=== PATIENT | male | born 1980 | race African-American/Black ===

== ENCOUNTER 2021-05-21 10:28 | Emergency (ER) | payer OTHER, SELFPAY ==
[2021-05-21 10:43] VITALS: BP 120/55; PULSE 91; RESP 16; TEMP 36.2; O2SAT 97; BMI 22.0
--- NOTE | 2021-05-21 12:35 | ED_ITS ---
HPI - Psych General Chief Complaint: Psychiatric Symptoms Stated Complaint: CRISIS/SECTION 12 Time Seen by Provider: 05/21/21 13:20 Source: patient Mode of arrival: ambulatory Limitations: no limitations History of Present Illness HPI Narrative: patient was sent to ED because he was hitting his head on the wall. Patient states when he is frustrated with the situation he bangs his head on the wall as a coping mechanism. Patient denies any suicidal or homicidal ideation. Patient denies any auditory / visual hallucination. Patient states he is compliant with his psych medications and has not missed any therapist appointment. Patient states he was just frustrated with his and just went to his coping mechanism to stay calm. Patient states no physical complaint Related Data Allergies Allergy/AdvReac Type Severity Reaction Status Date / Time No Known Allergies Allergy Verified 05/21/21 13:20 Review of Systems Review of Systems: Yes all other systems are reviewed and are negative Constitutional: Constitutional: Reports as per HPI and Reports no additional constitutional complaints Eyes: Eyes: Reports as per HPI and Reports no additional eye complaints ENT: Reports system reviewed and no additional complaints, except as documented and Reports as per HPI Cardiovascular: Cardiovascular: Reports as per HPI and Reports no additional cardiovascular complaints Respiratory: Respiratory: Reports as per HPI and Reports no additional respiratory complaints Gastrointestinal: Gastrointestinal: Reports as per HPI and Reports no additional gastrointestinal complaints Genitourinary: Genitourinary: Reports no additional male genitourinary complaints and Reports as per HPI Musculoskeletal: Musculoskeletal: Reports no additional musculoskeletal complaints and Reports as per HPI Neurologic: Reports system reviewed and no additional complaints, except as documented and Reports as per HPI Psychiatric: Psychiatric: Reports no additional psychiatric complaints and Reports as per HPI [facility] Social History Social History Advance Directives: No Advance Directives Information Provided: No Physical Exam Vital Signs: Vital Signs: Last Vital Signs Temp 97.2 F 05/21/21 10:43 Pulse 91 05/21/21 10:43 Resp 16 05/21/21 10:43 BP 120/55 L 05/21/21 10:43 Pulse Ox 97 05/21/21 10:43 Body Mass Index 22.0 Const: General: cooperative, healthy appearing, comfortable, no acute distress, well developed, alert and awake Orientation/consciousness: patient oriented x3 HENMT: Head: Yes normal to inspection, Yes No palpable skull fracture present, Yes normocephalic, Yes atraumatic, No abrasion, No Acrocyanosis present, No Henriquez's sign, No contusion, No cranial bruits, No hematoma, No laceration, No occipital foramen tenderness, No palpable skull fracture, No raccoon eyes, No scalp lesion, No scalp tenderness, No Temporal artery tenderness present and No periorbital ecchymosis Ears: hearing grossly normal bilaterally, external ears normal, TM's normal bilaterally and EAC's normal Face and sinus: Yes normal facial exam, Yes sinuses nontender and Yes face symmetric Throat: Yes posterior oropharynx normal, Yes tonsils normal and Yes uvula midline Eyes: General: appearance normal, both eyes and all related structures Neck: Neck: Yes normal visual inspection, Yes full ROM, Yes no lymphadenopathy, Yes no meningeal signs, Yes trachea midline, Yes supple and No tender Chest: Chest palpation & inspection: normal inspection of the chest and normal palpation of entire chest wall Resp: Effort & Inspection: normal respiratory effort and able to speak in complete sentences Auscultation: clear to auscultation bilaterally Cardio: Jugular venous distension: no JVD Heart sounds: S1 normal heart sound present and S2 normal heart sound present GI: Inspection: Yes normal to inspection and No abdominal wall ecchymosis Palpation (GI): Soft to palpation, not firm, nontender, no guarding and not rigid : General: No CVA tenderness and Yes no CVA tenderness Back/Spine/Pelvis: Back: no CVA tenderness, No CVA tenderness and No back tenderness Skin: General skin exam: no rashes or lesions noted and elasticity normal Neuro: General: patient oriented x3, gait normal, no meningeal signs and CN's II-XI intact bilaterally Cranial nerves: Yes CN's II-XII intact bilaterally Extrem: General: Yes normal to inspection and Yes full ROM Psych: Appearance: grossly normal, well kempt and not disheveled Course Course Course Narrative: no indication for labs or BHS evaluation. I believe patient could be seen by care team consulting. Reevaluation(s) Reevaluation #1: patient seen by care team consulted Viridiana who does not believe patient needs inpatient and can be safely discharged. I agree with plan. Patient is not suicidal or homicidal. patient is not manic or psychotic. Time: 14:11 MDM - Psych MDM Narrative Medical decision making narrative: Bipolar. Behavior issues Discharge Plan Discharge Clinical Impression: Bipolar disorder, Behavioral problem Patient Disposition: Home, Self-Care Instructions: Bipolar Disorder (ED) Additional Instructions: return to the ED immediately for any suicidal / homicidal ideation, auditory / visual hallucinations, any physical complaints, or any other concerning symptoms. Please follow-up with PCP Interventions: ED Discharge Assessment Last Done: 05/21/21 15:18 Discharge Date/Time: 05/21/21 15:19 Print Language: Persian
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
== END 2021-05-21 15:19 | disposition home or self-care (01) ==
PROVIDERS: Emergency Provider Emergency Medicine Emergency Medical Services
DX: F31.9 Bipolar disorder, unspecified (principal); Z79.899 Other long term (current) drug therapy
CPT/HCPCS: 99283

== ENCOUNTER 2021-06-25 02:13 | Emergency (ER) | payer OTHER, SELFPAY ==
[2021-06-25 02:22] VITALS: BP 104/77; PULSE 96; RESP 18; O2SAT 97; BMI 24.3
--- NOTE | 2021-06-25 02:48 | ED_ITS ---
HPI - Psych General Chief Complaint: Psychiatric Symptoms <Maria Teresa Olivera MD - Last Filed: 06/25/21 02:55> Stated Complaint: CRISIS <Maria Teresa Olivera MD - Last Filed: 06/25/21 02:55> Time Seen by Provider: 06/25/21 02:48 <MD Chinedu Engle Last Filed: 06/25/21 02:55> Source: patient and EMS <Maria Teresa Olivera MD - Last Filed: 06/25/21 02:55> Mode of arrival: EMS <Maria Teresa Olivera MD - Last Filed: 06/25/21 02:55> Limitations: no limitations <MD Chinedu Engle Last Filed: 06/25/21 02:55> History of Present Illness HPI Narrative: 40-year-old male came in by EMS for psych evaluation. This is a 40-year-old male came in from, patient was irritated by the mother of his child could not control his anger start to Bang his head on the wall, family call PD who filed Section 12 on the patient and brought the patient to the ED. patient in the emergency department is cone, decline SI or HI, declined being auditory or visual hallucination. <Maria Teresa Olivera MD - Last Filed: 06/25/21 02:55> Related Data Home Medications: Home Medications Medication Instructions Recorded Confirmed divalproex 500 mg tablet,delayed 1 tab PO BID 06/25/21 06/25/21 release hydroxyzine pamoate 50 mg capsule 1 cap PO DAILY PRN 06/25/21 06/25/21 lurasidone 60 mg tablet (Latuda) 1 tab PO BEDTIME 06/25/21 06/25/21 temazepam 30 mg capsule 1 cap PO BEDTIME PRN 06/25/21 06/25/21 <Maria Teresa Olivera MD - Last Filed: 06/25/21 02:55> Allergies/Adverse Reactions: Allergies Allergy/AdvReac Type Severity Reaction Status Date / Time No Known Allergies Allergy Verified 05/21/21 13:20 <MD Chinedu Engle Last Filed: 06/25/21 02:55> Review of Systems Review of Systems: All other systems are reviewed and are negative Constitutional: Reports as per HPI and Reports no additional constitutional complaints Eyes: Reports as per HPI and Reports no additional eye complaints Reports system reviewed and no additional complaints, except as documented Cardiovascular: Reports as per HPI and Reports no additional cardiovascular complaints Respiratory: Reports as per HPI and Reports no additional respiratory complaints Gastrointestinal: Reports as per HPI and Reports no additional gastrointestinal complaints Genitourinary: Reports no additional female genitourinary complaints Musculoskeletal: Reports no additional musculoskeletal complaints Skin/Breast: Reports system reviewed and no additional complaints, except as docu Psychiatric: Reports no additional psychiatric complaints Endocrine: Reports no additional endocrine complaints Hematologic/Lymphatic: Reports no additional hematologic/lymphatic complaints Allergic/Immunologic: Reports no additional allergic/immunologic complaints Reports system reviewed and no additional complaints, except as documented and Reports Abnormal speech present <Maria Teresa Olivera MD - Last Filed: 06/25/21 02:55> [facility] Social History Social History: Social History Advance Directives: No Advance Directives Information Provided: Yes <Maria Teresa Olivera MD - Last Filed: 06/25/21 02:55> Physical Exam Vital Signs: Vital Signs: Last Vital Signs Temp 98.1 F 06/25/21 02:49 Pulse 96 06/25/21 02:22 Resp 18 06/25/21 02:22 BP 104/77 06/25/21 02:22 Pulse Ox 97 06/25/21 02:22 Body Mass Index 24.3 Vital signs have been reviewed as appeared to be correct. Blood pressure normal. Heart rate normal. Respiration rate normal. Temperature normal. Oxygen saturation normal. <Maria Teresa Olivera MD - Last Filed: 06/25/21 02:55> Vital Signs: Last Vital Signs Temp 98.1 F 06/25/21 02:49 Pulse 96 06/25/21 02:22 Resp 18 06/25/21 02:22 BP 104/77 06/25/21 02:22 Pulse Ox 97 06/25/21 02:22 Body Mass Index 24.3 <CONNIE Rosas - Last Filed: 06/25/21 09:27> Appearance: Alert. Oriented X3. No acute distress. Head: Normal external exam. Normocephalic. Atraumatic. No Henriquez signs noted. No raccoon eyes noted Eyes: PERRLA. EOMI. Conjunctiva and sclera normal. Eyelids normal. ENT: TM's Normal. Pharynx normal. Uvula midline. Moist mucous membranes. No trismus noted. No drooling noted. No muffled voice noted. Neck: Normal inspection. Neck supple. FROM. No adenopathy. Thyroid Normal. No meningeal signs. No neck mass noted. CVS: Normal heart rate and rhythm. Heart sound normal. No murmurs noted. Pulses normal throughout. Respiratory: No respiratory distress. Painless inspiration. Breath sounds normal. No wheezes/rales/rhonchi noted. Chest nontender. No accessory muscle usage noted or decreased air movement noted. Abdomen: Soft and nontender. Bowel sounds normal in all 4 quadrants. No distention noted. No organomegaly noted. No visible injury noted. Back: No CVA tenderness. Full range of motion noted. Skin: Skin warm and dry. Normal skin color. Normal skin turgor. No rash es/lesions/lacerations noted. Extremities: No lower extremity edema. Extremities exhibit normal range of motion. Extremities nontender. Neuro: Oriented X 3. No motor deficit. No sensory deficit. Reflexes normal. Patient Appearance: Appropriate Patient Orientation: Person, Place, Time and Situation Level of Consciousness: Awake, Appropriate and Alert Patient Behavior: Talkative, Cooperative. Mood Description: Depressed. Affect Description: Flat. Patient Cognition Impaired: No Ability to Follow Directions: Good Speech Pattern: Spontaneous Speech Memory Description: Intact Hallucinations: Not present. Delusions: Not Present Thought Process: Logical. Thought Content: Unremarkable Depressive Symptoms: Increased anxiety. Judgement: Fair <Maria Teresa Olivera MD - Last Filed: 06/25/21 02:55> Course Course Course Narrative: Physician observation started at 3:00 am. Patient placed in physician observation because the patient needed more time for evaluation by N, patient's vital sign were stable, patient is alert and oriented , neuro exam unchanged, unremarkable rest of physical exam. <Maria Teresa Olivera MD - Last Filed: 06/25/21 02:55> MDM - Psych Lab Data Result diagrams: : 06/25/21 08:54 <Maria Teresa Olivera MD - Last Filed: 06/25/21 02:55> Labs: Lab Results 06/25/21 06/25/21 06/25/21 Range/Units 02:56 06:19 06:19 WBC (4.8-10.8) X10*3/uL RBC (4.60-5.80) X10*6/uL Hgb (14.0-18.0) g/dl Hct (42-52) % MCV (80-98) fL MCH (27.0-33.0) pg MCHC (31.0-36.0) g/dl RDW (11.0-16.0) % Plt Count (160-400) X10*3/uL MPV (9.4-12.4) fL Immature Gran % (Auto) (0.0-0.4) % Neut % (Auto) (45-73) % Lymph % (Auto) (20-40) % [place] % (Auto) (2-11) % Eos % (Auto) (0-4) % Baso % (Auto) (0-2) % Lymph # (Auto) (1.2-4.9) X10*3/uL [place] # (Auto) (0.1-1.2) X10*3/uL Eos # (Auto) (0.0-0.4) X10*3/uL Baso # (Auto) (0.0-0.2) X10*3/uL Abs Immat Gran (auto) (0.00-0.03) X10*3/uL Absolute Neuts (auto) (2.0-8.3) X10*3/uL Absolute Nucleated RBC (0.0-0.012) X10*3/uL Nucleated RBC % (auto) (0.0-0.2) /100WBC Magnesium Urine Color DARK YELLOW Urine Appearance HAZY Urine pH 6.0 (5.0-8.0) Ur Specific [place] >= 1.030 H (1.005-1.025) Urine Protein 1+ H (NEG-TRACE) MG/DL Urine Glucose (UA) NEG (NEG) MG/DL Urine Ketones 15 (NEG) MG/DL Urine Blood NEG (NEG) Urine Nitrite NEG (NEG) Ur Leukocyte Esterase TRACE H (NEG) Urine RBC 0-2 (0) /HPF Urine WBC 30-49 H (0-4) /HPF Ur Squamous Epith Cells 1+ /LPF Urine Bacteria 1+ /LPF Urine Mucus 3+ /LPF Urine Opiates Screen Not Detected (Not Detect) Ur Barbiturates Screen Not Detected (Not Detect) Ur Phencyclidine Scrn Not Detected (Not Detect) Ur Amphetamines Screen Not Detected (Not Detect) U Benzodiazepines Scrn POSITIVE H (Not Detect) Urine Cocaine Screen Not Detected (Not Detect) U Marijuana (THC) Screen POSITIVE H (Not Detect) COVID-19 (CECI) Negative (Negative) COVID-19 Clin Com See Note 06/25/21 06/25/21 Range/Units 08:54 08:57 WBC 9.0 (4.8-10.8) X10*3/uL RBC 4.40 L (4.60-5.80) X10*6/uL Hgb 14.7 (14.0-18.0) g/dl Hct 42.0 (42-52) % MCV 95.5 (80-98) fL MCH 33.4 H (27.0-33.0) pg MCHC 35.0 (31.0-36.0) g/dl RDW 13.5 (11.0-16.0) % Plt Count 326 (160-400) X10*3/uL MPV 11.0 (9.4-12.4) fL Immature Gran % (Auto) 0.3 (0.0-0.4) % Neut % (Auto) 70.0 (45-73) % Lymph % (Auto) 22.2 (20-40) % [place] % (Auto) 7.0 (2-11) % Eos % (Auto) 0.2 (0-4) % Baso % (Auto) 0.3 (0-2) % Lymph # (Auto) 2.0 (1.2-4.9) X10*3/uL [place] # (Auto) 0.6 (0.1-1.2) X10*3/uL Eos # (Auto) 0.0 (0.0-0.4) X10*3/uL Baso # (Auto) 0.0 (0.0-0.2) X10*3/uL Abs Immat Gran (auto) 0.03 (0.00-0.03) X10*3/uL Absolute Neuts (auto) 6.3 (2.0-8.3) X10*3/uL Absolute Nucleated RBC 0.000 (0.0-0.012) X10*3/uL Nucleated RBC % (auto) 0.0 (0.0-0.2) /100WBC Magnesium Cancelled Urine Color Urine Appearance Urine pH (5.0-8.0) Ur Specific [place] (1.005-1.025) Urine Protein (NEG-TRACE) MG/DL Urine Glucose (UA) (NEG) MG/DL Urine Ketones (NEG) MG/DL Urine Blood (NEG) Urine Nitrite (NEG) Ur Leukocyte Esterase (NEG) Urine RBC (0) /HPF Urine WBC (0-4) /HPF Ur Squamous Epith Cells /LPF Urine Bacteria /LPF Urine Mucus /LPF Urine Opiates Screen (Not Detect) Ur Barbiturates Screen (Not Detect) Ur Phencyclidine Scrn (Not Detect) Ur Amphetamines Screen (Not Detect) U Benzodiazepines Scrn (Not Detect) Urine Cocaine Screen (Not Detect) U Marijuana (THC) Screen (Not Detect) COVID-19 (CECI) (Negative) COVID-19 Clin Com <Maria Teresa Olivera MD - Last Filed: 06/25/21 02:55> Lab Results 06/25/21 06/25/21 06/25/21 Range/Units 02:56 06:19 06:19 WBC (4.8-10.8) X10*3/uL RBC (4.60-5.80) X10*6/uL Hgb (14.0-18.0) g/dl Hct (42-52) % MCV (80-98) fL MCH (27.0-33.0) pg MCHC (31.0-36.0) g/dl RDW (11.0-16.0) % Plt Count (160-400) X10*3/uL MPV (9.4-12.4) fL Immature Gran % (Auto) (0.0-0.4) % Neut % (Auto) (45-73) % Lymph % (Auto) (20-40) % [place] % (Auto) (2-11) % Eos % (Auto) (0-4) % Baso % (Auto) (0-2) % Lymph # (Auto) (1.2-4.9) X10*3/uL [place] # (Auto) (0.1-1.2) X10*3/uL Eos # (Auto) (0.0-0.4) X10*3/uL Baso # (Auto) (0.0-0.2) X10*3/uL Abs Immat Gran (auto) (0.00-0.03) X10*3/uL Absolute Neuts (auto) (2.0-8.3) X10*3/uL Absolute Nucleated RBC (0.0-0.012) X10*3/uL Nucleated RBC % (auto) (0.0-0.2) /100WBC Magnesium Urine Color DARK YELLOW Urine Appearance HAZY Urine pH 6.0 (5.0-8.0) Ur Specific [place] >= 1.030 H (1.005-1.025) Urine Protein 1+ H (NEG-TRACE) MG/DL Urine Glucose (UA) NEG (NEG) MG/DL Urine Ketones 15 (NEG) MG/DL Urine Blood NEG (NEG) Urine Nitrite NEG (NEG) Ur Leukocyte Esterase TRACE H (NEG) Urine RBC 0-2 (0) /HPF Urine WBC 30-49 H (0-4) /HPF Ur Squamous Epith Cells 1+ /LPF Urine Bacteria 1+ /LPF Urine Mucus 3+ /LPF Urine Opiates Screen Not Detected (Not Detect) Ur Barbiturates Screen Not Detected (Not Detect) Ur Phencyclidine Scrn Not Detected (Not Detect) Ur Amphetamines Screen Not Detected (Not Detect) U Benzodiazepines Scrn POSITIVE H (Not Detect) Urine Cocaine Screen Not Detected (Not Detect) U Marijuana (THC) Screen POSITIVE H (Not Detect) COVID-19 (CECI) Negative (Negative) COVID-19 Clin Com See Note 06/25/21 06/25/21 Range/Units 08:54 08:57 WBC 9.0 (4.8-10.8) X10*3/uL RBC 4.40 L (4.60-5.80) X10*6/uL Hgb 14.7 (14.0-18.0) g/dl Hct 42.0 (42-52) % MCV 95.5 (80-98) fL MCH 33.4 H (27.0-33.0) pg MCHC 35.0 (31.0-36.0) g/dl RDW 13.5 (11.0-16.0) % Plt Count 326 (160-400) X10*3/uL MPV 11.0 (9.4-12.4) fL Immature Gran % (Auto) 0.3 (0.0-0.4) % Neut % (Auto) 70.0 (45-73) % Lymph % (Auto) 22.2 (20-40) % [place] % (Auto) 7.0 (2-11) % Eos % (Auto) 0.2 (0-4) % Baso % (Auto) 0.3 (0-2) % Lymph # (Auto) 2.0 (1.2-4.9) X10*3/uL [place] # (Auto) 0.6 (0.1-1.2) X10*3/uL Eos # (Auto) 0.0 (0.0-0.4) X10*3/uL Baso # (Auto) 0.0 (0.0-0.2) X10*3/uL Abs Immat Gran (auto) 0.03 (0.00-0.03) X10*3/uL Absolute Neuts (auto) 6.3 (2.0-8.3) X10*3/uL Absolute Nucleated RBC 0.000 (0.0-0.012) X10*3/uL Nucleated RBC % (auto) 0.0 (0.0-0.2) /100WBC Magnesium Cancelled Urine Color Urine Appearance Urine pH (5.0-8.0) Ur Specific [place] (1.005-1.025) Urine Protein (NEG-TRACE) MG/DL Urine Glucose (UA) (NEG) MG/DL Urine Ketones (NEG) MG/DL Urine Blood (NEG) Urine Nitrite (NEG) Ur Leukocyte Esterase (NEG) Urine RBC (0) /HPF Urine WBC (0-4) /HPF Ur Squamous Epith Cells /LPF Urine Bacteria /LPF Urine Mucus /LPF Urine Opiates Screen (Not Detect) Ur Barbiturates Screen (Not Detect) Ur Phencyclidine Scrn (Not Detect) Ur Amphetamines Screen (Not Detect) U Benzodiazepines Scrn (Not Detect) Urine Cocaine Screen (Not Detect) U Marijuana (THC) Screen (Not Detect) COVID-19 (CECI) (Negative) COVID-19 Clin Com <CONNIE Rosas Last Filed: 06/25/21 09:27> Discharge Plan Discharge Clinical Impression: Schizoaffective disorder <Maria Teresa Olivera MD - Last Filed: 06/25/21 02:55> Patient Disposition: Home, Self-Care <Maria Teresa Olivera MD - Last Filed: 06/25/21 02:55> Instructions: Schizoaffective Disorder (ED) <Maria Teresa Olivera MD - Last Filed: 06/25/21 02:55> Prescriptions: No Action hydroxyzine pamoate 50 mg capsule 1 cap PO DAILY PRN (Reason: Anxiety) RF: 0 divalproex 500 mg tablet,delayed release (DR/EC) 1 tab PO BID RF: 0 temazepam 30 mg capsule 1 cap PO BEDTIME PRN (Reason: Anxiety) RF: 0 Latuda 60 mg tablet 1 tab PO BEDTIME RF: 0 <Maria Teresa Olivera MD - Last Filed: 06/25/21 02:55> Referrals: [place],[facility] [Primary Care Provider] - 2 days <Maria Teresa Olivera MD - Last Filed: 06/25/21 02:55> Print Language: Surinamese <Maria Teresa Olivera MD - Last Filed: 06/25/21 02:55> ED Observation ED Observation Progress Notes 1: Progress Note: 06/25/21 - 09:27 CONNIE Rosas- patient was evaluated by the care team and patient denies any SI/HI/auditory visual sedation thoughts of self-injury therefore he was cleared his is agreeable to take him back home as he has follow-up appointments with therapist/psychiatrist and is on medications therefore will DC home with instructions return if any new or worsening symptoms to follow up with primary care provider. Patient understands agrees with this plan. <CONNIE Rosas - Last Filed: 06/25/21 09:27>
[2021-06-25 02:49] VITALS: TEMP 36.7
[2021-06-25 03:55] LABS: COVID-19 Test Negative (Negative)
--- NOTE | 2021-06-25 05:42 | PC.NURSE ---
Patient has been sleeping since 0300, no distress observed/reported, patient refused labs, awaiting BHN evaluation in the morning, OK rec completed/pending JAN update, will continue to monitor.
[2021-06-25 06:28] LABS: Glucose Urine UA NEG (NEG); Leukocyte Esterase Urine TRACE (NEG); Nitrite Urine NEG (NEG); Specific Gravity - Urine >= 1.030 (1.005-1.025); UACC Culture Trigger YES; Urine Blood NEG (NEG); Urine Ketones 15 MG/DL (NEG); Urine Protein 1+ MG/DL (NEG-TRACE)
[2021-06-25 06:29] LABS: Appearance Urine HAZY; Color Urine DARK YELLOW
[2021-06-25 06:34] LABS: Bacteria Urine 1+ /LPF; Mucus Urine 3+ /LPF; RBC Urine 0-2 /HPF (0); Squamous Epithelial Cell Urine 1+ /LPF; UACC CULT NO; WBC Urine 30-49 /HPF (0-4)
[2021-06-25 06:50] LABS: Amphetamine Screen Urine Not Detected (Not Detect); Barbiturates, Urine Not Detected (Not Detect); Benzodiazepines Screen Urine POSITIVE (Not Detect); Cannabinoid Screen Urine POSITIVE (Not Detect); Cocaine Screen Urine Not Detected (Not Detect); Opiate Screen Urine Not Detected (Not Detect); Phencyclidine Screen Urine Not Detected (Not Detect)
--- NOTE | 2021-06-25 07:02 | PC.NURSE ---
patient appears to be awake in milieu at present, patient sounds mildly irritiable on phone
--- NOTE | 2021-06-25 08:48 | ECG_ITS ---
Test Reason : MEDICAL CLEARANCE Blood Pressure : / mmHG Vent. Rate : 068 BPM Atrial Rate : 068 BPM P-R Int : 118 ms QRS Dur : 084 ms QT Int : 412 ms P-R-T Axes : 072 058 045 degrees QTc Int : 438 ms Normal sinus rhythm Normal ECG No previous ECGs available Referred By: Oliva Sanchez Electronically Signed By:Deejay Pérez
[2021-06-25] MEDS: Divalproex Sodium 500 MG TABLET.DR PO (08:50)
[2021-06-25 09:10] LABS: MANUAL DIFF FLAG NO
[2021-06-25 09:14] LABS: Basophils Percent Auto 0.3 % (0-2); Eosinophils Percent Auto 0.2 % (0-4); Hemoglobin 14.7 g/dl (14.0-18.0); Imm Gran Abs Auto 0.03 X10*3/uL (0.00-0.03); Imm Gran Pct Auto 0.3 % (0.0-0.4); Lymphocytes Percent Auto 22.2 % (20-40); Mean Corpuscular Hemoglobin 33.4 pg (27.0-33.0); Mean Corpuscular Volume 95.5 fL (80-98); Monocytes Absolute Auto 0.6 X10*3/uL (0.1-1.2); Neutrophils Absolute Auto 6.3 X10*3/uL (2.0-8.3); Platelet Count 326 X10*3/uL (160-400); Red Cell Distribution Width 13.5 % (11.0-16.0)
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
[2021-06-25 10:21] LABS: Ethanol < 10 mg/dL
[2021-06-25 10:23] LABS: Alanine Aminotransferase 11 U/L (0-40); Albumin Level 4.5 g/dL (3.5-5.0); Alkaline Phosphatase 74 U/L (39-117); Anion Gap 14 (12-20); Aspartate Amino Transferase 20 U/L (5-37); Bilirubin Direct 0.2 mg/dL (0.0-0.5); Bilirubin Total 0.3 mg/dL (0.0-1.0); Blood Urea Nitrogen 12 mg/dL (9-16); Calcium 9.3 mg/dL (8.4-10.2); Carbon Dioxide 23 mmol/L (22-29); Chloride 108 mmol/L (96-108); Creatinine Clr Calc Pharmacy 86.5; Estimated Glomerular Filt Rate > 60; Glucose Random 101 mg/dL (60-115); Potassium 4.5 mmol/L (3.3-5.1); Sodium 140 mmol/L (135-145); Total Protein 7.4 g/dL (6.5-8.0)
[2021-06-25 11:02] LABS: Valproate 83.3 mcg/mL (50.0-100.0)
== END 2021-06-25 09:40 | disposition home or self-care (01) ==
PROVIDERS: Emergency Medicine; Physician Assistant Medical; Emergency Provider Emergency Medicine
DX: F25.9 Schizoaffective disorder, unspecified (principal); F43.9 Reaction to severe stress, unspecified; Z79.899 Other long term (current) drug therapy; Z20.822 Contact with and (suspected) exposure to COVID-19
CPT/HCPCS: 36415; 80048; 80076; 80164; 80307; 81001; 82077; 83735; 85025; 87086; 87635; 93005; 99283

== ENCOUNTER 2021-07-03 06:49 | Emergency (ER) | payer OTHER, SELFPAY ==
--- NOTE | 2021-07-03 06:55 | ED.ANXIETY ---
HPI - Anxiety General Stated Complaint: crisis Time Seen by Provider: 07/03/21 06:54 Source: patient and EMS Mode of arrival: EMS Limitations: no limitations History of Present Illness HPI narrative: angry outburst at home became very upset and was hitting his head on the wall no injury. MD complaint: anxiety Onset (ago): minute(s) Symptoms: other (patient got up very upset) Severity: moderate Quality: improving (resolved) Place: home History of similar episodes: Yes Provoking factors: emotional stress Relieving factors: nothing Exacerbating factors: nothing Associated symptoms: denies other symptoms Related Data Home Medications Medication Instructions Recorded Confirmed divalproex 500 mg tablet,delayed 1 tab PO BID 06/25/21 06/25/21 release hydroxyzine pamoate 50 mg capsule 1 cap PO DAILY PRN 06/25/21 06/25/21 lurasidone 60 mg tablet (Latuda) 1 tab PO BEDTIME 06/25/21 06/25/21 temazepam 30 mg capsule 1 cap PO BEDTIME PRN 06/25/21 06/25/21 Allergies Allergy/AdvReac Type Severity Reaction Status Date / Time No Known Allergies Allergy Verified 05/21/21 13:20 Review of Systems Review of Systems: Constitutional : No Weight loss, No Fever, No Chills, No Fatigue, No Malaise ENT/Mouth : No sore throat, No Rhinorrhea Eyes: No Eye Pain, No Swelling, No Redness Cardiovascular : No Chest Pain, No SOB, No Dyspnea on Exertion, No Orthopnea, No Edema, No Palpitations Respiratory : No Cough, No Sputum, No Wheezing Gastrointestinal : No Nausea, No Vomiting, No Diarrhea, No Constipation, No abdominal Pain, No Hematochezia, No Melena Genitourinary : No Dysuria, No Urinary Frequency, No Hematuria, Musculoskeletal : No joint pain, No Myalgias, No Joint Swelling Skin : No Skin Lesions, No rash Neuro : No Weakness, No Numbness, No Dizziness, No Headache Psych : pos Anxiety/Panic, No Depression, no SI/HI Heme/Lymph: No Bruising, No Bleeding,No Lymphadenopathy Endocrine : No Polyuria, No Polydipsia All other systems reviewed and are negative Physical Exam Vital Signs: Appearance: Alert. Oriented X3. No acute distress. Eyes: Pupils equal, round and reactive to light. ENT: Pharynx normal. Neck: Normal inspection. Neck supple. CVS: Normal heart rate and rhythm. Pulses normal. Respiratory: No respiratory distress. Breath sounds normal. Abdomen: Soft and nontender. Skin: Skin warm and dry. Normal skin color. Normal skin turgor. Extremities: No lower extremity edema. No calf ttp Neuro: Oriented X 3. No motor deficit. No sensory deficit. CN2-12intact Psych: no SI/HI Course Course Course Narrative: discussion with : had upset outburst due to stressful events, no SI/HI, compliant with medications, she feels safe taking him home, she just doesn't want him to get so upset that he hits his head or anything like that. MDM - Anxiety MDM Narrative Medical decision making narrative: 40 yo male with schizophrenia here compliant with meds - he has no SI/HI he is calm and cooperative. He does not feel like he is in crisis. He was stressed at home. I will call his to discuss with her what happened and her concerns. The section 12 is signed but there is no description of what happened and EMS denies any SI or HI statements. I do not feel like I can keep him on a section 12 at this time. Discharge Plan Discharge Clinical Impression: Anxiety Patient Disposition: Home, Self-Care Instructions: Anxiety (ED) Additional Instructions: return to ED for any worsening symptoms or concerns please follow up with your mental health providers Prescriptions: No Action hydroxyzine pamoate 50 mg capsule 1 cap PO DAILY PRN (Reason: Anxiety) RF: 0 divalproex 500 mg tablet,delayed release (DR/EC) 1 tab PO BID RF: 0 temazepam 30 mg capsule 1 cap PO BEDTIME PRN (Reason: Anxiety) RF: 0 Latuda 60 mg tablet 1 tab PO BEDTIME RF: 0
[2021-07-03 07:04] VITALS: BP 120/70; PULSE 100; RESP 18; TEMP 36.1; O2SAT 100; BMI 18.3
== END 2021-07-03 07:10 | disposition home or self-care (01) ==
LOC: HO.ED 07:06
PROVIDERS: Emergency Provider Emergency Medicine
DX: F41.1 Generalized anxiety disorder (principal); F43.0 Acute stress reaction; Z79.899 Other long term (current) drug therapy
CPT/HCPCS: 99283

== ENCOUNTER 2021-09-04 20:36 | Emergency (ER) | payer OTHER, SELFPAY ==
[2021-09-04 20:49] VITALS: BP 118/73; PULSE 97; RESP 18; TEMP 37.1; O2SAT 100; BMI 29.2
--- NOTE | 2021-09-04 20:51 | ED_ITS ---
HPI - Psych General Chief Complaint: Psychiatric Symptoms Stated Complaint: sec 12 Time Seen by Provider: 09/04/21 20:51 Source: patient and EMS Mode of arrival: EMS Limitations: no limitations History of Present Illness HPI Narrative: was calm with police, [facility] saw him but he feels they didn't really talk to him and just signed a section 12 MD complaint: anxiety and other (agitated and upset after fight) Onset (ago): hour(s) Duration: resolved prior to arrival History of same: Yes Relieving factors: other (time and talking with ) Exacerbating factors: other (stress) Context: other (hx of outbursts in past) Associated psychiatric symptoms: other (anxiety) Associated symptoms: denies other symptoms Treatments prior to arrival: placed on mental health hold Related Data Home Medications Medication Instructions Recorded Confirmed divalproex 500 mg tablet,delayed 1 tab PO BID 06/25/21 09/04/21 release hydroxyzine pamoate 50 mg capsule 1 cap PO BEDTIME PRN 06/25/21 09/04/21 lurasidone 60 mg tablet (Latuda) 1 tab PO BEDTIME 06/25/21 09/04/21 temazepam 30 mg capsule 1 cap PO BEDTIME PRN 06/25/21 09/04/21 Allergies Allergy/AdvReac Type Severity Reaction Status Date / Time No Known Allergies Allergy Verified 05/21/21 13:20 Review of Systems Review of Systems: Constitutional : No Fever, No Chills ENT/Mouth : No Ear Pain, No Nasal Congestion, No sore throat Eyes: No Eye Pain, No Swelling, No Redness Cardiovascular : No Chest Pain, No SOB Respiratory : No Cough, No Sputum, No Dyspnea Gastrointestinal : No Nausea, No Vomiting, No Diarrhea, No Hematochezia, No M nubia Genitourinary : No Dysuria, No Urinary Frequency, No Hematuria Musculoskeletal : No Myalgias Skin : No Skin Lesions, No rash Neuro : No Weakness, No Numbness, No Paresthesias, No Dizziness, No Headache Psych : positive Anxiety, no Depression, no SI/HI Heme/Lymph: No Lymphadenopathy Endocrine : No Polyuria, No Polydipsia All other systems reviewed and are negative [facility] Past Medical History Attestation statement: The following information was validated with the patient. Medical History Schizophrenia Social History Social History (Updated 09/04/21 @ 21:13 by Maggy Lujna DO) Patient Tobacco Use Status: Never used Tobacco Use of substances other than those prescribed or required for medical reasons: No Advance Directives: No Advance Directives Information Provided: Yes Physical Exam Vital Signs: Vital Signs: Last Vital Signs Temp 98.8 F 09/04/21 20:49 Pulse 97 09/04/21 20:49 Resp 18 09/04/21 20:49 BP 118/73 09/04/21 20:49 Pulse Ox 100 09/04/21 20:49 Body Mass Index 29.2 Appearance: Alert. Oriented X3. No acute distress. Eyes: Pupils equal, round and reactive to light. ENT: Pharynx normal. Neck: Normal inspection. Neck supple. CVS: Normal heart rate and rhythm. Pulses normal. Respiratory: No respiratory distress. Breath sounds normal. Abdomen: Soft and nontender. Skin: Skin warm and dry. Normal skin color. Normal skin turgor. Extremities: No lower extremity edema. No calf ttp Neuro: Oriented X 3. No motor deficit. No sensory deficit. CN2-12 intact Psych: no SI/HI, calm and cooperative Course Course Course Narrative: no SI/HI per patient and , upset with issues with kids feels safe for him to go home stable for DC, he does not need inpatient care, N was contacted as a way to talk to someone MDM - Psych MDM Narrative Medical decision making narrative: 40 yo male with schizophrenia here on section 12 for being disorganized but he is calm and cooperative, coherent, no signs of responding to internal stimuli - at this time will discuss with because his section 12 does not seem appropriate. Discharge Plan Discharge Clinical Impression: Acute anxiety Patient Disposition: Home, Self-Care Instructions: Anxiety (ED) Additional Instructions: return to ED for any worsening symptoms or concerns Prescriptions: No Action hydroxyzine pamoate 50 mg capsule 1 cap PO BEDTIME PRN (Reason: Anxiety) RF: 0 divalproex 500 mg tablet,delayed release (DR/EC) 1 tab PO BID RF: 0 temazepam 30 mg capsule 1 cap PO BEDTIME PRN (Reason: Sleep) RF: 0 Latuda 60 mg tablet 1 tab PO BEDTIME RF: 0
--- NOTE | 2021-09-04 21:16 | PC.NURSE ---
spoke with pt with the pt ok. Chely [phone]. wifes states that the pt was manic in the morning about the kids keeping their rooms clean. wanted the kids to clean them when they got home from school and the pt was not ok with this. talked with her about the kids, self worth, thoughts all over, denies s1 or h1 how ever pt stated to that he wakes up every morning to not wanting to harm himself thoughts in his head. and pt both state no to s1 or h1. pt had his diner layed down and aske to talk with bhn, police worked with the pt and worked him down from his manic state then n came and sec 12 the pt.
== END 2021-09-04 21:47 | disposition home or self-care (01) ==
PROVIDERS: Emergency Provider Emergency Medicine; PCP Internal Medicine
DX: F33.1 Major depressive disorder, recurrent, moderate (principal); F41.1 Generalized anxiety disorder; F25.9 Schizoaffective disorder, unspecified; F43.0 Acute stress reaction; Z79.899 Other long term (current) drug therapy
CPT/HCPCS: 99283; 99284

== ENCOUNTER 2021-12-02 07:37 | Emergency (ER) | payer OTHER, SELFPAY ==
[2021-12-02 07:51] VITALS: BP 115/82; PULSE 86; RESP 18; TEMP 36.6; O2SAT 97; BMI 26.6
[2021-12-02 09:53] LABS: COVID-19 Test Negative (Negative); IDNOW Serial# 55D5AD1C
--- NOTE | 2021-12-02 11:38 | PC.NURSE ---
bhn with patient at this time
--- NOTE | 2021-12-02 11:45 | ED_ITS ---
HPI - General Adult General Chief complaint: General Medical Stated complaint: CRISIS,SI,DEPRESSED Time Seen by Provider: 12/02/21 08:11 Source: patient and EMS Mode of arrival: EMS History of Present Illness HPI narrative: 41-year-old male with a past medical history of schizophrenia BIBA for reported manic episode since last night. Patient reports he felt unsafe at home and stated he needed to get away from the house. 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 Admits compliance with home medications. Denies SI/HI, EtOH or illicit drug use. Denies CP/SOB, abdominal pain, nausea/vomiting, cough, fever Onset (ago): hour(s) Related Data Home Medications Medication Instructions Recorded Confirmed divalproex 500 mg tablet,delayed 1 tab PO BID 06/25/21 09/04/21 release hydroxyzine pamoate 50 mg capsule 1 cap PO BEDTIME PRN 06/25/21 09/04/21 lurasidone 60 mg tablet (Latuda) 1 tab PO BEDTIME 06/25/21 09/04/21 temazepam 30 mg capsule 1 cap PO BEDTIME PRN 06/25/21 09/04/21 Allergies Allergy/AdvReac Type Severity Reaction Status Date / Time No Known Allergies Allergy Verified 05/21/21 13:20 Review of Systems Review of Systems: Constitutional: No Fever, No Chills, No Fatigue, No Malaise ENT/Mouth: No Ear Pain, No Nasal Congestion, No sore throat, No Rhinorrhea Eyes: No Eye Pain, No Swelling, No Redness Cardiovascular: No Chest Pain, No SOB, No Dyspnea on Exertion Respiratory: No Cough, No Sputum, No Dyspnea Gastrointestinal: No Nausea, No Vomiting, No Diarrhea, No Constipation, No Abdominal paina Genitourinary: No Dysuria, No Urgency, No Flank Pain Musculoskeletal: No joint pain, No Myalgias, No Joint Swelling Skin: No Skin Lesions, No rash Neuro: No Weakness, No Headache Psych: + Anxiety/Panic, No Depression, No SI/HI, +AH, No VH, No Social Issues Yes all other systems are reviewed and are negative [facility] Past Medical History Attestation statement: The following information was validated with the patient. Medical History Schizophrenia Social History Social History Patient Tobacco Use Status: Never used Tobacco Use of substances other than those prescribed or required for medical reasons: Yes Substance Use Type: Marijuana Advance Directives: No Advance Directives Information Provided: Yes Physical Exam Vital Signs: Vital Signs: Last Vital Signs Temp 98.2 F 12/02/21 12:09 Pulse 75 12/02/21 12:09 Resp 16 12/02/21 12:09 BP 131/72 12/02/21 12:09 Pulse Ox 98 12/02/21 12:09 BMI result Body Mass Index 26.6 Const: General: cooperative, healthy appearing, comfortable and no acute distress Orientation/consciousness: patient oriented x3 Limitations: no limitations HENMT: Head: Yes normal to inspection Ears: hearing grossly normal bilaterally General nose exam: Normal external nose present Face and sinus: Yes normal facial exam Eyes: General: appearance normal, both eyes and all related structures Pupils: Equal, round and reactive pupils present EOM: EOMs intact bilaterally Neck: Neck: Yes normal visual inspection and Yes no meningeal signs Resp: Effort & Inspection: normal respiratory effort Auscultation: clear to auscultation bilaterally, no rales, no rhonchi and no wheezes Cardio: Rate: regular rate Heart sounds: S1 normal heart sound present and S2 normal heart sound present GI: Inspection: Yes normal to inspection Palpation (GI): Soft to palpation, nontender, no guarding and not rigid Skin: Rashes: no rashes Wounds: no wounds Neuro: General: patient oriented x3, no meningeal signs and CN's II-XI intact bilaterally Cranial nerves: Yes Equal, round and reactive pupils present Gait exam (Neuro): Normal gait present Extrem: General: Yes normal to inspection Psych: Appearance: grossly normal Affect: normal affect Attitude: cooperative Thought content: suicidality, no homicidality, Hallucination(s) present and Depressive thoughts present Course Course Course Narrative: -COVID-19 negative -1222--patient was evaluated by [facility] and cleared for discharge home Medical Decision Making MDM Narrative Medical decision making narrative: 41-year-old male with a past medical history of schizophrenia BIBA for reported manic episode since last night. Patient reports he felt unsafe at home and stated he needed to get away from the house. Reports auditory hallucinations. On exam vital signs stable, NAD/nontoxic appearing, physical exam as above. Plan: REED, UA, [facility] consult Medical Records Medical records reviewed: Yes I reviewed the patient's medical records. Lab Data Lab results reviewed: Yes I reviewed the patient's lab results. Labs: Lab Results 12/02/21 Range/Units 09:28 COVID-19 ([facility]) Negative (Negative) COVID-19 Clin Com See Note Discharge Plan Discharge Clinical Impression: Chronic schizophrenia Patient Disposition: Home, Self-Care Instructions: Hallucinations (ED), Schizophrenia (ED) Additional Instructions: You were evaluated by behavior health marielena and given their information for further resources outpatient/if symptoms recur If you have any thoughts of hurting yourself or hurting others please return to the emergency department Please avoid alcohol and drug use Prescriptions: No Action hydroxyzine pamoate 50 mg capsule 1 cap PO BEDTIME PRN (Reason: Anxiety) RF: 0 divalproex 500 mg tablet,delayed release (DR/EC) 1 tab PO BID RF: 0 temazepam 30 mg capsule 1 cap PO BEDTIME PRN (Reason: Sleep) RF: 0 Latuda 60 mg tablet 1 tab PO BEDTIME RF: 0 Referrals: Network,[facility] [Physician] - 2 days
[2021-12-02 12:09] VITALS: BP 131/72; PULSE 75; RESP 16; TEMP 36.8; O2SAT 98
== END 2021-12-02 12:29 | disposition home or self-care (01) ==
PROVIDERS: Physician Assistant; Emergency Provider Emergency Medicine
DX: F20.9 Schizophrenia, unspecified (principal); Z20.822 Contact with and (suspected) exposure to COVID-19; Z79.899 Other long term (current) drug therapy; F12.90 Cannabis use, unspecified, uncomplicated
CPT/HCPCS: 87635; 99284

== ENCOUNTER 2022-02-07 03:01 | Emergency (ER) | payer OTHER, SELFPAY ==
--- NOTE | 2022-02-07 03:17 | ED.GENADULT ---
HPI - General Adult General Stated complaint: general weakness Time Seen by Provider: 02/07/22 03:15 Source: patient Mode of arrival: EMS History of Present Illness HPI narrative: Patient complaining of all over body pain very anxious throwing the form had a fight with girlfriend about using sex pills patient smokes marijuana denies any use of PCP or any other drug Related Data Home Medications Medication Instructions Recorded Confirmed divalproex 500 mg tablet,delayed 1 tab PO BID 06/25/21 09/04/21 release hydroxyzine pamoate 50 mg capsule 1 cap PO BEDTIME PRN 06/25/21 09/04/21 lurasidone 60 mg tablet (Latuda) 1 tab PO BEDTIME 06/25/21 09/04/21 temazepam 30 mg capsule 1 cap PO BEDTIME PRN 06/25/21 09/04/21 Allergies Allergy/AdvReac Type Severity Reaction Status Date / Time No Known Allergies Allergy Verified 05/21/21 13:20 Review of Systems Review of Systems: Yes all other systems are reviewed and are negative PMFSH Past Medical History Medical History Schizophrenia Social History Social History Patient Tobacco Use Status: Never used Tobacco Substance Use Type: Marijuana Advance Directives: No Medical Decision Making MDM Narrative Medical decision making narrative: Patient very agitated got up from the bed and walked out of the room eloped in front of the nurse, in spite of asking to stay for further evaluation Discharge Plan Discharge Clinical Impression: Anxiety Patient Disposition: Elopement Prescriptions: No Action hydroxyzine pamoate 50 mg capsule 1 cap PO BEDTIME PRN (Reason: Anxiety) 0RF divalproex 500 mg tablet,delayed release (DR/EC) 1 tab PO BID 0RF temazepam 30 mg capsule 1 cap PO BEDTIME PRN (Reason: Sleep) 0RF Latuda 60 mg tablet 1 tab PO BEDTIME 0RF Interventions: ED Discharge Assessment Last Done: 02/07/22 03:59 Discharge Date/Time: 02/07/22 04:01
--- NOTE | 2022-02-07 03:26 | PC.NURSE ---
PT became agitated during triage because people kept interrupting him . We asked the PT to keep his voice down because there was another PT next door to him and the PT became upset and ran out of the hospital.
== END 2022-02-07 04:01 | disposition left against medical advice (07) ==
LOC: HO.ED 03:32
PROVIDERS: Emergency Provider Internal Medicine
DX: F41.1 Generalized anxiety disorder (principal); M79.10 Myalgia, unspecified site; F12.90 Cannabis use, unspecified, uncomplicated; Z79.899 Other long term (current) drug therapy
CPT/HCPCS: 99283

== ENCOUNTER 2022-02-10 10:07 | Outpatient (REF) | payer OTHER, SELFPAY ==
[2022-02-10 10:32] LABS: Binax Internal Control QC Valid; Binax Now Covid-19 Ag Negative (Negative)
== END 2022-02-10 10:08 | disposition home or self-care (01) ==
LOC: HO.HMGCLDS 10:07
PROVIDERS: Visit Provider Physician Assistant
DX: Z13.89 Encounter for screening for other disorder (principal)

== ENCOUNTER 2022-04-04 21:26 | Inpatient (IN) | payer OTHER, SELFPAY ==
--- NOTE | ~2022-04-04 | CT_ITS ---
EXAMINATION: CT HEAD WITHOUT CONTRAST CLINICAL INFORMATION: Trauma COMPARISON: None TECHNIQUE: Contiguous axial imaging was performed from the skull base to vertex without intravenous administration of contrast. This CT examination was performed using dose optimization techniques as appropriate, variously including the following: *Automated exposure control *Adjustment of mA and/or kV according to patient size (this includes techniques or standardized protocols for targeted exams where dose is matched to indication/reason for exam; i.e. extremities or head) *Use of iterative reconstruction technique DLP: 755 mGy-cm FINDINGS: There is no evidence of acute intracranial hemorrhage or territorial infarction. No abnormal mass effect or midline shift is seen. Onofre to white matter differentiation is well preserved. No extra-axial fluid collections are identified. The ventricles are normal in size. There is no abnormal attenuation within the brain parenchyma. The osseous structures and soft tissues are normal. The mastoid air cells and visualized portions of the paranasal sinuses are well aerated. CT/CT head/brain wo con IMPRESSION: No acute intracranial pathology.
[2022-04-04 21:33] VITALS: BP 123/67; PULSE 98; RESP 18; TEMP 36.7; O2SAT 98; BMI 25.7
--- NOTE | 2022-04-04 21:38 | ED.PSYCH ---
HPI - Psych General Chief Complaint: Psychiatric Symptoms Stated Complaint: crisis Time Seen by Provider: 04/04/22 21:33 Source: patient and police Mode of arrival: EMS Limitations: other (Patient appears to be in a manic episode.) History of Present Illness HPI Narrative: 41-year-old male history of multiple personality disorder presenting to the emergency department with EMS and police on a Section 12 for suicidal ideation, bizarre behavior. According to police the received a phone call from patient's daughter who was afraid the patient was in an acute manic episode. When police arrived on scene he made suicidal comments with no specific plan. Patient has been fluctuating between very altered with a retic behavior, aggressive and at times com. He was slamming his head in 2 the wall multiple times. He was very uncooperative for police and EMS. Patient appears altered at this time and manic. Denies drugs, alcohol and tobacco. Denies auditory, visual tactile hallucinations. Denies SI and HI to myself. Patient was placed on a Section 12 prior to his arrival. Denies any medical complaints. He does have a small laceration to his forehead status post slamming his head against the wall multiple times in front of PD. Denies headache, dizziness, vision changes. MD complaint: suicidal ideation Onset (ago): day(s) (1) Duration: constant History of same: Yes Relieving factors: none Exacerbating factors: none Associated psychiatric symptoms: none Associated symptoms: denies other symptoms Treatments prior to arrival: none Related Data Home Medications Medication Instructions Recorded Confirmed divalproex 500 mg tablet,delayed 1 tab PO BID 06/25/21 04/04/22 release hydroxyzine pamoate 50 mg capsule 1 cap PO BEDTIME PRN 06/25/21 04/04/22 temazepam 30 mg capsule 1 cap PO BEDTIME PRN 06/25/21 04/04/22 lurasidone 40 mg tablet (Latuda) 1 tab PO BEDTIME 04/04/22 04/04/22 Allergies Allergy/AdvReac Type Severity Reaction Status Date / Time No Known Allergies Allergy Verified 02/10/22 09:37 Review of Systems Review of Systems: Constitutional : No Weight loss, No Fever, No Chills, No Fatigue, No Malaise ENT/Mouth : No sore throat, No Rhinorrhea Eyes: No Eye Pain, No Swelling, No Redness Cardiovascular : No Chest Pain, No SOB, No Dyspnea on Exertion, No Orthopnea, No Edema, No Palpitations Respiratory : No Cough, No Sputum, No Wheezing Gastrointestinal : No Nausea, No Vomiting, No Diarrhea, No Constipation, No abdominal Pain, No Hematochezia, No Melena Genitourinary : No Dysuria, No Urinary Frequency, No Hematuria, Musculoskeletal : No joint pain, No Myalgias, No Joint Swelling Skin : No Skin Lesions, No rash Neuro : No Weakness, No Numbness, No Dizziness, No Headache Psych : + Anxiety/Panic, No Depression All other systems reviewed and are negative Yes all other systems are reviewed and are negative [facility] Past Medical History Attestation statement: The following information was validated with the patient. Source: old records reviewed and nursing notes reviewed Medical History Schizophrenia Social History Social History Patient Tobacco Use Status: Never used Tobacco Substance Use Type: Marijuana Advance Directives: No Advance Directives Information Provided: No Physical Exam Vital Signs: Vital Signs: Last Vital Signs Temp 98.8 F 04/05/22 00:13 Pulse 99 04/05/22 00:13 Resp 16 04/05/22 00:13 BP 117/67 04/05/22 00:13 Pulse Ox 96 04/05/22 00:13 BMI result Body Mass Index 25.7 Vital signs stable Appearance: Alert.? Oriented X3.? No acute distress.? Patient appears to be manic, pacing around, agitated, sweating.. Head: Normocephalic, atraumatic, no step-offs or deformities Eyes: Pupils equal, round and reactive to light.? ENT: Pharynx normal.? Neck: Normal inspection.? Neck supple.? CVS: Normal heart rate and rhythm.? Pulses normal.? Respiratory: No respiratory distress.? Breath sounds normal.? Abdomen: Soft and nontender.? Skin: Skin warm and dry.? Normal skin color.? Normal skin turgor.? Extremities: No lower extremity edema.? No calf ttp. 5/5 strength to bilateral upper and lower extremities Neuro: Oriented X 3.? No motor deficit.? No sensory deficit. CN 2-12 intact Course Reevaluation(s) Reevaluation #1: Patient much more calm, cooperative. CBC appears to be around patient's baseline. Anion gap slightly elevated however does not require intervention. Valproic acid within normal limits. Ethanol negative. COVID negative. REED pending. Urine pending. CT of the head and no acute findings. This time patient will be placed in physician observation to allow more time to be evaluated by the behavioral health team. The time observation was started, cooperative no acute distress. Will continue to monitor. Time: 00:44 MDM - Psych MDM Narrative Medical decision making narrative: [id number] 41-year-old male presents in an acute manic episode brought in by police and EMS. Uncooperative for them. Physical examination significant for a male pacing around, agitated, anxious, diaphoretic, regular rate and rhythm, lungs clear, neuro nonfocal, abdomen soft nontender nondistended. He does have a small laceration linear to the middle of his forehead superficial unlikely requires suturing. Plan at this time is medical clearance. Medical Records Attestation: I reviewed the patient's medical records. Lab Data Attestation: I reviewed the patient's lab results. Result diagrams: 04/04/22 22:34 04/04/22 22:34 Labs: Lab Results 04/04/22 04/04/22 04/04/22 Range/Units 21:48 22:34 22:34 WBC 9.3 (4.8-10.8) X10*3/uL RBC 4.67 (4.60-5.80) X10*6/uL Hgb 15.5 (14.0-18.0) g/dl Hct 45.0 (42.0-52.0) % MCV 96.4 (80.0-98.0) fL MCH 33.2 H (27.0-33.0) pg MCHC 34.4 (31.0-36.0) g/dl RDW 13.4 (11.0-16.0) % Plt Count 318 (160-400) X10*3/uL MPV 10.3 (9.4-12.4) fL Immature Gran % (Auto) 0.2 (0.0-0.4) % Neut % (Auto) 67.9 (45-73) % Lymph % (Auto) 25.4 (20-40) % [place] % (Auto) 5.9 (2-11) % Eos % (Auto) 0.2 (0-4) % Baso % (Auto) 0.4 (0-2) % Lymph # (Auto) 2.4 (1.2-4.9) X10*3/uL [place] # (Auto) 0.6 (0.1-1.2) X10*3/uL Eos # (Auto) 0.0 (0.0-0.4) X10*3/uL Baso # (Auto) 0.0 (0.0-0.2) X10*3/uL Abs Immat Gran (auto) 0.02 (0.00-0.03) X10*3/uL Absolute Neuts (auto) 6.3 (2.0-8.3) x10*3/uL Absolute Nucleated RBC 0.000 (0.0-0.012) X10*3/uL Nucleated RBC % (auto) 0.0 (0.0-0.2) /100WBC Sodium 143 (135-145) mmol/L Potassium 3.9 (3.3-5.1) mmol/L Chloride 107 (96-108) mmol/L Carbon Dioxide 19 L (22-29) mmol/L Anion Gap 21 H (12-20) BUN 16 (9-16) mg/dL Creatinine 1.23 (0.5-1.4) mg/dL Estim Creat Clear Calc 67.5 Estimated GFR > 60 Random Glucose 64 D (60-115) mg/dL Calcium 10.0 D (8.4-10.2) mg/dL Magnesium 1.9 (1.6-2.6) mg/dL Total Bilirubin 0.9 (0.0-1.0) mg/dL AST 24 (5-37) U/L ALT 13 (0-40) U/L Alkaline Phosphatase 71 (39-117) U/L Total Protein 7.9 (6.5-8.0) g/dL Albumin 4.6 (3.5-5.0) g/dL Valproic Acid (50.0-100.0) mcg/mL Ethyl Alcohol mg/dL COVID-19 ([facility]IC) Negative (Negative) COVID-19 Clin Com See Note 05/15/22 05/15/22 Range/Units 22:34 22:34 WBC (4.8-10.8) X10*3/uL RBC (4.60-5.80) X10*6/uL Hgb (14.0-18.0) g/dl Hct (42.0-52.0) % MCV (80.0-98.0) fL MCH (27.0-33.0) pg MCHC (31.0-36.0) g/dl RDW (11.0-16.0) % Plt Count (160-400) X10*3/uL MPV (9.4-12.4) fL Immature Gran % (Auto) (0.0-0.4) % Neut % (Auto) (45-73) % Lymph % (Auto) (20-40) % [place] % (Auto) (2-11) % Eos % (Auto) (0-4) % Baso % (Auto) (0-2) % Lymph # (Auto) (1.2-4.9) X10*3/uL [place] # (Auto) (0.1-1.2) X10*3/uL Eos # (Auto) (0.0-0.4) X10*3/uL Baso # (Auto) (0.0-0.2) X10*3/uL Abs Immat Gran (auto) (0.00-0.03) X10*3/uL Absolute Neuts (auto) (2.0-8.3) x10*3/uL Absolute Nucleated RBC (0.0-0.012) X10*3/uL Nucleated RBC % (auto) (0.0-0.2) /100WBC Sodium (135-145) mmol/L Potassium (3.3-5.1) mmol/L Chloride (96-108) mmol/L Carbon Dioxide (22-29) mmol/L Anion Gap (12-20) BUN (9-16) mg/dL Creatinine (0.5-1.4) mg/dL Estim Creat Clear Calc Estimated GFR Random Glucose (60-115) mg/dL Calcium (8.4-10.2) mg/dL Magnesium (1.6-2.6) mg/dL Total Bilirubin (0.0-1.0) mg/dL AST (5-37) U/L ALT (0-40) U/L Alkaline Phosphatase (39-117) U/L Total Protein (6.5-8.0) g/dL Albumin (3.5-5.0) g/dL Valproic Acid 53.8 (50.0-100.0) mcg/mL Ethyl Alcohol < 10 mg/dL COVID-19 (CECI) (Negative) COVID-19 Clin Com Critical Care Time Critical Care Time Critical Care Time: No Discharge Plan Discharge Clinical Impression: Acute psychosis Patient Disposition: Still a Patient Prescriptions: No Action hydroxyzine pamoate 50 mg capsule 1 cap PO BEDTIME PRN (Reason: Anxiety) 0RF divalproex 500 mg tablet,delayed release (DR/EC) 1 tab PO BID 0RF temazepam 30 mg capsule 1 cap PO BEDTIME PRN (Reason: Sleep) 0RF Latuda 40 mg tablet 1 tab PO BEDTIME 0RF
--- NOTE | 2022-04-04 21:39 | PHA.MEDREC ---
Pharmacy Consult ? Medication Reconciliation Pharmacy has completed the medication reconciliation. Med rec completed by claim history. Kori Herndon, TawanaD
[2022-04-04] MEDS: LORazepam 1 MG TABLET 2 MG PO (22:08)
[2022-04-04 22:28] LABS: COVID-19 Test Negative (Negative)
[2022-04-04 22:42] LABS: MANUAL DIFF FLAG NO
[2022-04-04 22:43] LABS: Basophils Percent Auto 0.4 % (0-2); Eosinophils Percent Auto 0.2 % (0-4); Hemoglobin 15.5 g/dl (14.0-18.0); Imm Gran Abs Auto 0.02 X10*3/uL (0.00-0.03); Imm Gran Pct Auto 0.2 % (0.0-0.4); Lymphocytes Absolute Auto 2.4 X10*3/uL (1.2-4.9); Lymphocytes Percent Auto 25.4 % (20-40); Mean Corpuscular HGB Conc 34.4 g/dl (31.0-36.0); Mean Corpuscular Hemoglobin 33.2 pg (27.0-33.0); Mean Corpuscular Volume 96.4 fL (80.0-98.0); Mean Platelet Volume 10.3 fL (9.4-12.4); Monocytes Absolute Auto 0.6 X10*3/uL (0.1-1.2); Monocytes Percent Auto 5.9 % (2-11); Neutrophils Absolute Auto 6.3 x10*3/uL (2.0-8.3); Neutrophils Percent Auto 67.9 % (45-73); Platelet Count 318 X10*3/uL (160-400); Red Blood Count 4.67 X10*6/uL (4.60-5.80); Red Cell Distribution Width 13.4 % (11.0-16.0); White Blood Count 9.3 X10*3/uL (4.8-10.8)
[2022-04-04 22:54] LABS: Ethanol < 10 mg/dL
[2022-04-04 23:02] LABS: Valproate 53.8 mcg/mL (50.0-100.0)
[2022-04-05 00:13] VITALS: BP 117/67; PULSE 99; RESP 16; TEMP 37.1; O2SAT 96
[2022-04-05 00:33] LABS: Alanine Aminotransferase 13 U/L (0-40); Albumin Level 4.6 g/dL (3.5-5.0); Alkaline Phosphatase 71 U/L (39-117); Anion Gap 21 (12-20); Aspartate Amino Transferase 24 U/L (5-37); Bilirubin Total 0.9 mg/dL (0.0-1.0); Blood Urea Nitrogen 16 mg/dL (9-16); Carbon Dioxide 19 mmol/L (22-29); Chloride 107 mmol/L (96-108); Creatinine Clr Calc Pharmacy 67.5; Estimated Glomerular Filt Rate > 60; Glucose Random 64 mg/dL (60-115); Magnesium 1.9 mg/dL (1.6-2.6); Potassium 3.9 mmol/L (3.3-5.1); Sodium 143 mmol/L (135-145); Total Protein 7.9 g/dL (6.5-8.0)
--- NOTE | 2022-04-05 00:35 | PC.NURSE ---
PT is unable to provide urine sample at this time .
[2022-04-05 02:10] LABS: Appearance Urine HAZY; Color Urine DK YELLOW; Glucose Urine UA NEG (NEG); Leukocyte Esterase Urine NEG (NEG); Nitrite Urine NEG (NEG); Specific Gravity - Urine >= 1.030 (1.005-1.025); Urine Blood NEG (NEG); Urine Ketones >=80 MG/DL (NEG); Urine Protein TRACE MG/DL (NEG-TRACE)
[2022-04-05 02:24] LABS: Amphetamine Screen Urine Not Detected (Not Detect); Barbiturates, Urine Not Detected (Not Detect); Benzodiazepines Screen Urine Not Detected (Not Detect); Cannabinoid Screen Urine POSITIVE (Not Detect); Cocaine Screen Urine Not Detected (Not Detect); Fentanyl, urine Not Detected (Not Detect); Opiate Screen Urine Not Detected (Not Detect); Phencyclidine Screen Urine Not Detected (Not Detect)
--- NOTE | 2022-04-05 05:14 | PC.NURSE ---
Patient slept through the night, Ativan 2 mg PO was effective, behavior at this time is non concerning, engaged well with [facility], disposition section 12 inpatient bed search, med rec completed/jan updated, VSS, will continue to monitor.
[2022-04-05] MEDS: Divalproex Sodium 500 MG TABLET.DR PO ×2 (10:06→22:30)
[2022-04-05] MEDS: LORazepam 2 MG/ML VIAL IM (10:31)
[2022-04-05] MEDS: diphenhydrAMINE HCL 50 MG/ML VIAL IM (10:32)
[2022-04-05] MEDS: Haloperidol Lactate 5 MG/ML VIAL IM (10:32)
--- NOTE | 2022-04-05 10:33 | PC.NURSE ---
awoke pt for am depakote, became agitated when informed of sect 12, states he was not evaluated by [facility] and began yelling , security to bedside and pt became more agitated, ran ROSALES to bedside and IM ativan haldol and benadryl given IM, pt allowed it to be given, pt attempted to baricade his door with the chair and eventually pushed the chair out of the room. now in room and quiet, had a little blood on shoulder from IM but would not allow staff to place a band aid and became more agitated when asked. sitting on bed and queit at this time
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
[2022-04-05 18:00] VITALS: BP 104/63; PULSE 88; RESP 16; TEMP 36.9; O2SAT 97
[2022-04-05] MEDS: Temazepam 15 MG CAPSULE 30 MG PO (22:30)
[2022-04-05] MEDS: Lurasidone HCl 40 MG TABLET PO (22:30)
[2022-04-05] MEDS: hydrOXYzine HCL 50 MG TABLET PO (22:31)
[2022-04-06 08:59] VITALS: BP 97/48; PULSE 73; RESP 16; TEMP 36.7; O2SAT 97
[2022-04-06 09:38] LABS: Estimated Average Glucose 108 mg/dL; Hemoglobin A1c % 5.4 %
[2022-04-06 09:43] LABS: Alanine Aminotransferase 14 U/L (0-40); Albumin Level 3.7 g/dL (3.5-5.0); Alkaline Phosphatase 61 U/L (39-117); Anion Gap 13 (12-20); Aspartate Amino Transferase 38 U/L (5-37); Blood Urea Nitrogen 13 mg/dL (9-16); Carbon Dioxide 23 mmol/L (22-29); Chloride 106 mmol/L (96-108); Cholesterol 188 mg/dL; Creatinine Clr Calc Pharmacy 89.2; Estimated Glomerular Filt Rate > 60; Glucose Fasting 74 mg/dL (60-99); HDL Cholesterol 32 mg/dL; LDL Cholesterol Calculated 137 mg/dl; Potassium 4.4 mmol/L (3.3-5.1); Sodium 138 mmol/L (135-145); Total Protein 6.8 g/dL (6.5-8.0); Triglycerides 99 mg/dL
--- NOTE | 2022-04-06 09:47 | P.HPPS_ITS ---
HPI Date of Service: 04/06/22 Chief Complaint: Gela Sources of Information: patient interviewed, chart reviewed and crisis/core team assessment reviewed HPI Subjective Notes: [place] Warning and Conditional Voluntary Narrative: Mr. Conrad is a 41 year-old male with hx of Bipolar disorder who was [place] [facility] after his daughter called the police as pt was acting in erratic manner, agitated, not sleeping in context of medication changes. In the ED, his utox was positive for cannabinoids. In the ED, pt at times agitated demanding to be discharged, given haldol and ativan IM. On the unit, pt reports he notes his behavior to be more agitated, explosive. He reports it was just one day. He reports he is now taking all his medication again and plans to continue doing so. He reports he is not upset with daughter who called police but reports he does not think he needs to be here in the hospital. He does report feeling chronically depressed, having on and off suicidal ideation thoughts but he denies any plan or intent to hurt himself. He reports sleeping and eating well. No overt delusional content reported or noted. He denies VH/AH. 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 He explains that it took him a long time to be stable enough to even get a job and does not want to lose it. Past Psychiatric History: Inpatient: [facility] more than 10 OP: [facility] Past med trials: depakote, latuda, temazepam suicide attempt: reports more than 10 years ago but I don't remember what happened Medical Evaluation Reviewed: Yes PMFSH Medical History Schizophrenia Family History: denies Social History: lives with GF of 17 years and his children ages 18, 15, and 12. 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 Substance History: denies positive for cannabinoids Trauma History: denies Diagnostics Vital Signs (24Hr): Vital Signs - 24 hr 04/05/22 18:00 04/06/22 08:59 Temperature 98.4 F 98.1 F Pulse Rate 88 73 Respiratory Rate 16 16 Blood Pressure 104/63 97/48 L Pulse Oximetry 97 97 BMI result Body Mass Index 25.7 Labs Results: 04/04/22 22:34 04/06/22 08:46 Labs: Laboratory Results - last 48 hr 04/04/22 04/04/22 04/04/22 21:48 22:34 22:34 WBC 9.3 RBC 4.67 Hgb 15.5 Hct 45.0 MCV 96.4 MCH 33.2 H MCHC 34.4 RDW 13.4 Plt Count 318 MPV 10.3 Immature Gran % (Auto) 0.2 Neut % (Auto) 67.9 Lymph % (Auto) 25.4 [place] % (Auto) 5.9 Eos % (Auto) 0.2 Baso % (Auto) 0.4 Lymph # (Auto) 2.4 [place] # (Auto) 0.6 Eos # (Auto) 0.0 Baso # (Auto) 0.0 Abs Immat Gran (auto) 0.02 Absolute Neuts (auto) 6.3 Absolute Nucleated RBC 0.000 Nucleated RBC % (auto) 0.0 Sodium 143 Potassium 3.9 Chloride 107 Carbon Dioxide 19 L Anion Gap 21 H BUN 16 Creatinine 1.23 Estim Creat Clear Calc 67.5 Estimated GFR > 60 Random Glucose 64 D Fasting Glucose Estimat Average Glucose Hemoglobin A1c % Calcium 10.0 D Magnesium 1.9 Total Bilirubin 0.9 AST 24 ALT 13 Alkaline Phosphatase 71 Total Protein 7.9 Albumin 4.6 Triglycerides Cholesterol LDL Cholesterol, Calc HDL Cholesterol Urine Color Urine Appearance Urine pH Ur Specific [place] Urine Protein Urine Glucose (UA) Urine Ketones Urine Blood Urine Nitrite Ur Leukocyte Esterase Urine Opiates Screen Urine Fentanyl Screen Ur Barbiturates Screen Valproic Acid Ur Phencyclidine Scrn Ur Amphetamines Screen U Benzodiazepines Scrn Urine Cocaine Screen U Marijuana (THC) Screen Ethyl Alcohol COVID-19 ([facility]) Negative COVID-19 Clin Com See Note 04/04/22 04/04/22 04/05/22 22:34 22:34 02:02 WBC RBC Hgb Hct MCV MCH MCHC RDW Plt Count MPV Immature Gran % (Auto) Neut % (Auto) Lymph % (Auto) [place] % (Auto) Eos % (Auto) Baso % (Auto) Lymph # (Auto) [place] # (Auto) Eos # (Auto) Baso # (Auto) Abs Immat Gran (auto) Absolute Neuts (auto) Absolute Nucleated RBC Nucleated RBC % (auto) Sodium Potassium Chloride Carbon Dioxide Anion Gap BUN Creatinine Estim Creat Clear Calc Estimated GFR Random Glucose Fasting Glucose Estimat Average Glucose Hemoglobin A1c % Calcium Magnesium Total Bilirubin AST ALT Alkaline Phosphatase Total Protein Albumin Triglycerides Cholesterol LDL Cholesterol, Calc HDL Cholesterol Urine Color DK YELLOW Urine Appearance HAZY Urine pH 6.0 Ur Specific [place] >= 1.030 H Urine Protein TRACE Urine Glucose (UA) NEG Urine Ketones >=80 Urine Blood NEG Urine Nitrite NEG Ur Leukocyte Esterase NEG Urine Opiates Screen Urine Fentanyl Screen Ur Barbiturates Screen Valproic Acid 53.8 Ur Phencyclidine Scrn Ur Amphetamines Screen U Benzodiazepines Scrn Urine Cocaine Screen U Marijuana (THC) Screen Ethyl Alcohol < 10 COVID-19 ([facility]) COVID-[facility] 04/05/22 04/06/22 04/06/22 02:02 08:46 08:46 WBC RBC Hgb Hct MCV MCH MCHC RDW Plt Count MPV Immature Gran % (Auto) Neut % (Auto) Lymph % (Auto) [place] % (Auto) Eos % (Auto) Baso % (Auto) Lymph # (Auto) [place] # (Auto) Eos # (Auto) Baso # (Auto) Abs Immat Gran (auto) Absolute Neuts (auto) Absolute Nucleated RBC Nucleated RBC % (auto) Sodium 138 Potassium 4.4 Chloride 106 Carbon Dioxide 23 Anion Gap 13 BUN 13 Creatinine 0.93 Estim Creat Clear Calc 89.2 Estimated GFR > 60 Random Glucose Fasting Glucose 74 Estimat Average Glucose 108 Hemoglobin A1c % 5.4 Calcium 9.0 D Magnesium Total Bilirubin 1.0 AST 38 H D ALT 14 Alkaline Phosphatase 61 Total Protein 6.8 Albumin 3.7 Triglycerides 99 Cholesterol 188 LDL Cholesterol, Calc 137 HDL Cholesterol 32 Urine Color Urine Appearance Urine pH Ur Specific [place] Urine Protein Urine Glucose (UA) Urine Ketones Urine Blood Urine Nitrite Ur Leukocyte Esterase Urine Opiates Screen Not Detected Urine Fentanyl Screen Not Detected Ur Barbiturates Screen Not Detected Valproic Acid Ur Phencyclidine Scrn Not Detected Ur Amphetamines Screen Not Detected U Benzodiazepines Scrn Not Detected Urine Cocaine Screen Not Detected U Marijuana (THC) Screen POSITIVE H Ethyl Alcohol COVID-19 ([facility]) COVID-19 [facility] Com Imaging Radiology Impressions: ITS Impressions Head CT 04/04/22 22:14 IMPRESSION: No acute intracranial pathology. Meds/Allergies Meds Home Medications Acetaminophen (Acetaminophen 325 Mg Tablet) 650 mg PO Q6H PRN PRN Reason: Headache/Pain Mild Scale (1-3) Last Admin: 04/06/22 21:02 Dose: 650 mg Documented by: Al Hydroxide/Mg Hydroxide (Magnesium Hydrox/Alum Hydrox 30 Ml Oral.Susp) 30 ml PO Q6H PRN PRN Reason: Heartburn/Nausea Divalproex Sodium (Divalproex Sodium 500 Mg Tablet.Dr) 500 mg PO BID URIAH Last Admin: 04/06/22 21:03 Dose: 500 mg Documented by: Hydroxyzine HCl (Hydroxyzine Hcl 50 Mg Tablet) 50 mg PO BEDTIME PRN PRN Reason: Anxiety Last Admin: 04/05/22 22:31 Dose: 50 mg Documented by: Lurasidone HCl (Lurasidone Hcl 40 Mg Tablet) 40 mg PO BEDTIME URIAH Last Admin: 04/06/22 21:03 Dose: 40 mg Documented by: Magnesium Hydroxide (Milk Of Magnesia 30 Ml Oral.Susp) 30 ml PO DAILY PRN PRN Reason: Constipation Pharmacy Consult (Consult Rx Perform Med Rec) 1 each MISCELLANE ONCE PRN PRN Reason: Consult order Temazepam (Temazepam 15 Mg Capsule) 30 mg PO BEDTIME PRN PRN Reason: Sleep Last Admin: 04/06/22 22:06 Dose: 30 mg Documented by: Trazodone HCl (Trazodone Hcl 50 Mg Tablet) 50 mg PO BEDTIME PRN PRN Reason: Insomnia Allergies Allergies Allergy/AdvReac Type Severity Reaction Status Date / Time No Known Allergies Allergy Verified 02/10/22 09:37 Mental Status Exam Mental Status Exam Narrative: Appearance: thin, malnourish, wearing hospital gown, poor hygiene in NAD Behavior:superficially cooperative psychomotor: no agitation or retardation noted Speech:clear, normal rate/rhythm/volume, spontaneous Thought process:linear Thought content:no signs of psychosis, wanting to be discharge Mood: depressed Affect: blunted SI:passive but no plan or intent HI:none VH/AH:none Delusions:none Insight/judgment:poor x 2. Memory/cog: alert, oriented x 3. not formally tested. Assessment & Plan Assessment & Plan (1) Bipolar 1 disorder, mixed, severe: Status: Acute Code(s): F31.63 - Bipolar disorder, current episode mixed, severe, without psychotic features Plan Mr. Conrad is a 41 year-old male with hx of Bipolar Disorder brought by police after daughter called them reporting pt presenting as agitated, erratic behaviors in context of taking less medications than usual. Utox positive for cannabinoids. Pt agitated in ED, requiring haldol and ativan IM. On the unit, pt guarded, reports chronic depression passive SI, no overt psychosis or delusional content reported. We discussed risks, benefits and alternative treatment options. Pt in agreement to continue depakote, latuda, temazepam. PLAN 1. Admit to M3, CV, 15 minnutes checks for safety 2. obtain collateral information 3. aftercare planning. Patient educated on: diagnosis and medication risk/benefits Reason for continued inpatient stay Substantial Risk for: harm to self, harm to others and inability to function
[2022-04-06 09:50] LABS: Thyroid Stimulating Hormone 0.73 uIU/mL (0.32-4.0)
[2022-04-06 10:02] LABS: Folate 11.3 ng/mL (> or = 4.0); Vitamin B12 404 pg/mL (200-900)
[2022-04-06] MEDS: Divalproex Sodium 500 MG TABLET.DR PO ×2 (10:06→21:03)
[2022-04-06] MEDS: Acetaminophen 325 MG TABLET 650 MG PO (21:02)
[2022-04-06] MEDS: Lurasidone HCl 40 MG TABLET PO (21:03)
[2022-04-06 21:07] VITALS: BP 99/46; PULSE 85; TEMP 37.3; O2SAT 98
[2022-04-06] MEDS: Temazepam 15 MG CAPSULE 30 MG PO (22:06)
[2022-04-06 22:08] VITALS: BP 120/62; PULSE 60; TEMP 36.6; O2SAT 97
[2022-04-07 05:41] VITALS: BP 114/73; PULSE 87; TEMP 36.3; O2SAT 98
[2022-04-07 06:00] VITALS: BP 132/58; PULSE 74; RESP 16; TEMP 36.4; O2SAT 98
[2022-04-07] MEDS: Divalproex Sodium 500 MG TABLET.DR PO (08:38)
--- NOTE | 2022-04-07 11:02 | PM.PSYDC ---
DS: Providers Provider Date of Service: 04/07/22 Date of admission: 04/05/22 16:41 Primary care physician: Unknown Physician DS: Diagnosis Discharge Diagnosis (1) Bipolar 1 disorder, mixed, severe: Status: Acute DS: Medications Discharge Medications Home Medications: Home Medications Medication Instructions Recorded Confirmed divalproex 500 mg tablet,delayed 1 tab PO BID 06/25/21 04/04/22 release temazepam 30 mg capsule 1 cap PO BEDTIME PRN 06/25/21 04/04/22 lurasidone 40 mg tablet (Latuda) 1 tab PO BEDTIME 04/04/22 04/04/22 Mental Status Exam Mental Status Exam Narrative: Appearance: thin, malnourish, casually groomed, improved hygiene in NAD Behavior:superficially cooperative psychomotor: no agitation or retardation noted Speech:clear, normal rate/rhythm/volume, spontaneous Thought process:linear Thought content:no signs of psychosis, wanting to be discharge Mood: better Affect: brighter SI:none HI:none VH/AH:none Delusions:none Insight/judgment:poor x 2. Memory/cog: alert, oriented x 3. not formally tested. Data Data Completed and Pending Completed studies during hospitalization [Text1]: 04/04/22 04/04/22 04/04/22 21:48 22:34 22:34 WBC 9.3 RBC 4.67 Hgb 15.5 Hct 45.0 MCV 96.4 MCH 33.2 H MCHC 34.4 RDW 13.4 Plt Count 318 MPV 10.3 Immature Gran % (Auto) 0.2 Neut % (Auto) 67.9 Lymph % (Auto) 25.4 [place] % (Auto) 5.9 Eos % (Auto) 0.2 Baso % (Auto) 0.4 Lymph # (Auto) 2.4 [place] # (Auto) 0.6 Eos # (Auto) 0.0 Baso # (Auto) 0.0 Abs Immat Gran (auto) 0.02 Absolute Neuts (auto) 6.3 Absolute Nucleated RBC 0.000 Nucleated RBC % (auto) 0.0 Sodium 143 Potassium 3.9 Chloride 107 Carbon Dioxide 19 L Anion Gap 21 H BUN 16 Creatinine 1.23 Estim Creat Clear Calc 67.5 Estimated GFR > 60 Random Glucose 64 D Fasting Glucose Estimat Average Glucose Hemoglobin A1c % Calcium 10.0 D Magnesium 1.9 Total Bilirubin 0.9 AST 24 ALT 13 Alkaline Phosphatase 71 Total Protein 7.9 Albumin 4.6 Triglycerides Cholesterol LDL Cholesterol, Calc HDL Cholesterol Vitamin B12 Folate TSH Urine Color Urine Appearance Urine pH Ur Specific [place] Urine Protein Urine Glucose (UA) Urine Ketones Urine Blood Urine Nitrite Ur Leukocyte Esterase Urine Opiates Screen Urine Fentanyl Screen Ur Barbiturates Screen Valproic Acid Ur Phencyclidine Scrn Ur Amphetamines Screen U Benzodiazepines Scrn Urine Cocaine Screen U Marijuana (THC) Screen Ethyl Alcohol COVID-19 (CECI) Negative COVID-19 [employer] See Note 04/04/22 04/04/22 04/05/22 22:34 22:34 02:02 WBC RBC Hgb Hct MCV MCH MCHC RDW Plt Count MPV Immature Gran % (Auto) Neut % (Auto) Lymph % (Auto) [place] % (Auto) Eos % (Auto) Baso % (Auto) Lymph # (Auto) [place] # (Auto) Eos # (Auto) Baso # (Auto) Abs Immat Gran (auto) Absolute Neuts (auto) Absolute Nucleated RBC Nucleated RBC % (auto) Sodium Potassium Chloride Carbon Dioxide Anion Gap BUN Creatinine Estim Creat Clear Calc Estimated GFR Random Glucose Fasting Glucose Estimat Average Glucose Hemoglobin A1c % Calcium Magnesium Total Bilirubin AST ALT Alkaline Phosphatase Total Protein Albumin Triglycerides Cholesterol LDL Cholesterol, Calc HDL Cholesterol Vitamin B12 Folate TSH Urine Color DK YELLOW Urine Appearance HAZY Urine pH 6.0 Ur Specific [place] >= 1.030 H Urine Protein TRACE Urine Glucose (UA) NEG Urine Ketones >=80 Urine Blood NEG Urine Nitrite NEG Ur Leukocyte Esterase NEG Urine Opiates Screen Urine Fentanyl Screen Ur Barbiturates Screen Valproic Acid 53.8 Ur Phencyclidine Scrn Ur Amphetamines Screen U Benzodiazepines Scrn Urine Cocaine Screen U Marijuana (THC) Screen Ethyl Alcohol < 10 COVID-19 (CECI) COVID-19 [employer] 04/05/22 04/06/22 04/06/22 02:02 08:46 08:46 WBC RBC Hgb Hct MCV MCH MCHC RDW Plt Count MPV Immature Gran % (Auto) Neut % (Auto) Lymph % (Auto) [place] % (Auto) Eos % (Auto) Baso % (Auto) Lymph # (Auto) [place] # (Auto) Eos # (Auto) Baso # (Auto) Abs Immat Gran (auto) Absolute Neuts (auto) Absolute Nucleated RBC Nucleated RBC % (auto) Sodium 138 Potassium 4.4 Chloride 106 Carbon Dioxide 23 Anion Gap 13 BUN 13 Creatinine 0.93 Estim Creat Clear Calc 89.2 Estimated GFR > 60 Random Glucose Fasting Glucose 74 Estimat Average Glucose 108 Hemoglobin A1c % 5.4 Calcium 9.0 D Magnesium Total Bilirubin 1.0 AST 38 H D ALT 14 Alkaline Phosphatase 61 Total Protein 6.8 Albumin 3.7 Triglycerides 99 Cholesterol 188 LDL Cholesterol, Calc 137 HDL Cholesterol 32 Vitamin B12 Folate TSH 0.73 Urine Color Urine Appearance Urine pH Ur Specific [place] Urine Protein Urine Glucose (UA) Urine Ketones Urine Blood Urine Nitrite Ur Leukocyte Esterase Urine Opiates Screen Not Detected Urine Fentanyl Screen Not Detected Ur Barbiturates Screen Not Detected Valproic Acid Ur Phencyclidine Scrn Not Detected Ur Amphetamines Screen Not Detected U Benzodiazepines Scrn Not Detected Urine Cocaine Screen Not Detected U Marijuana (THC) Screen POSITIVE H Ethyl Alcohol COVID-19 (CECI) COVID-19 [employer] 04/06/22 08:46 WBC RBC Hgb Hct MCV MCH MCHC RDW Plt Count MPV Immature Gran % (Auto) Neut % (Auto) Lymph % (Auto) [place] % (Auto) Eos % (Auto) Baso % (Auto) Lymph # (Auto) [place] # (Auto) Eos # (Auto) Baso # (Auto) Abs Immat Gran (auto) Absolute Neuts (auto) Absolute Nucleated RBC Nucleated RBC % (auto) Sodium Potassium Chloride Carbon Dioxide Anion Gap BUN Creatinine Estim Creat Clear Calc Estimated GFR Random Glucose Fasting Glucose Estimat Average Glucose Hemoglobin A1c % Calcium Magnesium Total Bilirubin AST ALT Alkaline Phosphatase Total Protein Albumin Triglycerides Cholesterol LDL Cholesterol, Calc HDL Cholesterol Vitamin B12 404 Folate 11.3 TSH Urine Color Urine Appearance Urine pH Ur Specific [place] Urine Protein Urine Glucose (UA) Urine Ketones Urine Blood Urine Nitrite Ur Leukocyte Esterase Urine Opiates Screen Urine Fentanyl Screen Ur Barbiturates Screen Valproic Acid Ur Phencyclidine Scrn Ur Amphetamines Screen U Benzodiazepines Scrn Urine Cocaine Screen U Marijuana (THC) Screen Ethyl Alcohol COVID-19 (CECI) COVID-19 Clin Com Imaging Diagnostic Imaging Impressions Head CT 04/04/22 22:14 IMPRESSION: No acute intracranial pathology. DS: Summary Hospital Course Hospital Course: HPI:Subjective Notes: [place] Warning and Conditional Voluntary Narrative: Mr. Conrad is a 41 year-old male with hx of Bipolar disorder who was brought to [facility] after his daughter called the police as pt was acting in erratic manner, agitated, not sleeping in context of medication changes. In the ED, his utox was? positive for cannabinoids. In the ED, pt at times agitated demanding to be discharged, given haldol and ativan IM. On the unit, pt reports he notes his behavior to be more agitated, explosive. He reports it was just one day. He reports he is now taking all his medication again and plans to continue doing so. He reports he is not upset with daughter who called police but reports he does not think he needs to be here in the hospital. He does report feeling chronically depressed, having on and off suicidal ideation thoughts but he denies any plan or intent to hurt himself.? He reports sleeping and eating well. No overt delusional content reported or noted.? He denies VH/AH. 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 He explains that it took him a long time to be stable enough to even get a job and does not want to lose it. Past Psychiatric History: Inpatient: [facility] more than 10 OP: [facility] Past med trials: depakote, latuda, temazepam suicide attempt: reports more than 10 years ago but I don't remember what happened Medical Evaluation Reviewed: Yes HOSPITAL COURSE On the unit, Mr. Conrad was admitted on CV- 3 day notice. Pt presented calmer, increased insight into need for ongoing treatment and adherence to full woods of his medications. He denied SI/HI. He was sleeping and eating well. Collateral information gathered from his GF of several years who agreed that pt appeared in much improved condition and denied any safety concerns at time of discharge in terms of suicidal or homicidal ideation. There were no incidences of disruptive behaviors nor use of restraints. Status at Discharge Cognitive/behavioral status at discharge: Pt with bright, non labile. No SI/HI. Future oriented in that he is looking forward to go back to work and see his family. No signs of psychosis or delusional content. Increase insight as to need for ongoing psychiatric care. Functional status at discharge: independent ambulation Overall status at discharge: patient is progressing back to baseline Time Spent with Patient Time attestation: Total time spent providing and/or coordinating discharge services: Discharge Plan Discharge Patient Disposition: Home, Self-Care Discharge Diagnosis: Bipolar 1 Disorder, mixed episode Referrals: [facility] (therapist) [Other] - 04/19/22 11:00 am (Telehealth appointment) Oniel Douglas (psychiatrist) [Other] - 05/13/22 10:20 am (Telehealth appointment) Timothy Sims MD [Physician] - 08/20/22 4:15 pm Discharge Medications: Continued divalproex 500 mg tablet,delayed release (DR/EC) 1 tab PO BID temazepam 30 mg capsule 1 cap PO BEDTIME PRN (Reason: Sleep) Latuda 40 mg tablet 1 tab PO BEDTIME Discontinued hydroxyzine pamoate 50 mg capsule 1 cap PO BEDTIME PRN (Reason: Anxiety) Discharge Orders: Discharge Order (Routine); Ordered 04/07/22 Ordered By: Gregoria Hampton Diet: regular diet Activity on Discharge: As tolerated Stand Alone Forms: Patient Portal Discharge page, Community Support Care Plan Goals: 1. Maintain mood 2. No SI/HI. 3. No signs of aggression towards self or others. Health Concerns: Follow up with PCP Plan of Treatment: 1. Take medications as prescribed. 2. Go to nearest ED or call 911 in even of emergency Assessment: Pt with brighter, non labile affect. NO SI/HI. No VH/AH. Sleeping nd eating well. No SIgns of psychosis or delusional content reported or noted. future oriented looking forward to return to family, work and OP psych tx. Discharge Date/Time: 04/07/22 13:38
== END 2022-04-07 13:38 | disposition home or self-care (01) | DRG 753 ==
LOC: HO.ED 04-05 00:45 → HO.PADLT16 04-05 16:51
PROVIDERS: Physician Assistant; Admitting Provider Psychiatry & Neurology Psychiatry; Emergency Provider Internal Medicine; Visit Provider Social Worker
DX: F31.63 Bipolar disorder, current episode mixed, severe, without psychotic features (principal); Z20.822 Contact with and (suspected) exposure to COVID-19; Z79.899 Other long term (current) drug therapy
CPT/HCPCS: 36415; 70450; 80053; 80061; 80164; 80307; 81003; 82077; 82607; 82746; 83036; 83735; 84443; 85025; 87635; 96372; 99285; J1200; J2060

== ENCOUNTER 2022-04-22 09:13 | Emergency (ER) | payer OTHER, SELFPAY ==
[2022-04-22 09:21] VITALS: BP 106/56; PULSE 85; RESP 18; TEMP 36.8; O2SAT 95; BMI 17.3
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
--- NOTE | 2022-04-22 11:58 | PC.NURSE ---
pt awake at this time. requesting dc. denies pain, si or hi.
[2022-04-22 12:02] VITALS: BP 90/63; PULSE 89; TEMP 36.8; O2SAT 98
--- NOTE | 2022-04-22 12:03 | PC.NURSE ---
pt eloped from ed. top carrier aware.
== END 2022-04-22 12:04 | disposition home or self-care (01) ==
PROVIDERS: Emergency Provider Emergency Medicine
DX: R45.1 Restlessness and agitation (principal); F20.9 Schizophrenia, unspecified
CPT/HCPCS: 99282; 99284

== ENCOUNTER 2022-04-22 21:52 | Emergency (ER) | payer OTHER, SELFPAY ==
[2022-04-22 22:00] VITALS: BP 129/63; PULSE 68; RESP 18; TEMP 36.2; O2SAT 99; BMI 21.6
--- NOTE | 2022-04-22 22:06 | ED.PSYCH ---
HPI - Psych General Chief Complaint: Psychiatric Symptoms <CONNIE Michelle - Last Filed: 04/23/22 00:38> Stated Complaint: Crisis/SI <CONNIE Michelle - Last Filed: 04/23/22 00:38> Time Seen by Provider: 04/22/22 22:05 <CONNIE Michelle Last Filed: 04/23/22 00:38> Source: patient and EMS <CONNIE Michelle Last Filed: 04/23/22 00:38> Mode of arrival: EMS <CONNIE Michelle Last Filed: 04/23/22 00:38> Limitations: no limitations <CONNIE Michelle Last Filed: 04/23/22 00:38> History of Present Illness HPI Narrative: 41-year-old male history of bipolar 1, schizophrenia, agitation presenting to the emergency department open planes of bruna, suicidal ideation with no particular plan is brought in by ambulance. Patient was recently discharged from our facility earlier today. He tells me that when he got home he began to feel manic in suicidal with no particular plan. He tells me he lives at home with his girlfriend who is also worried about him, when he started feeling this way he called 911. He tells me he is hearing voices however he is unable to tell me what kind voices he is hearing or with they are saying. He denies visual and tactile hallucinations. Denies drugs, alcohol and tobacco. Denies any medical complaints at this time. Patient does report non med compliance. <CONNIE Michelle Last Filed: 04/23/22 00:38> MD complaint: suicidal ideation and hallucinations <CONNIE Michelle Last Filed: 04/23/22 00:38> Onset (ago): hour(s) (5) <CONNIE Michelle Last Filed: 04/23/22 00:38> Duration: constant <CONNIE Michelle Last Filed: 04/23/22 00:38> History of same: Yes <CONNIE Michelle Last Filed: 04/23/22 00:38> Relieving factors: none <CONNIE Michelle Last Filed: 04/23/22 00:38> Exacerbating factors: none <CONNIE Michelle Last Filed: 04/23/22 00:38> Context: not taking psychiatric medications <CONNIE Michelle Last Filed: 04/23/22 00:38> Associated psychiatric symptoms: none <CONNIE Michelle Last Filed: 04/23/22 00:38> Associated symptoms: denies other symptoms <CONNIE Michelle Last Filed: 04/23/22 00:38> Treatments prior to arrival: none <CONNIE Michelle Last Filed: 04/23/22 00:38> If self harm: admits thoughts of self harm <CONNIE Michelle Last Filed: 04/23/22 00:38> Related Data Home Medications: Home Medications Medication Instructions Recorded Confirmed divalproex 500 mg tablet,delayed 1 tab PO BID 06/25/21 04/22/22 release temazepam 30 mg capsule 1 cap PO BEDTIME PRN 06/25/21 04/22/22 lurasidone 40 mg tablet (Latuda) 1 tab PO BEDTIME 04/04/22 04/22/22 <CONNIE Michelle Last Filed: 04/23/22 00:38> Allergies/Adverse Reactions: Allergies Allergy/AdvReac Type Severity Reaction Status Date / Time No Known Allergies Allergy Verified 02/10/22 09:37 <CONNIE Michelle Last Filed: 04/23/22 00:38> Review of Systems Review of Systems: Constitutional : No Fever, No Chills ENT/Mouth : No Ear Pain, No Nasal Congestion, No sore throat Eyes: No Eye Pain, No Swelling, No Redness Cardiovascular : No Chest Pain, No SOB Respiratory : No Cough, No Sputum, No Dyspnea Gastrointestinal : No Nausea, No Vomiting, No Diarrhea, No Hematochezia, No Melena Genitourinary : No Dysuria, No Urinary Frequency, No Hematuria Musculoskeletal : No Myalgias Skin : No Skin Lesions, No rash Neuro : No Weakness, No Numbness, No Paresthesias, No Dizziness, No Headache Psych : positive Anxiety, positive Depression, positive SI/HI All other systems reviewed and are negative <CONNIE Michelle - Last Filed: 04/23/22 00:38> Yes all other systems are reviewed and are negative <CONNIE Michelle - Last Filed: 04/23/22 00:38> [facility] Past Medical History Attestation statement: The following information was validated with the patient. <CONNIE Michelle - Last Filed: 04/23/22 00:38> Source: old records reviewed and nursing notes reviewed <CONNIE Michelle - Last Filed: 04/23/22 00:38> Medical History: Medical History Schizophrenia <CONNIE Michelle - Last Filed: 04/23/22 00:38> Social History Social History: Social History Household Members: Family Housing: House Do you presently have visiting nurse or other home services: No Patient Tobacco Use Status: Never used Tobacco Substance Use Type: Marijuana Advance Directives: No Sexual orientation: Did not discuss. <CONNIE Michelle - Last Filed: 04/23/22 00:38> Physical Exam Vital Signs: Vital Signs: Last Vital Signs Temp 97.1 F 04/22/22 22:00 Pulse 68 04/22/22 22:00 Resp 18 04/22/22 22:00 BP 129/63 04/22/22 22:00 Pulse Ox 99 04/22/22 22:00 BMI result Body Mass Index 21.6 Vital signs stable <CONNIE Michelle - Last Filed: 04/23/22 00:38> Appearance: Alert.? Oriented X3.? No acute distress.? Head: Normocephalic, atraumatic, no step-offs or deformities Eyes: Pupils equal, round and reactive to light.? ENT: Pharynx normal.? Neck: Normal inspection.? Neck supple.? CVS: Normal heart rate and rhythm.? Pulses normal.? Respiratory: No respiratory distress.? Breath sounds normal.? Abdomen: Soft and nontender.? Skin: Skin warm and dry.? Normal skin color.? Normal skin turgor.? Extremities: No lower extremity edema.? No calf ttp. 5/5 strength to bilateral upper and lower extremities Back: No midline tenderness, no C-spine tenderness, full range of motion, no CVA tenderness bilaterally Neuro: Oriented X 3.? No motor deficit.? No sensory deficit. CN 2-12 intact <CONNIE Michelle - Last Filed: 04/23/22 00:38> Course Reevaluation(s) Reevaluation #1: CBC appears to be around patient's baseline. Chemistry with no acute findings. Toxicology positive for benzodiazepines, marijuana. Negative for salicylates, acetaminophen. Valproic acid low, patient will be continued on home medications. Ethanol level negative. COVID negative. At this time patient will be placed in physician observation to allow more time to be evaluated by the behavioral health team at time observation was started patient common cooperative no acute distress will continue to monitor. <CONNIE Michelle - Last Filed: 04/23/22 00:38> Time: 00:37 <CONNIE Michelle - Last Filed: 04/23/22 00:38> MDM - Psych MDM Narrative Medical decision making narrative: [id number] 41-year-old male presents with feeling manic and suicidal ideation X a few hours, patient was discharged home from our facility earlier today. Physical exam benign Plan at this time is medical clearance and evaluation by the behavioral health team. <CONNIE Michelle - Last Filed: 04/23/22 00:38> Medical Records Attestation: I reviewed the patient's medical records. <CONNIE Michelle - Last Filed: 04/23/22 00:38> Lab Data Attestation: I reviewed the patient's lab results. <CONNIE Michelle - Last Filed: 04/23/22 00:38> Result diagrams: : 04/22/22 22:36 04/22/22 22:36 <CONNIE Michelle Last Filed: 04/23/22 00:38> Labs: Lab Results 04/22/22 04/22/22 04/22/22 Range/Units 22:09 22:09 22:36 WBC (4.8-10.8) X10*3/uL RBC (4.60-5.80) X10*6/uL Hgb (14.0-18.0) g/dl Hct (42.0-52.0) % MCV (80.0-98.0) fL MCH (27.0-33.0) pg MCHC (31.0-36.0) g/dl RDW (11.0-16.0) % Plt Count (160-400) X10*3/uL MPV (9.4-12.4) fL Immature Gran % (Auto) (0.0-0.4) % Neut % (Auto) (45-73) % Lymph % (Auto) (20-40) % Coal % (Auto) (2-11) % Eos % (Auto) (0-4) % Baso % (Auto) (0-2) % Lymph # (Auto) (1.2-4.9) X10*3/uL Coal # (Auto) (0.1-1.2) X10*3/uL Eos # (Auto) (0.0-0.4) X10*3/uL Baso # (Auto) (0.0-0.2) X10*3/uL Abs Immat Gran (auto) (0.00-0.03) X10*3/uL Absolute Neuts (auto) (2.0-8.3) x10*3/uL Absolute Nucleated RBC (0.0-0.012) X10*3/uL Nucleated RBC % (auto) (0.0-0.2) /100WBC Sodium 139 (135-145) mmol/L Potassium 4.1 (3.3-5.1) mmol/L Chloride 105 (96-108) mmol/L Carbon Dioxide 22 (22-29) mmol/L Anion Gap 16 (12-20) BUN 13 (9-16) mg/dL Creatinine 1.07 (0.5-1.4) mg/dL Estim Creat Clear Calc 77.3 Estimated GFR > 60 Random Glucose 86 (60-115) mg/dL Calcium 9.0 (8.4-10.2) mg/dL Magnesium 2.0 (1.6-2.6) mg/dL Salicylates < 5.0 L (15-30) mg/dL Urine Opiates Screen Not Detected (Not Detect) Urine Fentanyl Screen Not Detected (Not Detect) Acetaminophen < 1 (<30) mcg/mL Ur Barbiturates Screen Not Detected (Not Detect) Valproic Acid < 2.0 L (50.0-100.0) mcg/mL Ur Phencyclidine Scrn Not Detected (Not Detect) Ur Amphetamines Screen Not Detected (Not Detect) U Benzodiazepines Scrn POSITIVE H (Not Detect) Urine Cocaine Screen Not Detected (Not Detect) U Marijuana (THC) Screen POSITIVE H (Not Detect) Ethyl Alcohol mg/dL COVID-19 (CECI) Negative (Negative) COVID-19 Clin Com See Note 04/22/22 04/22/22 Range/Units 22:36 22:36 WBC 8.9 (4.8-10.8) X10*3/uL RBC 4.32 L (4.60-5.80) X10*6/uL Hgb 14.4 (14.0-18.0) g/dl Hct 42.1 (42.0-52.0) % MCV 97.5 (80.0-98.0) fL MCH 33.3 H (27.0-33.0) pg MCHC 34.2 (31.0-36.0) g/dl RDW 14.3 (11.0-16.0) % Plt Count 230 D (160-400) X10*3/uL MPV 11.3 (9.4-12.4) fL Immature Gran % (Auto) 0.2 (0.0-0.4) % Neut % (Auto) 54.8 (45-73) % Lymph % (Auto) 33.6 (20-40) % Coal % (Auto) 9.3 (2-11) % Eos % (Auto) 1.7 (0-4) % Baso % (Auto) 0.4 (0-2) % Lymph # (Auto) 3.0 (1.2-4.9) X10*3/uL Coal # (Auto) 0.8 (0.1-1.2) X10*3/uL Eos # (Auto) 0.2 (0.0-0.4) X10*3/uL Baso # (Auto) 0.0 (0.0-0.2) X10*3/uL Abs Immat Gran (auto) 0.02 (0.00-0.03) X10*3/uL Absolute Neuts (auto) 4.9 (2.0-8.3) x10*3/uL Absolute Nucleated RBC 0.000 (0.0-0.012) X10*3/uL Nucleated RBC % (auto) 0.0 (0.0-0.2) /100WBC Sodium (135-145) mmol/L Potassium (3.3-5.1) mmol/L Chloride (96-108) mmol/L Carbon Dioxide (22-29) mmol/L Anion Gap (12-20) BUN (9-16) mg/dL Creatinine (0.5-1.4) mg/dL Estim Creat Clear Calc Estimated GFR Random Glucose (60-115) mg/dL Calcium (8.4-10.2) mg/dL Magnesium (1.6-2.6) mg/dL Salicylates (15-30) mg/dL Urine Opiates Screen (Not Detect) Urine Fentanyl Screen (Not Detect) Acetaminophen (<30) mcg/mL Ur Barbiturates Screen (Not Detect) Valproic Acid (50.0-100.0) mcg/mL Ur Phencyclidine Scrn (Not Detect) Ur Amphetamines Screen (Not Detect) U Benzodiazepines Scrn (Not Detect) Urine Cocaine Screen (Not Detect) U Marijuana (THC) Screen (Not Detect) Ethyl Alcohol < 10 mg/dL COVID-19 (CECI) (Negative) COVID-19 Clin Com <CONNIE Michelle - Last Filed: 04/23/22 00:38> Critical Care Time Critical Care Time Critical Care Time: No <CONNIE Michelle - Last Filed: 04/23/22 00:38> Discharge Plan Discharge Clinical Impression: Suicidal ideation, Depression <CONNIE Michelle - Last Filed: 04/23/22 00:38> Patient Disposition: Still a Patient <CONNIE Michelle - Last Filed: 04/23/22 00:38> Prescriptions: No Action divalproex 500 mg tablet,delayed release (DR/EC) 1 tab PO BID 0RF temazepam 30 mg capsule 1 cap PO BEDTIME PRN (Reason: Sleep) 0RF Latuda 40 mg tablet 1 tab PO BEDTIME 0RF <CONNIE Michelle - Last Filed: 04/23/22 00:38>
[2022-04-22 22:38] LABS: COVID-19 Test Negative (Negative)
[2022-04-22 22:42] LABS: MANUAL DIFF FLAG NO
[2022-04-22 22:42] LABS: Amphetamine Screen Urine Not Detected (Not Detect); Barbiturates, Urine Not Detected (Not Detect); Benzodiazepines Screen Urine POSITIVE (Not Detect); Cannabinoid Screen Urine POSITIVE (Not Detect); Cocaine Screen Urine Not Detected (Not Detect); Fentanyl, urine Not Detected (Not Detect); Opiate Screen Urine Not Detected (Not Detect); Phencyclidine Screen Urine Not Detected (Not Detect)
[2022-04-22 22:54] LABS: Ethanol < 10 mg/dL
[2022-04-22 23:02] LABS: Acetaminophen LAB < 1 mcg/mL (<30); Anion Gap 16 (12-20); Blood Urea Nitrogen 13 mg/dL (9-16); Carbon Dioxide 22 mmol/L (22-29); Chloride 105 mmol/L (96-108); Creatinine Clr Calc Pharmacy 77.3; Estimated Glomerular Filt Rate > 60; Glucose Random 86 mg/dL (60-115); Potassium 4.1 mmol/L (3.3-5.1); Salicylate < 5.0 mg/dL (15-30); Sodium 139 mmol/L (135-145)
[2022-04-22 23:06] LABS: Valproate < 2.0 mcg/mL (50.0-100.0)
[2022-04-23 00:22] LABS: Basophils Percent Auto 0.4 % (0-2); Eosinophils Absolute Auto 0.2 X10*3/uL (0.0-0.4); Eosinophils Percent Auto 1.7 % (0-4); Hematocrit 42.1 % (42.0-52.0); Hemoglobin 14.4 g/dl (14.0-18.0); Imm Gran Abs Auto 0.02 X10*3/uL (0.00-0.03); Imm Gran Pct Auto 0.2 % (0.0-0.4); Lymphocytes Percent Auto 33.6 % (20-40); Mean Corpuscular HGB Conc 34.2 g/dl (31.0-36.0); Mean Corpuscular Hemoglobin 33.3 pg (27.0-33.0); Mean Corpuscular Volume 97.5 fL (80.0-98.0); Mean Platelet Volume 11.3 fL (9.4-12.4); Monocytes Absolute Auto 0.8 X10*3/uL (0.1-1.2); Monocytes Percent Auto 9.3 % (2-11); Neutrophils Absolute Auto 4.9 x10*3/uL (2.0-8.3); Neutrophils Percent Auto 54.8 % (45-73); Platelet Count 230 X10*3/uL (160-400); Red Blood Count 4.32 X10*6/uL (4.60-5.80); Red Cell Distribution Width 14.3 % (11.0-16.0); White Blood Count 8.9 X10*3/uL (4.8-10.8)
[2022-04-23] MEDS: Temazepam 15 MG CAPSULE 30 MG PO (03:26)
[2022-04-23 03:27] VITALS: BP 114/85; PULSE 67; RESP 16; TEMP 36.2; O2SAT 98
--- NOTE | 2022-04-23 06:18 | PC.NURSE ---
Patient slept through the night, no distress observed/reported, behavior appropriate and non concerning, medication compliant, BHN referral completed/confirmed/pending evaluation in the morning, vss, contracted for the safety, will continue to monitor.
[2022-04-23] MEDS: Divalproex Sodium 500 MG TABLET.DR PO (09:00)
[2022-04-23 10:24] VITALS: BP 118/68; PULSE 73; RESP 16; TEMP 36.4; O2SAT 97
== END 2022-04-23 13:36 | disposition home or self-care (01) ==
PROVIDERS: Physician Assistant; Emergency Provider Emergency Medicine
DX: F31.9 Bipolar disorder, unspecified (principal); R45.851 Suicidal ideations; F20.9 Schizophrenia, unspecified; Z79.899 Other long term (current) drug therapy
CPT/HCPCS: 36415; 80048; 80143; 80164; 80179; 80307; 82077; 83735; 85025; 87635; 99284

== ENCOUNTER 2022-06-11 15:14 | Outpatient (REF) | payer OTHER, SELFPAY ==
[2022-06-11 15:31] LABS: MANUAL DIFF FLAG NO
[2022-06-11 15:57] LABS: Basophils Percent Auto 0.6 % (0-2); Eosinophils Absolute Auto 0.1 X10*3/uL (0.0-0.4); Eosinophils Percent Auto 1.2 % (0-4); Hematocrit 44.7 % (42.0-52.0); Hemoglobin 15.4 g/dl (14.0-18.0); Imm Gran Abs Auto 0.01 X10*3/uL (0.00-0.03); Imm Gran Pct Auto 0.2 % (0.0-0.4); Lymphocytes Percent Auto 45.6 % (20-40); Mean Corpuscular HGB Conc 34.5 g/dl (31.0-36.0); Mean Corpuscular Hemoglobin 33.6 pg (27.0-33.0); Mean Corpuscular Volume 97.4 fL (80.0-98.0); Mean Platelet Volume 11.1 fL (9.4-12.4); Monocytes Absolute Auto 0.6 X10*3/uL (0.1-1.2); Monocytes Percent Auto 9.1 % (2-11); Neutrophils Absolute Auto 2.9 x10*3/uL (2.0-8.3); Neutrophils Percent Auto 43.3 % (45-73); Platelet Count 256 X10*3/uL (160-400); Red Blood Count 4.59 X10*6/uL (4.60-5.80); Red Cell Distribution Width 14.1 % (11.0-16.0); White Blood Count 6.6 X10*3/uL (4.8-10.8)
[2022-06-11 16:13] LABS: Estimated Average Glucose 103 mg/dL; Hemoglobin A1c % 5.2 %
[2022-06-11 16:26] LABS: Cholesterol 164 mg/dL; HDL Cholesterol 39 mg/dL; LDL Cholesterol Calculated 112 mg/dl; Triglycerides 65 mg/dL
== END 2022-06-11 15:15 | disposition home or self-care (01) ==
LOC: HO.LAB 15:14
PROVIDERS: Visit Provider Clinical Nurse Specialist Psychiatric/Mental Health, Child & Adolescent
DX: I51.81 Takotsubo syndrome (principal); F31.11 Bipolar disorder, current episode manic without psychotic features, mild
CPT/HCPCS: 36415; 80061; 80164; 83036; 85025

== ENCOUNTER 2022-07-29 01:21 | Emergency (ER) | payer OTHER, SELFPAY ==
[2022-07-29 01:30] VITALS: BP 96/58; PULSE 97; RESP 16; O2SAT 92
[2022-07-29] MEDS: Haloperidol Lactate 5 MG/ML VIAL IM (01:30)
[2022-07-29] MEDS: Midazolam HCl/PF 2 MG/2 ML VIAL 4 MG IM (01:30)
[2022-07-29 01:39] VITALS: BMI 22.0
[2022-07-29 01:45] VITALS: RESP 16
[2022-07-29 02:00] VITALS: RESP 16
[2022-07-29 02:15] VITALS: RESP 16
[2022-07-29 02:19] LABS: COVID-19 Test Negative (Negative)
[2022-07-29 02:30] VITALS: BP 100/48; PULSE 80; RESP 16; O2SAT 100
--- NOTE | 2022-07-29 03:35 | ED.PSYCH ---
HPI - Psych General Chief Complaint: Psychiatric Symptoms Stated Complaint: Section 12 Time Seen by Provider: 07/29/22 01:25 Source: patient Mode of arrival: ambulatory History of Present Illness HPI Narrative: Patient brought by EMS on Section 12 for behavioral aggression at home patient broke his microwave patient was handcuffed by the police. Patient refusing to answer much , angry on arrival received Haldol 5 mg and Versed 4 mg IM Related Data Home Medications Medication Instructions Recorded Confirmed divalproex 500 mg tablet,delayed 1 tab PO BID 07/29/22 07/29/22 release lurasidone 40 mg tablet (Latuda) 1 tab PO DAILY 07/29/22 07/29/22 temazepam 30 mg capsule 1 cap PO BEDTIME PRN Anxiety 07/29/22 07/29/22 Allergies Allergy/AdvReac Type Severity Reaction Status Date / Time No Known Allergies Allergy Verified 02/10/22 09:37 Review of Systems Review of Systems: Yes Unobtainable due to mental condition PMFSH Past Medical History Medical History Schizophrenia Social History Social History Household Members: Family Housing: House Do you presently have visiting nurse or other home services: No Patient Tobacco Use Status: Never used Tobacco Substance Use Type: Marijuana Advance Directives: No Advance Directives Information Provided: Yes Sexual orientation: Did not discuss. Physical Exam Vital Signs: Vital Signs: Last Vital Signs Pulse 80 07/29/22 02:30 Resp 16 07/29/22 02:30 BP 100/48 L 07/29/22 02:30 Pulse Ox 100 07/29/22 02:30 O2 Del Method 07/29/22 02:30 BMI result Body Mass Index 22.0 Appearance: Alert. Oriented X3. No acute distress. Eyes: PERRLA, No Nystagmus ENT: Pharynx normal. Oral Mucosa moist Neck: Normal inspection. Neck supple. CVS: Normal heart rate and rhythm. Pulses normal. Respiratory: No respiratory distress. Equal air entry bilateral, no wheezing/rales/rhonchi Abdomen: Soft and nontender. Bowel sounds are present, no mass palpable, no CVA tenderness Skin: Skin warm and dry. Normal skin color. Normal skin turgor. Extremities: No lower extremity edema. No calf tenderness psych; very angry at this time Neuro: Oriented X 3. No motor deficit. No sensory deficit.No cerebellar signs , cranial nerves II-XII intact MDM - Psych MDM Narrative Medical decision making narrative: Patient with aggressive behavior with history of bipolar disorder will get case management BHN involvement once patient gets sober possibly patient took some street drugs unable to evaluate at this time Lab Data Attestation: I reviewed the patient's lab results. Labs: Lab Results 07/29/22 Range/Units 01:59 COVID-19 (CECI) Negative (Negative) COVID-19 Clin Com See Note Discharge Plan Discharge Clinical Impression: Bipolar 1 disorder, mixed, severe, Aggressive behavior Patient Disposition: Still a Patient Prescriptions: No Action divalproex 500 mg tablet,delayed release (DR/EC) 1 tab PO BID temazepam 30 mg capsule 1 cap PO BEDTIME PRN (Reason: Anxiety) Latuda 40 mg tablet 1 tab PO DAILY
--- NOTE | 2022-07-29 05:34 | PC.NURSE ---
Patient was presented to ED handcuffed due to explosive behavior at home, patient appears agitated/non compliant with changeover process/requiring IM medication for intervention, Haldol 5 mg IM and Versed 4 mg IM administered @ 0130, as ordered with positive effect, slept through the night, VSS, no distress observed/reported, pending lab and urine orders, BHN referral completed/confirmed/pending ETA, med rec completed/pending provider's approval, will continue to monitor.
[2022-07-29] MEDS: Divalproex Sodium 500 MG TABLET.DR PO (09:07)
[2022-07-29] MEDS: Lurasidone HCl 40 MG TABLET PO (09:07)
--- NOTE | 2022-07-29 10:26 | PC.NURSE ---
pt compliant with meds and vitals, denied pain. refused breakfast I'm not hungry . no issues observed/reported. pt sleeping at this time.
--- NOTE | 2022-07-29 12:10 | PC.NURSE ---
pt reported nausea before leaving, this web content writer offered nausea medication, pt declined, stated it's ok, I will tough it out . pt escorted to waiting room to wait for lyft. pt left in hospital attire per his request. discharge instructions reviewed with pt.
--- NOTE | 2022-07-29 12:12 | MHC.CARE ---
CARE team met with patient in [facility] this morning for risk assessment and to make recommendations. He was brought to the ED last night by police/EMS due to agitation and behavioral outburst at home, continued to be dysregulated and required restraints here at the hospital. [place] is [place] [facility] through previous visits with similar presentations. Today, he was calm and cooperative, stated that he felt, ?Sick,? and does not remember what the precipitant was yesterday. Acknowledged that he has trouble staying calm when distressed. 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 Call to patient?s girlfriend, she reported that last night they were having a discussion about their relationship and she believes that is what set him off. Although last night was extremely emotional, she is familiar with his behavior and not concerned about patient?s safety and does not believe he would hurt anyone else. Patient participated in safety planning and accepted handouts on managing anxiety, no further interventions indicated. Discussed case with ED provider, Dr. Hayward and advertising dispatch clerks supervisor, MERARY Herbert provided to patient.
== END 2022-07-29 12:11 | disposition home or self-care (01) ==
PROVIDERS: Internal Medicine; Emergency Provider Emergency Medicine Emergency Medical Services
DX: F31.60 Bipolar disorder, current episode mixed, unspecified (principal); F06.34 Mood disorder due to known physiological condition with mixed features; Z20.822 Contact with and (suspected) exposure to COVID-19; Z79.899 Other long term (current) drug therapy
CPT/HCPCS: 87635; 96372; 99284; 99285; J2250

== ENCOUNTER 2022-08-21 20:35 | Emergency (ER) | payer OTHER, SELFPAY ==
[2022-08-21 20:40] VITALS: BP 121/64; PULSE 89; RESP 18; TEMP 36.4; O2SAT 96; BMI 21.6
[2022-08-21 21:21] LABS: COVID-19 Test Negative (Negative); IDNOW Serial# 16C4AD1C
[2022-08-21 21:23] LABS: Amphetamine Screen Urine Not Detected (Not Detect); Barbiturates, Urine Not Detected (Not Detect); Benzodiazepines Screen Urine Not Detected (Not Detect); Cannabinoid Screen Urine POSITIVE (Not Detect); Cocaine Screen Urine Not Detected (Not Detect); Fentanyl, urine Not Detected (Not Detect); Opiate Screen Urine POSITIVE (Not Detect); Phencyclidine Screen Urine Not Detected (Not Detect)
--- NOTE | 2022-08-21 21:33 | ED.PSYCH ---
HPI - Psych General Chief Complaint: Psychiatric Symptoms Stated Complaint: xx Time Seen by Provider: 08/21/22 21:14 Source: patient Mode of arrival: EMS Limitations: no limitations History of Present Illness HPI Narrative: History of bipolar disorder with manic episodes in the past today he got upset and was very manic hyperventilating Section 12 by [employer] patient fairly compliant with his medication. No hallucination no delusion Related Data Home Medications Medication Instructions Recorded Confirmed divalproex 500 mg tablet,delayed 1 tab PO BID 07/29/22 08/21/22 release temazepam 30 mg capsule 1 cap PO BEDTIME PRN Anxiety 07/29/22 08/21/22 Allergies Allergy/AdvReac Type Severity Reaction Status Date / Time No Known Allergies Allergy Verified 08/11/22 10:53 [facility] Past Medical History Medical History Schizophrenia Social History Social History Household Members: Family Housing: House Do you presently have visiting nurse or other home services: No Patient Tobacco Use Status: Current everyday Tobacco user Substance Use Type: Marijuana Advance Directives: No Sexual orientation: Did not discuss. Physical Exam Vital Signs: Vital Signs: Last Vital Signs Temp 97.5 F 08/21/22 20:40 Pulse 89 08/21/22 20:40 Resp 18 08/21/22 20:40 BP 121/64 08/21/22 20:40 Pulse Ox 96 08/21/22 20:40 O2 Del Method 08/21/22 20:40 BMI result Body Mass Index 21.6 MDM - Psych MDM Narrative Medical decision making narrative: Patient with bipolar disorder with frequent manic episodes which could be life-threatening some times will consult N for evaluation Lab Data Attestation: I reviewed the patient's lab results. Result diagrams: 08/21/22 22:09 08/21/22 22:09 Labs: Lab Results 08/21/22 08/21/22 08/21/22 Range/Units 21:01 21:01 22:09 WBC 10.3 (4.8-10.8) X10*3/uL RBC 4.50 L (4.60-5.80) X10*6/uL Hgb 14.8 (14.0-18.0) g/dl Hct 43.2 (42.0-52.0) % MCV 96.0 (80.0-98.0) fL MCH 32.9 (27.0-33.0) pg MCHC 34.3 (31.0-36.0) g/dl RDW 13.6 (11.0-16.0) % Plt Count 272 (160-400) X10*3/uL MPV 10.7 (9.4-12.4) fL Immature Gran % (Auto) 0.4 (0.0-0.4) % Neut % (Auto) 79.1 H (45-73) % Lymph % (Auto) 12.8 L (20-40) % Haines % (Auto) 6.7 (2-11) % Eos % (Auto) 0.7 (0-4) % Baso % (Auto) 0.3 (0-2) % Lymph # (Auto) 1.3 (1.2-4.9) X10*3/uL Haines # (Auto) 0.7 (0.1-1.2) X10*3/uL Eos # (Auto) 0.1 (0.0-0.4) X10*3/uL Baso # (Auto) 0.0 (0.0-0.2) X10*3/uL Abs Immat Gran (auto) 0.04 H (0.00-0.03) X10*3/uL Absolute Neuts (auto) 8.1 (2.0-8.3) x10*3/uL Absolute Nucleated RBC 0.000 (0.0-0.012) X10*3/uL Nucleated RBC % (auto) 0.0 (0.0-0.2) /100WBC Sodium (135-145) mmol/L Potassium (3.3-5.1) mmol/L Chloride (96-108) mmol/L Carbon Dioxide (22-29) mmol/L Anion Gap (12-20) BUN (9-16) mg/dL Creatinine (0.5-1.4) mg/dL Estim Creat Clear Calc Estimated GFR Random Glucose (60-115) mg/dL Calcium (8.4-10.2) mg/dL Total Bilirubin (0.0-1.0) mg/dL AST (5-37) U/L ALT (0-40) U/L Alkaline Phosphatase (39-117) U/L Total Protein (6.5-8.0) g/dL Albumin (3.5-5.0) g/dL Urine Opiates Screen POSITIVE H (Not Detect) Urine Fentanyl Screen Not Detected (Not Detect) Ur Barbiturates Screen Not Detected (Not Detect) Valproic Acid (50.0-100.0) mcg/mL Ur Phencyclidine Scrn Not Detected (Not Detect) Ur Amphetamines Screen Not Detected (Not Detect) U Benzodiazepines Scrn Not Detected (Not Detect) Urine Cocaine Screen Not Detected (Not Detect) U Marijuana (THC) Screen POSITIVE H (Not Detect) Ethyl Alcohol mg/dL COVID-19 (CECI) Negative (Negative) COVID-19 Clin Com See Note 08/21/22 08/21/22 Range/Units 22:09 22:09 WBC (4.8-10.8) X10*3/uL RBC (4.60-5.80) X10*6/uL Hgb (14.0-18.0) g/dl Hct (42.0-52.0) % MCV (80.0-98.0) fL MCH (27.0-33.0) pg MCHC (31.0-36.0) g/dl RDW (11.0-16.0) % Plt Count (160-400) X10*3/uL MPV (9.4-12.4) fL Immature Gran % (Auto) (0.0-0.4) % Neut % (Auto) (45-73) % Lymph % (Auto) (20-40) % Haines % (Auto) (2-11) % Eos % (Auto) (0-4) % Baso % (Auto) (0-2) % Lymph # (Auto) (1.2-4.9) X10*3/uL Haines # (Auto) (0.1-1.2) X10*3/uL Eos # (Auto) (0.0-0.4) X10*3/uL Baso # (Auto) (0.0-0.2) X10*3/uL Abs Immat Gran (auto) (0.00-0.03) X10*3/uL Absolute Neuts (auto) (2.0-8.3) x10*3/uL Absolute Nucleated RBC (0.0-0.012) X10*3/uL Nucleated RBC % (auto) (0.0-0.2) /100WBC Sodium 145 (135-145) mmol/L Potassium 4.4 (3.3-5.1) mmol/L Chloride 107 (96-108) mmol/L Carbon Dioxide 26 (22-29) mmol/L Anion Gap 16 (12-20) BUN 17 H (9-16) mg/dL Creatinine 1.21 (0.5-1.4) mg/dL Estim Creat Clear Calc 68.3 Estimated GFR > 60 Random Glucose 72 (60-115) mg/dL Calcium 9.3 (8.4-10.2) mg/dL Total Bilirubin 0.4 (0.0-1.0) mg/dL AST 15 D (5-37) U/L ALT 8 (0-40) U/L Alkaline Phosphatase 64 (39-117) U/L Total Protein 6.7 (6.5-8.0) g/dL Albumin 4.0 (3.5-5.0) g/dL Urine Opiates Screen (Not Detect) Urine Fentanyl Screen (Not Detect) Ur Barbiturates Screen (Not Detect) Valproic Acid 22.3 L (50.0-100.0) mcg/mL Ur Phencyclidine Scrn (Not Detect) Ur Amphetamines Screen (Not Detect) U Benzodiazepines Scrn (Not Detect) Urine Cocaine Screen (Not Detect) U Marijuana (THC) Screen (Not Detect) Ethyl Alcohol < 10 mg/dL COVID-19 (CECI) (Negative) COVID-19 Clin Com Discharge Plan Discharge Clinical Impression: Bipolar 1 disorder, mixed, severe Patient Disposition: Still a Patient Prescriptions: No Action divalproex 500 mg tablet,delayed release (DR/EC) 1 tab PO BID temazepam 30 mg capsule 1 cap PO BEDTIME PRN (Reason: Anxiety)
--- OUTSIDE RECORDS SUMMARY | 2022-08-21 21:43 | XMS_ITS | Continuity of Care Document ---
:1980 Author Organization [facility] Address [address] [place] [address]- Care Team Providers Name Role Phone Not on Staff, PCP Primary Care Physician Unavailable [place] [facility] [place] - 04/13/[address] [address]- Encounter Diagnosis Agitation (Final) - 04/13/21 Discharge Disposition: A-D/C Home Attending Physician: Harley Castro MD Admitting Physician: Harley Castro MD Referring Physician: Not on Staff, Referring MD Allergies, Adverse Reactions, Alerts Substance Reaction Severity Status NKA Active Immunizations Given and Recorded Vaccine Date Status Refusal Reason tetanus/diphtheria/pertussis, acel(Tdap) 12/10/17 Given tetanus/diphtheria/pertussis, acel(Tdap) 05/05/14 Given tetanus/diphtheria/pertussis, acel(Tdap) 11/18/09 Given Hepatitis B Vaccine (old term)1 03/27/12 Given Hepatitis B Vaccine (old term)2 04/20/11 Given Hepatitis B Vaccine (old term) 04/06/04 Given Hepatitis A Adult Vaccine3 04/28/11 Given Hepatitis A Adult Vaccine 04/06/04 Given Not Given Vaccine Date Status Refusal Reason pneumococcal 23-valent vaccine 08/14/16 Not Given P atient Refuses influenza virus vaccine, inactivated 08/14/16 Not Given Permanently Refused 1Admin Note: vis 06/07/20072Admin Note: VIS GIVEN 12/20/083Admin Note: VIS GIVEN 01/20/06 Medications divalproex sodium 500 mg oral enteric coated tablet = 500 mg, By Mouth, 2 times a day, # 60 tablet, 0 Refills, Maintenance, 10/03/18 9:45:17 EST, Tablet Start Date: 10/03/18 Status: OrderedSEROquel 300 mg oral tablet 1 tablet = 300 mg, By Mouth, Daily at bedtime, # 30 tablet, 0 Refills, Maintenance, 10/03/18 9:46:22EST, Tablet Start Date: 10/03/18 Status: Ordered Problem List Condition Effective Dates Status Health Status Informant MRSA(Confirmed) Active Sinus bradycardia(Confirmed) Active Vital Signs Most recent to oldest [Reference Range]: 1 2 Oxygen Saturation [94-100 %] 99 % 100 % (04/13/21 3:51 PM) (04/13/21 12:50 PM) Pulse Rate [55-90 bpm] 69 bpm 86 bpm (04/13/21 3:51 PM) (04/13/21 12:50 PM) Blood Pressure [90-138/55-84 mm Hg] 129/81 mm Hg 106/ 69 mm Hg (04/13/21 3:51 PM) (04/13/21 12:50 PM) Respiratory Rate [16-30 br/min] 18 br/min 18 br/mi n (04/13/21 3:51 PM) (04/13/21 12:50 PM) Temperature [96.8-100.4 DegF] 97.8 DegF 97.3 DegF (04/13/21 3:51 PM) (04/13/21 12:50 PM) Liters per Minute 0 L/min (04/13/21 12:50 PM) Mode of Delivery (Oxygen) Room air Room air (04/13/21 3:51 PM) (04/13/21 12:50 PM) Temperature Route Oral Oral (04/13/21 3:51 PM) (04/13/21 12:50 PM) Social History Social History Type Response Smoking Status Current every day smoker; To bacco user in household: Yes; Type: Cigarettes; Previous treatment: Nicotine replacement; Interested in cessation: No; Tobacco use times per day: 4-5x/day; entered on: 08/13/16 Sex
--- OUTSIDE RECORDS SUMMARY | 2022-08-21 21:43 | XMS_ITS | Continuity of Care Document ---
:1980 Author Organization [facility] Address [address] [place] [address]- Care Team Providers Name Role Phone Not on Staff, PCP Primary Care Physician Unavailable [place] [facility] [place] 01/01/[address] [address]- Encounter Diagnosis Forehead laceration (Final) - 01/01/21 Discharge Disposition: A-D/C Home Attending Physician: Ted Ortega MD Admitting Physician: Ted Ortega MD Referring Physician: Not on Staff, Referring [...] Active Vital Signs Most recent to oldest 1 2 3 [Reference Range]: Height 162 cm 162 cm (01/01/21 3:55 PM) (01/01/21 11:20 AM) Weight 81 kg 81 kg (01/01/21 3:55 PM) (01/01/21 11:20 AM) Oxygen Saturation [94-100 %] 100 % 99 % 100 % (01/01/21 7:19 PM) (01/01/21 3:55 PM) (01/01/21 1:0 6 PM) Pulse Rate [55-90 bpm] 64 bpm 61 bpm 88 bpm (01/01/21 7:19 PM) (01/01/21 3:55 PM) (01/01/21 1:0 6 PM) Body Mass Index [18.5-24.99] 30.86 *>HHI* (01/01/21 3:55 PM) Blood Pressure [90-138/55-84 122/62 mm Hg 127/81 mm Hg 128 /61 mm Hg mm Hg] (01/01/21 7:19 PM) (01/01/21 3:55 PM) (01/01/21 1:0 6 PM) Respiratory Rate [16-30 16 br/min 16 br/min 17 br/mi n br/min] (01/01/21 7:19 PM) (01/01/21 3:55 PM) (01/01/21 1:0 6 PM) Temperature [96.8-100.4 DegF] 98.7 DegF 98.8 DegF 98 .4 DegF (01/01/21 7:19 PM) (01/01/21 3:55 PM) (01/01/21 10: 59 AM) Mode of Delivery (Oxygen) Room air Room air Room a ir (01/01/21 7:19 PM) (01/01/21 3:55 PM) (01/01/21 1:0 6 PM) Blood pressure sites Arm, right Arm, left Arm, right (01/01/21 7:19 PM) (01/01/21 1:06 PM) (01/01/21 10: 59 AM) Temperature Route Oral Oral Oral (01/01/21 7:19 PM) (01/01/21 3:55 PM) (01/01/21 10: 59 AM) Dry Weight 81 kg 81 kg (01/01/21 3:55 PM) (01/01/21 11:20 AM) Social History Social History Type Response Smoking Status Current every day smoker; To bacco user in household: Yes; Type: Cigarettes; Previous treatment: Nicotine replacement; Interested in cessation: No; Tobacco use times per day: 4-5x/day; entered on: 08/13/16 Sex
--- OUTSIDE RECORDS SUMMARY | 2022-08-21 21:43 | XMS_ITS | Continuity of Care Document ---
:1980 Author Organization [facility] Address [address] [place] [address]- Care Team Providers Name Role Phone Not on Staff, PCP Primary Care Physician Unavailable [place] [facility] [place] [facility] [address] [place] [id number]- Discharge Disposition: A-D/C Walkout Attending Physician: Harley Castro MD Admitting Physician: [...] Most recent to oldest [Reference Range]: 1 Oxygen Saturation [94-100 %] 99 % (02/14/21 1:33 PM) Pulse Rate [55-90 bpm] 80 bpm (02/14/21 1:33 PM) Blood Pressure [90-138/55-84 mm Hg] 121/85 mm Hg (02/14/21 1:33 PM) Respiratory Rate [16-30 br/min] 18 br/min (02/14/21 1:33 PM) Temperature [96.8-100.4 DegF] 98.2 DegF (02/14/21 1:33 PM) Mode of Delivery (Oxygen) Room air (02/14/21 1:33 PM) Blood pressure sites Arm, right (02/14/21 1:33 PM) Temperature Route Oral (02/14/21 1:33 PM) Social History Social History Type Response Smoking Status Current every day smoker; To bacco user in household: Yes; Type: Cigarettes; Previous treatment: Nicotine replacement; Interested in cessation: No; Tobacco use times per day: 4-5x/day; entered on: 08/13/16 Sex
--- OUTSIDE RECORDS SUMMARY | 2022-08-21 21:43 | XMS_ITS | Continuity of Care Document ---
:1980 Author Organization [facility] Address [address] [place] [address]- Care Team Providers Name Role Phone Not on Staff, PCP Primary Care Physician Unavailable Encounter [facility] [place] Date(s): 02/23/21 - 02/23/[address] [address]- Encounter Diagnosis Agitation (Final) - 02/23/21 Discharge Disposition: A-D/C Home Attending Physician: Daija Fenton MD Admitting Physician: Daija Fenton MD Referring Physician: Not on Staff, Referring [...] [Reference Range]: 1 Oxygen Saturation [94-100 %] 100 % (02/23/21 2:22 PM) Pulse Rate [55-90 bpm] 87 bpm (02/23/21 2:22 PM) Blood Pressure [90-138/55-84 mm Hg] 111/66 mm Hg (02/23/21 2:22 PM) Respiratory Rate [16-30 br/min] 18 br/min (02/23/21 2:22 PM) Mode of Delivery (Oxygen) Room air (02/23/21 2:22 PM) Social History Social History Type Response Smoking Status Current every day smoker; To bacco user in household: Yes; Type: Cigarettes; Previous treatment: Nicotine replacement; Interested in cessation: No; Tobacco use times per day: 4-5x/day; entered on: 08/13/16 Sex
[2022-08-21 22:13] LABS: MANUAL DIFF FLAG NO
[2022-08-21 22:18] LABS: Basophils Percent Auto 0.3 % (0-2); Eosinophils Absolute Auto 0.1 X10*3/uL (0.0-0.4); Eosinophils Percent Auto 0.7 % (0-4); Hematocrit 43.2 % (42.0-52.0); Hemoglobin 14.8 g/dl (14.0-18.0); Imm Gran Abs Auto 0.04 X10*3/uL (0.00-0.03); Imm Gran Pct Auto 0.4 % (0.0-0.4); Lymphocytes Absolute Auto 1.3 X10*3/uL (1.2-4.9); Lymphocytes Percent Auto 12.8 % (20-40); Mean Corpuscular HGB Conc 34.3 g/dl (31.0-36.0); Mean Corpuscular Hemoglobin 32.9 pg (27.0-33.0); Mean Platelet Volume 10.7 fL (9.4-12.4); Monocytes Absolute Auto 0.7 X10*3/uL (0.1-1.2); Monocytes Percent Auto 6.7 % (2-11); Neutrophils Absolute Auto 8.1 x10*3/uL (2.0-8.3); Neutrophils Percent Auto 79.1 % (45-73); Platelet Count 272 X10*3/uL (160-400); Red Cell Distribution Width 13.6 % (11.0-16.0); White Blood Count 10.3 X10*3/uL (4.8-10.8)
[2022-08-21 22:46] LABS: Alanine Aminotransferase 8 U/L (0-40); Alkaline Phosphatase 64 U/L (39-117); Anion Gap 16 (12-20); Aspartate Amino Transferase 15 U/L (5-37); Bilirubin Total 0.4 mg/dL (0.0-1.0); Blood Urea Nitrogen 17 mg/dL (9-16); Calcium 9.3 mg/dL (8.4-10.2); Carbon Dioxide 26 mmol/L (22-29); Chloride 107 mmol/L (96-108); Creatinine Clr Calc Pharmacy 68.3; Estimated Glomerular Filt Rate > 60; Ethanol < 10 mg/dL; Glucose Random 72 mg/dL (60-115); Potassium 4.4 mmol/L (3.3-5.1); Sodium 145 mmol/L (135-145); Total Protein 6.7 g/dL (6.5-8.0)
[2022-08-21 22:51] LABS: Valproate 22.3 mcg/mL (50.0-100.0)
--- NOTE | 2022-08-22 06:44 | PC.NURSE ---
Patient slept through the night, no distress observed/reported, [facility] referral completed/confirmed/pending ETA, med rec completed/pending provider's approval, behavior non concerning, VSS, will continue to monitor.
[2022-08-22] MEDS: Divalproex Sodium 500 MG TABLET.DR PO ×2 (11:18→19:47)
--- NOTE | 2022-08-22 11:33 | PC.NURSE ---
pt wanted to talk with GF, while on the phone for a long time, he was yelling while on the phone and then crying and hyperventilating, Depakote given. He kept apologizing to the GF and then to this RN. Reassurance and support given.
--- NOTE | 2022-08-22 20:20 | PC.NURSE ---
Patient in his room talking on the phone at time, screaming but easy redirected, PO meds given. will continue to monitor.
[2022-08-22] MEDS: Temazepam 15 MG CAPSULE 30 MG PO (21:23)
--- NOTE | 2022-08-22 21:25 | PC.NURSE ---
Patient requesting his temazepam po, medication given. Patient in his room watching tv, cooperative. Will continue to monitor.
[2022-08-23 03:24] VITALS: BP 118/74; PULSE 73; RESP 17; TEMP 36.6; O2SAT 99
--- NOTE | 2022-08-23 06:35 | PC.NURSE ---
Patient sleeping comfortable. No distress. Will continue to monitor.
[2022-08-23] MEDS: Divalproex Sodium 500 MG TABLET.DR PO (08:24)
--- NOTE | 2022-08-23 10:30 | PC.NURSE ---
pt was calm and cooperative all morning, mainly stayed in his room, came out about 100 and spoke w care team about a re eval and leaving, advocating he is safe, pt did this in a calm and appropriate manner, now pt pacing, talking to self, stating he is not si/hi but appears agitated, pt declined prn and calmly stated that he's not agitated
--- NOTE | 2022-08-23 12:58 | MHC.CARE ---
CARE Team (first year procurement internship Mariama Boyer and clinician Viridiana Astudillo, [facility]) met with patient per his request for discharge after initially being set for inpatient bed. Consistent with previous report he has denied any SI/HI and acknowledged having an angry outburst at home. Alternative coping mechanisms discussed as well as possibly reaching out to crisis by phone to talk through these situations and calm down in the future. This presentation is consistent to past ED visits where patient has calmed down hours or the next day and asks to be discharged. Patient has outpatient providers and a new therapist with whom he has good rapport, takes medication as prescribed and attends appointments regularly. Patient has coping strategies such as meditation, going for walks, listening to music, etc. and was encouraged to access them during crisis.? Lengthy phone conversation with patient?s regarding her concerns and possible safety issues should patient discharge. She stated she is not worried about the safety of herself, children and or her . She does not think inpatient admissions have helped patient; he has had medication changes but continues to be easily triggered and unable to control his anger at times. Partial hospitalization would most benefit patient and it was confirmed that he can attend half days while maintaining his job.?Patient was provided with program contact information. Disposition to discharge patient discussed with Dr. Lujan.
== END 2022-08-23 12:03 | disposition home or self-care (01) ==
PROVIDERS: Emergency Provider Internal Medicine
DX: F31.63 Bipolar disorder, current episode mixed, severe, without psychotic features (principal); Z20.822 Contact with and (suspected) exposure to COVID-19; F17.200 Nicotine dependence, unspecified, uncomplicated; F12.90 Cannabis use, unspecified, uncomplicated; Z79.899 Other long term (current) drug therapy
CPT/HCPCS: 36415; 80053; 80164; 80307; 82077; 85025; 87635; 99284; 99285

== ENCOUNTER 2022-09-16 13:38 | Outpatient (REF) | payer OTHER, SELFPAY ==
[2022-09-16 13:55] LABS: MANUAL DIFF FLAG NO
[2022-09-16 14:19] LABS: Basophils Percent Auto 0.7 % (0-2); Eosinophils Absolute Auto 0.1 X10*3/uL (0.0-0.4); Eosinophils Percent Auto 2.4 % (0-4); Hematocrit 41.1 % (42.0-52.0); Hemoglobin 14.2 g/dl (14.0-18.0); Imm Gran Abs Auto 0.01 X10*3/uL (0.00-0.03); Imm Gran Pct Auto 0.2 % (0.0-0.4); Lymphocytes Absolute Auto 2.9 X10*3/uL (1.2-4.9); Lymphocytes Percent Auto 49.8 % (20-40); Mean Corpuscular HGB Conc 34.5 g/dl (31.0-36.0); Mean Corpuscular Hemoglobin 33.6 pg (27.0-33.0); Mean Corpuscular Volume 97.2 fL (80.0-98.0); Mean Platelet Volume 10.4 fL (9.4-12.4); Monocytes Absolute Auto 0.5 X10*3/uL (0.1-1.2); Monocytes Percent Auto 9.2 % (2-11); Neutrophils Absolute Auto 2.2 x10*3/uL (2.0-8.3); Neutrophils Percent Auto 37.7 % (45-73); Platelet Count 361 X10*3/uL (160-400); Red Blood Count 4.23 X10*6/uL (4.60-5.80); Red Cell Distribution Width 13.2 % (11.0-16.0); White Blood Count 5.7 X10*3/uL (4.8-10.8)
[2022-09-16 14:53] LABS: Alanine Aminotransferase 9 U/L (0-40); Albumin Level 3.9 g/dL (3.5-5.0); Alkaline Phosphatase 69 U/L (39-117); Anion Gap 13 (12-20); Aspartate Amino Transferase 16 U/L (5-37); Bilirubin Total 0.2 mg/dL (0.0-1.0); Blood Urea Nitrogen 12 mg/dL (9-16); Calcium 9.1 mg/dL (8.4-10.2); Carbon Dioxide 29 mmol/L (22-29); Chloride 105 mmol/L (96-108); Estimated Glomerular Filt Rate > 60; Glucose Random 80 mg/dL (60-115); Potassium 4.6 mmol/L (3.3-5.1); Sodium 142 mmol/L (135-145); Total Protein 6.7 g/dL (6.5-8.0)
[2022-09-16 15:00] LABS: Valproate < 2.0 mcg/mL (50.0-100.0)
[2022-09-16 15:05] LABS: Thyroid Stimulating Hormone 0.87 uIU/mL (0.32-4.0)
== END 2022-09-16 13:39 | disposition home or self-care (01) ==
LOC: HO.LAB 13:38
PROVIDERS: Visit Provider Nurse Practitioner Psychiatric/Mental Health
DX: F31.9 Bipolar disorder, unspecified (principal)
CPT/HCPCS: 36415; 80053; 80164; 84443; 85025

== ENCOUNTER 2022-10-04 08:15 | Outpatient (RCR) | payer OTHER, SELFPAY ==
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
[2022-09-16 12:39] VITALS: BP 102/70; PULSE 76; TEMP 36.3
[2022-09-16 12:46] VITALS: BMI 29.7
--- NOTE | 2022-09-16 13:39 | PC.ADMIT ---
Patient is a 41 year old male who self referred to [facility] as he wants to stabilize his mental health. Patient has a dx of Bipolar Disorder, mixed state, severe. He reports increased depression and anxiety with panic attacks. Reports communication and relationship issues with his partner. Patient has a history of Inpatient level of care last time 04/04-04/07 2022 for mood instability, manic episode. See Integrated Assessment for more information. Patient is alert and oriented x4. Calm and cooperative. Presents with depressed mood, anxious affect. Denied SI. Patient given a copy of his safety plan if needed. Medications reconciled with patient and patient's pharmacy. Patient reports taking medications as prescribed. Patient given information about smoking cessation, verbal and written. Patient given written and verbal information about Marijuana use and addiction.
[2022-09-17 09:06] LABS: Amphetamine Screen Urine Not Detected (Not Detect); Barbiturates, Urine Not Detected (Not Detect); Benzodiazepines Screen Urine Not Detected (Not Detect); Cannabinoid Screen Urine POSITIVE (Not Detect); Cocaine Screen Urine Not Detected (Not Detect); Fentanyl, urine Not Detected (Not Detect); Opiate Screen Urine Not Detected (Not Detect); Phencyclidine Screen Urine Not Detected (Not Detect)
--- NOTE | 2022-09-20 09:32 | HO.PHPIOP ---
Case opened in treatment team
--- NOTE | 2022-09-20 14:29 | HO.PHPPROGNO ---
Subjective Subjective Date of Service: 09/20/22 Reason For Visit: bipolar,schizoaffective d/o Medical Problems Affecting Mental Status: No Interim History: Patient describes mood as ?up and down ?. Denies SI/HI, no safety concerns. Reports he regularly forgets to take Depakote, due to his work schedule. States that he took it last evening and the night before. Medication Compliance: No Side effects from medications: No Attending Groups: Yes Review of Systems Acute medical concerns: No Medical Review of Systems: unchanged Review of Systems Review of Systems Yes all other systems are reviewed and are negative Constitutional: Reports no additional constitutional complaints Mental Status Exam Mental Status Exam Narrative: NAD. Denies AH/VH, SI/HI. Patient Appearance: Well Grooomed and Appropriate Patient Orientation: Person, Place, Time and Situation Level of Consciousness: Appropriate Patient Behavior: Appropriate, Cooperative and Good Eye Contact Mood Description: Labile (Describes mood as up and down .) Affect Description: Nervous Patient Cognition Impaired: No Ability to Follow Directions: Good Speech Pattern: Clear, Appropriate, Coherent and Excessive Memory Description: Intact Hallucinations: None Delusions: Not Present Thought Process: Intact Thought Content: positive for Intact Depressive Symptoms: Increased Anxiety, Difficulty Sleeping, Loss of Int. in Activity and Hopelessness Judgement: Fair Diagnostics Vital Signs (24Hr): BMI result Body Mass Index 29.7 Labs Labs: Recent labs reviewed with patient Assessment & Plan Assessment & Plan (1) Bipolar 1 disorder: Status: Acute Code(s): F31.9 - Bipolar disorder, unspecified Assessment and Plan: Patient reports mood lability. Reviewed labs with patient. Patient id knowledge is he has not been taking his Depakote. States that he has difficulty remembering to take it due to his work schedule. We discussed strategies to help with medication adherence, such as setting a timer on his smart phone, having the medication at his bedside, etc.. He denies any SI/HI at this time, no safety concerns. He reports that he took the medication last night as well as the night before. States he will try strategies discussed. Discussed adding a typical antipsychotic, since he has stopped Latuda. He stated he was not interested at this time, and would wait until the end of September when he meets with his outpatient psychiatric provider before any medication changes. (2) Cannabis use disorder: Status: Acute Code(s): F12.90 - Cannabis use, unspecified, uncomplicated Plan 1. Continue medications as currently prescribed by outpatient provider. 2. Patient agreeable to strategies such as setting alarm to phone, etc. in order to help improve adherence. 3. Follow-up as per protocol. Patient educated on: diagnosis, medication risk/benefits, substance abuse and therapeutic strategies Informed Consent: understands Reason for contiued partial hosp. stay Substantial Risk for: harm to self, harm to others, inability to function, rapid decompensation and med/psych decompensation Certification I certify that partial hospital treatment is medically necessary due to the symptoms and problems resulting from the patient's mental illness and the failure to treat the patient at the partial hospital level of care would likely result in the patient requiring inpatient psychiatric care which could not be prevented at a less intensive level of care. I spent minutes with the patient and/or on the patient floor today, greater than?50% of which was spent counseling/coordinating care. Discharge Plan Discharge Attending provider: Jose A Boyce Medications: No Action divalproex 500 mg tablet,delayed release (DR/EC) 1 tab PO BID temazepam 30 mg capsule 1 cap PO BEDTIME PRN (Reason: Sleep) lorazepam 1 mg Tablet 1 mg PO DAILY PRN (Reason: Anxiety)
--- NOTE | 2022-09-23 09:32 | PC.NURSE ---
Patient called out sick to the program 09/22/22 for the second day as patient also called out sick on 09/21/22. Patient stated he was not feeling well and c/o cough and fever. Patient stated he will be in on Tuesday if feeling better. Advised patient to get Covid tested and gave him information about testing at [facility].
--- NOTE | 2022-09-24 12:10 | PC.NURSE ---
Spoke to Angel who stated he is feeling better. He plans on coming to the program on Tuesday. [facility] staff is aware.
--- NOTE | 2022-09-28 14:38 | P.PNPSP_ITS ---
Subjective Subjective Date of Service: 09/28/22 Reason For Visit: bipolar,schizoaffective d/o Medical Problems Affecting Mental Status: No Interim History: Describes mood as improved, but continues up and down at times. No SI/HI, no AH/VH. Has not been taking temazepam at night for sleep, wants to be able to wake up for program. Reports has been taking the Depakote daily. Describes cannabis use as varying by day, overall reports less use since start of program. Would like referral to couples counseling. Medication Compliance: Yes Side effects from medications: No Attending Groups: Yes Review of Systems Acute medical concerns: No Medical Review of Systems: unchanged Review of Systems Review of Systems Yes all other systems are reviewed and are negative Constitutional: Reports no additional constitutional complaints Mental Status Exam Mental Status Exam Narrative: NAD. Denies AH/VH, SI/HI. Patient Appearance: Appropriate Patient Orientation: Person, Place, Time and Situation Level of Consciousness: Appropriate Patient Behavior: Appropriate, Cooperative and Good Eye Contact Mood Description: Appropriate and Depressed Affect Description: Depressed Patient Cognition Impaired: No Ability to Follow Directions: Good Speech Pattern: Clear and Appropriate Memory Description: Intact Hallucinations: None Delusions: Not Present Thought Process: Intact Thought Content: positive for Intact Depressive Symptoms: Increased Anxiety, Difficulty Sleeping and Loss of Int. in Activity Judgement: Fair Diagnostics Vital Signs (24Hr): BMI result Body Mass Index 29.7 Assessment & Plan Assessment & Plan (1) Bipolar 1 disorder: Status: Acute Code(s): F31.9 - Bipolar disorder, unspecified Assessment and Plan: Describes mood as improved, but continues up and down at times. No SI/HI, no AH/VH. Has not been taking temazepam at night for sleep, wants to be able to wake up for program. Patient works 2nd shift after leaving program. Reports by the time he gets home it will be too late to take the medication and then be able to wake up come to program. Reports has been taking the Depakote daily. We discussed importance of con tinuing to take medication daily in order to keep therapeutic blood level. He was in agreement. Describes cannabis use as varying by day, overall reports less use since start of program. Would like referral to couples counseling. (2) Cannabis use disorder: Status: Acute Code(s): F12.90 - Cannabis use, unspecified, uncomplicated Plan 1. Continue with current [facility] plan of care. 2. Continue with current medications as prescribed. 3. Obtain Depakote level. 4. Follow-up as per protocol. Patient educated on: diagnosis, medication risk/benefits, substance abuse and therapeutic strategies Informed Consent: understands Reason for contiued partial hosp. stay Substantial Risk for: inability to function, rapid decompensation and med/psych decompensation Certification I certify that partial hospital treatment is medically necessary due to the symptoms and problems resulting from the patient's mental illness and the fa ilure to treat the patient at the partial hospital level of care would likely result in the patient requiring inpatient psychiatric care which could not be prevented at a less intensive level of care. I spent minutes with the patient and/or on the patient floor today, greater than?50% of which was spent counseling/coordinating care. Discharge Plan Discharge Attending provider: Jose A Boyce Medications: No Action divalproex 500 mg tablet,delayed release (DR/EC) 1 tab PO BID temazepam 30 mg capsule 1 cap PO BEDTIME PRN (Reason: Sleep) lorazepam 1 mg Tablet 1 mg PO DAILY PRN (Reason: Anxiety) Stand Alone Forms: Patient Portal Discharge page
--- NOTE | 2022-10-04 13:03 | PC.NURSE ---
Patient unable to reschedule a new patient appointment with [facility] with Dr. Timothy Bright as the new patient schedule in the office is not out. Patient missed his appointment with Dr Bright on 08/20/22. Patient to f/u and call back office when new schedule is out. Patient given information about [facility] and walk in clinic in [place].
--- NOTE | 2022-10-04 15:41 | HO.PHPIOP ---
I called and left a message for clients therapist Meg Garces [employer] re client completion of the profgram.
--- NOTE | 2022-10-04 16:04 | HO.PHPPROGNO ---
Subjective Subjective Date of Service: 10/04/22 Reason For Visit: bipolar,schizoaffective d/o Medical Problems Affecting Mental Status: No Interim History: Describes mood as ?a little up and down, but not a crisis at all. States he feels good, that he has gratitude. No SI, no safety concerns. Has been taking Depakote more consistently. Today is his birthday, plans to spend rest of day with family after program. Feels stable for discharge from [facility] at this time. Medication Compliance: Intermittent (improved) Side effects from medications: No Attending Groups: Yes Review of Systems Acute medical concerns: No Medical Review of Systems: unchanged Review of Systems Review of Systems Yes all other systems are reviewed and are negative Constitutional: Reports no additional constitutional complaints Mental Status Exam Mental Status Exam Narrative: NAD. Denies AH/VH, SI/HI. Patient Appearance: Appropriate Patient Orientation: Person, Place, Time and Situation Level of Consciousness: Appropriate Patient Behavior: Appropriate, Cooperative and Good Eye Contact Mood Description: Appropriate and Labile (Some lability reported, but states overall much more stable.) Affect Description: Appropriate and Depressed Patient Cognition Impaired: No Ability to Follow Directions: Excellent Speech Pattern: Clear and Appropriate Memory Description: Intact Hallucinations: None Delusions: Not Present Thought Process: Intact Thought Content: positive for Intact Depressive Symptoms: Difficulty Sleeping Judgement: Good Diagnostics Vital Signs (24Hr): BMI result Body Mass Index 29.7 Assessment & Plan Assessment & Plan (1) Bipolar 1 disorder: Status: Acute Code(s): F31.9 - Bipolar disorder, unspecified Assessment and Plan: Describes mood as ?a little up and down, but not a crisis at all. States he feels good, that he has gratitude. No SI, no safety concerns. Has been taking Depakote more consistently. Satisfied with current medication regimen. Feels stable for discharge from [facility] at this time. (2) Cannabis use disorder: Status: Acute Code(s): F12.90 - Cannabis use, unspecified, uncomplicated Assessment and Plan: Patient has been participating in Co occurring disorder groups while in partial. States that he has been finding them helpful. Plan 1. Patient appears stable for discharge from [facility] at this time. 2. Patient to follow-up with outpatient providers going forward. Patient educated on: diagnosis, medication risk/benefits, substance abuse and therapeutic strategies Informed Consent: understands Reason for contiued partial hosp. stay Substantial Risk for: stable for discharge Certification I certify that partial hospital treatment is medically necessary due to the symptoms and problems resulting from the patient's mental illness and the failure to treat the patient at the partial hospital level of care would likely result in the patient requiring inpatient psychiatric care which could not be prevented at a less intensive level of care. I spent minutes with the patient and/or on the patient floor today, greater than?50% of which was spent counseling/coordinating care. Discharge Plan Discharge Attending provider: Jose A Boyce Additional Instructions: Call [facility] to make a PCP appointment at [phone]. Located at [address] [facility]. In addition, walk in urgent care provided at [address] [place] [address] call [phone]. Meg Garces [facility] 10/05/22, Oniel Marcos 11 Medications: No Action divalproex 500 mg tablet,delayed release (DR/EC) 1 tab PO BID temazepam 30 mg capsule 1 cap PO BEDTIME PRN (Reason: Sleep) lorazepam 1 mg Tablet 1 mg PO DAILY PRN (Reason: Anxiety) Stand Alone Forms: Patient Portal Discharge page Patient Education: Bipolar Disorder (DC), Cannabis Abuse (DC)
== END 2022-10-04 23:59 | disposition home or self-care (01) ==
LOC: HO.PHPA 08:15
PROVIDERS: Visit Provider Psychiatry & Neurology Psychiatry
DX: F31.9 Bipolar disorder, unspecified (principal); F12.90 Cannabis use, unspecified, uncomplicated; Z79.899 Other long term (current) drug therapy
CPT/HCPCS: 80307; 90792; 90853

== ENCOUNTER 2022-10-07 00:12 | Emergency (ER) | payer OTHER, SELFPAY ==
--- NOTE | 2022-10-07 | ECG_ITS ---
Test Reason : CHEST PAIN Blood Pressure : / mmHG Vent. Rate : 075 BPM Atrial Rate : 075 BPM P-R Int : 134 ms QRS Dur : 090 ms QT Int : 380 ms P-R-T Axes : 081 056 036 degrees QTc Int : 424 ms Normal sinus rhythm Nonspecific ST abnormality Inferior leads Abnormal ECG When compared with ECG of 25-JUN-2021 09:23, No significant change was found Referred By: Generic ED Physician Electronically Signed By:JOSE ALEJANDRO RANDOLPH MD
--- NOTE | ~2022-10-07 | XR_ITS ---
EXAMINATION: XR CHEST CLINICAL INFORMATION: Chest pain COMPARISON: None. TECHNIQUE: AP portable upright view of the chest FINDINGS: Lungs are clear. No consolidation, pneumothorax, or pleural effusion. Cardiac and mediastinal contours are normal. Pulmonary vasculature is unremarkable. Osseous structures are unremarkable. XR/XR chest 1V IMPRESSION: No acute cardiopulmonary findings
[2022-10-07 00:19] VITALS: BP 110/74; BP 112/71; PULSE 75; PULSE 78; RESP 18; TEMP 36.7; O2SAT 100; O2SAT 98; BMI 21.4
--- NOTE | 2022-10-07 00:23 | ED_ITS ---
HPI - Chest Pain General Chief Complaint: Chest Pain Stated Complaint: Chest pain Time Seen by Provider: 10/07/22 00:22 Source: patient Mode of arrival: ambulatory Limitations: no limitations History of Present Illness HPI narrative: Patient with history of anxiety, bipolar disorder with frequent chest pains comes here for mid chest pain which started half an hour prior to arrival apparently patient was sleeping woke up with anxiety and mid chest pain with his feel tight no shortness of breath no diaphoresis recheck in multiple spencer but less severe than today patient took baby aspirin prior to arrival denies any use of cocaine Related Data Home Medications Medication Instructions Recorded Confirmed divalproex 500 mg tablet,delayed 1 tab PO BID 07/29/22 09/16/22 release temazepam 30 mg capsule 1 cap PO BEDTIME PRN Sleep 07/29/22 09/16/22 lorazepam 1 mg tablet 1 mg PO DAILY PRN Anxiety 09/20/22 09/20/22 Allergies Allergy/AdvReac Type Severity Reaction Status Date / Time lurasidone [From Latuda] AdvReac Shakiness Verified 09/16/22 15:07 Review of Systems Review of Systems: Yes all other systems are reviewed and are negative [facility] Past Medical History Medical History Schizophrenia Social History Social History Household Members: Significant Other and Children Housing: House Do you presently have visiting nurse or other home services: No Patient Tobacco Use Status: Current everyday Tobacco user Tobacco use type: Cigarette Cigarettes Per Day: 5 Years Smoked: 20 Substance Use Type: Marijuana and Opiates Advance Directives: No Sexual orientation: Did not discuss. Physical Exam Vital Signs: Vital Signs: Last Vital Signs Temp 98.0 F 10/07/22 00:19 Pulse 75 10/07/22 00:19 Resp 18 10/07/22 00:19 BP 112/71 10/07/22 00:19 Pulse Ox 98 10/07/22 00:19 O2 Del Method 10/07/22 00:19 BMI result Body Mass Index 21.4 Appearance: Alert. Oriented X3. No acute distress. Anxious Eyes: PERRLA, ENT: Pharynx normal. Oral Mucosa moist Neck: Normal inspection. Neck supple. CVS: Normal heart rate and rhythm. Pulses normal. Respiratory: No respiratory distress. Equal air entry bilateral, no wheezing/rales/rhonchi Abdomen: Soft and nontender. Bowel sounds are present, no mass palpable, no CVA tenderness Skin: Skin warm and dry. Normal skin color. Normal skin turgor. Extremities: No lower extremity edema. No calf tenderness Neuro: Oriented X 3. No motor deficit. No sensory deficit.No cerebellar signs , cranial nerves II-XII intact MDM - Chest Pain MDM Narrative Medical decision making narrative: Patient has atypical chest pain with history of same in the past EKG normal initial troponin was 16 will repeat troponin in 2 hours patient signed out to Dr. Rushing to recheck troponin and further evaluation and disposition Lab Data Attestation: I reviewed the patient's lab results. Result diagrams: 10/07/22 00:36 10/07/22 00:36 Labs: Lab Results 10/07/22 10/07/22 Range/Units 00:36 00:36 WBC 9.7 (4.8-10.8) X10*3/uL RBC 4.46 L (4.60-5.80) X10*6/uL Hgb 14.8 (14.0-18.0) g/dl Hct 43.0 (42.0-52.0) % MCV 96.4 (80.0-98.0) fL MCH 33.2 H (27.0-33.0) pg MCHC 34.4 (31.0-36.0) g/dl RDW 13.5 (11.0-16.0) % Plt Count 260 D (160-400) X10*3/uL MPV 10.5 (9.4-12.4) fL Immature Gran % (Auto) 0.3 (0.0-0.4) % Neut % (Auto) 55.4 (45-73) % Lymph % (Auto) 36.0 (20-40) % Glenn % (Auto) 7.2 (2-11) % Eos % (Auto) 0.7 (0-4) % Baso % (Auto) 0.4 (0-2) % Lymph # (Auto) 3.5 (1.2-4.9) X10*3/uL Glenn # (Auto) 0.7 (0.1-1.2) X10*3/uL Eos # (Auto) 0.1 (0.0-0.4) X10*3/uL Baso # (Auto) 0.0 (0.0-0.2) X10*3/uL Abs Immat Gran (auto) 0.03 (0.00-0.03) X10*3/uL Absolute Neuts (auto) 5.4 (2.0-8.3) x10*3/uL Absolute Nucleated RBC 0.000 (0.0-0.012) X10*3/uL Nucleated RBC % (auto) 0.0 (0.0-0.2) /100WBC Troponin I High Sens 16.0 (<3.5-35.0) ng/L ECG Data ECG #1: Attestation: I personally reviewed and interpreted this ECG as follows: Interpretation: No says he has a heart rate 75 beats per minute normal interval normal axis no acute ST-T no acute ischemia Scores Heart Score History: -0- slightly suspicious ECG: -0- normal Age: -0- < or = 45 Risk factory: -0- no risk factors known Troponin: -0- < or = normal limit Score: 0 Risk: 1.7% Discharge Plan Discharge Clinical Impression: Chest pain Patient Disposition: Still a Patient Additional Instructions: Take baby aspirin daily Follow with PCP for further evaluation Report to the ER if worsening of the chest and Prescriptions: No Action divalproex 500 mg tablet,delayed release (DR/EC) 1 tab PO BID temazepam 30 mg capsule 1 cap PO BEDTIME PRN (Reason: Sleep) lorazepam 1 mg Tablet 1 mg PO DAILY PRN (Reason: Anxiety)
--- NOTE | 2022-10-07 00:28 | PC.NURSE ---
this pct assumed care of pt at this time ,ekg done ,pt was change into hospital attire .
[2022-10-07 00:41] LABS: MANUAL DIFF FLAG NO
[2022-10-07 00:46] LABS: Basophils Percent Auto 0.4 % (0-2); Eosinophils Absolute Auto 0.1 X10*3/uL (0.0-0.4); Eosinophils Percent Auto 0.7 % (0-4); Hemoglobin 14.8 g/dl (14.0-18.0); Imm Gran Abs Auto 0.03 X10*3/uL (0.00-0.03); Imm Gran Pct Auto 0.3 % (0.0-0.4); Lymphocytes Absolute Auto 3.5 X10*3/uL (1.2-4.9); Mean Corpuscular HGB Conc 34.4 g/dl (31.0-36.0); Mean Corpuscular Hemoglobin 33.2 pg (27.0-33.0); Mean Corpuscular Volume 96.4 fL (80.0-98.0); Mean Platelet Volume 10.5 fL (9.4-12.4); Monocytes Absolute Auto 0.7 X10*3/uL (0.1-1.2); Monocytes Percent Auto 7.2 % (2-11); Neutrophils Absolute Auto 5.4 x10*3/uL (2.0-8.3); Neutrophils Percent Auto 55.4 % (45-73); Platelet Count 260 X10*3/uL (160-400); Red Blood Count 4.46 X10*6/uL (4.60-5.80); Red Cell Distribution Width 13.5 % (11.0-16.0); White Blood Count 9.7 X10*3/uL (4.8-10.8)
[2022-10-07 01:35] LABS: Anion Gap 16 (12-20); Blood Urea Nitrogen 17 mg/dL (9-16); Carbon Dioxide 23 mmol/L (22-29); Chloride 107 mmol/L (96-108); Estimated Glomerular Filt Rate > 60; Glucose Random 75 mg/dL (60-115); Potassium 3.6 mmol/L (3.3-5.1); Sodium 142 mmol/L (135-145)
[2022-10-07 02:00] VITALS: BP 108/65; PULSE 74; RESP 16; TEMP 36.6; O2SAT 97
[2022-10-07 03:02] LABS: Troponin-I High Sensitivity 15.8 ng/L (<3.5-35.0)
[2022-10-07 03:26] VITALS: BP 115/59; PULSE 71; PULSE 75; RESP 15; TEMP 36.8; O2SAT 98
== END 2022-10-07 03:42 | disposition home or self-care (01) ==
PROVIDERS: Emergency Provider Internal Medicine
DX: R07.89 Other chest pain (principal); Z79.899 Other long term (current) drug therapy
CPT/HCPCS: 36415; 71045; 80048; 84484; 85025; 93005; 99283; 99285

== ENCOUNTER 2022-11-05 16:46 | Outpatient (REF) | payer OTHER, SELFPAY ==
[2022-11-05 18:08] LABS: Influenza A PCR POSITIVE (Negative); Influenza B PCR NEGATIVE (Negative); Resp Syncy Virus RNA Qual PCR NEGATIVE (Negative); SARS COV2 PCR INHOUSE NEGATIVE (Negative)
== END 2022-11-05 16:47 | disposition home or self-care (01) ==
LOC: HO.LNP 16:46
PROVIDERS: Visit Provider Physician Assistant
DX: Z20.822 Contact with and (suspected) exposure to COVID-19 (principal); B34.9 Viral infection, unspecified
CPT/HCPCS: 0241U

== ENCOUNTER 2023-01-02 13:58 | Emergency (ER) | payer OTHER, SELFPAY ==
[2023-01-02 14:07] VITALS: BP 119/73; BP 150/60; PULSE 120; PULSE 83; RESP 18; TEMP 36.6; O2SAT 100; O2SAT 96; BMI 21.6
--- NOTE | 2023-01-02 14:22 | PC.NURSE ---
pt AOx3, VSS. Pt reports waking up feeling agitated and aggressive but claims now to be feeling more calm. Pt resting.
--- NOTE | 2023-01-02 14:36 | ED.PSYCH ---
HPI - Psych General Chief Complaint: Psychiatric Symptoms Stated Complaint: crisis, pt calm and cooperative Time Seen by Provider: 01/02/23 14:06 Source: patient Mode of arrival: ambulatory Limitations: no limitations History of Present Illness HPI Narrative: this is a 42-year-old male with history of bipolar disorder, anxiety who presents with complaints of feeling anxious and feeling like he was going to have a panic attack after getting into a verbal altercation with his . On arrival patient reports he is feeling much improved. He still has some mild anxiety but does not feel like he is going to have a panic attack. he denies any suicidal ideations, homicidal ideations, hallucinations, physical complaints. Patient reports that he has a therapist and a psychiatrist and has been taking his medications as prescribed Related Data Home Medications Medication Instructions Recorded Confirmed divalproex 500 mg tablet,delayed 1 tab PO BID 07/29/22 09/16/22 release temazepam 30 mg capsule 1 cap PO BEDTIME PRN Sleep 07/29/22 09/16/22 lorazepam 1 mg tablet 1 mg PO DAILY PRN Anxiety 09/20/22 09/20/22 Allergies Allergy/AdvReac Type Severity Reaction Status Date / Time lurasidone [From Latuda] AdvReac Shakiness Verified 01/02/23 14:07 Review of Systems Review of Systems: Yes all other systems are reviewed and are negative Constitutional: Constitutional: Reports no additional constitutional complaints, Denies body ache(s), Denies chills, Denies fever(s), Denies headache(s) and Denies weakness Eyes: Eyes: Reports no additional eye complaints and Denies change in vision ENT: Reports system reviewed and no additional complaints, except as documented, Denies dizziness, Denies headache(s), Denies nasal congestion, Denies nasal discharge and Denies neck pain Cardiovascular: Cardiovascular: Reports no additional cardiovascular complaints, Denies chest pain, Denies leg edema and Denies dyspnea Respiratory: Respiratory: Reports no additional respiratory complaints, Denies cough and Denies dyspnea Gastrointestinal: Gastrointestinal: Reports no additional gastrointestinal complaints, Denies abdominal pain, Denies diarrhea, Denies nausea and Denies vomiting Genitourinary: Genitourinary: Denies urinary incontinence Musculoskeletal: Musculoskeletal: Reports no additional musculoskeletal complaints, Denies back pain, Denies arthralgias, Denies joint swelling, Denies neck pain, Denies numbness and Denies tingling Integumentary/Breasts: Skin/Breast: Reports system reviewed and no additional complaints, except as docu and Denies rash Neurologic: Reports system reviewed and no additional complaints, except as documented, Denies Abnormal speech present, Denies dizziness, Denies headache(s), Denies numbness, Denies tingling and Denies weakness Psychiatric: Psychiatric: Reports anxiety, Denies depression, Denies paranoia, Denies visual hallucinations, Denies hallucinations, Denies tactile hallucinations, Denies homicidal ideation and Denies suicidal ideation [facility] Past Medical History Attestation statement: The following information was validated with the patient. Source: old records reviewed and nursing notes reviewed Medical History Schizophrenia Social History Social History Household Members: Significant Other and Children Housing: House Do you presently have visiting nurse or other home services: No Alcohol intake: current Alcohol intake frequency: holidays/special occasions only Patient Tobacco Use Status: Current everyday Tobacco user Tobacco use type: Cigarette Cigarettes Per Day: 5 Years Smoked: 20 Smoked in Last 30 Days: Yes Use of substances other than those prescribed or required for medical reasons: Yes Substance Use Type: Marijuana Substance Use Frequency: Daily Advance Directives: No Advance Directives Information Provided: No Sexual orientation: Did not discuss. Physical Exam Vital Signs: Vital Signs: Last Vital Signs Temp 97.8 F 01/02/23 14:07 Pulse 83 01/02/23 14:07 Resp 18 01/02/23 14:07 BP 119/73 01/02/23 14:07 Pulse Ox 96 01/02/23 14:07 O2 Del Method 01/02/23 14:07 BMI result Body Mass Index 21.6 Const: General: cooperative, healthy appearing, comfortable and no acute distress Orientation/consciousness: patient oriented x3 Limitations: no limitations HEENT: Head: Yes normal to inspection Ears: hearing grossly normal bilaterally General nose exam: Normal external nose present Face and sinus: Yes normal facial exam Mouth: Normal oral and palatal mucosa present Throat: Yes posterior oropharynx normal Eyes: General: appearance normal, both eyes and all related structures Pupils: Equal, round and reactive pupils present Neck: Neck: Yes normal visual inspection Chest: Chest palpation & inspection: normal inspection of the chest Resp: Effort & Inspection: normal respiratory effort Auscultation: clear to auscultation bilaterally Cardio: Rate: regular rate Rhythm: regular rhythm Peripheral pulses: Peripheral pulses 2+ throughout GI: Inspection: Yes normal to inspection Palpation (GI): Soft to palpation and nontender Auscultation: normal bowel sounds Back/Spine/Pelvis: Thoracic/Lumbar Spine: thoracic and lumbar spine normal to inspection Skin: General skin exam: no rashes or lesions noted Neuro: General: patient oriented x3, no focal motor deficits and normal sensation to monofilament Cranial nerves: Yes Equal, round and reactive pupils present Cognition (Neuro): normal cognition Speech: No Abnormal speech present Gait exam (Neuro): Normal gait present Motor exam (neuro): 5/5 motor strength present throughout Extrem: General: Yes normal to inspection Medical Decision Making Medical Decision Making MDM Narrative: 42-year-old male here with anxiety and feeling like he was going to have a panic attack after getting into a verbal altercation with his . On arrival patient is still having some anxiety but does not feel like he is having a panic attack and overall is feeling better. He denies SI, HI, hallucinations, substance use, physical complaints. Patient has busy all his medications as prescribed. Offered for patient to speak to care team but he declined this and he feels well and would like to go home. Recommend he follow-up with his outpatient providers Differential Diagnosis Differential Diagnoses: The differential diagnosis associated with the presentation includes anxiety Discharge Plan Discharge Clinical Impression: Acute anxiety Patient Disposition: Home, Self-Care Instructions: Anxiety (ED) Additional Instructions: Follow-up with your outpatient providers Prescriptions: No Action divalproex 500 mg tablet,delayed release (DR/EC) 1 tab PO BID temazepam 30 mg capsule 1 cap PO BEDTIME PRN (Reason: Sleep) lorazepam 1 mg Tablet 1 mg PO DAILY PRN (Reason: Anxiety) Interventions: [place]-Suicide Risk Severity Scale Last Done: 01/02/23 14:15 ED Discharge Assessment Last Done: 01/02/23 14:49 Discharge Date/Time: 01/02/23 14:50
--- NOTE | 2023-01-02 14:48 | PC.NURSE ---
pt AO. Denies SI/HI. Reports decreased anxiety, and provider has cleared him for discharge.
== END 2023-01-02 14:50 | disposition home or self-care (01) ==
PROVIDERS: Emergency Provider Emergency Medicine Emergency Medical Services
DX: F41.1 Generalized anxiety disorder (principal); F43.0 Acute stress reaction
CPT/HCPCS: 99284

== ENCOUNTER 2023-02-18 12:13 | Emergency (ER) | payer OTHER, SELFPAY ==
--- NOTE | ~2023-02-18 | XR_ITS ---
EXAMINATION: XR CHEST CLINICAL INFORMATION: Chest pain. COMPARISON: Chest radiograph 10/07/2022. TECHNIQUE: 2 views of the chest were obtained. FINDINGS: No significant abnormality is noted involving the heart, lungs, mediastinum, bony thorax or soft tissues. XR/XR chest 2V IMPRESSION: Unremarkable examination.
--- NOTE | 2023-02-18 12:17 | ECG_ITS ---
Test Reason : CHEST PAIN Blood Pressure : / mmHG Vent. Rate : 082 BPM Atrial Rate : 082 BPM P-R Int : 122 ms QRS Dur : 086 ms QT Int : 368 ms P-R-T Axes : 076 054 043 degrees QTc Int : 429 ms Normal sinus rhythm Minimal voltage criteria for LVH, may be normal variant ( Sokolow-Bower ) Borderline ECG When compared with ECG of 07-OCT-2022 00:19, No significant change was found Referred By: Generic ED Physician Electronically Signed By:CELIA BURK
[2023-02-18 12:36] LABS: MANUAL DIFF FLAG NO
[2023-02-18 12:37] VITALS: BP 109/54; BP 117/68; PULSE 81; PULSE 90; RESP 18; TEMP 36.8; O2SAT 98; BMI 21.6
[2023-02-18 12:38] LABS: Basophils Percent Auto 0.9 % (0-2); Eosinophils Absolute Auto 0.1 X10*3/uL (0.0-0.4); Eosinophils Percent Auto 1.3 % (0-4); Hematocrit 41.5 % (42.0-52.0); Hemoglobin 14.4 g/dl (14.0-18.0); Imm Gran Abs Auto 0.01 X10*3/uL (0.00-0.03); Imm Gran Pct Auto 0.2 % (0.0-0.4); Lymphocytes Absolute Auto 1.5 X10*3/uL (1.2-4.9); Lymphocytes Percent Auto 31.9 % (20-40); Mean Corpuscular HGB Conc 34.7 g/dl (31.0-36.0); Mean Corpuscular Hemoglobin 33.3 pg (27.0-33.0); Mean Corpuscular Volume 95.8 fL (80.0-98.0); Mean Platelet Volume 10.3 fL (9.4-12.4); Monocytes Absolute Auto 0.4 X10*3/uL (0.1-1.2); Monocytes Percent Auto 7.4 % (2-11); Neutrophils Absolute Auto 2.7 x10*3/uL (2.0-8.3); Neutrophils Percent Auto 58.3 % (45-73); Platelet Count 289 X10*3/uL (160-400); Red Blood Count 4.33 X10*6/uL (4.60-5.80); Red Cell Distribution Width 13.3 % (11.0-16.0); White Blood Count 4.7 X10*3/uL (4.8-10.8)
--- NOTE | 2023-02-18 12:57 | ED.CHESTPAIN ---
HPI - Chest Pain General Chief Complaint: Chest Pain Stated Complaint: chest pain Time Seen by Provider: 02/18/23 12:19 History of Present Illness HPI narrative: Patient is a 42-year-old male presents today with having chest pain. The chest pain is mid chest. It is worse with deep breath. There is no leg swelling. No history of blood clots in the past. No history of diabetes, hypertension, high cholesterol, family history of coronary artery disease. Positive history of smoking both marijuana and cigarettes. No coughing or congestion or upper respiratory symptoms. No diaphoresis. No history of MA in the past. Symptom has been ongoing since Tuesday. Related Data Home Medications Medication Instructions Recorded Confirmed divalproex 500 mg tablet,delayed 1 tab PO BID 07/29/22 09/16/22 release temazepam 30 mg capsule 1 cap PO BEDTIME PRN Sleep 07/29/22 09/16/22 lorazepam 1 mg tablet 1 mg PO DAILY PRN Anxiety 09/20/22 09/20/22 Allergies Allergy/AdvReac Type Severity Reaction Status Date / Time lurasidone [From Latuda] AdvReac Shakiness Verified 01/02/23 14:07 Review of Systems Review of Systems: Positive chest pain Yes all other systems are reviewed and are negative PMFSH Past Medical History Attestation statement: The following information was validated with the patient. Medical History Schizophrenia Social History Social History Household Members: Significant Other and Children Housing: House Do you presently have visiting nurse or other home services: No Alcohol intake: unknown Patient Tobacco Use Status: Current everyday Tobacco user Tobacco use type: Cigarette Cigarettes Per Day: 5 Years Smoked: 20 Smoked in Last 30 Days: No Use of substances other than those prescribed or required for medical reasons: Unknown Substance Use Type: Marijuana Sexual orientation: Did not discuss. Physical Exam Vital Signs: Vital Signs: Last Vital Signs Temp 98.3 F 02/18/23 12:37 Pulse 81 02/18/23 12:37 Resp 18 02/18/23 12:37 BP 109/54 L 02/18/23 12:37 Pulse Ox 98 02/18/23 12:37 O2 Del Method Room Air 02/18/23 12:37 BMI result Body Mass Index 21.6 Appearance: Alert. Oriented X3. No acute distress. Eyes: Pupils equal, round and reactive to light. ENT: Pharynx normal. Neck: Normal inspection. Neck supple. No lymph nodes noted. No crepitus CVS: Normal heart rate and rhythm. Pulses normal. Normal S1 and S2 Respiratory: No respiratory distress. Breath sounds normal. No Wheezing. No rales Abdomen: Soft and nontender. No rigidity. No distention. good BS x4 Skin: Skin warm and dry. Normal skin color. Normal skin turgor. Extremities: No lower extremity edema. Neurovascular intact to all extremities. No Lacerations. No Rash Neuro: Oriented X 3. No motor deficit. No sensory deficit. Moving all extermities. No slurred speech Medical Decision Making Medical Decision Making MDM Narrative: Patient presents today with chest pain worse with deep breath it is sharp. Ongoing for the last 4 days. Patient has cardiac risks include history of tobacco use. Otherwise well-appearing his EKG is consistent more with a point elevations there is no acute changes from previous. Patient's 1st set of cardiac enzymes are negative. A D-dimer was ordered to check for possibility of DVT/PE. Patient eloped from the emergency department prior to the blood being drawn. Differential Diagnosis Differential Diagnoses: The differential diagnosis associated with the presentation includes Chest pain, ACS, PE, pneumothorax, rib fracture, pneumonia Lab Data [facility] Lab Attestation statement: I reviewed the patient's lab results. 02/18/23 12:30 02/18/23 12:30 Labs: Lab Results 02/18/23 02/18/23 02/18/23 Range/Units 12:30 12:30 12:30 WBC 4.7 L (4.8-10.8) X10*3/uL RBC 4.33 L (4.60-5.80) X10*6/uL Hgb 14.4 (14.0-18.0) g/dl Hct 41.5 L (42.0-52.0) % MCV 95.8 (80.0-98.0) fL MCH 33.3 H (27.0-33.0) pg MCHC 34.7 (31.0-36.0) g/dl RDW 13.3 (11.0-16.0) % Plt Count 289 (160-400) X10*3/uL MPV 10.3 (9.4-12.4) fL Immature Gran % (Auto) 0.2 (0.0-0.4) % Neut % (Auto) 58.3 (45-73) % Lymph % (Auto) 31.9 (20-40) % [place] % (Auto) 7.4 (2-11) % Eos % (Auto) 1.3 (0-4) % Baso % (Auto) 0.9 (0-2) % Lymph # (Auto) 1.5 (1.2-4.9) X10*3/uL [place] # (Auto) 0.4 (0.1-1.2) X10*3/uL Eos # (Auto) 0.1 (0.0-0.4) X10*3/uL Baso # (Auto) 0.0 (0.0-0.2) X10*3/uL Abs Immat Gran (auto) 0.01 (0.00-0.03) X10*3/uL Absolute Neuts (auto) 2.7 (2.0-8.3) x10*3/uL Absolute Nucleated RBC 0.000 (0.0-0.012) X10*3/uL Nucleated RBC % (auto) 0.0 (0.0-0.2) /100WBC Sodium 140 (135-145) mmol/L Potassium 4.1 (3.3-5.1) mmol/L Chloride 109 H (96-108) mmol/L Carbon Dioxide 23 (22-29) mmol/L Anion Gap 12 (12-20) BUN 14 (9-16) mg/dL Creatinine 1.03 (0.5-1.4) mg/dL Estim Creat Clear Calc 79.5 Estimated GFR > 60 Random Glucose 144 H (60-115) mg/dL Calcium 9.0 (8.4-10.2) mg/dL Total Bilirubin 0.4 (0.0-1.0) mg/dL AST 26 (5-37) U/L ALT 16 (0-40) U/L Alkaline Phosphatase 71 (39-117) U/L Troponin I High Sens < 3.5 D (<3.5-35.0) ng/L Total Protein 6.2 L (6.5-8.0) g/dL Albumin 3.8 (3.5-5.0) g/dL Independent Interpretation I performed an independent interpretation of an: EKG Interpretation: Patient's EKG showed a sinus pattern heart rate is 80 there is significant J-point elevation noted in V2 V3 and V4. These findings are old. HI QRS QT within normal limits with no acute ST segment elevation. Discharge Plan Discharge Clinical Impression: Chest pain Patient Disposition: Elopement Prescriptions: No Action divalproex 500 mg tablet,delayed release (DR/EC) 1 tab PO BID temazepam 30 mg capsule 1 cap PO BEDTIME PRN (Reason: Sleep) lorazepam 1 mg Tablet 1 mg PO DAILY PRN (Reason: Anxiety)
[2023-02-18 12:58] LABS: Alanine Aminotransferase 16 U/L (0-40); Albumin Level 3.8 g/dL (3.5-5.0); Alkaline Phosphatase 71 U/L (39-117); Anion Gap 12 (12-20); Aspartate Amino Transferase 26 U/L (5-37); Bilirubin Total 0.4 mg/dL (0.0-1.0); Blood Urea Nitrogen 14 mg/dL (9-16); Carbon Dioxide 23 mmol/L (22-29); Chloride 109 mmol/L (96-108); Creatinine Clr Calc Pharmacy 79.5; Estimated Glomerular Filt Rate > 60; Glucose Random 144 mg/dL (60-115); Potassium 4.1 mmol/L (3.3-5.1); Sodium 140 mmol/L (135-145); Total Protein 6.2 g/dL (6.5-8.0)
[2023-02-18 13:07] LABS: Troponin-I High Sensitivity < 3.5 ng/L (<3.5-35.0)
--- NOTE | 2023-02-18 13:07 | PC.NURSE ---
Patient eloped MD aware registration saw patient leave ripped off ID band patient did have 18 malian IV left AC [place] police notified
== END 2023-02-18 13:17 | disposition left against medical advice (07) ==
LOC: HO.ED 13:16
PROVIDERS: Emergency Provider Emergency Medicine Emergency Medical Services
DX: R07.9 Chest pain, unspecified (principal); F17.210 Nicotine dependence, cigarettes, uncomplicated; F12.90 Cannabis use, unspecified, uncomplicated; Z79.899 Other long term (current) drug therapy
CPT/HCPCS: 36415; 71046; 80053; 84484; 85025; 93005; 99283; 99284

== ENCOUNTER 2023-02-27 11:33 | Emergency (ER) | payer OTHER, SELFPAY ==
--- NOTE | ~2023-02-27 | XR_ITS ---
EXAMINATION: XR chest 1V CLINICAL INFORMATION: Chest pain COMPARISON: 02/18/2023 TECHNIQUE: XR chest 1V Lungs and Mary: Both lungs are clear. Pleura: Normal. Costophrenic angles are sharp. No pneumothorax. Heart: The heart is normal in size. Mediastinum: The mediastinum is within normal limits.. Bones: Skeletal structures included are normal for patient's age. XR/XR chest 1V IMPRESSION: No radiographic evidence of acute cardiopulmonary disease.
[2023-02-27 11:35] VITALS: BP 112/70; PULSE 74; O2SAT 97
--- NOTE | 2023-02-27 11:37 | ECG_ITS ---
Test Reason : CHEST PAIN Blood Pressure : / mmHG Vent. Rate : 071 BPM Atrial Rate : 071 BPM P-R Int : 130 ms QRS Dur : 096 ms QT Int : 402 ms P-R-T Axes : 068 051 032 degrees QTc Int : 436 ms Normal sinus rhythm with sinus arrhythmia Minimal voltage criteria for LVH, may be normal variant ( Sokolow-Bower ) Borderline ECG When compared with ECG of 18-FEB-2023 12:24, No significant change was found Referred By: Generic ED Physician Electronically Signed By:BEVERLY COLÓN MD
[2023-02-27 11:41] VITALS: BP 109/52; PULSE 65; RESP 18; TEMP 36.6; O2SAT 98; BMI 21.5
--- NOTE | 2023-02-27 12:05 | ED_ITS ---
HPI - Chest Pain General Chief Complaint: Chest Pain Stated Complaint: CP S/P VOMITING PER EMS Time Seen by Provider: 02/27/23 11:47 Source: patient Mode of arrival: ambulatory Limitations: no limitations History of Present Illness HPI narrative: 42-year-old male came in for evaluation of chest pain after started vomiting this morning. Patient started to vomit declined recent use of alcohol, patient admitted to smoking marijuana on a daily basis but also thinking that vomiting could be from a bad food that he ate, no sick contacts, no recent travel. Vomiting started since this morning, no diarrhea, no fever, no chills. Chest pain started after the vomiting feels like burning sensation has been constant f or 1 hour 5/10 in severity with no radiation. No clear exacerbating factor or relieving factor. Related Data Home Medications Medication Instructions Recorded Confirmed divalproex 500 mg tablet,delayed 1 tab PO BID 07/29/22 09/16/22 release temazepam 30 mg capsule 1 cap PO BEDTIME PRN Sleep 07/29/22 09/16/22 lorazepam 1 mg tablet 1 mg PO DAILY PRN Anxiety 09/20/22 09/20/22 Allergies Allergy/AdvReac Type Severity Reaction Status Date / Time lurasidone [From Latuda] AdvReac Shakiness Verified 02/27/23 11:50 Review of Systems Review of Systems: All other systems are reviewed and are negative Constitutional: Reports as per HPI and Reports no additional constitutional complaints Eyes: Reports as per HPI and Reports no additional eye complaints Reports system reviewed and no additional complaints, except as documented Cardiovascular: Reports as per HPI and Reports no additional cardiovascular complaints Respiratory: Reports as per HPI and Reports no additional respiratory complaints Gastrointestinal: Reports as per HPI and Reports no additional gastrointestinal complaints Genitourinary: Reports no additional female genitourinary complaints Musculoskeletal: Reports no additional musculoskeletal complaints Skin/Breast: Reports system reviewed and no additional complaints, except as docu Psychiatric: Reports no additional psychiatric complaints Endocrine: Reports no additional endocrine complaints Hematologic/Lymphatic: Reports no additional hematologic/lymphatic complaints Allergic/Immunologic: Reports no additional allergic/immunologic complaints Reports system reviewed and no additional complaints, except as documented and Reports Abnormal speech present PMFSH Past Medical History Medical History Schizophrenia Social History Social History Household Members: Significant Other and Children Housing: House Do you presently have visiting nurse or other home services: No Alcohol intake: unknown Patient Tobacco Use Status: Current everyday Tobacco user Tobacco use type: Cigarette Cigarettes Per Day: 5 Years Smoked: 20 Smoked in Last 30 Days: Yes Use of substances other than those prescribed or required for medical reasons: Yes Substance Use Type: Marijuana Advance Directives: No Advance Directives Information Provided: Yes Sexual orientation: Did not discuss. Physical Exam Vital Signs: Vital Signs: Last Vital Signs Temp 97.8 F 02/27/23 13:55 Pulse 70 02/27/23 13:55 Resp 19 02/27/23 13:55 BP 118/61 02/27/23 13:55 Pulse Ox 99 02/27/23 13:55 O2 Del Method Room Air 02/27/23 13:55 BMI result Body Mass Index 21.5 Vital signs have been reviewed as appeared to be correct. Blood pressure normal. Heart rate normal. Respiration rate normal. Temperature normal. Oxygen saturation normal. Appearance: Alert. Oriented X3. No acute distress. Head: Normal external exam. Normocephalic. Atraumatic. No Henriquez signs noted. No raccoon eyes noted Eyes: PERRLA. EOMI. Conjunctiva and sclera normal. Eyelids normal. ENT: TM's Normal. Pharynx normal. Uvula midline. Moist mucous membranes. No trismus noted. No drooling noted. No muffled voice noted. Neck: Normal inspection. Neck supple. FROM. No adenopathy. Thyroid Normal. No meningeal signs. No neck mass noted. CVS: Normal heart rate and rhythm. Heart sound normal. No murmurs noted. Pulses normal throughout. Respiratory: No respiratory distress. Painless inspiration. Breath sounds normal. No wheezes/rales/rhonchi noted. Chest nontender. No accessory muscle usage noted or decreased air movement noted. Abdomen: Soft and nontender. Bowel sounds normal in all 4 quadrants. No distention noted. No organomegaly noted. No visible injury noted. Back: No CVA tenderness. Full range of motion noted. Skin: Skin warm and dry. Normal skin color. Normal skin turgor. No rashes/lesions/lacerations noted. Extremities: No lower extremity edema. Extremities exhibit normal range of motion. Extremities nontender. Neuro: Oriented X 3. Cranial nerve exam: II-XII are grossly intact No motor deficit. No sensory deficit. Reflexes normal. Course Course Course Narrative: Patient remained in the ED for observation and checking 2 troponin with 3 hours apart, patient reported improvement of his symptoms no nausea or vomiting, no chest pain. Patient with HEART score of 1, instructed. to refrain from smoking marijuana or drinking alcohol. Medications Administered Discontinued Medications Generic Name Dose Route Start Last Admin Trade Name Freq PRN Reason Stop Dose Admin Al Hydroxide/Mg Hydroxide 30 ml 02/27/23 12:02 02/27/23 12:32 Magnesium Hydrox/Alum Hydrox 30 Ml Oral.Susp PO 02/27/23 12:03 30 ml ONCE ONE Administration Famotidine 20 mg 02/27/23 12:02 02/27/23 12:32 Famotidine/Pf 20 Mg/2 Ml Vial IVPUSH 02/27/23 12:03 20 mg ONCE ONE Administration Sodium Chloride 1,000 mls @ 999 mls/hr 02/27/23 12:02 02/27/23 14:33 Ns IV 02/27/23 13:02 Infused .Q1H1M ONE Infusion Ondansetron HCl 4 mg 02/27/23 12:02 02/27/23 12:32 Ondansetron Hcl 4 Mg/2 Ml Vial IVPUSH 02/27/23 12:03 4 mg ONCE ONE Administration Medical Decision Making Differential Diagnosis Differential Diagnoses: The differential diagnosis associated with the presentation includes (ACS, gastritis, electrolyte disturbance, anemia, pneumon ia, pneumothorax.) Admission/Observation Consideration of admission/observation: Escalation of care including admission/observation considered Lab Data MDM Lab Attestation statement: I reviewed the patient's lab results. 02/27/23 12:21 02/27/23 12:21 Labs: Lab Results 02/27/23 02/27/23 02/27/23 Range/Units 12:21 12:21 12:21 WBC 6.0 (4.8-10.8) X10*3/uL RBC 4.39 L (4.60-5.80) X10*6/uL Hgb 14.4 (14.0-18.0) g/dl Hct 41.8 L (42.0-52.0) % MCV 95.2 (80.0-98.0) fL MCH 32.8 (27.0-33.0) pg MCHC 34.4 (31.0-36.0) g/dl RDW 13.4 (11.0-16.0) % Plt Count 345 (160-400) X10*3/uL MPV 10.1 (9.4-12.4) fL Immature Gran % (Auto) 0.2 (0.0-0.4) % Neut % (Auto) 52.9 (45-73) % Lymph % (Auto) 36.1 (20-40) % [place] % (Auto) 6.7 (2-11) % Eos % (Auto) 3.4 (0-4) % Baso % (Auto) 0.7 (0-2) % Lymph # (Auto) 2.2 (1.2-4.9) X10*3/uL [place] # (Auto) 0.4 (0.1-1.2) X10*3/uL Eos # (Auto) 0.2 (0.0-0.4) X10*3/uL Baso # (Auto) 0.0 (0.0-0.2) X10*3/uL Abs Immat Gran (auto) 0.01 (0.00-0.03) X10*3/uL Absolute Neuts (auto) 3.2 (2.0-8.3) x10*3/uL Absolute Nucleated RBC 0.000 (0.0-0.012) X10*3/uL Nucleated RBC % (auto) 0.0 (0.0-0.2) /100WBC Sodium 139 (135-145) mmol/L Potassium 4.1 (3.3-5.1) mmol/L Chloride 106 (96-108) mmol/L Carbon Dioxide 25 (22-29) mmol/L Anion Gap 12 (12-20) BUN 13 (9-16) mg/dL Creatinine 1.10 (0.5-1.4) mg/dL Estim Creat Clear Calc 74.1 Estimated GFR > 60 Random Glucose 172 H (60-115) mg/dL Calcium 8.9 (8.4-10.2) mg/dL Total Bilirubin 0.5 (0.0-1.0) mg/dL Direct Bilirubin < 0.2 (0.0-0.5) mg/dL AST 17 (5-37) U/L ALT 12 (0-40) U/L Alkaline Phosphatase 71 (39-117) U/L Troponin I High Sens < 2.7 (<3.5-35.0) ng/L Total Protein 6.1 L (6.5-8.0) g/dL Albumin 3.7 (3.5-5.0) g/dL Lipase 14 (8-78) U/L Urine Color Urine Appearance Urine pH (5.0-9.0) Ur Specific [place] (1.005-1.025) Urine Protein (Neg-Trace) mg/dL Urine Glucose (UA) (Negative) mg/dL Urine Ketones (Negative) mg/dL Urine Blood (Negative) Urine Nitrite (Negative) Ur Leukocyte Esterase (Negative) Urine RBC (0-2) /HPF Urine WBC (0-5) /HPF Ur Squamous Epith Cells (0-2) /HPF Urine Bacteria (None Seen) Hyaline Casts (0-2) /LPF 02/27/23 02/27/23 Range/Units 13:17 14:55 WBC (4.8-10.8) X10*3/uL RBC (4.60-5.80) X10*6/uL Hgb (14.0-18.0) g/dl Hct (42.0-52.0) % MCV (80.0-98.0) fL MCH (27.0-33.0) pg MCHC (31.0-36.0) g/dl RDW (11.0-16.0) % Plt Count (160-400) X10*3/uL MPV (9.4-12.4) fL Immature Gran % (Auto) (0.0-0.4) % Neut % (Auto) (45-73) % Lymph % (Auto) (20-40) % [place] % (Auto) (2-11) % Eos % (Auto) (0-4) % Baso % (Auto) (0-2) % Lymph # (Auto) (1.2-4.9) X10*3/uL [place] # (Auto) (0.1-1.2) X10*3/uL Eos # (Auto) (0.0-0.4) X10*3/uL Baso # (Auto) (0.0-0.2) X10*3/uL Abs Immat Gran (auto) (0.00-0.03) X10*3/uL Absolute Neuts (auto) (2.0-8.3) x10*3/uL Absolute Nucleated RBC (0.0-0.012) X10*3/uL Nucleated RBC % (auto) (0.0-0.2) /100WBC Sodium (135-145) mmol/L Potassium (3.3-5.1) mmol/L Chloride (96-108) mmol/L Carbon Dioxide (22-29) mmol/L Anion Gap (12-20) BUN (9-16) mg/dL Creatinine (0.5-1.4) mg/dL Estim Creat Clear Calc Estimated GFR Random Glucose (60-115) mg/dL Calcium (8.4-10.2) mg/dL Total Bilirubin (0.0-1.0) mg/dL Direct Bilirubin (0.0-0.5) mg/dL AST (5-37) U/L ALT (0-40) U/L Alkaline Phosphatase (39-117) U/L Troponin I High Sens < 2.7 (<3.5-35.0) ng/L Total Protein (6.5-8.0) g/dL Albumin (3.5-5.0) g/dL Lipase (8-78) U/L Urine Color Yellow Urine Appearance Clear Urine pH 7.0 (5.0-9.0) Ur Specific [place] 1.010 (1.005-1.025) Urine Protein Negative (Neg-Trace) mg/dL Urine Glucose (UA) Negative (Negative) mg/dL Urine Ketones Negative (Negative) mg/dL Urine Blood Negative (Negative) Urine Nitrite Negative (Negative) Ur Leukocyte Esterase Trace H (Negative) Urine RBC 0-2 (0-2) /HPF Urine WBC 0-5 (0-5) /HPF Ur Squamous Epith Cells 0-2 (0-2) /HPF Urine Bacteria None Seen (None Seen) Hyaline Casts 0-2 (0-2) /LPF Independent Interpretation I performed an independent interpretation of an: Plain X-Ray (Chest: No acute intrathoracic pathology.) Radiology Impression Discussion of test interpretation with radiology: I have reviewed the radiologist's reading. Discharge Plan Discharge Clinical Impression: Chest pain Patient Disposition: Home, Self-Care Instructions: Chest Pain (DC) Prescriptions: No Action divalproex 500 mg tablet,delayed release (DR/EC) 1 tab PO BID temazepam 30 mg capsule 1 cap PO BEDTIME PRN (Reason: Sleep) lorazepam 1 mg Tablet 1 mg PO DAILY PRN (Reason: Anxiety) Referrals: Dung Ramsey PA-C [Primary Care Provider] -
[2023-02-27] MEDS: 0.9 % Sodium Chloride 1,000 ML 999 ML IV (12:24)
[2023-02-27 12:28] LABS: MANUAL DIFF FLAG NO
[2023-02-27 12:29] LABS: Basophils Percent Auto 0.7 % (0-2); Eosinophils Absolute Auto 0.2 X10*3/uL (0.0-0.4); Eosinophils Percent Auto 3.4 % (0-4); Hematocrit 41.8 % (42.0-52.0); Hemoglobin 14.4 g/dl (14.0-18.0); Imm Gran Abs Auto 0.01 X10*3/uL (0.00-0.03); Imm Gran Pct Auto 0.2 % (0.0-0.4); Lymphocytes Absolute Auto 2.2 X10*3/uL (1.2-4.9); Lymphocytes Percent Auto 36.1 % (20-40); Mean Corpuscular HGB Conc 34.4 g/dl (31.0-36.0); Mean Corpuscular Hemoglobin 32.8 pg (27.0-33.0); Mean Corpuscular Volume 95.2 fL (80.0-98.0); Mean Platelet Volume 10.1 fL (9.4-12.4); Monocytes Absolute Auto 0.4 X10*3/uL (0.1-1.2); Monocytes Percent Auto 6.7 % (2-11); Neutrophils Absolute Auto 3.2 x10*3/uL (2.0-8.3); Neutrophils Percent Auto 52.9 % (45-73); Platelet Count 345 X10*3/uL (160-400); Red Blood Count 4.39 X10*6/uL (4.60-5.80); Red Cell Distribution Width 13.4 % (11.0-16.0)
[2023-02-27] MEDS: Magnesium Hydrox/Alum Hydrox 30 ML ORAL.SUSP PO (12:32)
[2023-02-27] MEDS: Famotidine/PF 20 MG/2 ML VIAL IVPUSH (12:32)
[2023-02-27] MEDS: ondansetron HCL 4 MG/2 ML VIAL IVPUSH (12:32)
--- NOTE | 2023-02-27 12:36 | PC.NURSE ---
Pt lying on stretcher, airway open and patent, no obvious signs of distress, no difficulty breathing. Pt a&ox4. Skin normal for ethnicity, warm, and dry. Lung sounds clr and equal bilaterally. Heart sounds normal. Bowel sounds present all garcia. No edema noted. Pt complaining of chest pain upon deep inspiration, denies any radiating pain. Pt reports the chest pain started after vomiting this morning about an hour before he got to the hospital. Vital signs stable, normal sinus on the monitor.
[2023-02-27 13:02] LABS: Alanine Aminotransferase 12 U/L (0-40); Albumin Level 3.7 g/dL (3.5-5.0); Alkaline Phosphatase 71 U/L (39-117); Anion Gap 12 (12-20); Aspartate Amino Transferase 17 U/L (5-37); Bilirubin Direct < 0.2 mg/dL (0.0-0.5); Bilirubin Total 0.5 mg/dL (0.0-1.0); Blood Urea Nitrogen 13 mg/dL (9-16); Calcium 8.9 mg/dL (8.4-10.2); Carbon Dioxide 25 mmol/L (22-29); Chloride 106 mmol/L (96-108); Creatinine Clr Calc Pharmacy 74.1; Estimated Glomerular Filt Rate > 60; Glucose Random 172 mg/dL (60-115); Lipase 14 U/L (8-78); Potassium 4.1 mmol/L (3.3-5.1); Sodium 139 mmol/L (135-145); Total Protein 6.1 g/dL (6.5-8.0)
[2023-02-27 13:03] LABS: Troponin-I High Sensitivity < 2.7 ng/L (<3.5-35.0)
[2023-02-27 13:24] LABS: Appearance Urine Clear; Color Urine Yellow; Glucose Urine UA Negative (Negative); Leukocyte Esterase Urine Trace (Negative); Nitrite Urine Negative (Negative); UMIC TRIGGER UACC YES; Urine Blood Negative (Negative); Urine Ketones Negative (Negative); Urine Protein Negative (Neg-Trace)
[2023-02-27 13:29] LABS: Bacteria Urine None Seen (None Seen); Hyaline Casts Urine 0-2 /LPF (0-2); RBC Urine 0-2 /HPF (0-2); Squamous Epithelial Cell Urine 0-2 /HPF (0-2); WBC Urine 0-5 /HPF (0-5)
[2023-02-27 13:55] VITALS: BP 118/61; PULSE 70; RESP 19; TEMP 36.6; O2SAT 99
[2023-02-27 15:32] LABS: Troponin-I High Sensitivity < 2.7 ng/L (<3.5-35.0)
== END 2023-02-27 16:08 | disposition home or self-care (01) ==
PROVIDERS: Emergency Provider Emergency Medicine; PCP Physician Assistant
DX: R07.89 Other chest pain (principal); F12.90 Cannabis use, unspecified, uncomplicated; F17.210 Nicotine dependence, cigarettes, uncomplicated; Z71.6 Tobacco abuse counseling; Z79.899 Other long term (current) drug therapy
CPT/HCPCS: 36415; 71045; 80048; 80076; 81001; 83690; 84484; 85025; 93005; 99284; 99285; J2405

== ENCOUNTER 2023-03-03 15:24 | Emergency (ER) | payer OTHER, SELFPAY ==
--- NOTE | ~2023-03-03 | XR_ITS ---
EXAMINATION: XR CHEST CLINICAL INFORMATION: Chest pain COMPARISON: Chest x-ray 02/27/2023 TECHNIQUE: 2 views of the chest were obtained. FINDINGS: No significant abnormality is noted involving the heart, lungs, mediastinum, bony thorax or soft tissues. XR/XR chest 2V IMPRESSION: Unremarkable examination.
[2023-03-03 15:34] VITALS: BP 114/68; PULSE 77; RESP 16; TEMP 36.6; O2SAT 97; BMI 21.6
--- NOTE | 2023-03-03 15:38 | ED.GENADULT ---
HPI - General Adult General Chief complaint: Anxiety Stated complaint: anxiety/chest pain Time Seen by Provider: 03/03/23 15:38 Source: patient and EMS Mode of arrival: EMS Limitations: no limitations History of Present Illness HPI narrative: Patient is a 42 year old assigned male at with a history of bipolar disorder and anxiety presenting to the emergency department today with anxiety and chest pain. Patient states that he was at work, got stressed out, and had an acute anxiety episode. Patient denies any dizziness, lightheadedness, abdominal pain, nausea, vomiting, fever, chills, blurry vision, double vision, loss of vision, difficulty breathing, shortness of breath, back pain, night sweats, pain with urination, increased urinary frequency, increased urinary urgency, blood in his urine or stool, syncope or a near syncopal episode, recent trauma or falls, bowel incontinence, bladder incontinence, bowel retention, bladder retention, or any other complaints at this time. Onset (ago): hour(s) Severity: mild Severity scale (1-10): 2 Relieving factors: none Exacerbating factors: none Associated symptoms: denies other symptoms Treatments prior to arrival: none Related Data Home Medications Medication Instructions Recorded Confirmed divalproex 500 mg tablet,delayed 1 tab PO BID 07/29/22 09/16/22 release temazepam 30 mg capsule 1 cap PO BEDTIME PRN Sleep 07/29/22 09/16/22 lorazepam 1 mg tablet 1 mg PO DAILY PRN Anxiety 09/20/22 09/20/22 Allergies Allergy/AdvReac Type Severity Reaction Status Date / Time lurasidone [From Latuda] AdvReac Shakiness Verified 02/27/23 11:50 Review of Systems Constitutional: Constitutional: Reports no additional constitutional complaints, Denies chills, Denies fever(s) and Denies night sweats Eyes: Eyes: Reports no additional eye complaints, Denies blurry vision, Denies change in vision, Denies diplopia, Denies eye discharge, Denies loss of vision and Denies eye pain ENT: Denies dizziness Cardiovascular: Cardiovascular: Reports no additional cardiovascular complaints, Denies chest pain, Denies lightheadedness, Denies Loss of Consciousness and Denies dyspnea Respiratory: Respiratory: Reports no additional respiratory complaints and Denies dyspnea Gastrointestinal: Gastrointestinal: Reports no additional gastrointestinal complaints, Denies abdominal pain, Denies melena, Denies hematochezia, Denies change in bowel habits and Denies change in stool character Genitourinary: Genitourinary: Reports no additional male genitourinary complaints, Denies hematuria, Denies oliguria, Denies difficulty urinating, Denies dysuria, Denies urinary frequency, Denies urinary hesitancy, Denies urinary incontinence and Denies urinary urgency Musculoskeletal: Musculoskeletal: Reports no additional musculoskeletal complaints, Denies numbness and Denies tingling Neurologic: Denies dizziness, Denies loss of vision, Denies numbness and Denies tingling Psychiatric: Psychiatric: Reports no additional psychiatric complaints and Reports anxiety Endocrine: Endocrine: Reports no additional endocrine complaints Hematologic/Lymphatic: Hematologic/Lymphatic: Reports no additional hematologic/lymphatic complaints Allergic/Immunologic: Allergic/Immunologic: Reports no additional allergic/immunologic complaints PMFSH Past Medical History Attestation statement: The following information was validated with the patient. Source: old records reviewed and nursing notes reviewed Medical History Schizophrenia Social History Social History Household Members: Significant Other and Children Housing: House Do you presently have visiting nurse or other home services: No Alcohol intake: unknown Patient Tobacco Use Status: Current everyday Tobacco user Tobacco use type: Cigarette Cigarettes Per Day: 5 Years Smoked: 20 Substance Use Type: Marijuana Advance Directives: No Advance Directives Information Provided: No Sexual orientation: Did not discuss. Physical Exam ED Vital Signs: Vital Signs - 24 hr 03/03/23 15:34 Temperature 97.9 F Pulse Rate 77 Respiratory Rate 16 Blood Pressure 114/68 Pulse Oximetry 97 Oxygen Delivery Method Room Air BMI result Body Mass Index 21.6 Const General: cooperative, no acute distress, alert and awake Nutritional Appearance: well nourished Orientation/consciousness: patient oriented x3 Limitations: no limitations HENMT Head: Yes normal to inspection and Yes atraumatic Ears: hearing grossly normal bilaterally and external ears normal General nose exam: Normal external nose present, no nasal discharge noted and no epistaxis Face and sinus: Yes normal facial exam, No abrasion and No laceration Mouth: Normal oral and palatal mucosa present, no drooling and no muffled voice Eyes General: appearance normal, both eyes and all related structures Periorbital: periorbital findings normal Eyelids: Yes eyelids normal Conjunctivae: conjunctivae normal Pupils: Equal, round and reactive pupils present EOM: EOMs intact bilaterally Neck Neck: Yes normal visual inspection, Yes full ROM and Yes no lymphadenopathy Chest Chest palpation & inspection: normal inspection of the chest Resp Effort & Inspection: normal respiratory effort and able to speak in complete sentences Auscultation: clear to auscultation bilaterally Cardio Rate: regular rate Rhythm: regular rhythm GI Inspection: Yes normal to inspection Neuro General: patient oriented x3 and moves all extremities Cranial nerves: Yes Equal, round and reactive pupils present Cognition (Neuro): normal cognition Motor exam (neuro): 5/5 motor strength present throughout Sensory Exam: Normal double simultaneous stimulation for sensation Coordination: [id number] test normal Extrem General: Yes normal to inspection, Yes full ROM and Yes capillary refill normal Psych Appearance: grossly normal Mental Status: mental status grossly normal Affect: normal affect Attitude: cooperative Thought process: Normal thought process present Thought content: Normal thought content present Insight: Good insight present (Psych) Medical Decision Making Medical Decision Making [facility] Narrative: Patient is a 42 year old assigned male at with a history of anxiety and bipolar disorder presenting to the emergency department today with an anxiety attack. Patient's physical exam was unremarkable. Patient's blood work was unremarkable. Patient's EKG was unremarkable. Patient's chest x-ray showed no acute process. I explained my physical exam findings as well as all test results to the patient. I answered all questions asked by the patient. I stressed the importance of the patient taking his medication as prescribed. I stressed the importance of the patient following up with his primary care provider. I stressed the importance of the patient returning to the emergency department immediately if his symptoms were to worsen or if [he/she/they] were to develop any dizziness, shortness of breath, difficulty breathing, chest pain, blurry vision, loss of vision, nausea, vomiting, abdominal pain, fever, chills, back pain, or any other complaints. Patient verbalized agreement and understanding with this treatment plan and discharge. Differential Diagnosis Differential Diagnoses: The differential diagnosis associated with the presentation includes anxiety Lab Data [facility] Lab Attestation statement: I reviewed the patient's lab results. 03/03/23 16:05 03/03/23 16:05 Labs: Lab Results 04/13/23 04/13/23 04/13/23 Range/Units 16:05 16:05 16:05 WBC 5.6 (4.8-10.8) X10*3/uL RBC 4.09 L (4.60-5.80) X10*6/uL Hgb 13.4 L (14.0-18.0) g/dl Hct 38.7 L (42.0-52.0) % MCV 94.6 (80.0-98.0) fL MCH 32.8 (27.0-33.0) pg MCHC 34.6 (31.0-36.0) g/dl RDW 13.5 (11.0-16.0) % Plt Count 301 (160-400) X10*3/uL MPV 9.9 (9.4-12.4) fL Immature Gran % (Auto) 0.2 (0.0-0.4) % Neut % (Auto) 48.9 (45-73) % Lymph % (Auto) 43.1 H (20-40) % Hunt % (Auto) 6.6 (2-11) % Eos % (Auto) 0.5 (0-4) % Baso % (Auto) 0.7 (0-2) % Lymph # (Auto) 2.4 (1.2-4.9) X10*3/uL Hunt # (Auto) 0.4 (0.1-1.2) X10*3/uL Eos # (Auto) 0.0 (0.0-0.4) X10*3/uL Baso # (Auto) 0.0 (0.0-0.2) X10*3/uL Abs Immat Gran (auto) 0.01 (0.00-0.03) X10*3/uL Absolute Neuts (auto) 2.8 (2.0-8.3) x10*3/uL Absolute Nucleated RBC 0.000 (0.0-0.012) X10*3/uL Nucleated RBC % (auto) 0.0 (0.0-0.2) /100WBC Sodium 142 (135-145) mmol/L Potassium 4.2 (3.3-5.1) mmol/L Chloride 110 H (96-108) mmol/L Carbon Dioxide 25 (22-29) mmol/L Anion Gap 11 L (12-20) BUN 10 (9-16) mg/dL Creatinine 0.88 (0.5-1.4) mg/dL Estim Creat Clear Calc 93.0 Estimated GFR > 60 Random Glucose 92 (60-115) mg/dL Calcium 9.0 (8.4-10.2) mg/dL Magnesium 1.5 L (1.6-2.6) mg/dL Total Bilirubin 0.4 (0.0-1.0) mg/dL AST 17 (5-37) U/L ALT 13 (0-40) U/L Alkaline Phosphatase 72 (39-117) U/L B-Natriuretic Peptide 14 (<100) pg/mL Total Protein 6.1 L (6.5-8.0) g/dL Albumin 3.8 (3.5-5.0) g/dL COVID-19 (CECI) (Negative) COVID-19 Clin Com 03/03/23 Range/Units 16:05 WBC (4.8-10.8) X10*3/uL RBC (4.60-5.80) X10*6/uL Hgb (14.0-18.0) g/dl Hct (42.0-52.0) % MCV (80.0-98.0) fL MCH (27.0-33.0) pg MCHC (31.0-36.0) g/dl RDW (11.0-16.0) % Plt Count (160-400) X10*3/uL MPV (9.4-12.4) fL Immature Gran % (Auto) (0.0-0.4) % Neut % (Auto) (45-73) % Lymph % (Auto) (20-40) % Hunt % (Auto) (2-11) % Eos % (Auto) (0-4) % Baso % (Auto) (0-2) % Lymph # (Auto) (1.2-4.9) X10*3/uL Hunt # (Auto) (0.1-1.2) X10*3/uL Eos # (Auto) (0.0-0.4) X10*3/uL Baso # (Auto) (0.0-0.2) X10*3/uL Abs Immat Gran (auto) (0.00-0.03) X10*3/uL Absolute Neuts (auto) (2.0-8.3) x10*3/uL Absolute Nucleated RBC (0.0-0.012) X10*3/uL Nucleated RBC % (auto) (0.0-0.2) /100WBC Sodium (135-145) mmol/L Potassium (3.3-5.1) mmol/L Chloride (96-108) mmol/L Carbon Dioxide (22-29) mmol/L Anion Gap (12-20) BUN (9-16) mg/dL Creatinine (0.5-1.4) mg/dL Estim Creat Clear Calc Estimated GFR Random Glucose (60-115) mg/dL Calcium (8.4-10.2) mg/dL Magnesium (1.6-2.6) mg/dL Total Bilirubin (0.0-1.0) mg/dL AST (5-37) U/L ALT (0-40) U/L Alkaline Phosphatase (39-117) U/L B-Natriuretic Peptide (<100) pg/mL Total Protein (6.5-8.0) g/dL Albumin (3.5-5.0) g/dL COVID-19 (CECI) Negative (Negative) COVID-19 Clin Com See Note Independent Interpretation I performed an independent interpretation of an: EKG Interpretation: Vent. Rate: 067 BPM ? ? Atrial Rate: 067 BPM P-R Int: 132 ms? QRS Dur: 086 ms QT Int: 390 ms ? ? ? P-R-T Axes: 060 052 046 degrees QTc Int: 412 ms ? Normal sinus rhythm Minimal voltage criteria for LVH, may be normal variant ( Sokolow-Bower ) Borderline ECG When compared with ECG of 27-FEB-2023 11:45, No significant change was found ? DD/ [id number] Radiology Impression Radiologist Impression: My interpretation is in agreement with the radiologist's impression of this imaging study. EXAMINATION: XR CHEST CLINICAL INFORMATION: Chest pain COMPARISON: Chest x-ray 02/27/2023 TECHNIQUE: 2 views of the chest were obtained. FINDINGS: No significant abnormality is noted involving the heart, lungs, mediastinum, bony thorax or soft tissues. XR/XR chest 2V IMPRESSION: Unremarkable examination. Dictated By: Bernard Coreas MD Signed By: Electronically signed by Bernard Coreas MD 03/03/23 2064 Independent Historian Clinical information obtained from an independent historian. History obtained from or confirmed by: EMS Discharge Plan Discharge Clinical Impression: Acute anxiety Patient Disposition: Home, Self-Care Instructions: Anxiety (ED) Additional Instructions: Follow up with your primary care provider. Return to the emergency department immediately if your symptoms worsen or if you develop any dizziness, shortness of breath, difficulty breathing, chest pain, blurry vision, loss of vision, nausea, vomiting, abdominal pain, fever, chills, back pain, or any other complaints. Prescriptions: No Action divalproex 500 mg tablet,delayed release (DR/EC) 1 tab PO BID temazepam 30 mg capsule 1 cap PO BEDTIME PRN (Reason: Sleep) lorazepam 1 mg Tablet 1 mg PO DAILY PRN (Reason: Anxiety) Referrals: Dung Ramsey PA-C [Primary Care Provider] - Stand Alone Forms: Work/School Release Print Language: [place] Citizen
--- NOTE | 2023-03-03 15:40 | ECG_ITS ---
Test Reason : CHEST PAIN Blood Pressure : / mmHG Vent. Rate : 067 BPM Atrial Rate : 067 BPM P-R Int : 132 ms QRS Dur : 086 ms QT Int : 390 ms P-R-T Axes : 060 052 046 degrees QTc Int : 412 ms Normal sinus rhythm Minimal voltage criteria for LVH, may be normal variant ( Sokolow-Bower ) Borderline ECG When compared with ECG of 27-FEB-2023 11:45, No significant change was found Referred By: Lalitha Hill Electronically Signed By:BEVERLY COLÓN MD
[2023-03-03 16:10] LABS: MANUAL DIFF FLAG NO
[2023-03-03 16:11] LABS: Basophils Percent Auto 0.7 % (0-2); Eosinophils Percent Auto 0.5 % (0-4); Hematocrit 38.7 % (42.0-52.0); Hemoglobin 13.4 g/dl (14.0-18.0); Imm Gran Abs Auto 0.01 X10*3/uL (0.00-0.03); Imm Gran Pct Auto 0.2 % (0.0-0.4); Lymphocytes Absolute Auto 2.4 X10*3/uL (1.2-4.9); Lymphocytes Percent Auto 43.1 % (20-40); Mean Corpuscular HGB Conc 34.6 g/dl (31.0-36.0); Mean Corpuscular Hemoglobin 32.8 pg (27.0-33.0); Mean Corpuscular Volume 94.6 fL (80.0-98.0); Mean Platelet Volume 9.9 fL (9.4-12.4); Monocytes Absolute Auto 0.4 X10*3/uL (0.1-1.2); Monocytes Percent Auto 6.6 % (2-11); Neutrophils Absolute Auto 2.8 x10*3/uL (2.0-8.3); Neutrophils Percent Auto 48.9 % (45-73); Platelet Count 301 X10*3/uL (160-400); Red Blood Count 4.09 X10*6/uL (4.60-5.80); Red Cell Distribution Width 13.5 % (11.0-16.0); White Blood Count 5.6 X10*3/uL (4.8-10.8)
[2023-03-03 16:26] LABS: COVID-19 Test Negative (Negative); IDNOW Serial# 08D9AD1C
[2023-03-03 16:29] LABS: Alanine Aminotransferase 13 U/L (0-40); Albumin Level 3.8 g/dL (3.5-5.0); Alkaline Phosphatase 72 U/L (39-117); Anion Gap 11 (12-20); Aspartate Amino Transferase 17 U/L (5-37); Bilirubin Total 0.4 mg/dL (0.0-1.0); Blood Urea Nitrogen 10 mg/dL (9-16); Carbon Dioxide 25 mmol/L (22-29); Chloride 110 mmol/L (96-108); Estimated Glomerular Filt Rate > 60; Glucose Random 92 mg/dL (60-115); Magnesium 1.5 mg/dL (1.6-2.6); Potassium 4.2 mmol/L (3.3-5.1); Sodium 142 mmol/L (135-145); Total Protein 6.1 g/dL (6.5-8.0)
[2023-03-03 16:32] LABS: B Type Natriuretic Peptide 14 pg/mL (<100)
[2023-03-03 16:38] LABS: Troponin-I High Sensitivity 7.3 ng/L (<3.5-35.0)
== END 2023-03-03 16:48 | disposition home or self-care (01) ==
PROVIDERS: Physician Assistant Medical; Emergency Provider Emergency Medicine; PCP Physician Assistant
DX: F41.9 Anxiety disorder, unspecified (principal); R07.89 Other chest pain; R06.02 Shortness of breath; F17.210 Nicotine dependence, cigarettes, uncomplicated; Z71.6 Tobacco abuse counseling; Z20.822 Contact with and (suspected) exposure to COVID-19; Z20.828 Contact with and (suspected) exposure to other viral communicable diseases; Z79.899 Other long term (current) drug therapy
CPT/HCPCS: 71046; 80053; 83735; 83880; 84484; 85025; 87635; 93005; 99283; 99284

== ENCOUNTER 2023-03-04 17:27 | Emergency (ER) | payer OTHER, SELFPAY ==
--- NOTE | ~2023-03-04 | CT_ITS ---
EXAMINATION: HEAD CT WITHOUT CONTRAST CERVICAL SPINE CT WITHOUT CONTRAST CLINICAL INFORMATION: Head injury COMPARISON: CT head 04/04/2022. TECHNIQUE: Contiguous axial imaging of the head was performed without the administration of IV contrast. Axial multidetector volumetric images were also performed through the cervical spine without contrast. Multiplanar reconstructed images in coronal and sagittal orientations were submitted. DOSE: 917 mGy-cm FINDINGS: HEAD: There is no evidence of acute intracranial hemorrhage or territorial infarction. No abnormal mass-effect or midline shift. No extra-axial fluid collections. Onofre to white matter differentiation is well preserved. The ventricles are normal in size and configuration. No acute calvarial fracture. The sinuses and mastoid air cells are clear. CERVICAL SPINE: There is straightening of the cervical curvature. The vertebral body sagittal alignment is maintained. Craniocervical and atlantoaxial articulations maintained. Predens space is maintained. There is chronic appearing slight flattening of the C4, C5 vertebral bodies. Vertebral body heights otherwise maintained. No acute compression vertebral body fracture is identified. Moderate cervical spondylosis. There is moderate C3-C4, C4-C5, C5-C6, disc degenerative changes. There is prominent anterior osteophytes at inferior endplate of C3, with the lucency at the base of the osteophyte. This of indeterminate age. There is a prominent osteophytes along the anterior aspect of the C4-C5 disc space, arising from the C4 vertebral body, and the superior aspect of the C5 vertebral body. There is bony fragmentation and lucencies within the osteophytes. There are bone fragments along the anterior aspect of disc space. Findings are indeterminate, suspected to be chronic. Prominent anterior osteophyte at the inferior endplate of C5 vertebral body and the C6 vertebral body. There is lucency at the base of the osteophyte, of indeterminate age. The base of the dens is intact. No significant paravertebral soft tissue swelling. Limited evaluation of the soft tissues on the provided images. Imaged portions of the lung apices are clear. CT/CT cervical spine wo IV con IMPRESSION: 1. No CT evidence of acute intracranial fracture or intracranial hemorrhage. 2. Moderate C3-C4, C4-C5, C6 disc degeneration.. 3. Lucencies at the base of the osteophytes arising at C3, C4, C5, C6 as detailed above. There is bony fragmentation anteriorly at the level of C4-C5. These findings of indeterminate age, and could be chronic.. Clinically correlate. If this clinical concern for acute injury in this region, further evaluation with MRI can be obtained. 4. No acute vertebral body compression fractures seen.
[2023-03-04 17:40] VITALS: BP 160/100; PULSE 95; RESP 16; TEMP 36.6; O2SAT 98; BMI 25.7
--- NOTE | 2023-03-04 17:46 | ECG_ITS ---
Test Reason : SEIZURE Blood Pressure : / mmHG Vent. Rate : 071 BPM Atrial Rate : 071 BPM P-R Int : 130 ms QRS Dur : 088 ms QT Int : 376 ms P-R-T Axes : 063 062 048 degrees QTc Int : 408 ms Normal sinus rhythm Minimal voltage criteria for LVH, may be normal variant ( Sokolow-Bower ) ST elevation, consider early repolarization Borderline ECG When compared with ECG of 03-MAR-2023 15:46, No significant change was found Referred By: Lalitha Hill Electronically Signed By:BEVERLY COLÓN MD
[2023-03-04 18:21] LABS: MANUAL DIFF FLAG NO
[2023-03-04 18:46] LABS: Basophils Percent Auto 0.6 % (0-2); Eosinophils Absolute Auto 0.1 X10*3/uL (0.0-0.4); Eosinophils Percent Auto 1.1 % (0-4); Hematocrit 39.8 % (42.0-52.0); Hemoglobin 13.5 g/dl (14.0-18.0); Imm Gran Abs Auto 0.01 X10*3/uL (0.00-0.03); Imm Gran Pct Auto 0.2 % (0.0-0.4); Lymphocytes Absolute Auto 2.5 X10*3/uL (1.2-4.9); Lymphocytes Percent Auto 47.2 % (20-40); Mean Corpuscular HGB Conc 33.9 g/dl (31.0-36.0); Mean Corpuscular Hemoglobin 32.7 pg (27.0-33.0); Mean Corpuscular Volume 96.4 fL (80.0-98.0); Mean Platelet Volume 10.4 fL (9.4-12.4); Monocytes Absolute Auto 0.4 X10*3/uL (0.1-1.2); Monocytes Percent Auto 7.3 % (2-11); Neutrophils Absolute Auto 2.3 x10*3/uL (2.0-8.3); Neutrophils Percent Auto 43.6 % (45-73); Platelet Count 306 X10*3/uL (160-400); Red Blood Count 4.13 X10*6/uL (4.60-5.80); Red Cell Distribution Width 13.8 % (11.0-16.0); White Blood Count 5.2 X10*3/uL (4.8-10.8)
--- NOTE | 2023-03-04 19:00 | ED.SEIZURE ---
HPI - Seizure General Chief Complaint: Seizure Stated Complaint: Witnessed seizure per EMS Time Seen by Provider: 03/04/23 18:40 Source: patient and EMS Mode of arrival: EMS Limitations: no limitations History of Present Illness HPI Narrative: This is a 42-year-old male history of bipolar disorder, cannabis use disorder presenting to the emergency department with a witnessed seizure prior to arrival, patient does not have a history of seizure disorder. 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 And he was confused afterwards for approximately a minute. There was no loss of urine or bowel control, no tongue trauma. Patient tells me he has had 1 seizure in the past after ?heat stroke?. He is not on medications for epilepsy. At this time patient denies headache, vision changes, dizziness, weakness, nausea, vomiting, confusion, chest pain, shortness of breath. GCS of 15 on arrival. NIH stroke scale 0. Place: Work Related Data Home Medications Medication Instructions Recorded Confirmed divalproex 500 mg tablet,delayed 1 tab PO BID 07/29/22 09/16/22 release temazepam 30 mg capsule 1 cap PO BEDTIME PRN Sleep 07/29/22 09/16/22 lorazepam 1 mg tablet 1 mg PO DAILY PRN Anxiety 09/20/22 09/20/22 Allergies Allergy/AdvReac Type Severity Reaction Status Date / Time lurasidone [From Latuda] AdvReac Shakiness Verified 02/27/23 11:50 Review of Systems Review of Systems: Constitutional : No Weight loss, No Fever, No Chills, No Fatigue, No Malaise ENT/Mouth : No sore throat, No Rhinorrhea Eyes: No Eye Pain, No Swelling, No Redness Cardiovascular : No Chest Pain, No SOB, No Dyspnea on Exertion, No Orthopnea, No Edema, No Palpitations Respiratory : No Cough, No Sputum, No Wheezing Gastrointestinal : No Nausea, No Vomiting, No Diarrhea, No Constipation, No abdominal Pain, No Hematochezia, No Melena Genitourinary : No Dysuria, No Urinary Frequency, No Hematuria, Musculoskeletal : No joint pain, No Myalgias, No Joint Swelling Skin : No Skin Lesions, No rash Neuro : No Weakness, No Numbness, No Dizziness, No Headache Psych : No Anxiety/Panic, No Depression All other systems reviewed and are negative Yes all other systems are reviewed and are negative [facility] [place] Past Medical History Attestation statement: The following information was validated with the patient. Source: old records reviewed and nursing notes reviewed Medical History Schizophrenia Social History Social History Household Members: Significant Other and Children Housing: House Do you presently have visiting nurse or other home services: No Alcohol intake: unknown Patient Tobacco Use Status: Current everyday Tobacco user Tobacco use type: Cigarette Cigarettes Per Day: 5 Years Smoked: 20 Substance Use Type: Marijuana Advance Directives: No Advance Directives Information Provided: No Sexual orientation: Did not discuss. Physical Exam Vital Signs: Vital Signs: Last Vital Signs Temp 98.4 F 03/04/23 19:58 Pulse 76 03/04/23 19:58 Resp 19 03/04/23 19:58 BP 104/60 03/04/23 19:58 Pulse Ox 99 03/04/23 19:58 O2 Del Method Room Air 03/04/23 19:58 BMI result Body Mass Index 25.7 vss Appearance: Alert.? Oriented X3.? No acute distress.? Head: Normocephalic,, no step-offs or deformities + 1 cm superficial laceration overlying the right forehead area Eyes: Pupils equal, round and reactive to light.? ENT: Pharynx normal.? Neck: Normal inspection.? Neck supple.? CVS: Normal heart rate and rhythm.? Pulses normal.? Respiratory: No respiratory distress.? Breath sounds normal.? Abdomen: Soft and nontender.? Skin: Skin warm and dry.? Normal skin color.? Normal skin turgor.? Extremities: No lower extremity edema.? No calf ttp. 5/5 strength to bilateral upper and lower extremities Neuro: Oriented X 3.? No motor deficit.? No sensory deficit. CN 2-12 intact Course Reevaluation(s) Reevaluation #1: Seizure could be secondary to non med compliance as patient reports he misses some doses of dialproex at times. CBC appears to be around patient's baseline with normocytic anemia. Chemistry with no acute findings requiring intervention. Ethanol negative. Time: 20:36 Reevaluation #2: No seizure-like activity. Head CT with no acute intracranial fractures, or intracranial hemorrhage. Disc degeneration noted. Lucencies at C3, C4-C5 C6 patient without neck pain, no C-spine tenderness on exam. Patient has not had a seizure while in the department he feels well. Laceration superficial no need for closure. Will discharge him home with strict return precautions. Educated patient on diagnosis and treatment plan, answered all question, patient verbalizes understanding. At this time patient will be discharged home, advised to return with new or worsening symptoms. Educated on worrisome signs and symptoms and when to return. At this time I feel comfortable discharge home. Time: 20:57 Medications Administered Discontinued Medications Generic Name Dose Route Start Last Admin Trade Name Freq PRN Reason Stop Dose Admin Lorazepam 1 mg 03/04/23 19:28 03/04/23 20:41 Lorazepam 2 Mg/Ml Vial IVPUSH 03/04/23 19:29 1 mg STAT STA Administration Medical Decision Making Medical Decision Making [facility] Narrative: 42-year-old male presents with witnessed seizure, hit his head on a cabinet. Now alert and oriented x4. No history of epilepsy. He has had 1 seizure in the past back when he was dehydrated he tells me. Physical exam benign. GCS 15, NIH stroke scale 0. Likely seizure. I do not suspect skull fracture, intracranial hemorrhage, stroke, posterior stroke. This could be secondary to non med compliance with psychiatric medications. Plan at this time labs, imaging. Will monitor patient. Seizure precautions and placed in bed is padded Differential Diagnosis Differential Diagnoses: The differential diagnosis associated with the presentation includes Likely seizure. I do not suspect skull fracture, intracranial hemorrhage, stroke, posterior stroke. This could be secondary to non med compliance with psychiatric medications. Admission/Observation Consideration of admission/observation: Escalation of care including admission/observation considered Unlikely Consult Healthcare Provider Management of the patient was discussed with: Hospitalist (Discussed however does not feel as though there is a need for admission) Lab Data [facility] Lab Attestation statement: I reviewed the patient's lab results. 03/04/23 18:13 03/04/23 18:13 Labs: Lab Results 03/04/23 03/04/23 Range/Units 18:13 19:27 WBC 5.2 (4.8-10.8) X10*3/uL RBC 4.13 L (4.60-5.80) X10*6/uL Hgb 13.5 L (14.0-18.0) g/dl Hct 39.8 L (42.0-52.0) % MCV 96.4 (80.0-98.0) fL MCH 32.7 (27.0-33.0) pg MCHC 33.9 (31.0-36.0) g/dl RDW 13.8 (11.0-16.0) % Plt Count 306 (160-400) X10*3/uL MPV 10.4 (9.4-12.4) fL Immature Gran % (Auto) 0.2 (0.0-0.4) % Neut % (Auto) 43.6 L (45-73) % Lymph % (Auto) 47.2 H (20-40) % [place]aden % (Auto) 7.3 (2-11) % Eos % (Auto) 1.1 (0-4) % Baso % (Auto) 0.6 (0-2) % Lymph # (Auto) 2.5 (1.2-4.9) X10*3/uL [place]aden # (Auto) 0.4 (0.1-1.2) X10*3/uL Eos # (Auto) 0.1 (0.0-0.4) X10*3/uL Baso # (Auto) 0.0 (0.0-0.2) X10*3/uL Abs Immat Gran (auto) 0.01 (0.00-0.03) X10*3/uL Absolute Neuts (auto) 2.3 (2.0-8.3) x10*3/uL Absolute Nucleated RBC 0.000 (0.0-0.012) X10*3/uL Nucleated RBC % (auto) 0.0 (0.0-0.2) /100WBC Sodium 145 (135-145) mmol/L Potassium 4.4 (3.3-5.1) mmol/L Chloride 111 H (96-108) mmol/L Carbon Dioxide 27 (22-29) mmol/L Anion Gap 11 L (12-20) BUN 12 (9-16) mg/dL Creatinine 1.11 (0.5-1.4) mg/dL Estim Creat Clear Calc 74.0 Estimated GFR > 60 Random Glucose 83 (60-115) mg/dL Calcium 9.0 (8.4-10.2) mg/dL Magnesium 2.0 (1.6-2.6) mg/dL Total Bilirubin 0.5 (0.0-1.0) mg/dL AST 17 (5-37) U/L ALT 12 (0-40) U/L Alkaline Phosphatase 75 (39-117) U/L Total Protein 6.4 L (6.5-8.0) g/dL Albumin 3.9 (3.5-5.0) g/dL Ethyl Alcohol < 10 mg/dL Independent Interpretation I performed an independent interpretation of an: CT Scan ( CT/CT head/brain wo IV con IMPRESSION: 1. No CT evidence of acute intracranial fracture or intracranial hemorrhage. 2. Moderate C3-C4, C4-C5, C6 disc degeneration.. 3. Lucencies at the base of the osteophytes arising at C3, C4, C5, C6 as detailed above. There is bony fragmentation anteriorly at) Radiology Impression Discussion of test interpretation with radiology: I have reviewed the radiologist's reading. External Record Review External record reviewed: Inpatient record, Office record, Outpatient record, Prior outpatient labs, Prior outpatient radiology, Primary care record and Outside ED record Core Measures AMI core measures followed: Yes Measure exclusions: not indicated Critical Care Time Critical Care Time Critical Care Time: No Discharge Plan Discharge Clinical Impression: Generalized seizure, Concussion, Laceration of head Patient Disposition: Home, Self-Care Instructions: Nonepileptic Seizures (ED), Post Concussion Syndrome (ED) Additional Instructions: Take your medications as prescribed. If you were prescribed antibiotics today, it is important that you take your medication to their entirety, do not skip any doses, do not finish them early. Follow-up with your primary care provider this week. Return to the emergency department with new or worsening symptoms. Such as fevers, chills, chest pain, shortness of breath, nausea, vomiting, dizziness, headache, vision changes, lethargy In case of emergency call [address] machinery for 6 months or until you are assessed by neurologist. Ensure that you take divalproex, not taking this can cause seizures Please look at for symptoms of post concussive syndrome of any of these arise please return. Prescriptions: No Action divalproex 500 mg tablet,delayed release (DR/EC) 1 tab PO BID temazepam 30 mg capsule 1 cap PO BEDTIME PRN (Reason: Sleep) lorazepam 1 mg Tablet 1 mg PO DAILY PRN (Reason: Anxiety) Referrals: [facility] Neuro/Sleep [Provider Group] - 2 days Physician,Unknown J [Primary Care Provider] - 2 days Stand Alone Forms: Work/School Release
[2023-03-04 19:50] LABS: Alanine Aminotransferase 12 U/L (0-40); Albumin Level 3.9 g/dL (3.5-5.0); Alkaline Phosphatase 75 U/L (39-117); Anion Gap 11 (12-20); Aspartate Amino Transferase 17 U/L (5-37); Bilirubin Total 0.5 mg/dL (0.0-1.0); Blood Urea Nitrogen 12 mg/dL (9-16); Carbon Dioxide 27 mmol/L (22-29); Chloride 111 mmol/L (96-108); Estimated Glomerular Filt Rate > 60; Ethanol < 10 mg/dL; Glucose Random 83 mg/dL (60-115); Potassium 4.4 mmol/L (3.3-5.1); Sodium 145 mmol/L (135-145); Total Protein 6.4 g/dL (6.5-8.0)
[2023-03-04 19:58] VITALS: BP 104/60; PULSE 76; RESP 19; TEMP 36.9; O2SAT 99
[2023-03-04] MEDS: LORazepam 2 MG/ML VIAL 1 MG IVPUSH (20:41)
[2023-03-04 21:36] VITALS: BP 116/67; PULSE 79; RESP 12; O2SAT 97
--- NOTE | 2023-03-04 21:48 | PC.NURSE ---
Pt aox4 resting at the bedside in no apparent distress. IV line removed. Pt tolered well. Discharge instructions reviewed with pt. Pt verbalizes understanding. Ambulatory at discharge with steady gait.
== END 2023-03-04 21:50 | disposition home or self-care (01) ==
PROVIDERS: Physician Assistant Medical; Emergency Provider Emergency Medicine
DX: G40.409 Other generalized epilepsy and epileptic syndromes, not intractable, without status epilepticus (principal); S06.0X0A Concussion without loss of consciousness, initial encounter; S01.81XA Laceration without foreign body of other part of head, initial encounter; W07.XXXA Fall from chair, initial encounter; F17.210 Nicotine dependence, cigarettes, uncomplicated; F12.90 Cannabis use, unspecified, uncomplicated; Y93.89 Activity, other specified; Y92.511 Restaurant or cafe as the place of occurrence of the external cause; Y99.9 Unspecified external cause status; Z91.148 Patient's other noncompliance with medication regimen for other reason
CPT/HCPCS: 36415; 70450; 72125; 80053; 82077; 83735; 85025; 93005; 96374; 99284; 99285; J2060

== ENCOUNTER 2023-03-14 21:12 | Emergency (ER) | payer OTHER, SELFPAY ==
--- NOTE | 2023-03-14 21:18 | ED_ITS ---
HPI - Psych General Chief Complaint: Psychiatric Symptoms <CONNIE Michelle - Last Filed: 03/14/23 23:15> Stated Complaint: Manic eposiode <CONNIE Michelle - Last Filed: 03/14/23 23:15> Time Seen by Provider: 03/14/23 21:14 <CONNIE Michelle - Last Filed: 03/14/23 23:15> Source: patient and EMS <CONNIE Michelle Last Filed: 03/14/23 23:15> Mode of arrival: EMS <CONNIE Michelle Last Filed: 03/14/23 23:15> Limitations: no limitations <CONNIE Michelle Last Filed: 03/14/23 23:15> History of Present Illness HPI Narrative: This is a 42-year-old male history of kidney cannabis use disorder, bipolar disorder, presenting to the emergency department with anxiety, depression and hearing voices, patient tells me he has been going through some life changes recently got a divorce from his , and this has been affecting him. Tells me the regular marijuana smoker daily. Last smoked today. Denies other drugs, alcohol and tobacco. Denies visual and tactile hallucinations. Denies homicidal and suicidal ideation. No medical complaints. <CONNIE Michelle Last Filed: 03/14/23 23:15> Related Data Home Medications: Home Medications Medication Instructions Recorded Confirmed divalproex 500 mg tablet,delayed 500 mg PO BID 03/14/23 03/20/23 release Previous Rx's Medication Instructions Recorded lorazepam 1 mg tablet (Ativan) 1 mg PO DAILY PRN anxiety #14 tabs 03/17/23 <CONNIE Michelle Last Filed: 03/14/23 23:15> Allergies/Adverse Reactions: Allergies Allergy/AdvReac Type Severity Reaction Status Date / Time lurasidone [From Latuda] AdvReac Shakiness Verified 03/15/23 13:46 <CONNIE Michelle Last Filed: 03/14/23 23:15> Review of Systems Review of Systems: Constitutional : No Fever, No Chills ENT/Mouth : No Ear Pain, No Nasal Congestion, No sore throat Eyes: No Eye Pain, No Swelling, No Redness Cardiovascular : No Chest Pain, No SOB Respiratory : No Cough, No Sputum, No Dyspnea Gastrointestinal : No Nausea, No Vomiting, No Diarrhea, No Hematochezia, No Melena Genitourinary : No Dysuria, No Urinary Frequency, No Hematuria Musculoskeletal : No Myalgias Skin : No Skin Lesions, No rash Neuro : No Weakness, No Numbness, No Paresthesias, No Dizziness, No Headache Psych : positive Anxiety, positive Depression, No SI/HI All other systems reviewed and are negative <CONNIE Michelle - Last Filed: 03/14/23 23:15> Yes all other systems are reviewed and are negative <CONNIE Michelle - Last Filed: 03/14/23 23:15> [facility] Past Medical History Attestation statement: The following information was validated with the patient. <CONNIE Michelle - Last Filed: 03/14/23 23:15> Source: old records reviewed and nursing notes reviewed <CONNIE Michelle - Last Filed: 03/14/23 23:15> Medical History: Medical History Schizophrenia <CONNIE Michelle - Last Filed: 03/14/23 23:15> Social History Social History: Social History Household Members: Significant Other and Children Housing: House Do you presently have visiting nurse or other home services: No Alcohol intake: unknown Patient Tobacco Use Status: Current everyday Tobacco user Tobacco use type: Cigarette Cigarettes Per Day: 5 Years Smoked: 20 Substance Use Type: Marijuana Advance Directives: No Advance Directives Information Provided: No Sexual orientation: Did not discuss. <CONNIE Michelle - Last Filed: 03/14/23 23:15> Physical Exam Vital Signs: Vital Signs: Last Vital Signs Temp 97.9 F 03/15/23 06:34 Pulse 69 03/15/23 06:34 Resp 18 03/15/23 06:34 BP 97/49 L 03/15/23 06:34 Pulse Ox 99 03/15/23 06:34 O2 Del Method Room Air 03/15/23 06:34 BMI result Body Mass Index 21.6 vss <CONNIE Michelle - Last Filed: 03/14/23 23:15> Vital Signs: Last Vital Signs Temp 97.9 F 03/15/23 06:34 Pulse 69 03/15/23 06:34 Resp 18 03/15/23 06:34 BP 97/49 L 03/15/23 06:34 Pulse Ox 99 03/15/23 06:34 O2 Del Method Room Air 03/15/23 06:34 BMI result Body Mass Index 21.6 <Velma Meadows MD - Last Filed: 03/15/23 10:18> Appearance: Alert.? Oriented X3.? No acute distress.? Head: Normocephalic, atraumatic, no step-offs or deformities Eyes: Pupils equal, round and reactive to light.? ENT: Pharynx normal.? Neck: Normal inspection.? Neck supple.? CVS: Normal heart rate and rhythm.? Pulses normal.? Respiratory: No respiratory distress.? Breath sounds normal.? Abdomen: Soft and nontender.? Skin: Skin warm and dry.? Normal skin color.? Normal skin turgor.? Extremities: No lower extremity edema.? No calf ttp. 5/5 strength to bilateral upper and lower extremities Neuro: Oriented X 3.? No motor deficit.? No sensory deficit. CN 2-12 intact <CONNIE Michelle - Last Filed: 03/14/23 23:15> Course Reevaluation(s) Reevaluation #1: CBC within normal limits. Chemistry with no acute findings requiring intervention. Salicylates, acetaminophen and ethanol negative. Patient's valproic acid level low likely not taking his meds as prescribed, will continue him on home medications. Urine toxicology positive for marijuana. At this time patient to be placed in observation to allow more time to be evaluated by the behavioral health team. At time observation was started patient common cooperative no acute distress will continue to monitor <CONNIE Michelle - Last Filed: 03/14/23 23:15> Time: 23:14 <CONNIE Michelle - Last Filed: 03/14/23 23:15> Reevaluation #2: 42-year-old male with presentation for depression, has not been taking his Depakote which is demonstrated by low levels, medication reconciliation has been signed off on, no acute events overnight he is awaiting care team evaluation. <Velma Meadows MD - Last Filed: 03/15/23 10:18> Time: 07:07 <Velma Meadows MD - Last Filed: 03/15/23 10:18> Reevaluation #3: Patient evaluated by the care team and determined to be a safe discharge as he does not have SI or HI, he has medications and care team also provided the patient with information for [facility] as an outpatient resource and patient is otherwise cleared for discharge. <Velma Meadows MD - Last Filed: 03/15/23 10:18> Time: 10:17 <Velma Meadows MD - Last Filed: 03/15/23 10:18> Medications Administered Discontinued Medications Generic Name Dose Route Start Last Admin Trade Name Freq PRN Reason Stop Dose Admin Divalproex Sodium 500 mg 03/15/23 09:00 03/15/23 10:07 Divalproex Sodium 500 Mg Tablet. PO 500 mg BID URIAH Administration Hydroxyzine HCl 25 mg 03/15/23 09:41 03/15/23 09:53 Hydroxyzine Hcl 25 Mg Tablet PO 03/15/23 09:42 25 mg ONCE ONE Administration Lorazepam 1 mg 03/14/23 21:17 03/14/23 21:30 Lorazepam 1 Mg Tablet PO 03/14/23 21:18 1 mg ONCE ONE Administration <OCNNIE Michelle - Last Filed: 03/14/23 23:15> Medications Administered Discontinued Medications Generic Name Dose Route Start Last Admin Trade Name Freq PRN Reason Stop Dose Admin Divalproex Sodium 500 mg 03/15/23 09:00 03/15/23 10:07 Divalproex Sodium 500 Mg Tablet. PO 500 mg BID URIAH Administration Hydroxyzine HCl 25 mg 03/15/23 09:41 03/15/23 09:53 Hydroxyzine Hcl 25 Mg Tablet PO 03/15/23 09:42 25 mg ONCE ONE Administration Lorazepam 1 mg 03/14/23 21:17 03/14/23 21:30 Lorazepam 1 Mg Tablet PO 03/14/23 21:18 1 mg ONCE ONE Administration <Velma Meadows MD - Last Filed: 03/15/23 10:18> Medical Decision Making Medical Decision Making [facility] Narrative: 2119 42-year-old male presents with auditory hallucinations, anxiety and depression times a day. Reports increasing life stressors. Physical exam benign. Concerns for bipolar disorder versus depression versus anxiety. No signs of suicidal ideation. Unlikely metabolic derangements. Plan at this time medical clearance evaluation by behavioral health team. Will give a mg of Ativan for anxiety at this time. <CONNIE Michelle - Last Filed: 03/14/23 23:15> Differential Diagnosis Differential Diagnoses: The differential diagnosis associated with the presentation includes <CONNIE Michelle - Last Filed: 03/14/23 23:15> Concerns for bipolar disorder versus depression versus anxiety. No signs of suicidal ideation. Unlikely metabolic derangements. <CONNIE Michelle - Last Filed: 03/14/23 23:15> Admission/Observation Consideration of admission/observation: Escalation of care including admission/observation considered <CONNIE Michelle - Last Filed: 03/14/23 23:15> Lab Data [facility] Lab Attestation statement: I reviewed the patient's lab results. <CONNIE Michelle - Last Filed: 03/14/23 23:15> Result Diagrams: 03/14/23 21:41 03/14/23 21:41 <CONNIE Michelle - Last Filed: 03/14/23 23:15> Labs: Lab Results 03/14/23 03/14/23 03/14/23 Range/Units 21:41 21:41 21:42 WBC 7.6 (4.8-10.8) X10*3/uL RBC 4.59 L (4.60-5.80) X10*6/uL Hgb 15.4 (14.0-18.0) g/dl Hct 43.8 (42.0-52.0) % MCV 95.4 (80.0-98.0) fL MCH 33.6 H (27.0-33.0) pg MCHC 35.2 (31.0-36.0) g/dl RDW 13.8 (11.0-16.0) % Plt Count 311 (160-400) X10*3/uL MPV 10.3 (9.4-12.4) fL Immature Gran % (Auto) 0.1 (0.0-0.4) % Neut % (Auto) 47.6 (45-73) % Lymph % (Auto) 42.3 H (20-40) % Thayer % (Auto) 7.7 (2-11) % Eos % (Auto) 1.6 (0-4) % Baso % (Auto) 0.7 (0-2) % Lymph # (Auto) 3.2 (1.2-4.9) X10*3/uL Thayer # (Auto) 0.6 (0.1-1.2) X10*3/uL Eos # (Auto) 0.1 (0.0-0.4) X10*3/uL Baso # (Auto) 0.1 (0.0-0.2) X10*3/uL Abs Immat Gran (auto) 0.01 (0.00-0.03) X10*3/uL Absolute Neuts (auto) 3.6 (2.0-8.3) x10*3/uL Absolute Nucleated RBC 0.000 (0.0-0.012) X10*3/uL Nucleated RBC % (auto) 0.0 (0.0-0.2) /100WBC Sodium 142 (135-145) mmol/L Potassium 4.0 (3.3-5.1) mmol/L Chloride 106 (96-108) mmol/L Carbon Dioxide 28 (22-29) mmol/L Anion Gap 12 (12-20) BUN 15 (9-16) mg/dL Creatinine 1.19 (0.5-1.4) mg/dL Estim Creat Clear Calc 68.8 Estimated GFR > 60 Random Glucose 115 (60-115) mg/dL Calcium 9.7 D (8.4-10.2) mg/dL Magnesium 2.0 (1.6-2.6) mg/dL Total Bilirubin 0.6 (0.0-1.0) mg/dL AST 29 (5-37) U/L ALT 15 (0-40) U/L Alkaline Phosphatase 88 (39-117) U/L Total Protein 7.2 (6.5-8.0) g/dL Albumin 4.4 (3.5-5.0) g/dL Salicylates < 5.0 L (15-30) mg/dL Urine Opiates Screen (Not Detect) Urine Fentanyl Screen (Not Detect) Acetaminophen < 17 (<30) mcg/mL Ur Barbiturates Screen (Not Detect) Valproic Acid (50.0-100.0) mcg/mL Ur Phencyclidine Scrn (Not Detect) Ur Amphetamines Screen (Not Detect) U Benzodiazepines Scrn (Not Detect) Urine Cocaine Screen (Not Detect) U Marijuana (THC) Screen (Not Detect) Ethyl Alcohol < 10 mg/dL COVID-19 ([facility]) Negative (Negative) COVID-19 Clin Com See Note 03/14/23 03/14/23 Range/Units 21:42 22:01 WBC (4.8-10.8) X10*3/uL RBC (4.60-5.80) X10*6/uL Hgb (14.0-18.0) g/dl Hct (42.0-52.0) % MCV (80.0-98.0) fL MCH (27.0-33.0) pg MCHC (31.0-36.0) g/dl RDW (11.0-16.0) % Plt Count (160-400) X10*3/uL MPV (9.4-12.4) fL Immature Gran % (Auto) (0.0-0.4) % Neut % (Auto) (45-73) % Lymph % (Auto) (20-40) % Thayer % (Auto) (2-11) % Eos % (Auto) (0-4) % Baso % (Auto) (0-2) % Lymph # (Auto) (1.2-4.9) X10*3/uL Thayer # (Auto) (0.1-1.2) X10*3/uL Eos # (Auto) (0.0-0.4) X10*3/uL Baso # (Auto) (0.0-0.2) X10*3/uL Abs Immat Gran (auto) (0.00-0.03) X10*3/uL Absolute Neuts (auto) (2.0-8.3) x10*3/uL Absolute Nucleated RBC (0.0-0.012) X10*3/uL Nucleated RBC % (auto) (0.0-0.2) /100WBC Sodium (135-145) mmol/L Potassium (3.3-5.1) mmol/L Chloride (96-108) mmol/L Carbon Dioxide (22-29) mmol/L Anion Gap (12-20) BUN (9-16) mg/dL Creatinine (0.5-1.4) mg/dL Estim Creat Clear Calc Estimated GFR Random Glucose (60-115) mg/dL Calcium (8.4-10.2) mg/dL Magnesium (1.6-2.6) mg/dL Total Bilirubin (0.0-1.0) mg/dL AST (5-37) U/L ALT (0-40) U/L Alkaline Phosphatase (39-117) U/L Total Protein (6.5-8.0) g/dL Albumin (3.5-5.0) g/dL Salicylates (15-30) mg/dL Urine Opiates Screen Not Detected (Not Detect) Urine Fentanyl Screen Not Detected (Not Detect) Acetaminophen (<30) mcg/mL Ur Barbiturates Screen Not Detected (Not Detect) Valproic Acid < 12.5 L (50.0-100.0) mcg/mL Ur Phencyclidine Scrn Not Detected (Not Detect) Ur Amphetamines Screen Not Detected (Not Detect) U Benzodiazepines Scrn Not Detected (Not Detect) Urine Cocaine Screen Not Detected (Not Detect) U Marijuana (THC) Screen POSITIVE H (Not Detect) Ethyl Alcohol mg/dL COVID-19 ([facility]) (Negative) COVID-19 Clin Com <CONNIE Michelle - Last Filed: 03/14/23 23:15> Lab Results 03/14/23 03/14/23 03/14/23 Range/Units 21:41 21:41 21:42 WBC 7.6 (4.8-10.8) X10*3/uL RBC 4.59 L (4.60-5.80) X10*6/uL Hgb 15.4 (14.0-18.0) g/dl Hct 43.8 (42.0-52.0) % MCV 95.4 (80.0-98.0) fL MCH 33.6 H (27.0-33.0) pg MCHC 35.2 (31.0-36.0) g/dl RDW 13.8 (11.0-16.0) % Plt Count 311 (160-400) X10*3/uL MPV 10.3 (9.4-12.4) fL Immature Gran % (Auto) 0.1 (0.0-0.4) % Neut % (Auto) 47.6 (45-73) % Lymph % (Auto) 42.3 H (20-40) % Thayer % (Auto) 7.7 (2-11) % Eos % (Auto) 1.6 (0-4) % Baso % (Auto) 0.7 (0-2) % Lymph # (Auto) 3.2 (1.2-4.9) X10*3/uL Thayer # (Auto) 0.6 (0.1-1.2) X10*3/uL Eos # (Auto) 0.1 (0.0-0.4) X10*3/uL Baso # (Auto) 0.1 (0.0-0.2) X10*3/uL Abs Immat Gran (auto) 0.01 (0.00-0.03) X10*3/uL Absolute Neuts (auto) 3.6 (2.0-8.3) x10*3/uL Absolute Nucleated RBC 0.000 (0.0-0.012) X10*3/uL Nucleated RBC % (auto) 0.0 (0.0-0.2) /100WBC Sodium 142 (135-145) mmol/L Potassium 4.0 (3.3-5.1) mmol/L Chloride 106 (96-108) mmol/L Carbon Dioxide 28 (22-29) mmol/L Anion Gap 12 (12-20) BUN 15 (9-16) mg/dL Creatinine 1.19 (0.5-1.4) mg/dL Estim Creat Clear Calc 68.8 Estimated GFR > 60 Random Glucose 115 (60-115) mg/dL Calcium 9.7 D (8.4-10.2) mg/dL Magnesium 2.0 (1.6-2.6) mg/dL Total Bilirubin 0.6 (0.0-1.0) mg/dL AST 29 (5-37) U/L ALT 15 (0-40) U/L Alkaline Phosphatase 88 (39-117) U/L Total Protein 7.2 (6.5-8.0) g/dL Albumin 4.4 (3.5-5.0) g/dL Salicylates < 5.0 L (15-30) mg/dL Urine Opiates Screen (Not Detect) Urine Fentanyl Screen (Not Detect) Acetaminophen < 17 (<30) mcg/mL Ur Barbiturates Screen (Not Detect) Valproic Acid (50.0-100.0) mcg/mL Ur Phencyclidine Scrn (Not Detect) Ur Amphetamines Screen (Not Detect) U Benzodiazepines Scrn (Not Detect) Urine Cocaine Screen (Not Detect) U Marijuana (THC) Screen (Not Detect) Ethyl Alcohol < 10 mg/dL COVID-19 ([facility]) Negative (Negative) COVID-19 Clin Com See Note 03/14/23 03/14/23 Range/Units 21:42 22:01 WBC (4.8-10.8) X10*3/uL RBC (4.60-5.80) X10*6/uL Hgb (14.0-18.0) g/dl Hct (42.0-52.0) % MCV (80.0-98.0) fL MCH (27.0-33.0) pg MCHC (31.0-36.0) g/dl RDW (11.0-16.0) % Plt Count (160-400) X10*3/uL MPV (9.4-12.4) fL Immature Gran % (Auto) (0.0-0.4) % Neut % (Auto) (45-73) % Lymph % (Auto) (20-40) % Thayer % (Auto) (2-11) % Eos % (Auto) (0-4) % Baso % (Auto) (0-2) % Lymph # (Auto) (1.2-4.9) X10*3/uL Thayer # (Auto) (0.1-1.2) X10*3/uL Eos # (Auto) (0.0-0.4) X10*3/uL Baso # (Auto) (0.0-0.2) X10*3/uL Abs Immat Gran (auto) (0.00-0.03) X10*3/uL Absolute Neuts (auto) (2.0-8.3) x10*3/uL Absolute Nucleated RBC (0.0-0.012) X10*3/uL Nucleated RBC % (auto) (0.0-0.2) /100WBC Sodium (135-145) mmol/L Potassium (3.3-5.1) mmol/L Chloride (96-108) mmol/L Carbon Dioxide (22-29) mmol/L Anion Gap (12-20) BUN (9-16) mg/dL Creatinine (0.5-1.4) mg/dL Estim Creat Clear Calc Estimated GFR Random Glucose (60-115) mg/dL Calcium (8.4-10.2) mg/dL Magnesium (1.6-2.6) mg/dL Total Bilirubin (0.0-1.0) mg/dL AST (5-37) U/L ALT (0-40) U/L Alkaline Phosphatase (39-117) U/L Total Protein (6.5-8.0) g/dL Albumin (3.5-5.0) g/dL Salicylates (15-30) mg/dL Urine Opiates Screen Not Detected (Not Detect) Urine Fentanyl Screen Not Detected (Not Detect) Acetaminophen (<30) mcg/mL Ur Barbiturates Screen Not Detected (Not Detect) Valproic Acid < 12.5 L (50.0-100.0) mcg/mL Ur Phencyclidine Scrn Not Detected (Not Detect) Ur Amphetamines Screen Not Detected (Not Detect) U Benzodiazepines Scrn Not Detected (Not Detect) Urine Cocaine Screen Not Detected (Not Detect) U Marijuana (THC) Screen POSITIVE H (Not Detect) Ethyl Alcohol mg/dL COVID-19 ([facility]) (Negative) COVID-19 Clin Com <Velma Meadows MD - Last Filed: 03/15/23 10:18> Core Measures AMI core measures followed: Yes <CONNIE Michelle - Last Filed: 03/14/23 23:15> Measure exclusions: not indicated <CONNIE Michelle - Last Filed: 03/14/23 23:15> Critical Care Time Critical Care Time Critical Care Time: No <CONNIE Michelle - Last Filed: 03/14/23 23:15> Discharge Plan Discharge Clinical Impression: Bipolar 1 disorder, Depression, Acute anxiety <CONNIE Michelle - Last Filed: 03/14/23 23:15> Patient Disposition: Home, Self-Care <CONNIE Michelle - Last Filed: 03/14/23 23:15> Instructions: Depression (ED), Anxiety (ED) <CONNIE Michelle - Last Filed: 03/14/23 23:15> Additional Instructions: 1. I highly recommend that you resume your medications as prescribed. 2. Please follow up with [facility] resources that you have been provided. Do not hesitate to return to the emergency room for any worsening of symptoms. <CONNIE Michelle - Last Filed: 03/14/23 23:15> Prescriptions: No Action divalproex 500 mg tablet,delayed release (DR/EC) 500 mg PO BID lorazepam [Ativan] 1 mg tablet 1 mg PO DAILY PRN (Reason: anxiety) Qty: 14 0RF <CONNIE Michelle - Last Filed: 03/14/23 23:15> Referrals: Dung Ramsey PA-C [Primary Care Provider] - <CONNIE Michelle - Last Filed: 03/14/23 23:15> Interventions: Pitkin-Suicide Risk Severity Scale Last Done: 03/15/23 05:26 ED Discharge Assessment Last Done: 03/15/23 10:05 <CONNIE Michelle - Last Filed: 03/14/23 23:15> Discharge Date/Time: 03/15/23 10:38 <CONNIE Michelle - Last Filed: 03/14/23 23:15>
[2023-03-14 21:23] VITALS: BP 113/52; PULSE 86; RESP 17; TEMP 37.1; O2SAT 97; BMI 21.6
[2023-03-14] MEDS: LORazepam 1 MG TABLET PO (21:30)
[2023-03-14 21:46] LABS: MANUAL DIFF FLAG NO
[2023-03-14 21:48] LABS: Basophils Absolute Auto 0.1 X10*3/uL (0.0-0.2); Basophils Percent Auto 0.7 % (0-2); Eosinophils Absolute Auto 0.1 X10*3/uL (0.0-0.4); Eosinophils Percent Auto 1.6 % (0-4); Hematocrit 43.8 % (42.0-52.0); Hemoglobin 15.4 g/dl (14.0-18.0); Imm Gran Abs Auto 0.01 X10*3/uL (0.00-0.03); Imm Gran Pct Auto 0.1 % (0.0-0.4); Lymphocytes Absolute Auto 3.2 X10*3/uL (1.2-4.9); Lymphocytes Percent Auto 42.3 % (20-40); Mean Corpuscular HGB Conc 35.2 g/dl (31.0-36.0); Mean Corpuscular Hemoglobin 33.6 pg (27.0-33.0); Mean Corpuscular Volume 95.4 fL (80.0-98.0); Mean Platelet Volume 10.3 fL (9.4-12.4); Monocytes Absolute Auto 0.6 X10*3/uL (0.1-1.2); Monocytes Percent Auto 7.7 % (2-11); Neutrophils Absolute Auto 3.6 x10*3/uL (2.0-8.3); Neutrophils Percent Auto 47.6 % (45-73); Platelet Count 311 X10*3/uL (160-400); Red Blood Count 4.59 X10*6/uL (4.60-5.80); Red Cell Distribution Width 13.8 % (11.0-16.0); White Blood Count 7.6 X10*3/uL (4.8-10.8)
[2023-03-14 22:03] LABS: Valproate < 12.5 mcg/mL (50.0-100.0)
[2023-03-14 22:06] LABS: COVID-19 Test Negative (Negative); IDNOW Serial# 9DB6401D
[2023-03-14 22:10] LABS: Acetaminophen LAB < 17 mcg/mL (<30); Alanine Aminotransferase 15 U/L (0-40); Albumin Level 4.4 g/dL (3.5-5.0); Alkaline Phosphatase 88 U/L (39-117); Anion Gap 12 (12-20); Aspartate Amino Transferase 29 U/L (5-37); Bilirubin Total 0.6 mg/dL (0.0-1.0); Blood Urea Nitrogen 15 mg/dL (9-16); Calcium 9.7 mg/dL (8.4-10.2); Carbon Dioxide 28 mmol/L (22-29); Chloride 106 mmol/L (96-108); Creatinine Clr Calc Pharmacy 68.8; Estimated Glomerular Filt Rate > 60; Ethanol < 10 mg/dL; Glucose Random 115 mg/dL (60-115); Salicylate < 5.0 mg/dL (15-30); Sodium 142 mmol/L (135-145); Total Protein 7.2 g/dL (6.5-8.0)
[2023-03-14 22:19] LABS: Amphetamine Screen Urine Not Detected (Not Detect); Barbiturates, Urine Not Detected (Not Detect); Benzodiazepines Screen Urine Not Detected (Not Detect); Cannabinoid Screen Urine POSITIVE (Not Detect); Cocaine Screen Urine Not Detected (Not Detect); Fentanyl, urine Not Detected (Not Detect); Opiate Screen Urine Not Detected (Not Detect); Phencyclidine Screen Urine Not Detected (Not Detect)
--- NOTE | 2023-03-15 06:07 | PC.NURSE ---
Patient slept through the night, no distress observed/reported, administered Ativan 1 mg PO @ 2130 with + effect, labs completed/resulted, med rec completed/pending provider's approval, care consult ordered/pending evaluation, behavior non concerning, VSS, will continue to monitor.
[2023-03-15 06:34] VITALS: BP 97/49; PULSE 69; RESP 18; TEMP 36.6; O2SAT 99
--- NOTE | 2023-03-15 07:03 | PC.NURSE ---
patient appears to remain asleep at present respirations are even and unlabored patient appears in no distress.
[2023-03-15] MEDS: hydrOXYzine HCL 25 MG TABLET PO (09:53)
[2023-03-15] MEDS: Divalproex Sodium 500 MG TABLET.DR PO (10:07)
== END 2023-03-15 10:38 | disposition home or self-care (01) ==
PROVIDERS: Physician Assistant; Emergency Provider Emergency Medicine Emergency Medical Services; PCP Physician Assistant
DX: F31.63 Bipolar disorder, current episode mixed, severe, without psychotic features (principal); F41.9 Anxiety disorder, unspecified; R44.0 Auditory hallucinations; Z20.822 Contact with and (suspected) exposure to COVID-19; F12.90 Cannabis use, unspecified, uncomplicated; F17.210 Nicotine dependence, cigarettes, uncomplicated; Z72.89 Other problems related to lifestyle; Z63.5 Disruption of family by separation and divorce; Z79.899 Other long term (current) drug therapy
CPT/HCPCS: 36415; 80053; 80143; 80164; 80179; 80307; 82077; 83735; 85025; 87635; 99284; S9485

== ENCOUNTER 2023-03-17 04:27 | Emergency (ER) | payer OTHER, SELFPAY ==
--- NOTE | 2023-03-17 | ECG_ITS ---
Test Reason : CHEST PAIN Blood Pressure : / mmHG Vent. Rate : 072 BPM Atrial Rate : 072 BPM P-R Int : 128 ms QRS Dur : 086 ms QT Int : 406 ms P-R-T Axes : 074 064 053 degrees QTc Int : 444 ms Normal sinus rhythm Minimal voltage criteria for LVH, may be normal variant ( Sokolow-Bower ) Borderline ECG When compared with ECG of 04-MAR-2023 18:23, No significant change was found Referred By: Generic ED Physician Electronically Signed By:Deejay Pérez
[2023-03-17 04:48] VITALS: BP 109/57; PULSE 79; RESP 16; TEMP 36.3; O2SAT 98; BMI 21.6
[2023-03-17 05:03] LABS: Hematocrit 41.1 % (42.0-52.0); Mean Corpuscular HGB Conc 34.1 g/dl (31.0-36.0); Mean Corpuscular Volume 96.9 fL (80.0-98.0); Mean Platelet Volume 10.2 fL (9.4-12.4); Platelet Count 279 X10*3/uL (160-400); Red Blood Count 4.24 X10*6/uL (4.60-5.80); Red Cell Distribution Width 13.7 % (11.0-16.0); White Blood Count 5.3 X10*3/uL (4.8-10.8)
[2023-03-17 05:16] LABS: COVID-19 Test Negative (Negative); IDNOW Serial# 6674DD1D
[2023-03-17 05:27] LABS: Alanine Aminotransferase 13 U/L (0-40); Albumin Level 3.9 g/dL (3.5-5.0); Alkaline Phosphatase 72 U/L (39-117); Anion Gap 12 (12-20); Aspartate Amino Transferase 16 U/L (5-37); Bilirubin Total 0.3 mg/dL (0.0-1.0); Blood Urea Nitrogen 15 mg/dL (9-16); Calcium 8.8 mg/dL (8.4-10.2); Carbon Dioxide 27 mmol/L (22-29); Chloride 107 mmol/L (96-108); Creatinine Clr Calc Pharmacy 74.4; Estimated Glomerular Filt Rate > 60; Glucose Random 139 mg/dL (60-115); Potassium 4.2 mmol/L (3.3-5.1); Sodium 142 mmol/L (135-145); Total Protein 6.3 g/dL (6.5-8.0)
--- NOTE | 2023-03-17 05:39 | ED_ITS ---
HPI - Anxiety General Chief Complaint: Anxiety Stated Complaint: Panic Attack, crisis Time Seen by Provider: 03/17/23 05:38 Source: patient Mode of arrival: ambulatory Limitations: no limitations History of Present Illness HPI narrative: Patient history of bipolar disorder with panic attacks from stresses at home was seen here earlier, been seen by psychiatrist on Depakote 500 mg twice daily comes here for increased panic attacks since 5 wanted to come here to relax to stay home alone denies any SI patient does smoke marijuana denies any use of cocaine Related Data Home Medications Medication Instructions Recorded Confirmed divalproex 500 mg tablet,delayed 500 mg PO BID 03/14/23 03/14/23 release Previous Rx's Medication Instructions Recorded lorazepam 1 mg tablet (Ativan) 1 mg PO DAILY PRN anxiety #14 tabs 03/17/23 Allergies Allergy/AdvReac Type Severity Reaction Status Date / Time lurasidone [From Latuda] AdvReac Shakiness Verified 03/15/23 13:46 Review of Systems Review of Systems: Yes all other systems are reviewed and are negative PMFSH Past Medical History Medical History Schizophrenia Social History Social History Household Members: Significant Other and Children Housing: House Do you presently have visiting nurse or other home services: No Alcohol intake: unknown Patient Tobacco Use Status: Current everyday Tobacco user Tobacco use type: Cigarette Cigarettes Per Day: 5 Years Smoked: 20 Substance Use Type: Marijuana Advance Directives: No Advance Directives Information Provided: Yes Sexual orientation: Did not discuss. Physical Exam Vital Signs: Vital Signs: Last Vital Signs Temp 97.5 F 03/17/23 06:21 Pulse 70 03/17/23 06:21 Resp 16 03/17/23 06:21 BP 93/53 L 03/17/23 06:21 Pulse Ox 97 03/17/23 06:21 O2 Del Method Room Air 03/17/23 06:21 BMI result Body Mass Index 21.6 Appearance: Alert. Oriented X3. No acute distress. Anxious Eyes: PERRLA, No Nystagmus ENT: Pharynx normal. Oral Mucosa moist Neck: Normal inspection. Neck supple. CVS: Normal heart rate and rhythm. Pulses normal. Respiratory: No respiratory distress. Equal air entry bilateral, no wheezing/rales/rhonchi Abdomen: Soft and nontender. Bowel sounds are present, Skin: Skin warm and dry. Normal skin color. Normal skin turgor. Extremities: No lower extremity edema. No calf tenderness Neuro: Oriented X 3. No motor deficit. No sensory deficit.No cerebellar signs , cranial nerves II-XII intact Medications Administered Discontinued Medications Generic Name Dose Route Start Last Admin Trade Name Freq PRN Reason Stop Dose Admin Lorazepam 1 mg 03/17/23 05:43 03/17/23 06:05 Lorazepam 1 Mg Tablet PO 03/17/23 05:44 1 mg ONCE ONE Administration Medical Decision Making Medical Decision Making [facility] Narrative: 06:24 PATIENT FEELING BETTER NOW WILL DISCHARGE PATIENT HOME ON [facility] ADVISED TO CONTINUE DEPAKOTE Lab Data 03/17/23 04:58 03/17/23 04:58 Labs: Lab Results 03/17/23 03/17/23 03/17/23 Range/Units 04:58 04:58 04:58 WBC 5.3 (4.8-10.8) X10*3/uL RBC 4.24 L (4.60-5.80) X10*6/uL Hgb 14.0 (14.0-18.0) g/dl Hct 41.1 L (42.0-52.0) % MCV 96.9 (80.0-98.0) fL MCH 33.0 (27.0-33.0) pg MCHC 34.1 (31.0-36.0) g/dl RDW 13.7 (11.0-16.0) % Plt Count 279 (160-400) X10*3/uL MPV 10.2 (9.4-12.4) fL Absolute Nucleated RBC 0.000 (0.0-0.012) X10*3/uL Nucleated RBC % (auto) 0.0 (0.0-0.2) /100WBC Sodium 142 (135-145) mmol/L Potassium 4.2 (3.3-5.1) mmol/L Chloride 107 (96-108) mmol/L Carbon Dioxide 27 (22-29) mmol/L Anion Gap 12 (12-20) BUN 15 (9-16) mg/dL Creatinine 1.10 (0.5-1.4) mg/dL Estim Creat Clear Calc 74.4 Estimated GFR > 60 Random Glucose 139 H (60-115) mg/dL Calcium 8.8 D (8.4-10.2) mg/dL Total Bilirubin 0.3 (0.0-1.0) mg/dL AST 16 (5-37) U/L ALT 13 (0-40) U/L Alkaline Phosphatase 72 (39-117) U/L Total Protein 6.3 L (6.5-8.0) g/dL Albumin 3.9 (3.5-5.0) g/dL COVID-19 ([facility]) Negative (Negative) COVID-19 Clin Com See Note Discharge Plan Discharge Clinical Impression: Acute anxiety, Bipolar 1 disorder Patient Disposition: Home, Self-Care Instructions: Bipolar Disorder (ED), Panic Disorder (ED) Additional Instructions: Continue to take your Depakote Ativan for acute panic attack as needed Follow-up with psychiatrist/therapist Prescriptions: New lorazepam [Ativan] 1 mg tablet 1 mg PO DAILY PRN (Reason: anxiety) Qty: 14 0RF No Action divalproex 500 mg tablet,delayed release (DR/EC) 500 mg PO BID
[2023-03-17] MEDS: LORazepam 1 MG TABLET PO (06:05)
[2023-03-17 06:21] VITALS: BP 93/53; PULSE 70; RESP 16; TEMP 36.4; O2SAT 97
== END 2023-03-17 06:34 | disposition home or self-care (01) ==
PROVIDERS: Emergency Provider Internal Medicine
DX: F41.9 Anxiety disorder, unspecified (principal); Z20.822 Contact with and (suspected) exposure to COVID-19; F31.9 Bipolar disorder, unspecified; F12.90 Cannabis use, unspecified, uncomplicated; F17.210 Nicotine dependence, cigarettes, uncomplicated; Z79.899 Other long term (current) drug therapy
CPT/HCPCS: 36415; 80053; 85027; 87635; 93005; 99284

== ENCOUNTER 2023-03-20 11:38 | Emergency (ER) | payer OTHER, SELFPAY ==
[2023-03-20 11:50] VITALS: PULSE 96; RESP 18; TEMP 36.3; O2SAT 97; BMI 21.6
--- NOTE | 2023-03-20 11:51 | ED.GENADULT ---
HPI - General Adult General Chief complaint: Psychiatric Symptoms Stated complaint: section 12 Time Seen by Provider: 03/20/23 11:51 Source: patient and EMS Mode of arrival: EMS Limitations: no limitations History of Present Illness HPI narrative: Patient is a 42 year old assigned male at with a history of bipolar disorder presenting to the emergency department today with auditory hallucinations. Patient states that his family is who is worried about the voices telling him to hurt himself. Patient denies any dizziness, lightheadedness, abdominal pain, nausea, vomiting, fever, chills, blurry vision, double vision, loss of vision, chest pain, difficulty breathing, shortness of breath, back pain, night sweats, pain with urination, increased urinary frequency, increased urinary urgency, blood in his urine or stool, syncope or a near syncopal episode, recent trauma or falls, bowel incontinence, bladder incontinence, bowel retention, bladder retention, or any other complaints at this time. Relieving factors: none Exacerbating factors: none Associated symptoms: denies other symptoms Treatments prior to arrival: none Related Data Home Medications Medication Instructions Recorded Confirmed divalproex 500 mg tablet,delayed 500 mg PO BID 03/14/23 03/20/23 release Previous Rx's Medication Instructions Recorded lorazepam 1 mg tablet (Ativan) 1 mg PO DAILY PRN anxiety #14 tabs 03/17/23 Allergies Allergy/AdvReac Type Severity Reaction Status Date / Time lurasidone [From Latuda] AdvReac Shakiness Verified 03/15/23 13:46 Review of Systems Constitutional: Constitutional: Reports no additional constitutional complaints, Denies chills, Denies fever(s) and Denies night sweats Eyes: Eyes: Reports no additional eye complaints, Denies blurry vision, Denies change in vision, Denies diplopia, Denies eye discharge, Denies loss of vision and Denies eye pain ENT: Denies dizziness Cardiovascular: Cardiovascular: Reports no additional cardiovascular complaints, Denies chest pain, Denies lightheadedness, Denies Loss of Consciousness and Denies dyspnea Respiratory: Respiratory: Reports no additional respiratory complaints and Denies dyspnea Gastrointestinal: Gastrointestinal: Reports no additional gastrointestinal complaints, Denies abdominal pain, Denies melena, Denies hematochezia, Denies change in bowel habits and Denies change in stool character Genitourinary: Genitourinary: Reports no additional male genitourinary complaints, Denies hematuria, Denies oliguria, Denies difficulty urinating, Denies dysuria, Denies urinary frequency, Denies urinary hesitancy, Denies urinary incontinence and Denies urinary urgency Musculoskeletal: Musculoskeletal: Reports no additional musculoskeletal complaints, Denies numbness and Denies tingling Neurologic: Denies dizziness, Denies loss of vision, Denies numbness and Denies tingling Psychiatric: Psychiatric: Reports no additional psychiatric complaints and Reports auditory hallucinations Endocrine: Endocrine: Reports no additional endocrine complaints Hematologic/Lymphatic: Hematologic/Lymphatic: Reports no additional hematologic/lymphatic complaints Allergic/Immunologic: Allergic/Immunologic: Reports no additional allergic/immunologic complaints [facility] Past Medical History Attestation statement: The following information was validated with the patient. Source: old records reviewed and nursing notes reviewed Medical History Schizophrenia Social History Social History Household Members: Significant Other and Children Housing: House Do you presently have visiting nurse or other home services: No Alcohol intake: unknown Patient Tobacco Use Status: Current everyday Tobacco user Tobacco use type: Cigarette Cigarettes Per Day: 5 Years Smoked: 20 Substance Use Type: Marijuana Advance Directives: No Advance Directives Information Provided: No Sexual orientation: Did not discuss. Physical Exam ED Vital Signs: Vital Signs - 24 hr 03/20/23 11:50 Temperature 97.3 F Pulse Rate 96 Respiratory Rate 18 Pulse Oximetry 97 Oxygen Delivery Method Room Air BMI result Body Mass Index 21.6 Const General: cooperative, no acute distress, alert and awake Nutritional Appearance: well nourished Orientation/consciousness: patient oriented x3 Limitations: no limitations [facility] Head: Yes normal to inspection and Yes atraumatic Ears: hearing grossly normal bilaterally and external ears normal General nose exam: Normal external nose present, no nasal discharge noted and no epistaxis Face and sinus: Yes normal facial exam, No abrasion and No laceration Mouth: Normal oral and palatal mucosa present, no drooling and no muffled voice Eyes General: appearance normal, both eyes and all related structures Periorbital: periorbital findings normal Eyelids: Yes eyelids normal Conjunctivae: conjunctivae normal Pupils: Equal, round and reactive pupils present EOM: EOMs intact bilaterally Neck Neck: Yes normal visual inspection, Yes full ROM and Yes no lymphadenopathy Chest Chest palpation & inspection: normal inspection of the chest Resp Effort & Inspection: normal respiratory effort and able to speak in complete sentences Auscultation: clear to auscultation bilaterally Cardio Rate: regular rate Rhythm: regular rhythm GI Inspection: Yes normal to inspection Neuro General: patient oriented x3 and moves all extremities Cranial nerves: Yes Equal, round and reactive pupils present Cognition (Neuro): normal cognition Motor exam (neuro): 5/5 motor strength present throughout Sensory Exam: Normal double simultaneous stimulation for sensation Coordination: [id number] test normal Extrem General: Yes normal to inspection, Yes full ROM and Yes capillary refill normal Psych Appearance: grossly normal Mental Status: mental status grossly normal Affect: normal affect Attitude: cooperative Thought content: delusions Medications Administered Discontinued Medications Generic Name Dose Route Start Last Admin Trade Name Freq PRN Reason Stop Dose Admin Lorazepam 2 mg 03/20/23 12:22 03/20/23 12:25 Lorazepam 1 Mg Tablet PO 03/20/23 12:23 2 mg ONCE ONE Administration Medical Decision Making Medical Decision Making [facility] Narrative: Patient is a 42 year old assigned male at with a history of bipolar disorder presenting to the emergency department today with increased auditory hallucinations. Patient's physical exam was unremarkable. Patient's blood work is pending. Patient's urine is pending. Patient is on a section 12 and is awaiting lab work and CARE team evaluation. Differential Diagnosis Differential Diagnoses: The differential diagnosis associated with the presentation includes auditory hallucinations Independent Historian Clinical information obtained from an independent historian. History obtained from or confirmed by: EMS Discharge Plan Discharge Clinical Impression: Bipolar 1 disorder, Auditory hallucination Patient Disposition: Still a Patient Prescriptions: No Action divalproex 500 mg tablet,delayed release (DR/EC) 500 mg PO BID lorazepam [Ativan] 1 mg tablet 1 mg PO DAILY PRN (Reason: anxiety) Qty: 14 0RF Interventions: [place]-Suicide Risk Severity Scale Last Done: 03/20/23 12:29
[2023-03-20] MEDS: LORazepam 1 MG TABLET 2 MG PO (12:25)
--- NOTE | 2023-03-20 17:46 | PC.NURSE ---
Pt awake. Phone given. Back to room.
[2023-03-20 18:55] LABS: MANUAL DIFF FLAG NO
[2023-03-20 18:57] LABS: Basophils Absolute Auto 0.1 X10*3/uL (0.0-0.2); Basophils Percent Auto 0.6 % (0-2); Eosinophils Absolute Auto 0.1 X10*3/uL (0.0-0.4); Eosinophils Percent Auto 1.1 % (0-4); Hematocrit 44.7 % (42.0-52.0); Hemoglobin 15.7 g/dl (14.0-18.0); Imm Gran Abs Auto 0.02 X10*3/uL (0.00-0.03); Imm Gran Pct Auto 0.2 % (0.0-0.4); Lymphocytes Percent Auto 44.7 % (20-40); Mean Corpuscular HGB Conc 35.1 g/dl (31.0-36.0); Mean Corpuscular Hemoglobin 33.5 pg (27.0-33.0); Mean Corpuscular Volume 95.5 fL (80.0-98.0); Mean Platelet Volume 10.8 fL (9.4-12.4); Monocytes Absolute Auto 0.6 X10*3/uL (0.1-1.2); Neutrophils Absolute Auto 4.1 x10*3/uL (2.0-8.3); Neutrophils Percent Auto 46.4 % (45-73); Platelet Count 313 X10*3/uL (160-400); Red Blood Count 4.68 X10*6/uL (4.60-5.80); Red Cell Distribution Width 13.4 % (11.0-16.0); White Blood Count 8.8 X10*3/uL (4.8-10.8)
[2023-03-20 19:24] LABS: Alanine Aminotransferase 10 U/L (0-40); Albumin Level 4.3 g/dL (3.5-5.0); Alkaline Phosphatase 81 U/L (39-117); Anion Gap 12 (12-20); Aspartate Amino Transferase 19 U/L (5-37); Bilirubin Total 0.8 mg/dL (0.0-1.0); Blood Urea Nitrogen 9 mg/dL (9-16); Calcium 9.9 mg/dL (8.4-10.2); Carbon Dioxide 27 mmol/L (22-29); Chloride 108 mmol/L (96-108); Creatinine Clr Calc Pharmacy 83.5; Estimated Glomerular Filt Rate > 60; Ethanol < 10 mg/dL; Glucose Random 104 mg/dL (60-115); Potassium 4.5 mmol/L (3.3-5.1); Sodium 142 mmol/L (135-145); Total Protein 7.1 g/dL (6.5-8.0)
[2023-03-20 19:46] LABS: Acetaminophen LAB < 17 mcg/mL (<30)
[2023-03-20 20:11] VITALS: BP 114/70; PULSE 84; RESP 12; O2SAT 97
--- NOTE | 2023-03-20 20:35 | PC.NURSE ---
Pt aox4. Denies SI/HI at this time. Discharge instructions reviewed with pt. Pt agrees to contact therapy first thing in the morning. Ambulatory with steady gait at discharge.
[2023-03-20 20:43] LABS: Valproate < 12.5 mcg/mL (50.0-100.0)
== END 2023-03-20 20:37 | disposition home or self-care (01) ==
PROVIDERS: Physician Assistant Medical; Emergency Provider Emergency Medicine
DX: F31.9 Bipolar disorder, unspecified (principal); R44.0 Auditory hallucinations; F17.210 Nicotine dependence, cigarettes, uncomplicated; Z71.6 Tobacco abuse counseling; Z79.899 Other long term (current) drug therapy
CPT/HCPCS: 36415; 80053; 80143; 80164; 82077; 85025; 99284; 99285; S9485

== ENCOUNTER 2023-04-05 23:16 | Emergency (ER) | payer OTHER, SELFPAY ==
[2023-04-05 23:18] VITALS: BP 136/80; PULSE 90; O2SAT 98
[2023-04-05 23:25] VITALS: BP 100/60; PULSE 85; RESP 16; TEMP 36.4; O2SAT 98; BMI 22.2
--- NOTE | 2023-04-06 00:39 | ED_ITS ---
HPI - General Adult General Chief complaint: Psychiatric Symptoms Stated complaint: panic attack, stressed out Time Seen by Provider: 04/06/23 00:33 Source: patient Mode of arrival: ambulatory Limitations: no limitations History of Present Illness HPI narrative: 42 yold male with pmh of anxiety, Bipolar disorder and seizure presents to the ED for panic attack. patient states having alot of stress at home. patient states having issues with his partner, kids, and work. patient states he had a panic atack thinking about the stress. Patietn states by the time he reached the ED he felt better and no longer felt anxious. patient deneis any chest pain, shortness of breath, fever, chills, leg swelling, calf pain, pleurisy, or suicidal/homicdial. Related Data Home Medications Medication Instructions Recorded Confirmed divalproex 500 mg tablet,delayed 500 mg PO BID 03/14/23 03/20/23 release Previous Rx's Medication Instructions Recorded lorazepam 1 mg tablet (Ativan) 1 mg PO DAILY PRN anxiety #14 tabs 03/17/23 Allergies Allergy/AdvReac Type Severity Reaction Status Date / Time lurasidone [From Latuda] AdvReac Shakiness Verified 03/15/23 13:46 Review of Systems Review of Systems: panic attack. anxious Yes all other systems are reviewed and are negative PMFSH Past Medical History Medical History Schizophrenia Social History Social History Household Members: Significant Other and Children Housing: House Do you presently have visiting nurse or other home services: No Alcohol intake: never Patient Tobacco Use Status: Current everyday Tobacco user Tobacco use type: Cigarette Cigarettes Per Day: 5 Years Smoked: 20 Smoked in Last 30 Days: Yes Use of substances other than those prescribed or required for medical reasons: Yes Substance Use Type: Marijuana Advance Directives: No Advance Directives Information Provided: No Sexual orientation: Did not discuss. Physical Exam ED Vital Signs: Vital Signs - 24 hr 04/05/23 23:25 Temperature 97.6 F Pulse Rate 85 Respiratory Rate 16 Blood Pressure 100/60 Pulse Oximetry 98 Oxygen Delivery Method Room Air BMI result Body Mass Index 22.2 Const General: cooperative, healthy appearing, comfortable, no acute distress, well developed, alert, awake and Physically active Orientation/consciousness: oriented to person, oriented to place, oriented to time and patient oriented x3 [facility] Head: Yes normal to inspection, Yes No palpable skull fracture present, Yes normocephalic, Yes atraumatic and No abrasion Eyes General: appearance normal, both eyes and all related structures Neck Neck: Yes normal visual inspection, Yes full ROM, Yes no lymphadenopathy, Yes no meningeal signs, Yes trachea midline, Yes supple, No anterior neck swelling and No tender Chest Chest palpation & inspection: normal inspection of the chest and normal palpation of entire chest wall Resp Effort & Inspection: normal respiratory effort and able to speak in complete sentences Auscultation: clear to auscultation bilaterally Cardio Jugular venous distension: no JVD Heart sounds: S1 normal heart sound present and S2 normal heart sound present GI Inspection: Yes normal to inspection and No abdominal wall ecchymosis Palpation (GI): Soft to palpation, not firm, nontender, no guarding and not rigid General: No CVA tenderness and Yes no CVA tenderness Back/Spine/Pelvis Back: no CVA tenderness, No CVA tenderness and No back tenderness Skin General skin exam: no rashes or lesions noted and elasticity normal Neuro General: oriented to person, oriented to place, oriented to time, patient oriented x3, gait normal, tone normal, moves all extremities, Normal light touch and pain sensation, no meningeal signs, no focal motor deficits, CN's II-XI intact bilaterally and normal sensation to monofilament Extrem General: Yes normal to inspection and Yes full ROM Psych Appearance: grossly normal, well kempt and not disheveled Course Course Course Narrative: Panic attack. Medical Decision Making Medical Decision Making MDM Narrative: 42 yold male with pmh of seizure disorder, bipolar, and anxiety presents to the ED for panic attack. Patient states he is under lot of stress due to family relations, children, and work. Patient states while thinking about all those things he had a panic attack. Patient states symptoms resolved by the time he came to the ED. patient is not suicidal or homicidal. Patient presently not hear voices. Patient has follow-up with his therapist and psychiatrist. Patient compliant with his meds. Patient denies any chest pain, shortness of breath, leg swelling, calf pain, coughing up blood, pleurisy, or any other physical complaints. Patient would like to be discharged. no medical workup needed Differential Diagnosis Differential Diagnoses: The differential diagnosis associated with the presentation includes (Anxiety, panic attack, depression, suicidal homicidal ideation) Admission/Observation Consideration of admission/observation: Escalation of care including admission/observation considered Discharge Plan Discharge Clinical Impression: Acute anxiety Patient Disposition: Home, Self-Care Instructions: Anxiety (ED) Additional Instructions: Return to the ED any suicidal/homicidal ideation, auditory/visual hallucinations, any physical complaints, or any other concerning symptoms. Please follow-up with the primary care provider, psychiatrist, and therapist. Prescriptions: No Action divalproex 500 mg tablet,delayed release (DR/EC) 500 mg PO BID lorazepam [Ativan] 1 mg tablet 1 mg PO DAILY PRN (Reason: anxiety) Qty: 14 0RF Stand Alone Forms: Work/School Release Interventions: [place]-Suicide Risk Severity Scale Last Done: 04/05/23 23:37 ED Discharge Assessment Last Done: 04/06/23 00:53 Discharge Date/Time: 04/06/23 00:54 Print Language: Azeri
--- NOTE | 2023-04-06 00:54 | PC.NURSE ---
Pt A&Ox4, denies any pain, Pt calm and cooperative, reports having a panic attack after waking up, denies any triggers, states just stressed out today . Reports taking his medications as prescribed. Pt denies SI/HI/ visual hallucinations.
== END 2023-04-06 00:54 | disposition home or self-care (01) ==
PROVIDERS: Emergency Provider Emergency Medicine Emergency Medical Services
DX: F41.9 Anxiety disorder, unspecified (principal); F20.9 Schizophrenia, unspecified; F17.210 Nicotine dependence, cigarettes, uncomplicated; F12.90 Cannabis use, unspecified, uncomplicated; Z79.899 Other long term (current) drug therapy
CPT/HCPCS: 99284; 99285

== ENCOUNTER 2023-04-13 01:39 | Emergency (ER) | payer OTHER, SELFPAY ==
[2023-04-13 01:50] VITALS: BP 123/73; PULSE 104; RESP 17; TEMP 36.4; O2SAT 96; BMI 21.6
[2023-04-13] MEDS: LORazepam 1 MG TABLET 2 MG PO (02:14)
[2023-04-13 02:21] LABS: MANUAL DIFF FLAG NO
[2023-04-13 02:25] LABS: Basophils Absolute Auto 0.1 X10*3/uL (0.0-0.2); Basophils Percent Auto 0.5 % (0-2); Eosinophils Absolute Auto 0.1 X10*3/uL (0.0-0.4); Hematocrit 38.5 % (42.0-52.0); Hemoglobin 13.5 g/dl (14.0-18.0); Imm Gran Abs Auto 0.04 X10*3/uL (0.00-0.03); Imm Gran Pct Auto 0.4 % (0.0-0.4); Lymphocytes Absolute Auto 2.5 X10*3/uL (1.2-4.9); Lymphocytes Percent Auto 22.6 % (20-40); Mean Corpuscular HGB Conc 35.1 g/dl (31.0-36.0); Mean Corpuscular Hemoglobin 33.3 pg (27.0-33.0); Mean Corpuscular Volume 94.8 fL (80.0-98.0); Mean Platelet Volume 10.1 fL (9.4-12.4); Monocytes Absolute Auto 0.7 X10*3/uL (0.1-1.2); Neutrophils Absolute Auto 7.7 x10*3/uL (2.0-8.3); Neutrophils Percent Auto 69.5 % (45-73); Platelet Count 296 X10*3/uL (160-400); Red Blood Count 4.06 X10*6/uL (4.60-5.80); Red Cell Distribution Width 13.2 % (11.0-16.0); White Blood Count 11.1 X10*3/uL (4.8-10.8)
[2023-04-13 02:37] LABS: COVID-19 Test Negative (Negative); IDNOW Serial# 08D9AD1C
[2023-04-13 02:47] LABS: Alanine Aminotransferase 14 U/L (0-40); Alkaline Phosphatase 67 U/L (39-117); Anion Gap 16 (12-20); Aspartate Amino Transferase 22 U/L (5-37); Bilirubin Total 0.3 mg/dL (0.0-1.0); Blood Urea Nitrogen 15 mg/dL (9-16); Calcium 9.6 mg/dL (8.4-10.2); Carbon Dioxide 25 mmol/L (22-29); Chloride 108 mmol/L (96-108); Creatinine Clr Calc Pharmacy 56.4; Estimated Glomerular Filt Rate 54; Ethanol < 10 mg/dL; Glucose Random 115 mg/dL (60-115); Potassium 3.5 mmol/L (3.3-5.1); Sodium 145 mmol/L (135-145); Total Protein 6.7 g/dL (6.5-8.0); Valproate < 12.5 mcg/mL (50.0-100.0)
--- NOTE | 2023-04-13 04:45 | ED.PSYCH ---
HPI - Psych General Chief Complaint: Psychiatric Symptoms Stated Complaint: SEC 12 BY [employer] FOR CRISIS,REFUSE VS,CALM,NOT COOP Time Seen by Provider: 04/13/23 04:38 Source: patient, EMS and police Mode of arrival: EMS Limitations: no limitations History of Present Illness HPI Narrative: 42-year-old male history of bipolar disorder brought to ED by the police under Section 12 patient was acting in erratic manner, agitated after had an argument with his girlfriend, patient otherwise in the emergency department is trying to sleep decline SI or HI, no auditory hallucination. Declined any medical complaint. Related Data Home Medications Medication Instructions Recorded Confirmed divalproex 500 mg tablet,delayed 500 mg PO BID 04/13/23 04/13/23 release temazepam 30 mg capsule 30 mg PO DAILY PRN Anxiety 04/13/23 04/13/23 Allergies Allergy/AdvReac Type Severity Reaction Status Date / Time lurasidone [From Latuda] AdvReac Shakiness Verified 03/15/23 13:46 Review of Systems Review of Systems: All other systems are reviewed and are negative Constitutional: Reports as per HPI and Reports no additional constitutional complaints Eyes: Reports as per HPI and Reports no additional eye complaints Reports system reviewed and no additional complaints, except as documented Cardiovascular: Reports as per HPI and Reports no additional cardiovascular complaints Respiratory: Reports as per HPI and Reports no additional respiratory complaints Gastrointestinal: Reports as per HPI and Reports no additional gastrointestinal complaints Genitourinary: Reports no additional female genitourinary complaints Musculoskeletal: Reports no additional musculoskeletal complaints Skin/Breast: Reports system reviewed and no additional complaints, except as docu Psychiatric: Reports no additional psychiatric complaints Endocrine: Reports no additional endocrine complaints Hematologic/Lymphatic: Reports no additional hematologic/lymphatic complaints Allergic/Immunologic: Reports no additional allergic/immunologic complaints Reports system reviewed and no additional complaints, except as documented and Reports Abnormal speech present [facility] Past Medical History Medical History Schizophrenia Social History Social History Household Members: Significant Other and Children Housing: House Do you presently have visiting nurse or other home services: No Alcohol intake: never Patient Tobacco Use Status: Current everyday Tobacco user Tobacco use type: Cigarette Cigarettes Per Day: 5 Years Smoked: 20 Substance Use Type: Marijuana Advance Directives: No Advance Directives Information Provided: Yes Sexual orientation: Did not discuss. Physical Exam Vital Signs: Vital Signs: Last Vital Signs Temp 97.6 F 04/13/23 01:50 Pulse 104 H 04/13/23 01:50 Resp 17 04/13/23 01:50 BP 123/73 04/13/23 01:50 Pulse Ox 96 04/13/23 01:50 O2 Del Method Room Air 04/13/23 01:50 BMI result Body Mass Index 21.6 Vital signs have been reviewed as appeared to be correct. Blood pressure normal. Heart rate normal. Respiration rate normal. Temperature normal. Oxygen saturation normal. Appearance: Alert. Oriented X3. No acute distress. Head: Normal external exam. Normocephalic. Atraumatic. No Henriquez signs noted. No raccoon eyes noted Eyes: PERRLA. EOMI. Conjunctiva and sclera normal. Eyelids normal. ENT: TM's Normal. Pharynx normal. Uvula midline. Moist mucous membranes. No trismus noted. No drooling noted. No muffled voice noted. Neck: Normal inspection. Neck supple. FROM. No adenopathy. Thyroid Normal. No meningeal signs. No neck mass noted. CVS: Normal heart rate and rhythm. Heart sound normal. No murmurs noted. Pulses normal throughout. Respiratory: No respiratory distress. Painless inspiration. Breath sounds normal. No wheezes/rales/rhonchi noted. Chest nontender. No accessory muscle usage noted or decreased air movement noted. Abdomen: Soft and nontender. Bowel sounds normal in all 4 quadrants. No distention noted. No organomegaly noted. No visible injury noted. Back: No CVA tenderness. Full range of motion noted. Skin: Skin warm and dry. Normal skin color. Normal skin turgor. No rashes/lesions/lacerations noted. Extremities: No lower extremity edema. Extremities exhibit normal range of motion. Extremities nontender. Neuro: Oriented X 3. Cranial nerve exam: II-XII are grossly intact No motor deficit. No sensory deficit. Reflexes normal. Patient Orientation: Person, Place, Time and Situation, okay hygiene and grooming. Fair eye contact, attentive, no tics or tremors. Level of Consciousness: Awake, Appropriate and Alert Patient Behavior: Appropriate, Guarded, Cooperative and Anxious Mood Description: Constricted, Blunted and Apprehensive Affect Description: Constricted, Blunted and Apprehensive Patient Cognition Impaired: No Ability to Follow Directions: Excellent Speech Pattern: Clear, Appropriate and Spontaneous Speech, nonpressured, spontaneous with regular rate and rhythm, normal volume and prosody. No dysarthria. Memory Description: Intact, Immediate Intact and Short Term Intact Hallucinations: None Delusions: Not Present Thought Process: Intact Thought Content: positive for Intact, positive for Logical, denies Suicidal Ideation and denies Homicidal Ideation. Depressive Symptoms: Not present. Judgement and Insight: Limited but adequate. Course Course Course Narrative: 05:00 am: 42-year-old male with history of agitation and explosive disorder who had an argument with his girlfriend patient is under Section 12 by the police for further evaluation in the ED, slight elevation of creatinine which felt to be insignificant, medically cleared and awaiting for care team to see the patient in the morning. Will start the patient on physician observation. Medications Administered Discontinued Medications Generic Name Dose Route Start Last Admin Trade Name Freq PRN Reason Stop Dose Admin Lorazepam 2 mg 04/13/23 02:11 04/13/23 02:14 Lorazepam 1 Mg Tablet PO 04/13/23 02:12 2 mg ONCE ONE Administration Medical Decision Making Differential Diagnosis Differential Diagnoses: The differential diagnosis associated with the presentation includes (Substance abuse, acute psychosis, explosive disorder, electrolyte abnormalities, severe anemia.) Admission/Observation Consideration of admission/observation: Escalation of care including admission/observation considered Lab Data MDM Lab Attestation statement: I reviewed the patient's lab results. 04/13/23 02:16 04/13/23 02:16 Labs: Lab Results 04/13/23 04/13/23 04/13/23 Range/Units 02:16 02:16 02:16 WBC 11.1 H (4.8-10.8) X10*3/uL RBC 4.06 L (4.60-5.80) X10*6/uL Hgb 13.5 L (14.0-18.0) g/dl Hct 38.5 L (42.0-52.0) % MCV 94.8 (80.0-98.0) fL MCH 33.3 H (27.0-33.0) pg MCHC 35.1 (31.0-36.0) g/dl RDW 13.2 (11.0-16.0) % Plt Count 296 (160-400) X10*3/uL MPV 10.1 (9.4-12.4) fL Immature Gran % (Auto) 0.4 (0.0-0.4) % Neut % (Auto) 69.5 (45-73) % Lymph % (Auto) 22.6 (20-40) % [place] % (Auto) 6.0 (2-11) % Eos % (Auto) 1.0 (0-4) % Baso % (Auto) 0.5 (0-2) % Lymph # (Auto) 2.5 (1.2-4.9) X10*3/uL [place] # (Auto) 0.7 (0.1-1.2) X10*3/uL Eos # (Auto) 0.1 (0.0-0.4) X10*3/uL Baso # (Auto) 0.1 (0.0-0.2) X10*3/uL Abs Immat Gran (auto) 0.04 H (0.00-0.03) X10*3/uL Absolute Neuts (auto) 7.7 (2.0-8.3) x10*3/uL Absolute Nucleated RBC 0.000 (0.0-0.012) X10*3/uL Nucleated RBC % (auto) 0.0 (0.0-0.2) /100WBC Sodium 145 (135-145) mmol/L Potassium 3.5 D (3.3-5.1) mmol/L Chloride 108 (96-108) mmol/L Carbon Dioxide 25 (22-29) mmol/L Anion Gap 16 (12-20) BUN 15 (9-16) mg/dL Creatinine 1.45 H (0.5-1.4) mg/dL Estim Creat Clear Calc 56.4 Estimated GFR 54 Random Glucose 115 (60-115) mg/dL Calcium 9.6 (8.4-10.2) mg/dL Total Bilirubin 0.3 (0.0-1.0) mg/dL AST 22 (5-37) U/L ALT 14 (0-40) U/L Alkaline Phosphatase 67 (39-117) U/L Total Protein 6.7 (6.5-8.0) g/dL Albumin 4.0 (3.5-5.0) g/dL Valproic Acid (50.0-100.0) mcg/mL Ethyl Alcohol < 10 mg/dL COVID-19 ([facility]CI) Negative (Negative) COVID-19 Clin Com See Note 04/13/23 Range/Units 02:16 WBC (4.8-10.8) X10*3/uL RBC (4.60-5.80) X10*6/uL Hgb (14.0-18.0) g/dl Hct (42.0-52.0) % MCV (80.0-98.0) fL MCH (27.0-33.0) pg MCHC (31.0-36.0) g/dl RDW (11.0-16.0) % Plt Count (160-400) X10*3/uL MPV (9.4-12.4) fL Immature Gran % (Auto) (0.0-0.4) % Neut % (Auto) (45-73) % Lymph % (Auto) (20-40) % [place] % (Auto) (2-11) % Eos % (Auto) (0-4) % Baso % (Auto) (0-2) % Lymph # (Auto) (1.2-4.9) X10*3/uL [place] # (Auto) (0.1-1.2) X10*3/uL Eos # (Auto) (0.0-0.4) X10*3/uL Baso # (Auto) (0.0-0.2) X10*3/uL Abs Immat Gran (auto) (0.00-0.03) X10*3/uL Absolute Neuts (auto) (2.0-8.3) x10*3/uL Absolute Nucleated RBC (0.0-0.012) X10*3/uL Nucleated RBC % (auto) (0.0-0.2) /100WBC Sodium (135-145) mmol/L Potassium (3.3-5.1) mmol/L Chloride (96-108) mmol/L Carbon Dioxide (22-29) mmol/L Anion Gap (12-20) BUN (9-16) mg/dL Creatinine (0.5-1.4) mg/dL Estim Creat Clear Calc Estimated GFR Random Glucose (60-115) mg/dL Calcium (8.4-10.2) mg/dL Total Bilirubin (0.0-1.0) mg/dL AST (5-37) U/L ALT (0-40) U/L Alkaline Phosphatase (39-117) U/L Total Protein (6.5-8.0) g/dL Albumin (3.5-5.0) g/dL Valproic Acid < 12.5 L (50.0-100.0) mcg/mL Ethyl Alcohol mg/dL COVID-19 ([facility]) (Negative) COVID-19 Clin Com Discharge Plan Discharge Clinical Impression: Bipolar 1 disorder, mixed, severe, Acute anxiety Patient Disposition: Still a Patient Prescriptions: No Action divalproex 500 mg tablet,delayed release (DR/EC) 500 mg PO BID temazepam 30 mg capsule 30 mg PO DAILY PRN (Reason: Anxiety) Interventions: [place]-Suicide Risk Severity Scale Last Done: 04/13/23 01:54
--- NOTE | 2023-04-13 05:44 | PC.NURSE ---
Patient slept through the night, no distress observed/reported, no behavior concerns, med rec completed/pending provider's approval, VSS, urine pending for Tox screen, Blood draw completed/resulted, patient is not compliant with medication a.e.b valproic level 12.5, care consult ordered/pending evaluation, will continue to monitor.
[2023-04-13] MEDS: Divalproex Sodium 500 MG TABLET.DR PO (08:58)
[2023-04-13 10:00] VITALS: RESP 17
[2023-04-13 11:28] LABS: Appearance Urine Turbid; Color Urine Yellow; Glucose Urine UA Negative (Negative); Leukocyte Esterase Urine Small (1+) (Negative); Nitrite Urine Negative (Negative); PH 5.5 (5.0-9.0); Specific Gravity - Urine >= 1.030 (1.005-1.025); UMIC TRIGGER UA YES; Urine Blood Negative (Negative); Urine Ketones 15 mg/dL (Negative); Urine Protein 30 (1+) mg/dL (Neg-Trace)
[2023-04-13 11:37] LABS: Bacteria Urine None Seen (None Seen); Granular Casts Urine Present; Squamous Epithelial Cell Urine 0-2 /HPF (0-2); WBC Urine 21-50 /HPF (0-5)
[2023-04-13 11:40] LABS: Amphetamine Screen Urine Not Detected (Not Detect); Barbiturates, Urine Not Detected (Not Detect); Benzodiazepines Screen Urine POSITIVE (Not Detect); Cannabinoid Screen Urine POSITIVE (Not Detect); Cocaine Screen Urine Not Detected (Not Detect); Fentanyl, urine Not Detected (Not Detect); Opiate Screen Urine Not Detected (Not Detect); Phencyclidine Screen Urine Not Detected (Not Detect)
[2023-04-13 13:41] VITALS: BP 114/59; PULSE 79; RESP 20; TEMP 36.8; O2SAT 95
--- NOTE | 2023-04-13 14:12 | MHC.CARE ---
CARE Team speaks with Ms. Monse Gr, pt?s .? 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 Ms. Gr reports that while pt was in the shower, she took one of his last 2 cigarettes to smoke.? When pt exited the shower, she advised him she had taken a cigarette and an argument ensued.? She offered to return the cigarette but pt?s anger over it escalated.? Ms. Gr stated she left the home to go outside and remove herself from the situation.? Ms. Gr stated that she anticipated having a quiet and relaxing evening with pt and made efforts to ensure pt was able to come home and relax. She reports pt followed her outside to continue the argument.? AT some point in time, the police and EMS were called and were able to deescalate the pt and soon left. Later, the argument erupted again, pt was still upset over the cigarette and pt began banging his head.? Ms. Gr reported that she called the police again and pt was transported to this facility as he could not deescalate.
[2023-04-13] MEDS: Temazepam 15 MG CAPSULE 30 MG PO (14:15)
== END 2023-04-13 19:12 | disposition home or self-care (01) ==
PROVIDERS: Emergency Medicine; Emergency Provider Emergency Medicine Emergency Medical Services
DX: F31.63 Bipolar disorder, current episode mixed, severe, without psychotic features (principal); F41.9 Anxiety disorder, unspecified; R45.1 Restlessness and agitation; F91.8 Other conduct disorders; Z20.822 Contact with and (suspected) exposure to COVID-19; F17.210 Nicotine dependence, cigarettes, uncomplicated; F12.90 Cannabis use, unspecified, uncomplicated; Z79.899 Other long term (current) drug therapy
CPT/HCPCS: 36415; 80053; 80164; 80307; 81001; 85025; 87635; 99284; S9485

== ENCOUNTER 2023-05-11 11:58 | Emergency (ER) | payer OTHER, SELFPAY ==
[2023-05-11 12:03] VITALS: BP 100/30; PULSE 79; O2SAT 98
[2023-05-11 12:10] VITALS: BP 105/58; PULSE 81; RESP 18; TEMP 36.6; O2SAT 99; BMI 20.9
[2023-05-11 12:59] VITALS: PULSE 67; RESP 16; O2SAT 98
--- NOTE | 2023-05-11 13:40 | ED_ITS ---
HPI - Anxiety General Chief Complaint: Anxiety Stated Complaint: ANXIETY ATTACK Time Seen by Provider: 05/11/23 12:57 Source: patient and RN notes reviewed Mode of arrival: ambulatory Limitations: no limitations History of Present Illness HPI narrative: This is a 42-year-old male, with a past medical history seizure disorder, bipolar 1, presenting to the emergency department with complaints panic attack. He states his panic attack that he had prior to his arrival felt the psych he could not sit still and he had to sit on his hands to alleviate the symptoms. No chest pain or shortness of breath at that time. Patient reports that over the last several days he has been unable to sleep well as he feels as though he cannot relax. He states that he has not been taking his medications as prescribed as he is now working at [employer] and often times misses his 2nd dose. He states that he is working with his psychiatrist and his primary care physician to change the dosing to make it easier for him to take all of his medications. Patient has a therapist to he is seen regularly. He states that he is feeling much better since arriving in the emergency department. He denies any chest pain, shortness of breath, weakness, headaches, visual changes, abdominal pain, nausea, vomiting, or diarrhea. He denies alcohol or drug use. He admits to smoking cigarettes. He denies suicidal or homicidal ideations. Denies visual hallucinations. He admits that does hear voices in his head however this is chronic for him and this is something that he has worked on with his therapist and psychiatrist. He states that they are not telling to harm himself. No other complaints or concerns at this time. MD complaint: anxiety History of similar episodes: Yes Provoking factors: emotional stress, work/job stress and medication change Relieving factors: nothing Exacerbating factors: nothing Associated symptoms: denies other symptoms Related Data Home Medications Medication Instructions Recorded Confirmed divalproex 500 mg tablet,delayed 500 mg PO BID 04/13/23 04/13/23 release temazepam 30 mg capsule 30 mg PO DAILY PRN Anxiety 04/13/23 04/13/23 Allergies Allergy/AdvReac Type Severity Reaction Status Date / Time lurasidone [From Latuda] AdvReac Shakiness Verified 03/15/23 13:46 Review of Systems Review of Systems: Constitutional: No Weight loss, No Fever, No Chills ENT/Mouth: No Ear Pain, No Nasal Congestion, No Sinus Pain, No Hoarseness, No sore throat, No Rhinorrhea, No Swallowing Difficulty Cardiovascular: No Chest Pain, No SOB Respiratory: No Cough, No Sputum, No Wheezing Gastrointestinal: No Nausea, No Vomiting, No Diarrhea, No Constipation, No Abdominal pain Genitourinary: No Dysuria, No Urinary Frequency, No Hematuria, No Urinary Incontinence/retention, No Urgency, No Flank Pain Musculoskeletal: No joint pain, No Myalgias, No Joint Swelling Skin: No Skin Lesions, No rash Neuro: No Weakness, No Numbness, No Paresthesias PMF Past Medical History Medical History Schizophrenia Social History Social History Household Members: Significant Other and Children Housing: House Do you presently have visiting nurse or other home services: No Alcohol intake: current Alcohol intake frequency: a few times a month Patient Tobacco Use Status: Current everyday Tobacco user Tobacco use type: Cigarette Cigarettes Per Day: 5 Years Smoked: 20 Smoked in Last 30 Days: Yes Use of substances other than those prescribed or required for medical reasons: Yes Substance Use Type: Marijuana Advance Directives: No Advance Directives Information Provided: Yes Sexual orientation: Did not discuss. Physical Exam Vital Signs: Vital Signs: Last Vital Signs Temp 98 F 05/11/23 12:10 Pulse 67 05/11/23 12:59 Resp 16 05/11/23 12:59 BP 105/58 L 05/11/23 12:10 Pulse Ox 98 05/11/23 12:59 O2 Del Method Room Air 05/11/23 12:59 BMI result Body Mass Index 20.9 Const: Other: General: Awake, alert, and oriented X3. No acute distress. HEENT: Normal inspection, auditory canals with cerumen, TMs are nonerythematous, nonbulging. Oropharynx not erythematous, no tonsillar hypertrophy, uvula is midline. CVS: Normal heart rate and rhythm. Pulses normal. S1-S2 regular Respiratory: No respiratory distress, lungs clear to auscultation bilaterally, no wheezes, rales, or rhonchi Skin: Warm, dry, no rashes noted to exposed skin. Normal skin color. Normal skin turgor. Abdomen: Soft, nontender, nondistended Extremities: Normal to inspection Neuro: Oriented X 3. No motor deficit. No sensory deficit. Medical Decision Making Medical Decision Making MDM Narrative: This is a 42-year-old male presenting to the emergency department for evaluation of anxiety attack that occurred just prior to his arrival. Patient reports that he has a history of anxiety attacks and his symptoms he had were consistent with anxiety attacks he has had in the past. He had no chest pain, shortness of breath, weakness, blurred vision, abdominal pain, nausea, vomiting, or diarrhea. He states that he just felt as though he could not sit still. On arrival his symptoms have completely resolved. He missed to having stressors at home and has had difficulty sleeping. He admits he has missed several dosing of his medications as he works a job where it is difficult for him to get his 2nd dose. I urged the importance of taking his medications as prescribed as this will likely contribute to increased anxiety and panic attacks. Patient reports that he does see a therapist but is hoping to seek more help with a male support group. I spoke to the care team who had given me a packet to refer patient to [facility] as a they have additional resources for outpatient male support groups. Patient has no suicidal or homicidal ideations. Patient is requesting work note as he believes he needs several days off to recover and to sleep. I think this is appropriate. Given return precautions should any symptoms worsen. Patient is stable, vital signs stable, patient feeling much better and eager for discharge. Differential Diagnosis Differential Diagnoses: The differential diagnosis associated with the presentation includes Anxiety, depression, panic attack, suicidal ideations Discharge Plan Discharge Clinical Impression: Acute anxiety Patient Disposition: Home, Self-Care Instructions: Anxiety (ED) Additional Instructions: Please continue taking all of your prescribed medications. Lack of sleep and not taking medications can worsen your anxiety. Get plenty of rest. Ensure you have a good support system - it is important to always communicate with your loved ones and therapist. We have given you a resource booklet for you to contact [facility] as they may have male support groups. If you develop any new or worsening symptoms, please return for re-evaluation. Prescriptions: No Action divalproex 500 mg tablet,delayed release (DR/EC) 500 mg PO BID temazepam 30 mg capsule 30 mg PO DAILY PRN (Reason: Anxiety) Stand Alone Forms: Work/School Release Interventions: ED Discharge Assessment Last Done: 05/11/23 13:53 Discharge Date/Time: 05/11/23 13:56
== END 2023-05-11 13:56 | disposition home or self-care (01) ==
PROVIDERS: Emergency Provider Emergency Medicine
DX: F41.9 Anxiety disorder, unspecified (principal)
CPT/HCPCS: 99282; 99284

== ENCOUNTER 2023-05-19 14:39 | Emergency (ER) | payer OTHER, SELFPAY ==
[2023-05-19 14:42] VITALS: BP 122/78; PULSE 88; O2SAT 98
[2023-05-19 14:46] VITALS: BP 116/51; PULSE 93; RESP 16; TEMP 37.1; O2SAT 95; BMI 21.5
--- NOTE | 2023-05-19 15:15 | ED_ITS ---
HPI - Psych General Chief Complaint: Psychiatric Symptoms Stated Complaint: Psych eval Time Seen by Provider: 05/19/23 14:48 Source: patient Mode of arrival: EMS Limitations: no limitations History of Present Illness HPI Narrative: 42-year-old male presents for evaluation. Patient has reported history of schizophrenia, bipolar disorder. He was visiting his baby mama when he felt like he was going to have a seizure. Feels like he may have actually had a seizure. He has never been formally diagnosed with seizure disorder. Patient does feel so stressed out. Denies suicidal homicidal ideation. He is having auditory hallucinations. When he was younger, the hallucinations which tell him to harm himself. Today they are telling him that he is never going to amounts anything that he has nothing. He is currently not completely compliant with his medications. He reports being on temazepam, Depakote and Risperdal. Patient denies drug abuse, drinks occasional alcohol. Related Data Home Medications Medication Instructions Recorded Confirmed divalproex 500 mg tablet,delayed 500 mg PO BID 04/13/23 04/13/23 release temazepam 30 mg capsule 30 mg PO DAILY PRN Anxiety 04/13/23 04/13/23 Allergies Allergy/AdvReac Type Severity Reaction Status Date / Time lurasidone [From Latuda] AdvReac Shakiness Verified 03/15/23 13:46 Review of Systems Review of Systems: CONSTITUTIONAL: Denies weight loss, fever and chills. HEENT: Denies changes in vision and hearing. RESPIRATORY: Denies SOB and cough. CV: Denies palpitations no CP. GI: Denies abdominal pain, nausea, vomiting and diarrhea. : Denies dysuria and urinary frequency. MSK: Denies myalgia and joint pain. SKIN: Denies rash and pruritus. NEUROLOGICAL: Denies headache and syncope. PSYCHIATRIC: Denies recent changes in mood. Denies anxiety and depression. All other ROS are negative unless in HPI PMFSH Past Medical History Medical History Schizophrenia Social History Social History Household Members: Significant Other and Children Housing: House Do you presently have visiting nurse or other home services: No Alcohol intake: current Alcohol intake frequency: a few times a week Patient Tobacco Use Status: Current everyday Tobacco user Tobacco use type: Cigarette Cigarettes Per Day: 5 Years Smoked: 20 Smoked in Last 30 Days: Yes Use of substances other than those prescribed or required for medical reasons: Yes Substance Use Type: Marijuana Substance Use Frequency: Chronic Longstanding Advance Directives: No Advance Directives Information Provided: Yes Sexual orientation: Did not discuss. Physical Exam Vital Signs: Vital Signs: Last Vital Signs Temp 98.8 F 05/19/23 14:46 Pulse 93 05/19/23 14:46 Resp 16 05/19/23 14:46 BP 116/51 L 05/19/23 14:46 Pulse Ox 95 05/19/23 14:46 O2 Del Method Room Air 05/19/23 14:46 BMI result Body Mass Index 21.5 GEN: Well developed, no acute distress, alert, oriented HEENT: Normocephalic, atraumatic, normal external ears, nose appears normal, no oropharyngeal edema or exudates Eyes: Normal to appearance Neck: Supple, no lymphadenopathy Respiratory: Talks in complete sentences, no respiratory distress, clear to auscultation bilaterally Cardiovascular: Regular rate and rhythm, no murmurs rubs or gallops Abdomen: Soft, nontender, nondistended, no guarding, no rebound Back: No CVA tenderness Extremities: No clubbing cyanosis or edema Neurologic: No focal neurologic deficits, cranial nerves 2-12 intact, strength is 5/5 bilaterally Skin: No rash Course Course Course Narrative: Patient is here for psychiatric evaluation for auditory hallucinations. Does not appear to be in imminent harm to self or others. His [facility] appear to be stable. Will order care team consultation to see if there are any additional things that we can do to provide assistance for him. They will also assess for need for hospitalization Reevaluation(s) Reevaluation #1: Patient is pending care team evaluation. Some of his labs have returned including a toxicology positive for marijuana. His valproic acid is subth erapeutic but he is apparently taking his medications as he says he is. Patient's care will transition to the oncoming provider. Disposition pending care team evaluation. Time: 15:57 Medical Decision Making Medical Decision Making MDM Narrative: 42-year-old male presents for auditory hallucinations, concerned that he was having a seizure. Exam is benign and nonfocal. Patient will need medical clearance for Behavioral Health evaluation. Will check a Depakote level to make sure there is no evidence of a acute Depakote Dr. layla Urban. Patient will need to medical reconciliation in order to make sure he is getting his medications appropriately. Patient denies any suicidal or homicidal ideation. Differential Diagnosis Differential Diagnoses: The differential diagnosis associated with the presentation includes (Bipolar, schizophrenia, schizoaffective, depression, anxiety, substance induced mood disorder) Admission/Observation Consideration of admission/observation: Escalation of care including admission/observation considered Consult Healthcare Provider Management of the patient was discussed with: Behavioral Health Provider Lab Data MDM Lab Attestation statement: I reviewed the patient's lab results. 05/19/23 15:36 05/19/23 15:36 Labs: Lab Results 05/19/23 05/19/23 Range/Units 15: 15:36 Urine Opiates Screen Not Detected (Not Detect) Urine Fentanyl Screen Not Detected (Not Detect) Ur Barbiturates Screen Not Detected (Not Detect) Valproic Acid 37.5 L (50.0-100.0) mcg/mL Ur Phencyclidine Scrn Not Detected (Not Detect) Ur Amphetamines Screen Not Detected (Not Detect) U Benzodiazepines Scrn Not Detected (Not Detect) Urine Cocaine Screen Not Detected (Not Detect) U Marijuana (THC) Screen POSITIVE H (Not Detect) External Record Review External record reviewed: Outpatient record (Psychiatric record from 10/04/2022) Prescription Management I considered prescription management with: Other (Anxiety medications) Chronic Conditions Patient?s care impacted by: Other (Bipolar) Discharge Plan Discharge Clinical Impression: Bipolar 1 disorder Patient Disposition: Still a Patient Prescriptions: No Action divalproex 500 mg tablet,delayed release (DR/EC) 500 mg PO BID temazepam 30 mg capsule 30 mg PO DAILY PRN (Reason: Anxiety) Interventions: [place]-Suicide Risk Severity Scale Last Done: 05/19/23 15:00
[2023-05-19 15:40] LABS: MANUAL DIFF FLAG NO
[2023-05-19 15:43] LABS: Basophils Percent Auto 0.5 % (0-2); Eosinophils Absolute Auto 0.1 X10*3/uL (0.0-0.4); Eosinophils Percent Auto 0.6 % (0-4); Hematocrit 47.8 % (42.0-52.0); Hemoglobin 16.3 g/dl (14.0-18.0); Imm Gran Abs Auto 0.02 X10*3/uL (0.00-0.03); Imm Gran Pct Auto 0.3 % (0.0-0.4); Lymphocytes Absolute Auto 2.3 X10*3/uL (1.2-4.9); Mean Corpuscular HGB Conc 34.1 g/dl (31.0-36.0); Mean Corpuscular Hemoglobin 33.2 pg (27.0-33.0); Mean Corpuscular Volume 97.4 fL (80.0-98.0); Mean Platelet Volume 10.1 fL (9.4-12.4); Monocytes Absolute Auto 0.5 X10*3/uL (0.1-1.2); Monocytes Percent Auto 6.1 % (2-11); Neutrophils Percent Auto 63.5 % (45-73); Platelet Count 292 X10*3/uL (160-400); Red Blood Count 4.91 X10*6/uL (4.60-5.80); Red Cell Distribution Width 13.9 % (11.0-16.0); White Blood Count 7.9 X10*3/uL (4.8-10.8)
[2023-05-19 15:52] LABS: Amphetamine Screen Urine Not Detected (Not Detect); Barbiturates, Urine Not Detected (Not Detect); Benzodiazepines Screen Urine Not Detected (Not Detect); Cannabinoid Screen Urine POSITIVE (Not Detect); Cocaine Screen Urine Not Detected (Not Detect); Fentanyl, urine Not Detected (Not Detect); Opiate Screen Urine Not Detected (Not Detect); Phencyclidine Screen Urine Not Detected (Not Detect)
[2023-05-19 15:53] LABS: Valproate 37.5 mcg/mL (50.0-100.0)
[2023-05-19 16:00] LABS: Alanine Aminotransferase 17 U/L (0-40); Albumin Level 4.4 g/dL (3.5-5.0); Alkaline Phosphatase 84 U/L (39-117); Anion Gap 16 (12-20); Aspartate Amino Transferase 21 U/L (5-37); Bilirubin Total 0.7 mg/dL (0.0-1.0); Blood Urea Nitrogen 12 mg/dL (9-16); Carbon Dioxide 26 mmol/L (22-29); Chloride 104 mmol/L (96-108); Creatinine Clr Calc Pharmacy 74.2; Estimated Glomerular Filt Rate > 60; Ethanol < 10 mg/dL; Glucose Random 119 mg/dL (60-115); Potassium 4.3 mmol/L (3.3-5.1); Sodium 142 mmol/L (135-145)
[2023-05-19 16:02] LABS: COVID-19 Test Negative (Negative); IDNOW Serial# BCCEAD1C
--- NOTE | 2023-05-19 16:10 | PC.NURSE ---
Pt watching TV in room, oral fluids and snacks provided.
[2023-05-19 17:32] LABS: Appearance Urine Clear; Color Urine Yellow; Glucose Urine UA Negative (Negative); Leukocyte Esterase Urine Negative (Negative); Nitrite Urine Negative (Negative); PH 6.5 (5.0-9.0); Specific Gravity - Urine 1.025 (1.005-1.025); UMIC TRIGGER UACC YES; Urine Blood Negative (Negative); Urine Ketones 15 mg/dL (Negative); Urine Protein 30 (1+) mg/dL (Neg-Trace)
[2023-05-19 17:37] LABS: Bacteria Urine None Seen (None Seen); RBC Urine 0-2 /HPF (0-2); Squamous Epithelial Cell Urine 0-2 /HPF (0-2); WBC Urine 0-5 /HPF (0-5)
--- NOTE | 2023-05-19 18:16 | PC.NURSE ---
Pt ambulatory on unit, occasionally appears to be responding to internal stimuli.
== END 2023-05-19 20:09 | disposition home or self-care (01) ==
PROVIDERS: Student in an Organized Health Care Education/Training Program; Emergency Provider Emergency Medicine; PCP Physician Assistant
DX: F31.9 Bipolar disorder, unspecified (principal); R44.0 Auditory hallucinations; Z79.899 Other long term (current) drug therapy; Z20.822 Contact with and (suspected) exposure to COVID-19; Z20.828 Contact with and (suspected) exposure to other viral communicable diseases
CPT/HCPCS: 36415; 80053; 80164; 80307; 81001; 85025; 87635; 99284

== ENCOUNTER 2023-05-29 21:45 | Emergency (ER) | payer OTHER, SELFPAY ==
[2023-05-29 21:47] VITALS: BP 117/74; BP 130/90; PULSE 82; RESP 18; TEMP 37; O2SAT 98; BMI 20.8
== END 2023-05-30 02:05 | disposition left against medical advice (07) ==
PROVIDERS: Emergency Provider Emergency Medicine
DX: F41.0 Panic disorder [episodic paroxysmal anxiety] (principal)
CPT/HCPCS: 99281

== ENCOUNTER 2023-06-14 09:15 | Emergency (ER) | payer OTHER, SELFPAY ==
[2023-06-14 09:30] VITALS: BP 119/70; BP 138/77; PULSE 136; PULSE 98; RESP 16; TEMP 36.9; O2SAT 100; O2SAT 95; BMI 20.8
--- NOTE | 2023-06-14 09:35 | PC.NURSE ---
Addendum entered by Javan Gama 06/14/23 11:13: pd section 12 d/t behavioral alterations. Original Note: pt arrived via ems with [place] [employer] escort; restrained to stretcher by pd. ems reported pt was having manic episode at home; 911 called by family, pd assist to stretcher. handcuffs removed by pd upon arrival, nirali guerrero to bedside; dr. murphy to bedside. pt reports he's been experiencing increased stress d/t new job; haven't gotten chance to take meds today. reports hes been compliant otherwise. denies si/hi/drug use. vss. skin color appropriate to ethnicity. small abrasions to r. forearm from handcuffs. pain assessed; pt reports no pain at this time. all needs met. call castorena within reach.
[2023-06-14 10:03] LABS: MANUAL DIFF FLAG NO
[2023-06-14 10:04] LABS: Basophils Percent Auto 0.6 % (0-2); Eosinophils Absolute Auto 0.1 X10*3/uL (0.0-0.4); Eosinophils Percent Auto 1.8 % (0-4); Hematocrit 44.4 % (42.0-52.0); Hemoglobin 15.2 g/dl (14.0-18.0); Imm Gran Abs Auto 0.05 X10*3/uL (0.00-0.03); Imm Gran Pct Auto 0.8 % (0.0-0.4); Lymphocytes Absolute Auto 1.9 X10*3/uL (1.2-4.9); Lymphocytes Percent Auto 30.1 % (20-40); Mean Corpuscular HGB Conc 34.2 g/dl (31.0-36.0); Mean Corpuscular Hemoglobin 33.1 pg (27.0-33.0); Mean Corpuscular Volume 96.7 fL (80.0-98.0); Mean Platelet Volume 10.9 fL (9.4-12.4); Monocytes Absolute Auto 0.5 X10*3/uL (0.1-1.2); Monocytes Percent Auto 7.4 % (2-11); Neutrophils Absolute Auto 3.7 x10*3/uL (2.0-8.3); Neutrophils Percent Auto 59.3 % (45-73); Platelet Count 241 X10*3/uL (160-400); Red Blood Count 4.59 X10*6/uL (4.60-5.80); Red Cell Distribution Width 13.5 % (11.0-16.0); White Blood Count 6.2 X10*3/uL (4.8-10.8)
--- NOTE | 2023-06-14 10:06 | PHA.MEDREC ---
Pharmacy Consult ? Medication Reconciliation Pharmacy has completed the medication reconciliation.
[2023-06-14 10:16] LABS: Ethanol < 10 mg/dL
[2023-06-14 10:18] LABS: Alanine Aminotransferase 9 U/L (0-40); Albumin Level 4.1 g/dL (3.5-5.0); Alkaline Phosphatase 65 U/L (39-117); Anion Gap 11 (12-20); Aspartate Amino Transferase 18 U/L (5-37); Bilirubin Total 0.2 mg/dL (0.0-1.0); Blood Urea Nitrogen 9 mg/dL (9-16); Calcium 9.4 mg/dL (8.4-10.2); Carbon Dioxide 26 mmol/L (22-29); Chloride 109 mmol/L (96-108); Creatinine Clr Calc Pharmacy 63.5; Estimated Glomerular Filt Rate > 60; Glucose Random 150 mg/dL (60-115); Sodium 142 mmol/L (135-145)
--- NOTE | 2023-06-14 10:40 | PC.NURSE ---
Addendum entered by Javan Gama 06/14/23 11:14: new orders placed; prn given. Original Note: call castorena answered; pt reports pain to R. shoulder; 06/30. provider made aware.
[2023-06-14] MEDS: Acetaminophen 325 MG TABLET 975 MG PO (11:01)
--- NOTE | 2023-06-14 11:43 | PC.NURSE ---
partner arden called for update on pt d/c; updated both pt and partner; deny questions at this time.
--- NOTE | 2023-06-14 13:04 | ED_ITS ---
HPI - General Adult General Chief complaint: Psychiatric Symptoms Stated complaint: SEC 12 FOR MANIC EPISODE,RESRAINED,NO MEDS THIS AM Time Seen by Provider: 06/14/23 09:25 Source: patient and EMS Mode of arrival: EMS History of Present Illness HPI narrative: 42-year-old male presents with agitated behavior. Patient has history of schizo phrenia. He also has history of bipolar disorder. Denies suicidal homicidal ideation. Please from vault and provide him with a Section 12. He now currently requires psychiatric evaluation. Patient offers no acute psychiatric complaints. Denies SI, HI. The symptoms earlier were deemed to be severe. They are currently non-existent. There is no clear relieving or exacerbating features. Upon arrival, he was diaphoretic and agitated. When security and police department gave him some space, he felt significantly better. Related Data Home Medications Medication Instructions Recorded Confirmed divalproex 500 mg tablet,delayed 500 mg PO BID 04/13/23 06/14/23 release temazepam 30 mg capsule 30 mg PO DAILY PRN Anxiety 04/13/23 06/14/23 Allergies Allergy/AdvReac Type Severity Reaction Status Date / Time lurasidone [From Latuda] AdvReac Shakiness Verified 03/15/23 13:46 Review of Systems Review of Systems: CONSTITUTIONAL: Denies weight loss, fever and chills. HEENT: Denies changes in vision and hearing. RESPIRATORY: Denies SOB and cough. CV: Denies palpitations no CP. GI: Denies abdominal pain, nausea, vomiting and diarrhea. : Denies dysuria and urinary frequency. MSK: Denies myalgia and joint pain. SKIN: Denies rash and pruritus. NEUROLOGICAL: Denies headache and syncope. PSYCHIATRIC: Denies recent changes in mood. Denies anxiety and depression. All other ROS are negative unless in HPI PMFSH Past Medical History Medical History Schizophrenia Social History Social History Household Members: Significant Other and Children Housing: House Do you presently have visiting nurse or other home services: No Alcohol intake: current Alcohol intake frequency: holidays/special occasions only Patient Tobacco Use Status: Current everyday Tobacco user Tobacco use type: Cigarette Cigarettes Per Day: 5 Years Smoked: 20 Smoked in Last 30 Days: Yes Use of substances other than those prescribed or required for medical reasons: Yes Substance Use Type: Marijuana Advance Directives: No Advance Directives Information Provided: Yes Sexual orientation: Did not discuss. Physical Exam ED Vital Signs: Vital Signs - 24 hr 06/14/23 09:30 Temperature 98.4 F Pulse Rate 98 Respiratory Rate 16 Blood Pressure 138/77 Pulse Oximetry 95 Oxygen Delivery Method Room Air BMI result Body Mass Index 20.8 GEN: Well developed, no acute distress, alert, oriented HEENT: Normocephalic, atraumatic, normal external ears, nose appears normal, no oropharyngeal edema or exudates Eyes: Normal to appearance Neck: Supple, no lymphadenopathy Respiratory: Talks in complete sentences, no respiratory distress, clear to auscultation bilaterally Cardiovascular: Regular rate and rhythm, no murmurs rubs or gallops Abdomen: Soft, nontender, nondistended, no guarding, no rebound Back: No CVA tenderness Extremities: No clubbing cyanosis or edema Neurologic: No focal neurologic deficits, cranial nerves 2-12 intact, strength is 5/5 bilaterally Skin: No rash Course Course Course Narrative: Patient is medically clear for psychiatric evaluation. Really awaiting a urine toxicology urinalysis. From a medical standpoint, he is cleared and will be p laced in physician observation pending care team evaluation. Reevaluation(s) Reevaluation #1: Care team evaluation has been completed. Patient can be discharged. We have reached out to the community make sure they are aware of Angel's needs. He will continue take his medications. He will get a p.r.n. medication by a ps hiatrist when he becomes agitated Time: 14:58 Medications Administered Discontinued Medications Generic Name Dose Route Start Last Admin Trade Name Antonio PRN Reason Stop Dose Admin Acetaminophen 975 mg 06/14/23 10:34 06/14/23 11:01 Acetaminophen 325 Mg Tablet PO 06/14/23 10:35 975 mg ONCE ONE Administration Medical Decision Making Medical Decision Making [facility] Narrative: Patient presents with erratic and agitated behavior. He is currently, cooperative. He is directable. Denies suicidal homicidal ideation. Denies any hallucinations. Will medically clear the patient for psychiatric evaluation. Differential diagnosis includes bipolar disorder, schizophrenia, schizoaffective disorder, PTSD, anxiety, depression, substance abuse. Plan will be did perform routine laboratory testing, provide patient with medications as needed, re- evaluate for any potential medical issues that arise. Differential Diagnosis Differential Diagnoses: The differential diagnosis associated with the presentation includes (See above) Admission/Observation Consideration of admission/observation: Escalation of care including admission/observation considered Lab Data MDM Lab Attestation statement: I reviewed the patient's lab results. 06/14/23 09:58 06/14/23 09:58 Labs: Lab Results 06/14/23 06/14/23 06/14/23 Range/Units 09:58 09:58 09:58 WBC 6.2 (4.8-10.8) X10*3/uL RBC 4.59 L (4.60-5.80) X10*6/uL Hgb 15.2 (14.0-18.0) g/dl Hct 44.4 (42.0-52.0) % MCV 96.7 (80.0-98.0) fL MCH 33.1 H (27.0-33.0) pg MCHC 34.2 (31.0-36.0) g/dl RDW 13.5 (11.0-16.0) % Plt Count 241 (160-400) X10*3/uL MPV 10.9 (9.4-12.4) fL Immature Gran % (Auto) 0.8 H (0.0-0.4) % Neut % (Auto) 59.3 (45-73) % Lymph % (Auto) 30.1 (20-40) % [place] % (Auto) 7.4 (2-11) % Eos % (Auto) 1.8 (0-4) % Baso % (Auto) 0.6 (0-2) % Lymph # (Auto) 1.9 (1.2-4.9) X10*3/uL [place] # (Auto) 0.5 (0.1-1.2) X10*3/uL Eos # (Auto) 0.1 (0.0-0.4) X10*3/uL Baso # (Auto) 0.0 (0.0-0.2) X10*3/uL Abs Immat Gran (auto) 0.05 H (0.00-0.03) X10*3/uL Absolute Neuts (auto) 3.7 (2.0-8.3) x10*3/uL Absolute Nucleated RBC 0.000 (0.0-0.012) X10*3/uL Nucleated RBC % (auto) 0.0 (0.0-0.2) /100WBC Sodium 142 (135-145) mmol/L Potassium 4.0 (3.3-5.1) mmol/L Chloride 109 H (96-108) mmol/L Carbon Dioxide 26 (22-29) mmol/L Anion Gap 11 L (12-20) BUN 9 (9-16) mg/dL Creatinine 1.24 (0.5-1.4) mg/dL Estim Creat Clear Calc 63.5 Estimated GFR > 60 Random Glucose 150 H (60-115) mg/dL Calcium 9.4 (8.4-10.2) mg/dL Total Bilirubin 0.2 (0.0-1.0) mg/dL AST 18 (5-37) U/L ALT 9 (0-40) U/L Alkaline Phosphatase 65 (39-117) U/L Total Protein 7.0 (6.5-8.0) g/dL Albumin 4.1 (3.5-5.0) g/dL Urine Color Urine Appearance Urine pH (5.0-9.0) Ur Specific [place] (1.005-1.025) Urine Protein (Neg-Trace) mg/dL Urine Glucose (UA) (Negative) mg/dL Urine Ketones (Negative) mg/dL Urine Blood (Negative) Urine Nitrite (Negative) Ur Leukocyte Esterase (Negative) Urine Opiates Screen (Not Detect) Urine Fentanyl Screen (Not Detect) Ur Barbiturates Screen (Not Detect) Ur Phencyclidine Scrn (Not Detect) Ur Amphetamines Screen (Not Detect) U Benzodiazepines Scrn (Not Detect) Urine Cocaine Screen (Not Detect) U Marijuana (THC) Screen (Not Detect) Ethyl Alcohol < 10 mg/dL 06/14/23 06/14/23 Range/Units 12:35 12:35 WBC (4.8-10.8) X10*3/uL RBC (4.60-5.80) X10*6/uL Hgb (14.0-18.0) g/dl Hct (42.0-52.0) % MCV (80.0-98.0) fL MCH (27.0-33.0) pg MCHC (31.0-36.0) g/dl RDW (11.0-16.0) % Plt Count (160-400) X10*3/uL MPV (9.4-12.4) fL Immature Gran % (Auto) (0.0-0.4) % Neut % (Auto) (45-73) % Lymph % (Auto) (20-40) % [place] % (Auto) (2-11) % Eos % (Auto) (0-4) % Baso % (Auto) (0-2) % Lymph # (Auto) (1.2-4.9) X10*3/uL [place] # (Auto) (0.1-1.2) X10*3/uL Eos # (Auto) (0.0-0.4) X10*3/uL Baso # (Auto) (0.0-0.2) X10*3/uL Abs Immat Gran (auto) (0.00-0.03) X10*3/uL Absolute Neuts (auto) (2.0-8.3) x10*3/uL Absolute Nucleated RBC (0.0-0.012) X10*3/uL Nucleated RBC % (auto) (0.0-0.2) /100WBC Sodium (135-145) mmol/L Potassium (3.3-5.1) mmol/L Chloride (96-108) mmol/L Carbon Dioxide (22-29) mmol/L Anion Gap (12-20) BUN (9-16) mg/dL Creatinine (0.5-1.4) mg/dL Estim Creat Clear Calc Estimated GFR Random Glucose (60-115) mg/dL Calcium (8.4-10.2) mg/dL Total Bilirubin (0.0-1.0) mg/dL AST (5-37) U/L ALT (0-40) U/L Alkaline Phosphatase (39-117) U/L Total Protein (6.5-8.0) g/dL Albumin (3.5-5.0) g/dL Urine Color Yellow Urine Appearance Clear Urine pH 5.5 (5.0-9.0) Ur Specific [place] 1.025 (1.005-1.025) Urine Protein Negative (Neg-Trace) mg/dL Urine Glucose (UA) Negative (Negative) mg/dL Urine Ketones Trace (Negative) mg/dL Urine Blood Negative (Negative) Urine Nitrite Negative (Negative) Ur Leukocyte Esterase Negative (Negative) Urine Opiates Screen Not Detected (Not Detect) Urine Fentanyl Screen Not Detected (Not Detect) Ur Barbiturates Screen Not Detected (Not Detect) Ur Phencyclidine Scrn Not Detected (Not Detect) Ur Amphetamines Screen Not Detected (Not Detect) U Benzodiazepines Scrn Not Detected (Not Detect) Urine Cocaine Screen Not Detected (Not Detect) U Marijuana (THC) Screen POSITIVE H (Not Detect) Ethyl Alcohol mg/dL Independent Historian Clinical information obtained from an independent historian. History obtained from or confirmed by: EMS and Other (PD) External Record Review External record reviewed: Inpatient record Prescription Management I considered prescription management with: Other (Psychiatric medications) Chronic Conditions Patient?s care impacted by: Other (Bipolar disorder) Discharge Plan Discharge Clinical Impression: Bipolar 1 disorder Patient Disposition: Home, Self-Care Instructions: Bipolar Disorder (DC) Prescriptions: No Action divalproex 500 mg tablet,delayed release (DR/EC) 500 mg PO BID temazepam 30 mg capsule 30 mg PO DAILY PRN (Reason: Anxiety) Referrals: Physician,None [Primary Care Provider] - (PMD within 1 week) Interventions: [place]-Suicide Risk Severity Scale Last Done: 06/14/23 09:33
[2023-06-14 13:06] LABS: Appearance Urine Clear; Color Urine Yellow; Glucose Urine UA Negative (Negative); Leukocyte Esterase Urine Negative (Negative); Nitrite Urine Negative (Negative); PH 5.5 (5.0-9.0); Specific Gravity - Urine 1.025 (1.005-1.025); Urine Blood Negative (Negative); Urine Ketones Trace mg/dL (Negative); Urine Protein Negative (Neg-Trace)
[2023-06-14 13:17] LABS: Amphetamine Screen Urine Not Detected (Not Detect); Barbiturates, Urine Not Detected (Not Detect); Benzodiazepines Screen Urine Not Detected (Not Detect); Cannabinoid Screen Urine POSITIVE (Not Detect); Cocaine Screen Urine Not Detected (Not Detect); Fentanyl, urine Not Detected (Not Detect); Opiate Screen Urine Not Detected (Not Detect); Phencyclidine Screen Urine Not Detected (Not Detect)
--- NOTE | 2023-06-14 13:41 | PC.NURSE ---
care team at bedside speaking with patient
[2023-06-14 15:07] VITALS: BP 121/76; PULSE 71; RESP 16; O2SAT 100
== END 2023-06-14 15:09 | disposition home or self-care (01) ==
PROVIDERS: Emergency Provider Emergency Medicine
DX: F31.9 Bipolar disorder, unspecified (principal); F20.9 Schizophrenia, unspecified; R45.1 Restlessness and agitation; F17.210 Nicotine dependence, cigarettes, uncomplicated; F12.90 Cannabis use, unspecified, uncomplicated; Z79.899 Other long term (current) drug therapy
CPT/HCPCS: 36415; 80053; 80307; 81003; 85025; 99284; 99285; S9485

== ENCOUNTER 2023-08-13 21:01 | Emergency (ER) | payer OTHER, SELFPAY ==
[2023-08-13 21:06] VITALS: BP 122/71; PULSE 84; RESP 16; TEMP 36.3; O2SAT 96; BMI 21.6
--- NOTE | 2023-08-13 21:10 | ED_ITS ---
HPI - Psych General Chief Complaint: Psychiatric Symptoms Stated Complaint: manic episodes, banged head on floor, per ems Time Seen by Provider: 08/13/23 21:04 Source: patient Mode of arrival: EMS Limitations: no limitations History of Present Illness HPI Narrative: Was to the emergency room requesting to be seen by crisis. Patient states that he had an argument with his significant other, and he is known to be exclusive in aggressive. Patient did not want to escalate the situation. Patient was able to On down and call the police and the ambulance, patient came voluntarily. Patient denies suicidal or homicidal ideation Related Data Home Medications Medication Instructions Recorded Confirmed divalproex 500 mg tablet,delayed 500 mg PO BID 04/13/23 08/13/23 release temazepam 30 mg capsule 30 mg PO DAILY PRN Anxiety 04/13/23 08/13/23 Allergies Allergy/AdvReac Type Severity Reaction Status Date / Time lurasidone [From Latuda] AdvReac Shakiness Verified 03/15/23 13:46 Review of Systems Review of Systems: Constitutional : No Weight loss, No Fever, No Chills, No Night Sweats, No Fatigue, No Malaise ENT/Mouth : No Hearing loss, No Ear Pain, No Nasal Congestion, No Sinus Pain, No Hoarseness, No sore throat, No Rhinorrhea, No Swallowing Difficulty Eyes: No Eye Pain, No Swelling, No Redness, No Foreign Body, No Discharge, No Vision Changes Cardiovascular : No Chest Pain, No SOB, No Dyspnea on Exertion, No Orthopnea, No Edema, No Palpitations Respiratory : No Cough, No Sputum, No Wheezing, No Smoke Exposure, No Dyspnea Gastrointestinal : No Nausea, No Vomiting, No Diarrhea, No Constipation, No abd ominal Pain, No Hematochezia, No Melena Genitourinary : no irregular bleeding, No Dysuria, No Urinary Frequency, No Hematuria, No Urinary Incontinence, No Urgency, No Flank Pain, No Urinary Flow Changes, No Hesitancy Musculoskeletal : No joint pain, No Myalgias, No Joint Swelling Skin : No Skin Lesions, No rash Neuro : No Weakness, No Numbness, No Paresthesias, No Loss of Consciousness, No Dizziness, No Headache Psych : No Anxiety/Panic, No Depression, No SI/HI/AH/VH, complaining of explosive temper, aggression and wants to speak to care team, Heme/Lymph: No Bruising, No Bleeding,No Lymphadenopathy Endocrine : No Polyuria, No Polydipsia, No Temperature Intolerance [facility] Past Medical History Medical History (Updated 08/13/23 @ 21:16 by Eliane Geiger MD) Seizure disorder Cannabis use disorder Bipolar 1 disorder, mixed, severe Schizophrenia Social History Social History Household Members: Significant Other and Children Housing: House Do you presently have visiting nurse or other home services: No Alcohol intake: current Alcohol intake frequency: holidays/special occasions only Patient Tobacco Use Status: Current everyday Tobacco user Tobacco use type: Cigarette Cigarettes Per Day: 5 Years Smoked: 20 Substance Use Type: Marijuana Sexual orientation: Did not discuss. Physical Exam Vital Signs: Vital Signs: Last Vital Signs Temp 97.4 F 08/13/23 21:06 Pulse 84 08/13/23 21:06 Resp 16 08/13/23 21:06 BP 122/71 08/13/23 21:06 Pulse Ox 96 08/13/23 21:06 O2 Del Method Room Air 08/13/23 21:06 BMI result Body Mass Index 21.6 Const: Other: Appearance: Alert. Oriented X3. No acute distress. Eyes: Pupils equal, round and reactive to light. ENT: Pharynx normal. Neck: Normal inspection. Neck supple. No lymph nodes noted. No crepitus CVS: Normal heart rate and rhythm. Pulses normal. Normal S1 and S2 Respiratory: No respiratory distress. Breath sounds normal. No Wheezing. No rales Abdomen: Soft and nontender. No rigidity. No distention. Skin: Skin warm and dry. Normal skin color. Normal skin turgor. Extremities: No lower extremity edema. No Lacerations. No Rash Neuro: Oriented X 3. No motor deficit. No sensory deficit. Moving all extremities. No slurred speech. CN 2 through 12 grossly intact Psych: calm, cooperative, normal affect Course Course Course Narrative: - all of patient's labs pending - care team consult pending - physician observe started at 21:15 Discharge Plan Discharge Clinical Impression: Outbursts of explosive behavior Patient Disposition: Still a Patient Prescriptions: No Action divalproex 500 mg tablet,delayed release (DR/EC) 500 mg PO BID temazepam 30 mg capsule 30 mg PO DAILY PRN (Reason: Anxiety)
[2023-08-13 22:15] LABS: Basophils Percent Auto 0.4 % (0-2); Eosinophils Absolute Auto 0.2 X10*3/uL (0.0-0.4); Eosinophils Percent Auto 2.2 % (0-4); Hematocrit 38.5 % (42.0-52.0); Hemoglobin 13.1 g/dl (14.0-18.0); Imm Gran Abs Auto 0.03 X10*3/uL (0.00-0.03); Imm Gran Pct Auto 0.4 % (0.0-0.4); Lymphocytes Absolute Auto 2.1 X10*3/uL (1.2-4.9); Lymphocytes Percent Auto 31.3 % (20-40); MANUAL DIFF FLAG NO; Mean Corpuscular Hemoglobin 32.8 pg (27.0-33.0); Mean Corpuscular Volume 96.5 fL (80.0-98.0); Mean Platelet Volume 10.5 fL (9.4-12.4); Monocytes Absolute Auto 0.5 X10*3/uL (0.1-1.2); Monocytes Percent Auto 7.1 % (2-11); Neutrophils Percent Auto 58.6 % (45-73); Platelet Count 255 X10*3/uL (160-400); Red Blood Count 3.99 X10*6/uL (4.60-5.80); Red Cell Distribution Width 13.4 % (11.0-16.0); White Blood Count 6.8 X10*3/uL (4.8-10.8)
[2023-08-13 22:31] LABS: COVID-19 Test Negative (Negative); IDNOW Serial# 08D9AD1C
[2023-08-13 22:33] LABS: Alanine Aminotransferase 6 U/L (0-40); Albumin Level 3.6 g/dL (3.5-5.0); Alkaline Phosphatase 64 U/L (39-117); Anion Gap 17 (12-20); Aspartate Amino Transferase 16 U/L (5-37); Bilirubin Total 0.2 mg/dL (0.0-1.0); Blood Urea Nitrogen 9 mg/dL (9-16); Calcium 8.7 mg/dL (8.4-10.2); Carbon Dioxide 21 mmol/L (22-29); Chloride 111 mmol/L (96-108); Creatinine Clr Calc Pharmacy 80.2; Estimated Glomerular Filt Rate > 60; Ethanol < 10 mg/dL; Glucose Random 78 mg/dL (60-115); Potassium 3.6 mmol/L (3.3-5.1); Sodium 145 mmol/L (135-145); Total Protein 6.2 g/dL (6.5-8.0)
[2023-08-13 22:45] LABS: Valproate 14.4 mcg/mL (50.0-100.0)
--- NOTE | 2023-08-14 06:32 | PC.NURSE ---
Patient slept through the night, no distress observed/reported, behavior non concerning, med rec completed/pending provider's approval, care consult ordered/pending evaluation, urine pending, blood work completed/resulted, VSS, will continue to monitor.
--- NOTE | 2023-08-14 07:27 | PC.NURSE ---
Resumed care of patient, Pt able to give urine sample at this time, awaiting to be seen by care team. Safety measures in place, safety checks in place.
[2023-08-14 07:44] LABS: Amphetamine Screen Urine Not Detected (Not Detect); Barbiturates, Urine Not Detected (Not Detect); Benzodiazepines Screen Urine Not Detected (Not Detect); Cannabinoid Screen Urine POSITIVE (Not Detect); Cocaine Screen Urine Not Detected (Not Detect); Fentanyl, urine Not Detected (Not Detect); Opiate Screen Urine Not Detected (Not Detect); Phencyclidine Screen Urine Not Detected (Not Detect)
[2023-08-14 07:53] LABS: Appearance Urine Clear; Color Urine Yellow; Glucose Urine UA Negative (Negative); Leukocyte Esterase Urine Trace (Negative); Nitrite Urine Negative (Negative); PH 5.5 (5.0-9.0); Specific Gravity - Urine >= 1.030 (1.005-1.025); UMIC TRIGGER UA YES; Urine Blood Negative (Negative); Urine Ketones Trace mg/dL (Negative); Urine Protein Trace mg/dL (Neg-Trace)
[2023-08-14 07:58] LABS: Bacteria Urine None Seen (None Seen); Hyaline Casts Urine 0-2 /LPF (0-2); Squamous Epithelial Cell Urine 0-2 /HPF (0-2)
--- NOTE | 2023-08-14 09:55 | PC.NURSE ---
Monse Gr called to talk with patient, pt currently talking with care team, message passed along to patient for return call when done talking with care team.
== END 2023-08-14 10:48 | disposition home or self-care (01) ==
PROVIDERS: Emergency Provider Emergency Medicine
DX: F60.3 Borderline personality disorder (principal); Z20.822 Contact with and (suspected) exposure to COVID-19; F31.63 Bipolar disorder, current episode mixed, severe, without psychotic features; F20.9 Schizophrenia, unspecified; F12.90 Cannabis use, unspecified, uncomplicated; Z87.891 Personal history of nicotine dependence; Z79.899 Other long term (current) drug therapy
CPT/HCPCS: 36415; 80053; 80164; 80307; 81001; 85025; 87635; 99284; 99285; S9485

== ENCOUNTER 2023-09-01 07:36 | Inpatient (IN) | payer OTHER, SELFPAY ==
--- NOTE | 2023-09-01 07:42 | ED_ITS ---
HPI - Psych General Chief Complaint: Psychiatric Symptoms Stated Complaint: MANIC EPISODE,CPD ON BOARD PER EMS Time Seen by Provider: 09/01/23 07:40 Source: patient, EMS and old records reviewed Mode of arrival: EMS Limitations: no limitations History of Present Illness HPI Narrative: 42 yo male with history of bipolar 1 disorder, seizure disorder who presents to the ER from home via EMS on a section 12 for manic and aggressive behavior. He states he got into an argument with his this morning, she said something stupid. He admits to throwing a fan. PD reports she called 911 for manic behavior and they witnessed him throwing a couch to try to harm her. PD put him on a section 12. He states he needs his medication NOW. He is usually on temazapam but states he couldn't get it filled until yesterday. Unclear why he didn't take any at home. He reports taking his other meds as directed. He denies any drug or alcohol use today. MD complaint: anxiety and other (aggressive behavior) Onset (ago): hour(s) Duration: constant and getting worse History of same: Yes Relieving factors: medication Context: not taking psychiatric medications Associated psychiatric symptoms: racing thoughts Treatments prior to arrival: placed on mental health hold Related Data Home Medications Medication Instructions Recorded Confirmed divalproex 500 mg tablet,delayed 1,000 mg PO BID 04/13/23 09/01/23 release temazepam 30 mg capsule 30 mg PO DAILY PRN Anxiety 04/13/23 09/01/23 lorazepam 1 mg tablet 1 mg PO BID PRN Anxiety 09/01/23 09/01/23 Allergies Allergy/AdvReac Type Severity Reaction Status Date / Time lurasidone [From Latuda] AdvReac Shakiness Verified 03/15/23 13:46 Review of Systems 2 Review of Systems: Yes all other systems are reviewed and are negative [facility] Past Medical History Medical History (Updated 09/01/23 @ 07:54 by CONNIE Mitchell) Seizure disorder Cannabis use disorder Bipolar 1 disorder, mixed, severe Schizophrenia Social History Social History Household Members: Significant Other and Children Housing: House Do you presently have visiting nurse or other home services: No Alcohol intake: current Alcohol intake frequency: holidays/special occasions only Patient Tobacco Use Status: Current everyday Tobacco user Tobacco use type: Cigarette Cigarettes Per Day: 5 Years Smoked: 20 Substance Use Type: Marijuana Advance Directives: No Advance Directives Information Provided: No Healthcare Proxy: No Guardian: No Sexual orientation: Did not discuss. Physical Exam 2 Vital Signs: Vital Signs: Last Vital Signs Pulse 77 09/01/23 10:00 Resp 18 09/01/23 10:00 BP 115/64 09/01/23 10:00 Pulse Ox 98 09/01/23 10:00 O2 Del Method Room Air 09/01/23 10:00 BMI result Body Mass Index 19.2 Appearance: Alert, agitated and yelling out for medication to calm him down. Head: normocephalic, atraumatic. Eyes: Pupils equal, round and reactive to light. ENT: Pharynx normal. No tonsillar swelling or exudate. Neck: Normal inspection. Neck supple. CVS: Normal heart rate and rhythm. Pulses normal. Respiratory: No respiratory distress. Breath sounds normal. Abdomen: Soft and nontender. +BS x4 Skin: Skin warm and dry. Normal skin color. Normal skin turgor. No rashes. Extremities: No lower extremity edema. No joint swelling. Neuro/psych: Oriented X 3. Non-focal. CN II-XII intact. Pressured speech. Agitated. No SI, HI, AH, VH. Course Reevaluation(s) Reevaluation #1: upon re-evaluation patient is much more calm. he is tearful because he is afraid his is going to be mad at him for his behaviors this morning. Physician observation started at 8:54. Patient placed in physician observation because patient is awaiting CARE team evaluation for the possible need of inpatient psych admission. medically cleared. At the time observation was started patient's vital signs were stable. Patient is alert and oriented. Neuro exam is non-focal. CV: RRR and lungs are clear. Will continue to monitor. Time: 08:54 Reevaluation #2: patient agreeable to inpatient psych admission. will continue to monitor. Time: 15:25 Medications Administered Discontinued Medications Generic Name Dose Route Start Last Admin Trade Name Freq PRN Reason Stop Dose Admin Lorazepam 2 mg 09/01/23 07:41 09/01/23 07:45 Lorazepam 1 Mg Tablet PO 09/01/23 07:42 2 mg ONCE ONE Administration Lorazepam 1 mg 09/01/23 10:19 09/01/23 10:27 Lorazepam 1 Mg Tablet PO 09/01/23 10:20 1 mg ONCE ONE Administration Medical Decision Making Medical Decision Making [facility] Narrative: 42 yo male with history of bipolar disorder, history of aggressive behavior/anger issues who presents to the ER on a section 12 for manic behavior and throwing a couch today after a fight with his significant other. Given 2 mg po ativan on arrival and patient calmed down. denies illicit drug use and reported compliance with home meds but did not take his tenazepam today. lab workup unremarkable. medically cleared. CARE team evaluated the patient and he is agreeable to inpatient level of care. bed search underway Differential Diagnosis Differential Diagnoses: The differential diagnosis associated with the presentation includes substance induced mood disorder, acute psychosis, schizophrenia, schizoaffective disorder, PTSD, bipolar disorder, major depression with psychotic features Admission/Observation Consideration of admission/observation: Escalation of care including admission/observation considered Lab Data [facility] Lab Attestation statement: I reviewed the patient's lab results. 09/01/23 08:01 09/01/23 08:01 Labs: Lab Results 09/01/23 09/01/23 Range/Units 08:01 11:53 WBC 5.6 (4.8-10.8) X10*3/uL RBC 4.54 L (4.60-5.80) X10*6/uL Hgb 15.1 (14.0-18.0) g/dl Hct 44.3 (42.0-52.0) % MCV 97.6 (80.0-98.0) fL MCH 33.3 H (27.0-33.0) pg MCHC 34.1 (31.0-36.0) g/dl RDW 13.2 (11.0-16.0) % Plt Count 252 (160-400) X10*3/uL MPV 11.1 (9.4-12.4) fL Immature Gran % (Auto) 0.4 (0.0-0.4) % Neut % (Auto) 36.2 L (45-73) % Lymph % (Auto) 50.1 H (20-40) % [place] % (Auto) 9.4 (2-11) % Eos % (Auto) 3.2 (0-4) % Baso % (Auto) 0.7 (0-2) % Lymph # (Auto) 2.8 (1.2-4.9) X10*3/uL [place] # (Auto) 0.5 (0.1-1.2) X10*3/uL Eos # (Auto) 0.2 (0.0-0.4) X10*3/uL Baso # (Auto) 0.0 (0.0-0.2) X10*3/uL Abs Immat Gran (auto) 0.02 (0.00-0.03) X10*3/uL Absolute Neuts (auto) 2.0 (2.0-8.3) x10*3/uL Absolute Nucleated RBC 0.000 (0.0-0.012) X10*3/uL Nucleated RBC % (auto) 0.0 (0.0-0.2) /100WBC Sodium 139 (135-145) mmol/L Potassium 3.6 (3.3-5.1) mmol/L Chloride 107 (96-108) mmol/L Carbon Dioxide 15 L (22-29) mmol/L Anion Gap 21 H (12-20) BUN 11 (9-16) mg/dL Creatinine 1.17 (0.5-1.4) mg/dL Estim Creat Clear Calc 68.1 Estimated GFR > 60 Random Glucose 123 H (60-115) mg/dL Calcium 8.8 (8.4-10.2) mg/dL Magnesium 2.3 (1.6-2.6) mg/dL Total Bilirubin 0.2 (0.0-1.0) mg/dL Direct Bilirubin < 0.2 (0.0-0.5) mg/dL AST 24 (5-37) U/L ALT 8 (0-40) U/L Alkaline Phosphatase 68 (39-117) U/L Total Protein 6.8 (6.5-8.0) g/dL Albumin 3.9 (3.5-5.0) g/dL Urine Color Yellow Urine Appearance Clear Urine pH 7.5 (5.0-9.0) Ur Specific [place] <= 1.005 (1.005-1.025) Urine Protein Negative (Neg-Trace) mg/dL Urine Glucose (UA) Negative (Negative) mg/dL Urine Ketones Negative (Negative) mg/dL Urine Blood Negative (Negative) Urine Nitrite Negative (Negative) Ur Leukocyte Esterase Trace H (Negative) Urine RBC 0-2 (0-2) /HPF Urine WBC 0-5 (0-5) /HPF Ur Squamous Epith Cells 0-2 (0-2) /HPF Urine Bacteria None Seen (None Seen) Hyaline Casts 0-2 (0-2) /LPF Urine Opiates Screen Not Detected (Not Detect) Urine Fentanyl Screen Not Detected (Not Detect) Ur Barbiturates Screen Not Detected (Not Detect) Valproic Acid 46.8 L (50.0-100.0) mcg/mL Ur Phencyclidine Scrn Not Detected (Not Detect) Ur Amphetamines Screen Not Detected (Not Detect) U Benzodiazepines Scrn Not Detected (Not Detect) Urine Cocaine Screen Not Detected (Not Detect) U Marijuana (THC) Screen POSITIVE H (Not Detect) Ethyl Alcohol < 10 mg/dL Independent Historian Clinical information obtained from an independent historian. History obtained from or confirmed by: EMS and Other (PD) External Record Review External record reviewed: Inpatient record, Outpatient record, Prior outpatient labs and Prior outpatient radiology Prescription Management I considered prescription management with: Other (benzodiazapine) Chronic Conditions Patient?s care impacted by: Other (bipolar disorder) Social Determinants Patient?s care significantly limited by Social Determinants of Health including: Problems related to primary support group and Other Social Determinant of Health Critical Care Time Critical Care Time Critical Care Time: No Discharge Plan Discharge Clinical Impression: Bipolar 1 disorder Patient Disposition: Still a Patient Prescriptions: No Action divalproex 500 mg tablet,delayed release (DR/EC) 1,000 mg PO BID temazepam 30 mg capsule 30 mg PO DAILY PRN (Reason: Anxiety) lorazepam 1 mg tablet 1 mg PO BID PRN (Reason: Anxiety) Interventions: [place]-Suicide Risk Severity Scale Last Done: 09/01/23 08:16
[2023-09-01] MEDS: LORazepam 1 MG TABLET 2 MG PO (07:45)
[2023-09-01 08:05] LABS: MANUAL DIFF FLAG NO
[2023-09-01 08:09] LABS: Basophils Percent Auto 0.7 % (0-2); Eosinophils Absolute Auto 0.2 X10*3/uL (0.0-0.4); Eosinophils Percent Auto 3.2 % (0-4); Hematocrit 44.3 % (42.0-52.0); Hemoglobin 15.1 g/dl (14.0-18.0); Imm Gran Abs Auto 0.02 X10*3/uL (0.00-0.03); Imm Gran Pct Auto 0.4 % (0.0-0.4); Lymphocytes Absolute Auto 2.8 X10*3/uL (1.2-4.9); Lymphocytes Percent Auto 50.1 % (20-40); Mean Corpuscular HGB Conc 34.1 g/dl (31.0-36.0); Mean Corpuscular Hemoglobin 33.3 pg (27.0-33.0); Mean Corpuscular Volume 97.6 fL (80.0-98.0); Mean Platelet Volume 11.1 fL (9.4-12.4); Monocytes Absolute Auto 0.5 X10*3/uL (0.1-1.2); Monocytes Percent Auto 9.4 % (2-11); Neutrophils Percent Auto 36.2 % (45-73); Platelet Count 252 X10*3/uL (160-400); Red Blood Count 4.54 X10*6/uL (4.60-5.80); Red Cell Distribution Width 13.2 % (11.0-16.0); White Blood Count 5.6 X10*3/uL (4.8-10.8)
[2023-09-01 08:13] VITALS: O2SAT 97; BMI 19.2
--- NOTE | 2023-09-01 08:18 | PC.NURSE ---
Patient arrived via ems with [employer] police. EMS/police reports patient with known psych hx. Per patients gf patient was attempting to flip a ouch on top of her. Patient requested restraints as a reminder not to be aggressive. Hand and leg restraints place by security. 1:[address] Able to wiggle fingers and toes without difficulty. At this time patient calm and cooperative but states still wants restraints in place because he feels agitated
[2023-09-01 08:24] LABS: Valproate 46.8 mcg/mL (50.0-100.0)
[2023-09-01 08:29] LABS: Alanine Aminotransferase 8 U/L (0-40); Albumin Level 3.9 g/dL (3.5-5.0); Alkaline Phosphatase 68 U/L (39-117); Anion Gap 21 (12-20); Aspartate Amino Transferase 24 U/L (5-37); Bilirubin Direct < 0.2 mg/dL (0.0-0.5); Bilirubin Total 0.2 mg/dL (0.0-1.0); Blood Urea Nitrogen 11 mg/dL (9-16); Calcium 8.8 mg/dL (8.4-10.2); Carbon Dioxide 15 mmol/L (22-29); Chloride 107 mmol/L (96-108); Creatinine Clr Calc Pharmacy 68.1; Estimated Glomerular Filt Rate > 60; Ethanol < 10 mg/dL; Glucose Random 123 mg/dL (60-115); Magnesium 2.3 mg/dL (1.6-2.6); Potassium 3.6 mmol/L (3.3-5.1); Sodium 139 mmol/L (135-145); Total Protein 6.8 g/dL (6.5-8.0)
--- NOTE | 2023-09-01 09:38 | PC.NURSE ---
Patient allowed bilateral hand restraints to be removed, requested for leg restraints to remain in place
[2023-09-01 10:00] VITALS: BP 115/64; PULSE 77; RESP 18; O2SAT 98
--- NOTE | 2023-09-01 10:23 | PC.NURSE ---
Report given to POD RN
[2023-09-01] MEDS: LORazepam 1 MG TABLET PO (10:27)
--- NOTE | 2023-09-01 10:33 | PC.NURSE ---
Patient continues to decline the removal of bilateral leg restraints, states does not trust himself. Seen by care team, 1mg ativan given per order
[2023-09-01 12:01] LABS: Appearance Urine Clear; Color Urine Yellow; Glucose Urine UA Negative (Negative); Leukocyte Esterase Urine Trace (Negative); Nitrite Urine Negative (Negative); PH 7.5 (5.0-9.0); Specific Gravity - Urine <= 1.005 (1.005-1.025); UMIC TRIGGER UACC YES; Urine Blood Negative (Negative); Urine Ketones Negative (Negative); Urine Protein Negative (Neg-Trace)
[2023-09-01 12:04] LABS: Bacteria Urine None Seen (None Seen); Hyaline Casts Urine 0-2 /LPF (0-2); RBC Urine 0-2 /HPF (0-2); Squamous Epithelial Cell Urine 0-2 /HPF (0-2); WBC Urine 0-5 /HPF (0-5)
[2023-09-01 12:11] LABS: Amphetamine Screen Urine Not Detected (Not Detect); Barbiturates, Urine Not Detected (Not Detect); Benzodiazepines Screen Urine Not Detected (Not Detect); Cannabinoid Screen Urine POSITIVE (Not Detect); Cocaine Screen Urine Not Detected (Not Detect); Fentanyl, urine Not Detected (Not Detect); Opiate Screen Urine Not Detected (Not Detect); Phencyclidine Screen Urine Not Detected (Not Detect)
[2023-09-01] MEDS: Divalproex Sodium 500 MG TABLET.DR 1000 MG PO ×2 (15:49→22:06)
[2023-09-01 15:50] LABS: COVID-19 Test Negative (Negative); IDNOW Serial# BCCEAD1C
--- NOTE | 2023-09-01 16:47 | PC.NURSE ---
Angel transferred back to the POD. Calm and cooperative since moving back. No behavioral concerns. Requested home medication Depakote and order placed in by . Appetite is good and affect is flat but elevates when engaged and needs are being met.
[2023-09-01 22:10] VITALS: BP 105/63; PULSE 70; RESP 18; TEMP 36.6; O2SAT 97
[2023-09-01 23:00] VITALS: BP 118/78; PULSE 79; RESP 18; TEMP 36.4; O2SAT 96
--- NOTE | 2023-09-02 02:06 | PC.ADMIT ---
Patient is a 42 year old male, admitted to M5 from [facility] ED on 09/01/23 at 2230 on a CV for increased aggression, yelling and banging his head on the wall after having an argument with ex-girlfriend. Patient requested coming to the ED in order to ?cool off.? Patient has had multiple presentations to the ED with similar episodes, last being 08/14/23 in which he was discharged back home. He has prior inpatient hospitalizations on M3 (March 2022), [facility] multiple times. Patient has had suicide attempts in the past (Nov 2021) by wrapping cord around his neck. Patient reports occasional alcohol consumption and daily marijuana use. Toxicology supports this statement.? Patient arrived to unit, changed and vitals taken prior to this RN arriving. Patient requested to go to sleep and declined to participate in admission process. Patient declined to sign KIKI?s and complete safety tool at this time.
[2023-09-02 06:00] VITALS: BP 123/66; PULSE 75; RESP 16; TEMP 36.3; O2SAT 99
[2023-09-02] MEDS: Divalproex Sodium 500 MG TABLET.DR 1000 MG PO ×2 (08:51→21:26)
--- NOTE | 2023-09-02 08:53 | HO.PSYADMNOT ---
HPI Date of Service: 09/02/23 Chief Complaint: bruna Sources of Information: patient interviewed, chart reviewed and crisis/core team assessment reviewed HPI Subjective Notes: [place] Warning (given and shows understanding) and Conditional Voluntary Narrative: Mr. Conrad is a 42 year-old male with hx of Bipolar Disorder. He was brought on a section 12a after ex-girlfriend called 911 due to patient presenting as increasingly more agitated after argument with ex-GF, banging his head. Per report, pt agreed with ex-GF calling the police to bring him to the hospital to cool off. Per crisis, when police arrive he threw fan, and attempted to nut picker a couch to throw it at his GF. In the ED, his utox is positive for THC. Mr. Conrad is known to this justowriter operator through previous admission with similar presentation. On the unit, pt presents as cooperative. He reports he had panic attack. He reports he is going through a lot of distress related to having a teenager at home. He also reports ongoing conflict with ex GF. He reports he is not able to afford moving out of the home for financial reasons. He denies SI/HI. He denies VH/AH. He denies symptoms of depression or anxiety. He reports recent change in depakote. He reports he was taking medication. Past Psychiatric History: Inpatient: [facility] more than 10. [facility] 03/2022 OP: SPENCER Mcclelland (therapist); Oniel Douglas Past med trials: prozac (caused manic sx), depakote, latuda, temazepam, seroquel suicide attempt: reports more than 10 years ago but I don't remember what happened Medical Evaluation Reviewed: Yes cbc mostly unremarkable. CMP- BUN 11, Cr 1.17, utox positive for THC. VS stable. [facility] Medical History (Updated 09/01/23 @ 07:54 by CONNIE Mitchell) Seizure disorder Cannabis use disorder Bipolar 1 disorder, mixed, severe Schizophrenia Family History: Mother: alcohol use disorder denies any family hx psychiatric illness Social History: lives with GF of 18 years and his children ages 20, 17, and 13. 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 Has 7 siblings. Raised by mother until middle school, then grandmother. IEP throughout school for learning disabilities Substance History: pt reports using cannabis daily. Pt denies use of alcohol, opioids, cocaine Trauma History: emotional trauma Diagnostics Vital Signs (24Hr): Vital Signs - 24 hr 09/01/23 10:00 09/01/23 22:10 09/01/23 23:00 Temperature 98 F 97.5 F Pulse Rate 77 70 79 Respiratory Rate 18 18 18 Blood Pressure 115/64 105/63 118/78 Pulse Oximetry 98 97 96 Oxygen Delivery Method Room Air Room Air Room Air 09/02/23 06:00 Temperature 97.3 F Pulse Rate 75 Respiratory Rate 16 Blood Pressure 123/66 Pulse Oximetry 99 Oxygen Delivery Method Room Air BMI result Body Mass Index 19.2 Labs 09/01/23 08:01 09/02/23 07:51 Labs: Laboratory Results - last 48 hr 09/01/23 09/01/23 09/01/23 08:01 11:53 15:29 WBC 5.6 RBC 4.54 L Hgb 15.1 Hct 44.3 MCV 97.6 MCH 33.3 H MCHC 34.1 RDW 13.2 Plt Count 252 MPV 11.1 Immature Gran % (Auto) 0.4 Neut % (Auto) 36.2 L Lymph % (Auto) 50.1 H [place] % (Auto) 9.4 Eos % (Auto) 3.2 Baso % (Auto) 0.7 Lymph # (Auto) 2.8 [place] # (Auto) 0.5 Eos # (Auto) 0.2 Baso # (Auto) 0.0 Abs Immat Gran (auto) 0.02 Absolute Neuts (auto) 2.0 Absolute Nucleated RBC 0.000 Nucleated RBC % (auto) 0.0 Sodium 139 Potassium 3.6 Chloride 107 Carbon Dioxide 15 L Anion Gap 21 H BUN 11 Creatinine 1.17 Estim Creat Clear Calc 68.1 Estimated GFR > 60 Random Glucose 123 H Calcium 8.8 Magnesium 2.3 Total Bilirubin 0.2 Direct Bilirubin < 0.2 AST 24 ALT 8 Alkaline Phosphatase 68 Total Protein 6.8 Albumin 3.9 Urine Color Yellow Urine Appearance Clear Urine pH 7.5 Ur Specific [place] <= 1.005 Urine Protein Negative Urine Glucose (UA) Negative Urine Ketones Negative Urine Blood Negative Urine Nitrite Negative Ur Leukocyte Esterase Trace H Urine RBC 0-2 Urine WBC 0-5 Ur Squamous Epith Cells 0-2 Urine Bacteria None Seen Hyaline Casts 0-2 Urine Opiates Screen Not Detected Urine Fentanyl Screen Not Detected Ur Barbiturates Screen Not Detected Valproic Acid 46.8 L Ur Phencyclidine Scrn Not Detected Ur Amphetamines Screen Not Detected U Benzodiazepines Scrn Not Detected Urine Cocaine Screen Not Detected U Marijuana (THC) Screen POSITIVE H Ethyl Alcohol < 10 COVID-19 (CECI) Negative COVID-19 Clin Com See Note Meds/Allergies Meds Home Medications Medication Instructions Recorded Confirmed Type divalproex 500 mg tablet,delayed 1,000 mg PO BID 04/13/23 09/01/23 History release temazepam 30 mg capsule 30 mg PO DAILY PRN Anxiety 04/13/23 09/01/23 History lorazepam 1 mg tablet 1 mg PO BID PRN Anxiety 09/01/23 09/01/23 History Allergies Allergies Allergy/AdvReac Type Severity Reaction Status Date / Time lurasidone [From Latuda] AdvReac Shakiness Verified 03/15/23 13:46 Mental Status Exam Mental Status Exam Narrative: Appearance:wearing hospital gown, fair hygiene, in NAD behavior:cooperative Psychomotor:no agitation or retardation noted Speech:clear, normal rate/rhythm/volume, spontaneous TP:mostly linear TC:feeling calmer, less overwhelmed and hoping to be discharged soon Mood: better Affect:congruent, brightens up at times, non labile SI:denies HI:denies VH/AH:denies Delusions:none Insight/judgment:fair x 2. memory/cog: alert, oriented x 3. grossly intact to conversational testing. Assessment & Plan Assessment & Plan (1) Bipolar 1 disorder, mixed, severe: Status: Acute Code(s): F31.63 - Bipolar disorder, current episode mixed, severe, without psychotic features (2) Cannabis use disorder: Status: Acute Code(s): F12.90 - Cannabis use, unspecified, uncomplicated (3) Seizure disorder: Status: Acute Code(s): G40.909 - Epilepsy, unspecified, not intractable, without status epilepticus Plan Mr. Conrad is a 42 year-old male with hx of Bipolar Disorder who was brought via EMS on sect 12 by police after ex-GF called reporting pt combative and agitated. Per crisis, when police arrived he had threw fan and attempted to nut picker couch to throw it at ex-GF. Utox positive for cannabinoids. Pt presents as much calmer. He reports he asked ex-GF to call to bring him to the hospital to cool off. Pt currently does not present with any signs of psychosis or delusions. He is known to this justowriter operator through previous admission with similar presentation when he has explosive episodes but much calmer and without signs of psychosis when he arrives to the unit. We discussed risks, benefits and alternative treatment options. He agreed to continue depakote, which was recently increase to 1000mg po BID. We discussed adding antipsychotic like seroquel for mood stabilizarion. However, pt reports he has had seroquel and other antipsychotic in the past but either had side effects or no benefit. He does report depakote helpful. Given that most of his presentation is consistent with explosive behaviors, no overt psychosis or delusions, we discussed adding beta chari to help him regain control over his reaction when he feels frustrated. Also it appears most of this explosive outburst are at home, which he explained he has convoluted relationship with ex GF and can't move out due to financial reasons. We also discussed effects of cannabis use on his mood- he smokes daily but states not ready to stop. PLAN 1. Admit to M5, CV, 15 minutes checks for safety 2. continue depakote 1000mg po BID 3. start inderal LA 60mg po daily- monitor bradycardia, HOld if SBP<90, DBP<55 4. Obtain collateral information from ex-GF, which pt gives permission for as he plans to return to their home. 5. Aftercare planning. Patient educated on: diagnosis, medication risk/benefits and substance abuse Reason for continued inpatient stay Substantial Risk for: harm to others Statement Statement: I have reviewed the history and physical and performed a pertinent examination on my patient. No changes have occurred unless specified. If the History and Physical was not performed prior to admission, the Hospitalist's service will be consulted for completing the admission physical. Time Spent With Patient Time: Total time managing care of this patient today ____ minutes.
[2023-09-02 09:25] LABS: Alanine Aminotransferase 10 U/L (0-40); Albumin Level 4.4 g/dL (3.5-5.0); Alkaline Phosphatase 78 U/L (39-117); Anion Gap 14 (12-20); Aspartate Amino Transferase 22 U/L (5-37); Bilirubin Total 0.5 mg/dL (0.0-1.0); Blood Urea Nitrogen 11 mg/dL (9-16); Calcium 9.3 mg/dL (8.4-10.2); Chloride 106 mmol/L (96-108); Cholesterol 183 mg/dL (<200); Creatinine Clr Calc Pharmacy 87.6; Estimated Glomerular Filt Rate > 60; Glucose Fasting 92 mg/dL (60-99); HDL Cholesterol 41 mg/dL (>40); LDL Cholesterol Calculated 122 mg/dL (<100); Sodium 142 mmol/L (135-145); Total Protein 6.9 g/dL (6.5-8.0); Triglycerides 100 mg/dL (<150)
[2023-09-02 09:40] LABS: Carbon Dioxide 24 mmol/L (22-29)
[2023-09-02 11:00] VITALS: BP 130/72; PULSE 75
[2023-09-02] MEDS: Propranolol HCL LA 60 MG CAP.SA.24H PO (11:01)
[2023-09-02] MEDS: OLANZapine 5 MG TABLET PO (15:18)
[2023-09-02] MEDS: hydrOXYzine HCL 25 MG TABLET PO (15:18)
[2023-09-02] MEDS: Nicotine Polacrilex 2 MG GUM 4 MG BUCCAL (16:04)
[2023-09-02] MEDS: Gabapentin 300 MG CAPSULE PO ×2 (16:04→21:26)
[2023-09-02 18:00] VITALS: BP 115/56; PULSE 57; RESP 18; TEMP 36.3; O2SAT 97
[2023-09-03 08:45] VITALS: BP 133/59; PULSE 61; RESP 18; TEMP 36.1; O2SAT 99
[2023-09-03] MEDS: Propranolol HCL LA 60 MG CAP.SA.24H PO (09:00)
[2023-09-03] MEDS: Divalproex Sodium 500 MG TABLET.DR 1000 MG PO (09:00)
[2023-09-03] MEDS: Nicotine 21 MG PATCH.TD24 TRANSDERMA (09:01)
--- NOTE | 2023-09-03 09:33 | PM.PSYDC ---
DS: Providers Provider Date of Service: 09/03/23 Date of admission: 09/01/23 19:07 Date of discharge: 09/03/23 Primary care physician: Unknown Physician DS: Diagnosis Discharge Diagnosis (1) Bipolar 1 disorder, mixed, severe: Status: Acute (2) Cannabis use disorder: Status: Acute (3) Seizure disorder: Status: Acute DS: Medications Discharge Medications Home Medications: Home Medications Medication Instructions Recorded Confirmed divalproex 500 mg tablet,delayed 1,000 mg PO BID 04/13/23 09/01/23 release temazepam 30 mg capsule 30 mg PO DAILY PRN Anxiety 04/13/23 09/01/23 lorazepam 1 mg tablet 1 mg PO BID PRN Anxiety 09/01/23 09/01/23 Mental Status Exam Mental Status Exam Narrative: Appearance:wearing hospital gown, fair hygiene, in NAD behavior:cooperative Psychomotor:no agitation or retardation noted Speech:clear, normal rate/rhythm/volume, spontaneous TP:mostly linear TC:feeling calmer, less overwhelmed and hoping to be discharged soon Mood: better Affect:congruent, brightens up at times, non labile SI:denies HI:denies VH/AH:denies Delusions:none Insight/judgment:fair x 2. memory/cog: alert, oriented x 3. grossly intact to conversational testing. Data Data Completed and Pending Completed studies during hospitalization [Text1]: 09/01/23 09/01/23 09/01/23 08:01 11:53 15:29 WBC 5.6 RBC 4.54 L Hgb 15.1 Hct 44.3 MCV 97.6 MCH 33.3 H MCHC 34.1 RDW 13.2 Plt Count 252 MPV 11.1 Immature Gran % (Auto) 0.4 Neut % (Auto) 36.2 L Lymph % (Auto) 50.1 H [place] % (Auto) 9.4 Eos % (Auto) 3.2 Baso % (Auto) 0.7 Lymph # (Auto) 2.8 [place] # (Auto) 0.5 Eos # (Auto) 0.2 Baso # (Auto) 0.0 Abs Immat Gran (auto) 0.02 Absolute Neuts (auto) 2.0 Absolute Nucleated RBC 0.000 Nucleated RBC % (auto) 0.0 Sodium 139 Potassium 3.6 Chloride 107 Carbon Dioxide 15 L Anion Gap 21 H BUN 11 Creatinine 1.17 Estim Creat Clear Calc 68.1 Estimated GFR > 60 Random Glucose 123 H Fasting Glucose Calcium 8.8 Magnesium 2.3 Total Bilirubin 0.2 Direct Bilirubin < 0.2 AST 24 ALT 8 Alkaline Phosphatase 68 Total Protein 6.8 Albumin 3.9 Triglycerides Cholesterol LDL Cholesterol, Calc HDL Cholesterol Urine Color Yellow Urine Appearance Clear Urine pH 7.5 Ur Specific [place] <= 1.005 Urine Protein Negative Urine Glucose (UA) Negative Urine Ketones Negative Urine Blood Negative Urine Nitrite Negative Ur Leukocyte Esterase Trace H Urine RBC 0-2 Urine WBC 0-5 Ur Squamous Epith Cells 0-2 Urine Bacteria None Seen Hyaline Casts 0-2 Urine Opiates Screen Not Detected Urine Fentanyl Screen Not Detected Ur Barbiturates Screen Not Detected Valproic Acid 46.8 L Ur Phencyclidine Scrn Not Detected Ur Amphetamines Screen Not Detected U Benzodiazepines Scrn Not Detected Urine Cocaine Screen Not Detected U Marijuana (THC) Screen POSITIVE H Ethyl Alcohol < 10 COVID-19 (CECI) Negative COVID-19 Clin Com See Note 09/02/23 07:51 WBC RBC Hgb Hct MCV MCH MCHC RDW Plt Count MPV Immature Gran % (Auto) Neut % (Auto) Lymph % (Auto) [place] % (Auto) Eos % (Auto) Baso % (Auto) Lymph # (Auto) [place] # (Auto) Eos # (Auto) Baso # (Auto) Abs Immat Gran (auto) Absolute Neuts (auto) Absolute Nucleated RBC Nucleated RBC % (auto) Sodium 142 Potassium 4.0 Chloride 106 Carbon Dioxide 24 Anion Gap 14 BUN 11 Creatinine 0.91 Estim Creat Clear Calc 87.6 Estimated GFR > 60 Random Glucose Fasting Glucose 92 Calcium 9.3 Magnesium Total Bilirubin 0.5 Direct Bilirubin AST 22 ALT 10 Alkaline Phosphatase 78 Total Protein 6.9 Albumin 4.4 Triglycerides 100 Cholesterol 183 LDL Cholesterol, Calc 122 H HDL Cholesterol 41 Urine Color Urine Appearance Urine pH Ur Specific [place] Urine Protein Urine Glucose (UA) Urine Ketones Urine Blood Urine Nitrite Ur Leukocyte Esterase Urine RBC Urine WBC Ur Squamous Epith Cells Urine Bacteria Hyaline Casts Urine Opiates Screen Urine Fentanyl Screen Ur Barbiturates Screen Valproic Acid Ur Phencyclidine Scrn Ur Amphetamines Screen U Benzodiazepines Scrn Urine Cocaine Screen U Marijuana (THC) Screen Ethyl Alcohol COVID-19 (CECI) COVID-19 Clin Com DS: Summary Hospital Course Hospital Course: Subjective Notes: [place] Warning (given and shows understanding) and Conditional Voluntary Narrative: Mr. Conrad is a 42 year-old male with hx of Bipolar Disorder. He was brought on a section 12a after ex-girlfriend called 911 due to patient presenting as increasingly more agitated after argument with ex-GF, banging his head. Per report, pt agreed with ex-GF calling the police to bring him to the hospital to cool off. Per crisis, when police arrive he threw fan, and attempted to brain picker a couch to throw it at his GF. In the ED, his utox is positive for THC. Mr. Conrad is known to this sba underwriter through previous admission with similar presentation. On the unit, pt presents as cooperative. He reports he had panic attack. He reports he is going through a lot of distress related to having a teenager at home. He also reports ongoing conflict with ex GF. He reports he is not able to afford moving out of the home for financial reasons. He denies SI/HI. He denies VH/AH. He denies symptoms of depression or anxiety. He reports recent change in depakote. He reports he was taking medication. Past Psychiatric History: [place] [facility] [place] than 10. [facility] [place] [facility] Daniel Mcclelland (therapist); Oniel Douglas Past med trials: prozac (caused manic sx), depakote, latuda, temazepam, seroquel suicide attempt: reports more than 10 years ago but I don't remember what happened Medical Evaluation Reviewed: Yes cbc mostly unremarkable. CMP- BUN 11, Cr 1.17, utox positive for THC. VS stable. HOSPITAL COURSE On the unit, pt admitted on a CV and placed on 15 minutes checks for safety. Pt known to this sba underwriter through previous admission with similar presentation. He appears to have episodes of explosive behaviors but when arrives to the unit no overt psychosis or delusions. Pt showed some insight in that he asked to be sent to the hospital as he had lost control over his reaction. He was restarted on depakote 1000mg po BID, which was recently increase. We discussed risks, benefits and alternative treatment options. Pt reports he has been on antipsychotic medications such as seroquel and others but reports he is not interested in adding an antipsychotic for mood stabilization. We discussed adding beta chari to help with some of these impulsive/explosive behaviors, that a this time appear episodic. He denied suicidal or homicidal ideation. We also discussed effects of cannabis use on mood- however, pt reports he is not ready to stop using it. Time spent discussing smoking cessation with patient: 3 to 10 minutes Status at Discharge Cognitive/behavioral status at discharge: Pt with brighter, non labile affect. No SI/HI. No psychosis or delusions. Pt sleeping through the night. no signs of aggression towards self or others. Functional status at discharge: independent ambulation Overall status at discharge: patient is progressing back to baseline Time Spent with Patient Time attestation: Total time managing care of this patient today ____ minutes. Discharge Plan Discharge Anticipated Discharge Date/Time: 09/03/23 09:40 Patient Disposition: Home, Self-Care Discharge Diagnosis: Bipolar Disorder Referrals: Physician,Unknown J [Primary Care Provider] - 1 Week Discharge Medications: New propranolol 60 mg Capsule,Extended Release 24 Hr 60 mg PO DAILY Qty: 30 0RF Protocol: Hold for SBP/HR < HOLD for SBP < : 90 HOLD for HR < : 60 nicotine 21 mg/24 hr Patch 24 Hour 21 mg transdermal DAILY Qty: 30 0RF divalproex 500 mg Tablet,Delayed Release (Dr/Ec) 1,000 mg PO BID Qty: 0 0RF Continued lorazepam 1 mg tablet 1 mg PO BID PRN (Reason: Anxiety) Discontinued divalproex 500 mg tablet,delayed release (DR/EC) 1,000 mg PO BID temazepam 30 mg capsule 30 mg PO DAILY PRN (Reason: Anxiety) Discharge Orders: Discharge Order (Routine); Ordered 09/03/23 Ordered By: Gregoria Hampton Diet: Regular diet Activity on Discharge: As tolerated Stand Alone Forms: Patient Portal Discharge page Care Plan Goals: 1. Maintain mood 2. No SI/HI 3. no aggression towards self or others Health Concerns: follow up with pcp Plan of Treatment: 1. Take medications as prescribed 2. Go to nearest ED or call 911 in event of emergency Assessment: pt with bright, non labile affect. No SI/HI. no psychosis or delusions. No aggression towards self or others.
== END 2023-09-03 10:30 | disposition home or self-care (01) | DRG 753 ==
LOC: HO.ED 10:51 → HO.PM5 19:09
PROVIDERS: Physician Assistant; Admitting Provider Psychiatry & Neurology Psychiatry; Emergency Provider Emergency Medicine; Visit Provider Psychiatry & Neurology Psychiatry
DX: F31.63 Bipolar disorder, current episode mixed, severe, without psychotic features (principal); G40.909 Epilepsy, unspecified, not intractable, without status epilepticus; F12.90 Cannabis use, unspecified, uncomplicated; Z20.822 Contact with and (suspected) exposure to COVID-19; Z79.899 Other long term (current) drug therapy
CPT/HCPCS: 36415; 80048; 80053; 80061; 80076; 80164; 80307; 81001; 81003; 83735; 85025; 87635; 99285; S9485

== ENCOUNTER → 2023-09-01 19:07 | Outpatient (BNV) | payer OTHER, SELFPAY | PROVIDERS: Admitting Provider Psychiatry & Neurology Psychiatry; Emergency Provider Emergency Medicine; Visit Provider Social Worker | DX: F31.63 Bipolar disorder, current episode mixed, severe, without psychotic features (principal); F12.90 Cannabis use, unspecified, uncomplicated; G40.909 Epilepsy, unspecified, not intractable, without status epilepticus | CPT/HCPCS: 90792; 99238 ==

== ENCOUNTER 2023-09-26 02:11 | Emergency (ER) | payer OTHER, SELFPAY ==
--- NOTE | 2023-09-26 | ECG_ITS ---
Test Reason : CHEST PAIN Blood Pressure : / mmHG Vent. Rate : 060 BPM Atrial Rate : 060 BPM P-R Int : 128 ms QRS Dur : 088 ms QT Int : 408 ms P-R-T Axes : 068 056 031 degrees QTc Int : 408 ms Normal sinus rhythm Nonspecific ST abnormality Inferior leads Abnormal ECG When compared with ECG of 17-MAR-2023 04:48, Nonspecific ST abnormality Inferior leads is new Referred By: Generic ED Physician Electronically Signed By:JOSE ALEJANDRO RANDOLPH MD
--- NOTE | ~2023-09-26 | XR_ITS ---
EXAMINATION: XR CHEST CLINICAL INFORMATION: Chest pain. COMPARISON: None available. TECHNIQUE: Frontal view of the chest was obtained. FINDINGS: No significant abnormality is noted involving the heart, lungs, mediastinum, bony thorax or soft tissues. XR/XR chest 1V IMPRESSION: Unremarkable examination.
[2023-09-26 02:24] VITALS: BP 130/88; PULSE 70; O2SAT 98
[2023-09-26 02:29] VITALS: BP 104/50; PULSE 70; RESP 16; TEMP 36.3; O2SAT 97; BMI 21.6
--- NOTE | 2023-09-26 02:49 | ED.ANXIETY ---
HPI - Anxiety General Chief Complaint: Anxiety Stated Complaint: anxiety Time Seen by Provider: 09/26/23 02:31 Source: patient and EMS Mode of arrival: EMS Limitations: no limitations History of Present Illness HPI narrative: 42-year-old male known history of anxiety has been having insomnia that triggered his anxiety patient felt anxious, felt the anterior chest wall Related Data Home Medications Medication Instructions Recorded Confirmed lorazepam 1 mg tablet 1 mg PO BID PRN Anxiety 09/01/23 09/01/23 Previous Rx's Medication Instructions Recorded divalproex 500 mg tablet,delayed 1,000 mg (2 x 500 mg) PO BID #0 09/03/23 release tabs nicotine 21 mg/24 hr daily 21 mg transdermal DAILY #30 ea 09/03/23 transdermal patch propranolol 60 mg capsule,24 60 mg PO DAILY #30 caps 09/03/23 hr,extended release Allergies Allergy/AdvReac Type Severity Reaction Status Date / Time lurasidone [From Latuda] AdvReac Shakiness Verified 03/15/23 13:46 [facility] Past Medical History Medical History (Updated 09/26/23 @ 04:46 by Maria Teresa Olivera MD) Cannabis use disorder Bipolar 1 disorder, mixed, severe Schizophrenia Social History Social History Household Members: Family Housing: Apartment Do you presently have visiting nurse or other home services: No Alcohol intake: current Alcohol intake frequency: holidays/special occasions only Patient Tobacco Use Status: Never used Tobacco Tobacco use type: Cigarette Cigarettes Per Day: 5 Years Smoked: 20 Smoked in Last 30 Days: Yes Substance Use Type: Marijuana Advance Directives: No Advance Directives Information Provided: No service: No Sexual orientation: Straight/Heterosexual Physical Exam Vital Signs: Vital Signs: Last Vital Signs Temp 98.6 F 09/26/23 03:57 Pulse 76 09/26/23 03:57 Resp 17 09/26/23 03:57 BP 127/49 L 09/26/23 03:57 Pulse Ox 99 09/26/23 03:57 O2 Del Method Room Air 09/26/23 03:57 BMI result Body Mass Index 21.6 Vital signs have been reviewed and appear to be correct. Blood pressure elevated. Heart rate normal. Respiratory rate normal. Temperature normal. Oxygen saturation normal. Appearance: anxious, Alert. Oriented X3. No acute distress. Head: Normal external exam. Normocephalic. Atraumatic. No Henriquez signs noted. No raccoon eyes noted Eyes: PERRLA. EOMI. Conjunctiva and sclera normal. Eyelids normal. ENT: TM's Normal. Pharynx normal. Uvula midline. Moist mucous membranes. No trismus noted. No drooling noted. No muffled voice noted. Neck: Normal inspection. Neck supple. FROM. No adenopathy. Thyroid Normal. No meningeal signs. No neck mass noted. CVS: Normal heart rate and rhythm. Heart sound normal. No murmurs noted. Pulses normal throughout. Respiratory: No respiratory distress. Painless inspiration. Breath sounds normal. No wheezes/rales/rhonchi noted. Chest nontender. No accessory muscle usage noted or decreased air movement noted. Abdomen: Soft and nontender. Bowel sounds normal in all 4 quadrants. No distention noted. No organomegaly noted. No visible injury noted. Back: No CVA tenderness. Full range of motion noted. Skin: Skin warm and dry. Normal skin color. Normal skin turgor. No rashes/lesions/lacerations noted. Extremities: No lower extremity edema. Extremities exhibit normal range of motion. Extremities nontender. Neuro: Oriented X 3. Cranial nerve exam: II-XII are grossly intact No motor deficit. No sensory deficit. Reflexes normal. Course Reevaluation(s) Reevaluation #1: chest pain due to anxiety, patient has no symptoms now. Unremarkable workup in the ED. Time: 04:46 Medications Administered Discontinued Medications Generic Name Dose Route Start Last Admin Trade Name Freq PRN Reason Stop Dose Admin Lorazepam 1 mg 09/26/23 02:48 09/26/23 03:05 Lorazepam 1 Mg Tablet PO 09/26/23 02:49 1 mg ONCE ONE Administration Medical Decision Making Differential Diagnosis Differential Diagnoses: The differential diagnosis associated with the presentation includes ( anxiety, ACS, pleural effusion, pneumonia, pneumothorax, electrolyte abnormality, severe anemia.) Admission/Observation Consideration of admission/observation: Escalation of care including admission/observation considered Lab Data MDM Lab Attestation statement: I reviewed the patient's lab results. 09/26/23 02:59 09/26/23 02:59 Labs: Lab Results 09/26/23 Range/Units 02:59 WBC 5.1 (4.8-10.8) X10*3/uL RBC 4.00 L (4.60-5.80) X10*6/uL Hgb 13.3 L (14.0-18.0) g/dl Hct 38.6 L (42.0-52.0) % MCV 96.5 (80.0-98.0) fL MCH 33.3 H (27.0-33.0) pg MCHC 34.5 (31.0-36.0) g/dl RDW 14.4 (11.0-16.0) % Plt Count 212 (160-400) X10*3/uL MPV 11.1 (9.4-12.4) fL Immature Gran % (Auto) 0.2 (0.0-0.4) % Neut % (Auto) 38.3 L (45-73) % Lymph % (Auto) 46.5 H (20-40) % [place] % (Auto) 12.0 H (2-11) % Eos % (Auto) 2.4 (0-4) % Baso % (Auto) 0.6 (0-2) % Lymph # (Auto) 2.4 (1.2-4.9) X10*3/uL [place] # (Auto) 0.6 (0.1-1.2) X10*3/uL Eos # (Auto) 0.1 (0.0-0.4) X10*3/uL Baso # (Auto) 0.0 (0.0-0.2) X10*3/uL Abs Immat Gran (auto) 0.01 (0.00-0.03) X10*3/uL Absolute Neuts (auto) 1.9 L (2.0-8.3) x10*3/uL Absolute Nucleated RBC 0.000 (0.0-0.012) X10*3/uL Nucleated RBC % (auto) 0.0 (0.0-0.2) /100WBC Sodium 142 (135-145) mmol/L Potassium 4.2 (3.3-5.1) mmol/L Chloride 113 H (96-108) mmol/L Carbon Dioxide 24 (22-29) mmol/L Anion Gap 9 L (12-20) BUN 20 H (9-16) mg/dL Creatinine 0.96 (0.5-1.4) mg/dL Estim Creat Clear Calc 85.3 Estimated GFR > 60 Random Glucose 96 (60-115) mg/dL Calcium 8.4 D (8.4-10.2) mg/dL Troponin I High Sens < 2.7 D (<3.5-35.0) ng/L Independent Interpretation I performed an independent interpretation of an: EKG ( Normal sinus rhythm at 60 beats per minute, normal axis deviation, normal intervals, no ST-T changes , no changes from previous EKG.) and Plain X-Ray ( Chest: No acute intrathoracic pathology.) Radiology Impression Discussion of test interpretation with radiology: I have reviewed the radiologist's reading. Scores Heart Score History: -0- slightly suspicious ECG: -0- normal Age: -0- < or = 45 Risk factory: -0- no risk factors known Troponin: -0- < or = normal limit Score: 0 Risk: 1.7% Discharge Plan Discharge Clinical Impression: Acute anxiety Patient Disposition: Home, Self-Care Instructions: Anxiety (ED) Prescriptions: No Action lorazepam 1 mg tablet 1 mg PO BID PRN (Reason: Anxiety) propranolol 60 mg Capsule,Extended Release 24 Hr 60 mg PO DAILY Qty: 30 0RF Protocol: Hold for SBP/HR < HOLD for SBP < : 90 HOLD for HR < : 60 divalproex 500 mg Tablet,Delayed Release (Dr/Ec) 1,000 mg PO BID Qty: 0 0RF nicotine 21 mg/24 hr Patch 24 Hour 21 mg transdermal DAILY Qty: 30 0RF
[2023-09-26 03:04] LABS: MANUAL DIFF FLAG NO
[2023-09-26 03:05] LABS: Basophils Percent Auto 0.6 % (0-2); Eosinophils Absolute Auto 0.1 X10*3/uL (0.0-0.4); Eosinophils Percent Auto 2.4 % (0-4); Hematocrit 38.6 % (42.0-52.0); Hemoglobin 13.3 g/dl (14.0-18.0); Imm Gran Abs Auto 0.01 X10*3/uL (0.00-0.03); Imm Gran Pct Auto 0.2 % (0.0-0.4); Lymphocytes Absolute Auto 2.4 X10*3/uL (1.2-4.9); Lymphocytes Percent Auto 46.5 % (20-40); Mean Corpuscular HGB Conc 34.5 g/dl (31.0-36.0); Mean Corpuscular Hemoglobin 33.3 pg (27.0-33.0); Mean Corpuscular Volume 96.5 fL (80.0-98.0); Mean Platelet Volume 11.1 fL (9.4-12.4); Monocytes Absolute Auto 0.6 X10*3/uL (0.1-1.2); Neutrophils Absolute Auto 1.9 x10*3/uL (2.0-8.3); Neutrophils Percent Auto 38.3 % (45-73); Platelet Count 212 X10*3/uL (160-400); Red Cell Distribution Width 14.4 % (11.0-16.0); White Blood Count 5.1 X10*3/uL (4.8-10.8)
[2023-09-26] MEDS: LORazepam 1 MG TABLET PO (03:05)
--- NOTE | 2023-09-26 03:08 | PC.NURSE ---
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 pt placed on bedside monitor, medicated per Jan.
[2023-09-26 03:17] LABS: Anion Gap 9 (12-20); Blood Urea Nitrogen 20 mg/dL (9-16); Calcium 8.4 mg/dL (8.4-10.2); Carbon Dioxide 24 mmol/L (22-29); Chloride 113 mmol/L (96-108); Creatinine Clr Calc Pharmacy 85.3; Estimated Glomerular Filt Rate > 60; Glucose Random 96 mg/dL (60-115); Potassium 4.2 mmol/L (3.3-5.1); Sodium 142 mmol/L (135-145)
[2023-09-26 03:27] LABS: Troponin-I High Sensitivity < 2.7 ng/L (<3.5-35.0)
[2023-09-26 03:57] VITALS: BP 127/49; PULSE 76; RESP 17; TEMP 37; O2SAT 99
[2023-09-26 04:48] VITALS: BP 122/48; PULSE 75; RESP 17; TEMP 36.4; O2SAT 98
--- NOTE | 2023-09-26 04:52 | PC.NURSE ---
Reviewed discharge instruction with pt. pt verbalized understanding.
== END 2023-09-26 04:52 | disposition home or self-care (01) ==
PROVIDERS: Emergency Provider Emergency Medicine
DX: F41.1 Generalized anxiety disorder (principal); F43.0 Acute stress reaction; R07.89 Other chest pain; G47.00 Insomnia, unspecified; F17.210 Nicotine dependence, cigarettes, uncomplicated; Z71.6 Tobacco abuse counseling
CPT/HCPCS: 36415; 71045; 80048; 84484; 85025; 93005; 99283; 99285

== ENCOUNTER 2023-11-05 17:09 | Emergency (ER) | payer OTHER, SELFPAY ==
[2023-11-05 17:14] VITALS: BP 118/86; PULSE 88; O2SAT 98
[2023-11-05 17:18] VITALS: BP 121/82; PULSE 86; RESP 16; TEMP 36.5; O2SAT 98; BMI 21.8
--- NOTE | 2023-11-05 17:21 | ECG_ITS ---
Test Reason : ABD PAIN Blood Pressure : / mmHG Vent. Rate : 066 BPM Atrial Rate : 066 BPM P-R Int : 134 ms QRS Dur : 088 ms QT Int : 386 ms P-R-T Axes : 081 059 052 degrees QTc Int : 404 ms Normal sinus rhythm with sinus arrhythmia Normal ECG When compared with ECG of 26-SEP-2023 02:29, No significant change was found Referred By: Eliane Geiger Electronically Signed By:Deejay Pérez
--- NOTE | 2023-11-05 17:22 | ED.PSYCH ---
HPI - Psych General Chief Complaint: Abdominal Pain Stated Complaint: MANIC EPISODE,ABD PAIN Time Seen by Provider: 11/05/23 17:11 Source: patient Mode of arrival: EMS Limitations: no limitations History of Present Illness HPI Narrative: patient comes to the emergency room via ambulance from home. Patient complaining of a manic episode and abdominal pain since this morning. patient states that he vomited 1 time prior to arrival. No diarrhea. No dysuria or hematuria. Patient states he is compliant with divalproex. Patient denies any fever or chills, no vomiting or diarrhea. EMS reports that patient was found in position, and a full-blown manic episode which she has had in the past. Patient's girlfriend called 911. On arrival, patient complaining of achy abdominal pain, states that mentally he feels better. Denies suicidal or homicidal ideation Related Data Home Medications Medication Instructions Recorded Confirmed lorazepam 1 mg tablet 1 mg PO BID PRN Anxiety 09/01/23 09/01/23 Previous Rx's Medication Instructions Recorded divalproex 500 mg tablet,delayed 1,000 mg (2 x 500 mg) PO BID #0 09/03/23 release tabs nicotine 21 mg/24 hr daily 21 mg transdermal DAILY #30 ea 09/03/23 transdermal patch propranolol 60 mg capsule,24 60 mg PO DAILY #30 caps 09/03/23 hr,extended release Allergies Allergy/AdvReac Type Severity Reaction Status Date / Time lurasidone [From Latuda] AdvReac Shakiness Verified 03/15/23 13:46 Review of Systems Review of Systems: Constitutional : No Weight loss, No Fever, No Chills, No Night Sweats, No Fatigue, No Malaise ENT/Mouth : No Hearing loss, No Ear Pain, No Nasal Congestion, No Sinus Pain, No Hoarseness, No sore throat, No Rhinorrhea, No Swallowing Difficulty Eyes: No Eye Pain, No Swelling, No Redness, No Foreign Body, No Discharge, No Vision Changes Cardiovascular : No Chest Pain, No SOB, No Dyspnea on Exertion, No Orthopnea, No Edema, No Palpitations Respiratory : No Cough, No Sputum, No Wheezing, No Smoke Exposure, No Dyspnea Gastrointestinal : No Nausea, No Vomiting, No Diarrhea, No Constipation, No abdominal Pain, No Hematochezia, No Melena Genitourinary : no irregular bleeding, No Dysuria, No Urinary Frequency, No Hematuria, No Urinary Incontinence, No Urgency, No Flank Pain, No Urinary Flow Changes, No Hesitancy Musculoskeletal : No joint pain, No Myalgias, No Joint Swelling Skin : No Skin Lesions, No rash Neuro : No Weakness, No Numbness, No Paresthesias, No Loss of Consciousness, No Dizziness, No Headache Psych : No Anxiety/Panic, No Depression, No SI/HI/AH/VH, No Social Issues, Heme/Lymph: No Bruising, No Bleeding,No Lymphadenopathy Endocrine : No Polyuria, No Polydipsia, No Temperature Intolerance [facility] Past Medical History Medical History (Updated 11/05/23 @ 18:10 by Eliane Geiger MD) Cannabis use disorder Bipolar 1 disorder, mixed, severe Schizophrenia Social History Social History Household Members: Family Housing: Apartment Do you presently have visiting nurse or other home services: No Alcohol intake: former Comment: Dr. Vasquez Patient Tobacco Use Status: Never used Tobacco Tobacco use type: Cigarette Cigarettes Per Day: 5 Years Smoked: 20 Smoked in Last 30 Days: Yes Use of substances other than those prescribed or required for medical reasons: No Substance Use Type: Marijuana Advance Directives: No Advance Directives Information Provided: No service: No Sexual orientation: Straight/Heterosexual Physical Exam Vital Signs: Vital Signs: Last Vital Signs Temp 97.7 F 11/05/23 17:18 Pulse 86 11/05/23 17:18 Resp 16 11/05/23 17:18 BP 121/82 11/05/23 17:18 Pulse Ox 98 11/05/23 17:18 O2 Del Method Room Air 11/05/23 17:18 BMI result Body Mass Index 21.8 Const: Other: Appearance: Alert. Oriented X3. No acute distress. Eyes: Pupils equal, round and reactive to light. ENT: Pharynx normal. Neck: Normal inspection. Neck supple. No lymph nodes noted. No crepitus CVS: Normal heart rate and rhythm. Pulses normal. Normal S1 and S2 Respiratory: No respiratory distress. Breath sounds normal. No Wheezing. No rales Abdomen: Soft and nontender. No rigidity. No distention. Skin: Skin warm and dry. Normal skin color. Normal skin turgor. Extremities: No lower extremity edema. No Lacerations. No Rash Neuro: Oriented X 3. No motor deficit. No sensory deficit. Moving all extremities. No slurred speech. CN 2 through 12 grossly intact Psych: calm, cooperative, normal affect Course Course Course Narrative: - all of patient's labs pending - at this time, patient states that his abdominal pain is nearly resolved, still having mild achy pain - denies SI or HI - care team consult will be requested after patient is medically cleared Medical Decision Making Medical Decision Making [facility] Narrative: -my interpretation of labs: Hematology and chemistry at baseline. Negative for EtOH. Urinalysis and drugs of abuse pending. -care team consult pending Differential Diagnosis Differential Diagnoses: The differential diagnosis associated with the presentation includes (Anxiety, GERD, dyspepsia, manic episode) Admission/Observation Consideration of admission/observation: Escalation of care including admission/observation considered (Patient will be under observation in the [facility] pod, care team consult pending) Lab Data [facility] Lab Attestation statement: I reviewed the patient's lab results. 11/05/23 17:42 11/05/23 17:42 Labs: Lab Results 11/05/23 Range/Units 17:42 WBC 6.6 (4.8-10.8) X10*3/uL RBC 4.55 L (4.60-5.80) X10*6/uL Hgb 15.1 (14.0-18.0) g/dl Hct 42.7 (42.0-52.0) % MCV 93.8 (80.0-98.0) fL MCH 33.2 H (27.0-33.0) pg MCHC 35.4 (31.0-36.0) g/dl RDW 14.4 (11.0-16.0) % Plt Count 265 (160-400) X10*3/uL MPV 10.6 (9.4-12.4) fL Immature Gran % (Auto) 0.3 (0.0-0.4) % Neut % (Auto) 67.0 (45-73) % Lymph % (Auto) 25.4 (20-40) % [place] % (Auto) 6.5 (2-11) % Eos % (Auto) 0.2 (0-4) % Baso % (Auto) 0.6 (0-2) % Lymph # (Auto) 1.7 (1.2-4.9) X10*3/uL [place] # (Auto) 0.4 (0.1-1.2) X10*3/uL Eos # (Auto) 0.0 (0.0-0.4) X10*3/uL Baso # (Auto) 0.0 (0.0-0.2) X10*3/uL Abs Immat Gran (auto) 0.02 (0.00-0.03) X10*3/uL Absolute Neuts (auto) 4.4 (2.0-8.3) x10*3/uL Absolute Nucleated RBC 0.000 (0.0-0.012) X10*3/uL Nucleated RBC % (auto) 0.0 (0.0-0.2) /100WBC Sodium 143 (135-145) mmol/L Potassium 3.7 (3.3-5.1) mmol/L Chloride 109 H (96-108) mmol/L Carbon Dioxide 25 (22-29) mmol/L Anion Gap 13 (12-20) BUN 13 (9-16) mg/dL Creatinine 1.33 (0.5-1.4) mg/dL Estim Creat Clear Calc 61.4 Estimated GFR 59 Random Glucose 79 (60-115) mg/dL Calcium 10.1 D (8.4-10.2) mg/dL Total Bilirubin 0.6 (0.0-1.0) mg/dL Direct Bilirubin 0.2 (0.0-0.5) mg/dL AST 20 (5-37) U/L ALT 8 (0-40) U/L Alkaline Phosphatase 80 (39-117) U/L Total Protein 7.7 (6.5-8.0) g/dL Albumin 4.4 (3.5-5.0) g/dL Lipase 13 (8-78) U/L Ethyl Alcohol < 10 mg/dL Discharge Plan Discharge Clinical Impression: Bipolar 1 disorder, mixed, severe, Abdominal pain Patient Disposition: Still a Patient Prescriptions: No Action lorazepam 1 mg tablet 1 mg PO BID PRN (Reason: Anxiety) propranolol 60 mg Capsule,Extended Release 24 Hr 60 mg PO DAILY Qty: 30 0RF Protocol: Hold for SBP/HR < HOLD for SBP < : 90 HOLD for HR < : 60 divalproex 500 mg Tablet,Delayed Release (Dr/Ec) 1,000 mg PO BID Qty: 0 0RF nicotine 21 mg/24 hr Patch 24 Hour 21 mg transdermal DAILY Qty: 30 0RF
[2023-11-05 17:47] LABS: MANUAL DIFF FLAG NO
[2023-11-05 17:48] LABS: Basophils Percent Auto 0.6 % (0-2); Eosinophils Percent Auto 0.2 % (0-4); Hematocrit 42.7 % (42.0-52.0); Hemoglobin 15.1 g/dl (14.0-18.0); Imm Gran Abs Auto 0.02 X10*3/uL (0.00-0.03); Imm Gran Pct Auto 0.3 % (0.0-0.4); Lymphocytes Absolute Auto 1.7 X10*3/uL (1.2-4.9); Lymphocytes Percent Auto 25.4 % (20-40); Mean Corpuscular HGB Conc 35.4 g/dl (31.0-36.0); Mean Corpuscular Hemoglobin 33.2 pg (27.0-33.0); Mean Corpuscular Volume 93.8 fL (80.0-98.0); Mean Platelet Volume 10.6 fL (9.4-12.4); Monocytes Absolute Auto 0.4 X10*3/uL (0.1-1.2); Monocytes Percent Auto 6.5 % (2-11); Neutrophils Absolute Auto 4.4 x10*3/uL (2.0-8.3); Platelet Count 265 X10*3/uL (160-400); Red Blood Count 4.55 X10*6/uL (4.60-5.80); Red Cell Distribution Width 14.4 % (11.0-16.0); White Blood Count 6.6 X10*3/uL (4.8-10.8)
[2023-11-05 17:59] LABS: Ethanol < 10 mg/dL
[2023-11-05 18:01] LABS: Alanine Aminotransferase 8 U/L (0-40); Albumin Level 4.4 g/dL (3.5-5.0); Alkaline Phosphatase 80 U/L (39-117); Anion Gap 13 (12-20); Aspartate Amino Transferase 20 U/L (5-37); Bilirubin Direct 0.2 mg/dL (0.0-0.5); Bilirubin Total 0.6 mg/dL (0.0-1.0); Blood Urea Nitrogen 13 mg/dL (9-16); Calcium 10.1 mg/dL (8.4-10.2); Carbon Dioxide 25 mmol/L (22-29); Chloride 109 mmol/L (96-108); Creatinine Clr Calc Pharmacy 61.4; Estimated Glomerular Filt Rate 59; Glucose Random 79 mg/dL (60-115); Lipase 13 U/L (8-78); Potassium 3.7 mmol/L (3.3-5.1); Sodium 143 mmol/L (135-145); Total Protein 7.7 g/dL (6.5-8.0)
--- NOTE | 2023-11-05 19:19 | PC.NURSE ---
care assumed of patient at this time; urine sample obtained; food requested, snack provided.
[2023-11-05 19:20] LABS: Appearance Urine Cloudy; Color Urine Dark Yellow; Glucose Urine UA Negative (Negative); Leukocyte Esterase Urine Trace (Negative); Nitrite Urine Negative (Negative); PH 5.5 (5.0-9.0); Specific Gravity - Urine >= 1.030 (1.005-1.025); UMIC TRIGGER UACC YES; Urine Blood Negative (Negative); Urine Ketones Trace mg/dL (Negative); Urine Protein 300 (3+) mg/dL (Neg-Trace)
[2023-11-05 19:24] LABS: Amphetamine Screen Urine Not Detected (Not Detect); Barbiturates, Urine Not Detected (Not Detect); Benzodiazepines Screen Urine Not Detected (Not Detect); Cannabinoid Screen Urine POSITIVE (Not Detect); Cocaine Screen Urine Not Detected (Not Detect); Fentanyl, urine Not Detected (Not Detect); Opiate Screen Urine Not Detected (Not Detect); Phencyclidine Screen Urine Not Detected (Not Detect)
[2023-11-05 19:27] LABS: Bacteria Urine 1+ (None Seen); Granular Casts Urine Present; RBC Urine 0-2 /HPF (0-2); UACC Culture Trigger YES
[2023-11-05 21:07] VITALS: BP 127/72; PULSE 61; RESP 14; TEMP 36.4; O2SAT 97
[2023-11-06] MEDS: LORazepam 1 MG TABLET PO (00:27)
[2023-11-06] MEDS: Temazepam 15 MG CAPSULE 30 MG PO (00:27)
[2023-11-06] MEDS: Divalproex Sodium 500 MG TABLET.DR 1000 MG PO ×2 (00:27→09:54)
[2023-11-06 00:39] VITALS: BP 111/62; PULSE 65; RESP 14; TEMP 36.7; O2SAT 98
--- NOTE | 2023-11-06 06:46 | MHC.EDTECH ---
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
--- NOTE | 2023-11-06 09:06 | PC.NURSE ---
pt seen by Cata from Care Team, cleared and is now Case Management.
--- NOTE | 2023-11-06 11:30 | MHC.CM.PN ---
Addendum entered by Hellen Pearl 11/06/23 12:12: [facility] Packet sent Addendum entered by Hellen Pearl 11/06/23 11:54: [facility] has accepted the patient for Medication management at home. A Face 2 Face and ER summary have been requested by the [facility]. The provider has been updated. Original Note: A text was received from [employer]. Patient does not qualify for INPT psych. Patient issue r/t medication compliance per Joannet. Met with the patient in ER#9. He was pleasant and cooperative. He states that he forgets to take his meds at times. He is agreeable to [facility] services at home for medication management. he did not have a preference of home care agencies. Referrals were sent to agencies that provide daily med management. [facility] in process of BH review. [facility] pending acceptance by [facility]. DP home with Med management and S.O. support. Patient will arrange for a ride home.
[2023-11-06 11:33] VITALS: BP 113/64; PULSE 81; RESP 20; TEMP 36.6; O2SAT 99
== END 2023-11-06 12:15 | disposition home or self-care (01) ==
PROVIDERS: Emergency Provider Emergency Medicine; PCP Internal Medicine
DX: F31.63 Bipolar disorder, current episode mixed, severe, without psychotic features (principal); R10.9 Unspecified abdominal pain; F20.9 Schizophrenia, unspecified; F12.90 Cannabis use, unspecified, uncomplicated; F17.210 Nicotine dependence, cigarettes, uncomplicated; Z79.899 Other long term (current) drug therapy
CPT/HCPCS: 36415; 80048; 80076; 80307; 81001; 83690; 85025; 87086; 93005; 99284; 99285; S9485

== ENCOUNTER → 2023-11-05 17:21 | Outpatient (BNV) | payer OTHER, SELFPAY | PROVIDERS: Emergency Provider Emergency Medicine; Visit Provider Internal Medicine Cardiovascular Disease | DX: R10.9 Unspecified abdominal pain (principal) | CPT/HCPCS: 93010 ==

== ENCOUNTER 2023-12-05 00:24 | Emergency (ER) | payer OTHER, SELFPAY ==
[2023-12-05 00:29] VITALS: BP 125/78; PULSE 89; RESP 17; TEMP 36.3; O2SAT 97
[2023-12-05 00:32] VITALS: BP 112/84; PULSE 90; O2SAT 98; BMI 22.4
--- NOTE | 2023-12-05 00:36 | ECG_ITS ---
Test Reason : CHEST PAIN Blood Pressure : / mmHG Vent. Rate : 082 BPM Atrial Rate : 082 BPM P-R Int : 128 ms QRS Dur : 086 ms QT Int : 354 ms P-R-T Axes : 076 057 035 degrees QTc Int : 413 ms Normal sinus rhythm Early Repolarization Otherwise normal ECG When compared with ECG of 05-NOV-2023 17:48, No significant change was found Referred By: Generic ED Physician Electronically Signed By:CELIA BURK
--- NOTE | 2023-12-05 00:48 | ED_ITS ---
HPI - Anxiety General Chief Complaint: Psychiatric Symptoms Stated Complaint: ANXIETY Time Seen by Provider: 12/05/23 00:40 Source: patient Mode of arrival: EMS Limitations: no limitations History of Present Illness HPI narrative: 43-year-old male with history of bipolar 1 disorder, seizure disorder, anxiety who presents to the emergency department for evaluation of panic attack. Patient states he has been having panic attacks on and off for the past 2 weeks. He states that prior to coming to the emergency department he developed a panic attack. He describes it as feeling very anxious, chest tightness, lightheadedness, and headache. He states that he does take medications including Depakote, lorazepam and temazepam he states that these are not helping. He states he has been under increased stress secondary to ?a moving situation ?. He denies being suicidal or homicidal but he states that he has tried to hurt himself in the past. He is concerned about the frequency of his panic attacks and would like to talk to care team. Related Data Home Medications Medication Instructions Recorded Confirmed lorazepam 1 mg tablet 1 mg PO BID PRN Anxiety 09/01/23 11/05/23 temazepam 30 mg capsule 30 mg PO BEDTIME 11/05/23 11/05/23 Previous Rx's Medication Instructions Recorded divalproex 500 mg tablet,delayed 1,000 mg (2 x 500 mg) PO BID #0 09/03/23 release tabs Allergies Allergy/AdvReac Type Severity Reaction Status Date / Time lurasidone [From Latuda] AdvReac Shakiness Verified 03/15/23 13:46 [facility] Past Medical History [facility] Narrative: Past medical history: Bipolar disorder come anxiety. Social history: He does smoke cigarettes. He occasionally drinks alcohol. He smokes marijuana. Onset Date is defined in the Problem List Problems that require an onset date and time if occurred within 24 hrs of arrival to the ED Aortic Dissection and Rupture; Neurologic impairment; Cardiopulmonary Arrest; Endotracheal Intubation; Insertion or Replacement of Mechanical Circulatory Assist Device Medical History (Updated 12/05/23 @ 06:49 by Lamont Hayward MD) Cannabis use disorder Bipolar 1 disorder, mixed, severe Schizophrenia Social History Social History Household Members: Family Housing: Apartment Do you presently have visiting nurse or other home services: No Alcohol intake: former Comment: Dr. Vasquez Patient Tobacco Use Status: Never used Tobacco Tobacco use type: Cigarette Cigarettes Per Day: 5 Years Smoked: 20 Smoked in Last 30 Days: No Use of substances other than those prescribed or required for medical reasons: Yes Substance Use Type: Marijuana Advance Directives: No Advance Directives Information Provided: No service: No Sexual orientation: Straight/Heterosexual Physical Exam 2 Vital Signs: Vital Signs: Last Vital Signs Temp 97.7 F 12/05/23 05:50 Pulse 73 12/05/23 05:50 Resp 16 12/05/23 05:50 BP 104/54 L 12/05/23 05:50 Pulse Ox 98 12/05/23 05:50 O2 Del Method Room Air 12/05/23 05:50 BMI result Body Mass Index 22.4 Vital signs were normal Exam: General: Awake, alert in no distress, patient appears anxious Head: Normocephalic, atraumatic EENT: PERRL, Lids normal, sclera normal, conjunctiva normal, nose normal , ears normal, throat without erythema or exudates Neck: Supple, no adenopathy, no trachea midline or C-spine tenderness Lung: breath sounds symmetric, no wheezing, rales or rhonchi Chest: symmetric movement, nontender Heart: regular rate and rhythm, normal S1, S2 no murmurs or rubs Abdomen: soft, non-tender, nondistended, normal bowel sounds Back: no vertebral tenderness, no CVAT Extremities: no deformities, moves all extremities symmetrically Neuro: Awake, alert, oriented, normal speech, cranial nerves intact, moves all extremities symmetrically Psych: Pleasant, cooperative, anxious Medications Administered Discontinued Medications Generic Name Dose Route Start Last Admin Trade Name Freq PRN Reason Stop Dose Admin Lorazepam 2 mg 12/05/23 00:46 12/05/23 01:11 Lorazepam 1 Mg Tablet PO 12/05/23 00:47 2 mg ONCE STA Administration Medical Decision Making Medical Decision Making MDM Narrative: 43-year-old male with history of bipolar 1 disorder, seizure disorder, anxiety who presents to the emergency department for evaluation of panic attack. Patient states he has been compliant with his medications but despite that he has had frequent panic attacks over the past 2 weeks, he states that he is under increased stress secondary to moving. He denied being suicidal or homicidal. Vital signs were normal. Patient did appear to be anxious otherwise exam was unremarkable. Following evaluation was ordered: CBC, CMP, ethanol level, urine drug screen, troponin, EKG Patient was treated with the following medications: Lorazepam 2 mg orally 06:46 Start physician observation: My independent interpretation patient's laboratory evaluation is as follows: CBC was normal. CMP was normal. High sensitive troponin I was below detectable limits. Urine tox screen was positive for marijuana. Ethanol was below detectable limits. Patient is medically cleared for care team evaluation Patient will be placed in physician observation until disposition can be determined. At the end of my shift, patient's care was turned over to my colleague, Dr. Olivera. Differential Diagnosis Differential Diagnoses: The differential diagnosis associated with the presentation includes Differential diagnosis includes was not limited to panic attack, anxiety, substance use disorder, anemia, electrolyte abnormalities Admission/Observation Consideration of admission/observation: Escalation of care including admission/observation considered Lab Data MDM Lab Attestation statement: I reviewed the patient's lab results. 12/05/23 01:10 12/05/23 01:10 Labs: Lab Results 12/05/23 Range/Units 01:10 WBC 6.8 (4.8-10.8) X10*3/uL RBC 4.13 L (4.60-5.80) X10*6/uL Hgb 13.7 L (14.0-18.0) g/dl Hct 39.4 L (42.0-52.0) % MCV 95.4 (80.0-98.0) fL MCH 33.2 H (27.0-33.0) pg MCHC 34.8 (31.0-36.0) g/dl RDW 14.1 (11.0-16.0) % Plt Count 269 (160-400) X10*3/uL MPV 10.9 (9.4-12.4) fL Immature Gran % (Auto) 0.3 (0.0-0.4) % Neut % (Auto) 37.9 L (45-73) % Lymph % (Auto) 53.7 H (20-40) % Barry % (Auto) 5.9 (2-11) % Eos % (Auto) 1.6 (0-4) % Baso % (Auto) 0.6 (0-2) % Lymph # (Auto) 3.7 (1.2-4.9) X10*3/uL Barry # (Auto) 0.4 (0.1-1.2) X10*3/uL Eos # (Auto) 0.1 (0.0-0.4) X10*3/uL Baso # (Auto) 0.0 (0.0-0.2) X10*3/uL Abs Immat Gran (auto) 0.02 (0.00-0.03) X10*3/uL Absolute Neuts (auto) 2.6 (2.0-8.3) x10*3/uL Absolute Nucleated RBC 0.000 (0.0-0.012) X10*3/uL Nucleated RBC % (auto) 0.0 (0.0-0.2) /100WBC Sodium 143 (135-145) mmol/L Potassium 3.9 (3.3-5.1) mmol/L Chloride 109 H (96-108) mmol/L Carbon Dioxide 25 (22-29) mmol/L Anion Gap 13 (12-20) BUN 11 (9-16) mg/dL Creatinine 0.94 (0.5-1.4) mg/dL Estim Creat Clear Calc 89.2 Estimated GFR > 60 Random Glucose 88 (60-115) mg/dL Calcium 8.9 D (8.4-10.2) mg/dL Total Bilirubin 0.2 (0.0-1.0) mg/dL AST 13 (5-37) U/L ALT 7 (0-40) U/L Alkaline Phosphatase 69 (39-117) U/L Troponin I High Sens < 2.7 (<3.5-35.0) ng/L Total Protein 6.6 (6.5-8.0) g/dL Albumin 3.7 (3.5-5.0) g/dL Urine Opiates Screen Not Detected (Not Detect) Urine Fentanyl Screen Not Detected (Not Detect) Ur Barbiturates Screen Not Detected (Not Detect) Ur Phencyclidine Scrn Not Detected (Not Detect) Ur Amphetamines Screen Not Detected (Not Detect) U Benzodiazepines Scrn Not Detected (Not Detect) Urine Cocaine Screen Not Detected (Not Detect) U Marijuana (THC) Screen POSITIVE H (Not Detect) Ethyl Alcohol < 10 mg/dL Independent Interpretation I performed an independent interpretation of an: EKG Interpretation: My independent interpretation patient's 12 EKG done at 00:50 hours is as follows: Normal sinus rhythm rate of 82, normal AK interval, QRS duration QTC interval, no ST segment elevation, no ST segment depression, no T-wave abnormalities-this is a normal EKG. Discharge Plan Discharge Clinical Impression: Panic attack, Anxiety Patient Disposition: Still a Patient Prescriptions: No Action lorazepam 1 mg tablet 1 mg PO BID PRN (Reason: Anxiety) divalproex 500 mg Tablet,Delayed Release (Dr/Ec) 1,000 mg PO BID Qty: 0 0RF temazepam 30 mg capsule 30 mg PO BEDTIME Interventions: [place]-Suicide Risk Severity Scale Last Done: 12/05/23 02:42
[2023-12-05] MEDS: LORazepam 1 MG TABLET 2 MG PO (01:11)
--- NOTE | 2023-12-05 01:15 | PC.NURSE ---
this rn assumed care of pt @ 0030 from ems. pt calm nad cooperative changed into hospital attired belongings placed in pod closet. pt placed on [employer] dean labs obtained ekg obtained. to bedside. pt denies SI/HI
[2023-12-05 01:16] LABS: Basophils Percent Auto 0.6 % (0-2); Eosinophils Absolute Auto 0.1 X10*3/uL (0.0-0.4); Eosinophils Percent Auto 1.6 % (0-4); Hematocrit 39.4 % (42.0-52.0); Hemoglobin 13.7 g/dl (14.0-18.0); Imm Gran Abs Auto 0.02 X10*3/uL (0.00-0.03); Imm Gran Pct Auto 0.3 % (0.0-0.4); Lymphocytes Absolute Auto 3.7 X10*3/uL (1.2-4.9); Lymphocytes Percent Auto 53.7 % (20-40); MANUAL DIFF FLAG NO; Mean Corpuscular HGB Conc 34.8 g/dl (31.0-36.0); Mean Corpuscular Hemoglobin 33.2 pg (27.0-33.0); Mean Corpuscular Volume 95.4 fL (80.0-98.0); Mean Platelet Volume 10.9 fL (9.4-12.4); Monocytes Absolute Auto 0.4 X10*3/uL (0.1-1.2); Monocytes Percent Auto 5.9 % (2-11); Neutrophils Absolute Auto 2.6 x10*3/uL (2.0-8.3); Neutrophils Percent Auto 37.9 % (45-73); Platelet Count 269 X10*3/uL (160-400); Red Blood Count 4.13 X10*6/uL (4.60-5.80); Red Cell Distribution Width 14.1 % (11.0-16.0); White Blood Count 6.8 X10*3/uL (4.8-10.8)
[2023-12-05 01:24] LABS: Amphetamine Screen Urine Not Detected (Not Detect); Barbiturates, Urine Not Detected (Not Detect); Benzodiazepines Screen Urine Not Detected (Not Detect); Cannabinoid Screen Urine POSITIVE (Not Detect); Cocaine Screen Urine Not Detected (Not Detect); Fentanyl, urine Not Detected (Not Detect); Opiate Screen Urine Not Detected (Not Detect); Phencyclidine Screen Urine Not Detected (Not Detect)
[2023-12-05 01:36] LABS: Alanine Aminotransferase 7 U/L (0-40); Albumin Level 3.7 g/dL (3.5-5.0); Alkaline Phosphatase 69 U/L (39-117); Anion Gap 13 (12-20); Aspartate Amino Transferase 13 U/L (5-37); Bilirubin Total 0.2 mg/dL (0.0-1.0); Blood Urea Nitrogen 11 mg/dL (9-16); Calcium 8.9 mg/dL (8.4-10.2); Carbon Dioxide 25 mmol/L (22-29); Chloride 109 mmol/L (96-108); Creatinine Clr Calc Pharmacy 89.2; Estimated Glomerular Filt Rate > 60; Ethanol < 10 mg/dL; Glucose Random 88 mg/dL (60-115); Potassium 3.9 mmol/L (3.3-5.1); Sodium 143 mmol/L (135-145); Total Protein 6.6 g/dL (6.5-8.0)
[2023-12-05 01:38] LABS: Troponin-I High Sensitivity < 2.7 ng/L (<3.5-35.0)
[2023-12-05 05:50] VITALS: BP 104/54; PULSE 73; RESP 16; TEMP 36.5; O2SAT 98
[2023-12-05 08:35] LABS: Appearance Urine Clear; Color Urine Yellow; Glucose Urine UA Negative (Negative); Leukocyte Esterase Urine Negative (Negative); Nitrite Urine Negative (Negative); Urine Blood Negative (Negative); Urine Ketones Negative (Negative); Urine Protein Negative (Neg-Trace)
[2023-12-05 08:58] VITALS: BP 124/64; PULSE 74; RESP 18; TEMP 36.9; O2SAT 98
--- NOTE | 2023-12-05 09:52 | PC.NURSE ---
PT IS HAVING BREAKFAST. PT'S FIANCEE (JOSE ALEJANDRO DIALLO, ) AND WAS UPDATED ON PT STATUS. PT IS WAITING TO BE SEEN BY THE CARE TEAM. PT AWARE OF PLAN OF CARE.
[2023-12-05] MEDS: Acetaminophen 325 MG TABLET 650 MG PO (10:11)
--- NOTE | 2023-12-05 13:24 | PC.NURSE ---
PT SEEN BY CARE TEAM AWARE OF PLAN OF CARE.
--- NOTE | 2023-12-05 13:43 | MHC.CARE ---
CARE Team evaluation complete. Pt will be discharged home with his current providers. ED Provider, RN and Pt are aware.
== END 2023-12-05 13:48 | disposition home or self-care (01) ==
PROVIDERS: Emergency Provider Emergency Medicine Emergency Medical Services
DX: F41.0 Panic disorder [episodic paroxysmal anxiety] (principal); F41.1 Generalized anxiety disorder; F43.0 Acute stress reaction; R07.89 Other chest pain; Z79.899 Other long term (current) drug therapy
CPT/HCPCS: 36415; 80053; 80307; 81003; 84484; 85025; 93005; 99284; 99285; S9485

== ENCOUNTER → 2023-12-05 00:36 | Outpatient (BNV) | payer OTHER, SELFPAY | PROVIDERS: Emergency Provider Emergency Medicine Emergency Medical Services; Visit Provider Internal Medicine | DX: R07.9 Chest pain, unspecified (principal) | CPT/HCPCS: 93010 ==

== ENCOUNTER 2023-12-08 20:42 | Emergency (ER) | payer OTHER, SELFPAY ==
--- NOTE | 2023-12-08 20:50 | ECG_ITS ---
Test Reason : CP Blood Pressure : / mmHG Vent. Rate : 080 BPM Atrial Rate : 080 BPM P-R Int : 122 ms QRS Dur : 084 ms QT Int : 372 ms P-R-T Axes : 073 055 025 degrees QTc Int : 429 ms Normal sinus rhythm Normal ECG When compared with ECG of 05-DEC-2023 00:50, No significant change was found Referred By: Generic ED Physician Electronically Signed By:CELIA BURK
[2023-12-08 20:55] VITALS: BP 115/79; BP 130/80; PULSE 100; PULSE 86; RESP 29; TEMP 36.4; O2SAT 98; BMI 22.2
[2023-12-08 21:02] VITALS: PULSE 86
[2023-12-08 21:11] LABS: Basophils Percent Auto 0.3 % (0-2); Eosinophils Percent Auto 0.3 % (0-4); Hematocrit 39.5 % (42.0-52.0); Hemoglobin 14.1 g/dl (14.0-18.0); Imm Gran Abs Auto 0.02 X10*3/uL (0.00-0.03); Imm Gran Pct Auto 0.3 % (0.0-0.4); Lymphocytes Absolute Auto 2.5 X10*3/uL (1.2-4.9); Lymphocytes Percent Auto 37.3 % (20-40); MANUAL DIFF FLAG NO; Mean Corpuscular HGB Conc 35.7 g/dl (31.0-36.0); Mean Corpuscular Hemoglobin 33.5 pg (27.0-33.0); Mean Corpuscular Volume 93.8 fL (80.0-98.0); Mean Platelet Volume 10.8 fL (9.4-12.4); Monocytes Absolute Auto 0.8 X10*3/uL (0.1-1.2); Monocytes Percent Auto 12.3 % (2-11); Neutrophils Absolute Auto 3.3 x10*3/uL (2.0-8.3); Neutrophils Percent Auto 49.5 % (45-73); Platelet Count 214 X10*3/uL (160-400); Red Blood Count 4.21 X10*6/uL (4.60-5.80); Red Cell Distribution Width 13.8 % (11.0-16.0); White Blood Count 6.6 X10*3/uL (4.8-10.8)
[2023-12-08 21:24] LABS: Alanine Aminotransferase 10 U/L (0-40); Alkaline Phosphatase 67 U/L (39-117); Anion Gap 13 (12-20); Aspartate Amino Transferase 22 U/L (5-37); Bilirubin Total 0.3 mg/dL (0.0-1.0); Blood Urea Nitrogen 23 mg/dL (9-16); Calcium 9.1 mg/dL (8.4-10.2); Carbon Dioxide 24 mmol/L (22-29); Chloride 111 mmol/L (96-108); Creatinine Clr Calc Pharmacy 59.7; Estimated Glomerular Filt Rate 56; Glucose Random 125 mg/dL (60-115); Potassium 3.9 mmol/L (3.3-5.1); Sodium 144 mmol/L (135-145); Total Protein 6.9 g/dL (6.5-8.0)
[2023-12-08 21:31] LABS: Troponin-I High Sensitivity 4.3 ng/L (<3.5-35.0)
[2023-12-08 21:51] VITALS: BP 108/69; PULSE 84; RESP 12; O2SAT 96
--- NOTE | 2023-12-08 22:06 | ED_ITS ---
HPI - Chest Pain General Chief Complaint: Chest Pain Stated Complaint: panic attack, chest pain, hematemesis, asa given Time Seen by Provider: 12/08/23 21:58 Source: patient Mode of arrival: EMS Limitations: no limitations History of Present Illness HPI narrative: Patient's history of anxiety bipolar disorder been here multiple times for chest pain and anxiety comes here for increased anxiety and chest pain since AM also patient vomited 1 time with slight amount of bright streaks blood no shortness of breath patient received 324 mg of aspirin by EMS EKG without any ischemic changes Related Data Home Medications Medication Instructions Recorded Confirmed lorazepam 1 mg tablet 1 mg PO BID PRN Anxiety 09/01/23 11/05/23 temazepam 30 mg capsule 30 mg PO BEDTIME 11/05/23 11/05/23 Previous Rx's Medication Instructions Recorded divalproex 500 mg tablet,delayed 1,000 mg (2 x 500 mg) PO BID #0 09/03/23 release tabs ibuprofen 600 mg tablet 600 mg PO Q6H PRN fever or pain 12/08/23 #30 tabs Allergies Allergy/AdvReac Type Severity Reaction Status Date / Time lurasidone [From Latuda] AdvReac Shakiness Verified 03/15/23 13:46 [facility] Past Medical History Onset Date is defined in the Problem List Problems that require an onset date and time if occurred within 24 hrs of arrival to the ED Aortic Dissection and Rupture; Neurologic impairment; Cardiopulmonary Arrest; Endotracheal Intubation; Insertion or Replacement of Mechanical Circulatory Assist Device Medical History (Updated 12/09/23 @ 00:01 by Srikanth Blanchard) Cannabis use disorder Bipolar 1 disorder, mixed, severe Schizophrenia Social History Social History Household Members: Family Housing: Apartment Do you presently have visiting nurse or other home services: No Alcohol intake: current Alcohol intake frequency: holidays/special occasions only Alcohol type: wine Comment: Dr. Vasquez Patient Tobacco Use Status: Never used Tobacco Tobacco use type: Cigarette Cigarettes Per Day: 5 Years Smoked: 20 Smoked in Last 30 Days: Yes Substance Use Type: Marijuana Substance Use Frequency: Daily Last Used Substance: Days (ago) Any prior treatment program specific to substance use: No Advance Directives: No Advance Directives Information Provided: No service: No Sexual orientation: Straight/Heterosexual Physical Exam 2 Vital Signs: Vital Signs: Last Vital Signs Temp 97.6 F 12/08/23 20:55 Pulse 84 12/08/23 21:51 Resp 12 12/08/23 21:51 BP 108/69 12/08/23 21:51 Pulse Ox 96 12/08/23 21:51 O2 Del Method Room Air 12/08/23 21:51 BMI result Body Mass Index 22.2 Appearance: Alert. Oriented X3. No acute distress. Anxious Eyes: PERRLA, No Nystagmus ENT: Pharynx normal. Oral Mucosa moist Neck: Normal inspection. Neck supple. CVS: Normal heart rate and rhythm. Pulses normal. Respiratory: No respiratory distress. Equal air entry bilateral, no wheezing/rales/rhonchi Abdomen: Soft and nontender. Bowel sounds are present, no mass palpable, no CVA tenderness Skin: Skin warm and dry. Normal skin color. Normal skin turgor. Extremities: No lower extremity edema. No calf tenderness Neuro: Oriented X 3. Medications Administered Discontinued Medications Generic Name Dose Route Start Last Admin Trade Name Romuloq PRN Reason Stop Dose Admin Ibuprofen 600 mg 12/08/23 22:36 12/08/23 22:46 Ibuprofen 600 Mg Tablet PO 12/08/23 22:37 600 mg ONCE ONE Administration Medical Decision Making Medical Decision Making [facility] Narrative: Patient's anxiety stable labs likely the cause of symptoms discharge patient home patient does have history of similar symptoms in the past Lab Data [facility] Lab Attestation statement: I reviewed the patient's lab results. 12/08/23 21:06 12/08/23 21:06 Labs: Lab Results 12/08/23 Range/Units 21:06 WBC 6.6 (4.8-10.8) X10*3/uL RBC 4.21 L (4.60-5.80) X10*6/uL Hgb 14.1 (14.0-18.0) g/dl Hct 39.5 L (42.0-52.0) % MCV 93.8 (80.0-98.0) fL MCH 33.5 H (27.0-33.0) pg MCHC 35.7 (31.0-36.0) g/dl RDW 13.8 (11.0-16.0) % Plt Count 214 (160-400) X10*3/uL MPV 10.8 (9.4-12.4) fL Immature Gran % (Auto) 0.3 (0.0-0.4) % Neut % (Auto) 49.5 (45-73) % Lymph % (Auto) 37.3 (20-40) % [place] % (Auto) 12.3 H (2-11) % Eos % (Auto) 0.3 (0-4) % Baso % (Auto) 0.3 (0-2) % Lymph # (Auto) 2.5 (1.2-4.9) X10*3/uL [place] # (Auto) 0.8 (0.1-1.2) X10*3/uL Eos # (Auto) 0.0 (0.0-0.4) X10*3/uL Baso # (Auto) 0.0 (0.0-0.2) X10*3/uL Abs Immat Gran (auto) 0.02 (0.00-0.03) X10*3/uL Absolute Neuts (auto) 3.3 (2.0-8.3) x10*3/uL Absolute Nucleated RBC 0.000 (0.0-0.012) X10*3/uL Nucleated RBC % (auto) 0.0 (0.0-0.2) /100WBC Sodium 144 (135-145) mmol/L Potassium 3.9 (3.3-5.1) mmol/L Chloride 111 H (96-108) mmol/L Carbon Dioxide 24 (22-29) mmol/L Anion Gap 13 (12-20) BUN 23 H (9-16) mg/dL Creatinine 1.39 (0.5-1.4) mg/dL Estim Creat Clear Calc 59.7 Estimated GFR 56 Random Glucose 125 H (60-115) mg/dL Calcium 9.1 (8.4-10.2) mg/dL Total Bilirubin 0.3 (0.0-1.0) mg/dL AST 22 (5-37) U/L ALT 10 (0-40) U/L Alkaline Phosphatase 67 (39-117) U/L Troponin I High Sens 4.3 D (<3.5-35.0) ng/L Total Protein 6.9 (6.5-8.0) g/dL Albumin 4.0 (3.5-5.0) g/dL Independent Interpretation I performed an independent interpretation of an: EKG Interpretation: Normal sinus rhythm heart rate 80 beats per minute normal interval normal axis no acute ST T wave changes no acute ischemia Discharge Plan Discharge Clinical Impression: Atypical chest pain, Bipolar 1 disorder, mixed, severe Patient Disposition: Home, Self-Care Instructions: Bipolar Disorder (ED), Chest Wall Pain (ED) Additional Instructions: Take anxiety medication as prescribed by your PCP Take Tylenol/Motrin for pain Prescriptions: New ibuprofen 600 mg tablet 600 mg PO Q6H PRN (Reason: fever or pain) Qty: 30 0RF No Action lorazepam 1 mg tablet 1 mg PO BID PRN (Reason: Anxiety) divalproex 500 mg Tablet,Delayed Release (Dr/Ec) 1,000 mg PO BID Qty: 0 0RF temazepam 30 mg capsule 30 mg PO BEDTIME Stand Alone Forms: Work/School Release Interventions: ED Discharge Assessment Last Done: 12/08/23 22:57 Discharge Date/Time: 12/08/23 22:58
[2023-12-08] MEDS: Ibuprofen 600 MG TABLET PO (22:46)
== END 2023-12-08 22:58 | disposition home or self-care (01) ==
PROVIDERS: Emergency Provider Internal Medicine
DX: R07.89 Other chest pain (principal); F30.13 Manic episode, severe, without psychotic symptoms; F41.0 Panic disorder [episodic paroxysmal anxiety]; K92.0 Hematemesis; Z79.899 Other long term (current) drug therapy
CPT/HCPCS: 36415; 80053; 84484; 85025; 93005; 99283; 99285

== ENCOUNTER → 2023-12-08 20:50 | Outpatient (BNV) | payer OTHER, SELFPAY | PROVIDERS: Emergency Provider Internal Medicine; Visit Provider Internal Medicine | DX: R07.9 Chest pain, unspecified (principal) | CPT/HCPCS: 93010 ==

== ENCOUNTER 2023-12-17 10:36 | Emergency (ER) | payer OTHER, SELFPAY ==
[2023-12-17 10:55] VITALS: BP 120/79; BP 135/84; PULSE 111; PULSE 79; RESP 20; TEMP 36.7; O2SAT 98; BMI 22.5
[2023-12-17 11:00] VITALS: PULSE 71; RESP 14; O2SAT 99
--- NOTE | 2023-12-17 11:01 | PC.NURSE ---
Pt comes in from home after having a verbal altercation with his baby marquez after she spilled her coffee this morning. Per the patient, he became upset and started raising his voice at her and then became upset. Pt describes it as a panic attack where he then started banging his head against a tote full of DVDs. He states that recently he moved to a new apartment and he is having trouble adjusting to it. he states that he is trying to get couples therapy for him and his baby marquez but they cannot find any therapists at this time. Pt is calm and cooperative at this time, respirations even and unlabored, skin pwd. Pt does have small janis size bump on right forehead after hitting it on the tote. Denies SI/HI
[2023-12-17 11:37] LABS: MANUAL DIFF FLAG NO
[2023-12-17 11:40] LABS: Appearance Urine Clear; Basophils Percent Auto 0.3 % (0-2); Color Urine Yellow; Eosinophils Percent Auto 0.3 % (0-4); Glucose Urine UA Negative (Negative); Hematocrit 36.9 % (42.0-52.0); Hemoglobin 12.8 g/dl (14.0-18.0); Imm Gran Abs Auto 0.02 X10*3/uL (0.00-0.03); Imm Gran Pct Auto 0.3 % (0.0-0.4); Leukocyte Esterase Urine Negative (Negative); Lymphocytes Absolute Auto 1.2 X10*3/uL (1.2-4.9); Lymphocytes Percent Auto 20.8 % (20-40); Mean Corpuscular HGB Conc 34.7 g/dl (31.0-36.0); Mean Corpuscular Hemoglobin 33.6 pg (27.0-33.0); Mean Corpuscular Volume 96.9 fL (80.0-98.0); Mean Platelet Volume 11.6 fL (9.4-12.4); Monocytes Absolute Auto 0.5 X10*3/uL (0.1-1.2); Monocytes Percent Auto 9.4 % (2-11); Neutrophils Absolute Auto 3.9 x10*3/uL (2.0-8.3); Neutrophils Percent Auto 68.9 % (45-73); Nitrite Urine Negative (Negative); Platelet Count 187 X10*3/uL (160-400); Red Blood Count 3.81 X10*6/uL (4.60-5.80); UMIC TRIGGER UACC YES; Urine Blood Trace (Negative); Urine Ketones 15 mg/dL (Negative); Urine Protein 100 (2+) mg/dL (Neg-Trace); White Blood Count 5.7 X10*3/uL (4.8-10.8)
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
[2023-12-17 11:55] LABS: Bacteria Urine None Seen (None Seen); Granular Casts Urine Present; Renal Epithelial Cells Urine Present; Transitional Epi Cells Urine Present; WBC Urine 0-5 /HPF (0-5)
[2023-12-17 11:56] LABS: Amphetamine Screen Urine Not Detected (Not Detect); Barbiturates, Urine Not Detected (Not Detect); Benzodiazepines Screen Urine Not Detected (Not Detect); Cannabinoid Screen Urine POSITIVE (Not Detect); Cocaine Screen Urine Not Detected (Not Detect); Fentanyl, urine Not Detected (Not Detect); Opiate Screen Urine Not Detected (Not Detect); Phencyclidine Screen Urine Not Detected (Not Detect)
[2023-12-17 11:57] LABS: COVID-19 Test Negative (Negative); IDNOW Serial# 08D9AD1C
[2023-12-17 12:10] LABS: Anion Gap 15 (12-20); Blood Urea Nitrogen 14 mg/dL (9-16); Calcium 8.9 mg/dL (8.4-10.2); Carbon Dioxide 23 mmol/L (22-29); Chloride 111 mmol/L (96-108); Creatinine Clr Calc Pharmacy 69.5; Estimated Glomerular Filt Rate > 60; Ethanol < 10 mg/dL; Glucose Random 137 mg/dL (60-115); Potassium 3.6 mmol/L (3.3-5.1); Sodium 145 mmol/L (135-145)
[2023-12-17 12:13] LABS: Valproate 133.2 mcg/mL (50.0-100.0)
[2023-12-17 13:41] VITALS: RESP 16
== END 2023-12-17 16:52 | disposition home or self-care (01) ==
PROVIDERS: Emergency Provider Emergency Medicine
DX: F41.9 Anxiety disorder, unspecified (principal); F12.90 Cannabis use, unspecified, uncomplicated; F31.63 Bipolar disorder, current episode mixed, severe, without psychotic features; Z11.52 Encounter for screening for COVID-19; Z79.899 Other long term (current) drug therapy
CPT/HCPCS: 36415; 80048; 80164; 80307; 81001; 85025; 87635; 99285; S9485

== ENCOUNTER 2024-01-14 11:22 | Observation (INO) | payer OTHER, SELFPAY ==
--- NOTE | ~2024-01-14 | CT_ITS ---
EXAMINATION: CT HEAD WITHOUT CONTRAST CLINICAL INFORMATION: Headache, status post smashing head. COMPARISON: Head CT dated 03/04/2023. TECHNIQUE: Contiguous axial imaging was performed from the skullbase to vertex without intravenous administration of contrast. This CT examination was performed using dose optimization techniques as appropriate, variously including the following: *Automated exposure control *Adjustment of mA and/or kV according to patient size (this includes techniques or standardized protocols for targeted exams where dose is matched to indication/reason for exam; i.e. extremities or head) *Use of iterative reconstruction technique DLP: 727 mGy-cm. FINDINGS: There is no evidence of acute intracranial hemorrhage or territorial infarction. No abnormal mass effect or midline shift is seen. No extra-axial fluid collections are identified. Mild generalized brain parenchymal volume loss noted for patient age. The ventricles are normal in size. There is no abnormal attenuation within the brain parenchyma. The osseous structures and soft tissues are normal. The mastoid air cells are well aerated. Small retention cyst in one of the right ethmoid air cells. CT/CT head/brain wo IV con IMPRESSION: No acute intracranial pathology.
--- NOTE | ~2024-01-14 | XR_ITS ---
EXAMINATION: XR CHEST CLINICAL INFORMATION: Drank bleach COMPARISON: Previous chest x-ray September 2023 TECHNIQUE: Frontal view of the chest was obtained. FINDINGS: No significant abnormality is noted involving the heart, lungs, mediastinum, bony thorax or soft tissues. XR/XR chest 1V IMPRESSION: Unremarkable examination.
--- NOTE | 2024-01-14 11:24 | ECG_ITS ---
Test Reason : DRANK BLEACH Blood Pressure : / mmHG Vent. Rate : 083 BPM Atrial Rate : 083 BPM P-R Int : 132 ms QRS Dur : 086 ms QT Int : 380 ms P-R-T Axes : 085 041 020 degrees QTc Int : 446 ms Normal sinus rhythm Possible Left atrial enlargement Borderline ECG When compared with ECG of 08-DEC-2023 20:55, No significant change was found Referred By: Addison Cruz Electronically Signed By:BEVERLY COLÓN MD
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
[2024-01-14 11:53] VITALS: BP 127/61; BP 96/50; PULSE 83; PULSE 98; RESP 18; TEMP 37.1; O2SAT 93; O2SAT 97
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
[2024-01-14] MEDS: 0.9 % Sodium Chloride 1,000 ML 999 ML IV (12:22)
[2024-01-14 12:23] LABS: MANUAL DIFF FLAG NO
[2024-01-14 12:25] LABS: Basophils Percent Auto 0.5 % (0-2); Eosinophils Absolute Auto 0.1 X10*3/uL (0.0-0.4); Eosinophils Percent Auto 0.6 % (0-4); Hematocrit 39.9 % (42.0-52.0); Hemoglobin 13.7 g/dl (14.0-18.0); Imm Gran Abs Auto 0.03 X10*3/uL (0.00-0.03); Imm Gran Pct Auto 0.4 % (0.0-0.4); Lymphocytes Absolute Auto 1.2 X10*3/uL (1.2-4.9); Mean Corpuscular HGB Conc 34.3 g/dl (31.0-36.0); Mean Corpuscular Volume 96.1 fL (80.0-98.0); Mean Platelet Volume 10.5 fL (9.4-12.4); Monocytes Absolute Auto 0.4 X10*3/uL (0.1-1.2); Monocytes Percent Auto 5.3 % (2-11); Neutrophils Absolute Auto 6.6 x10*3/uL (2.0-8.3); Neutrophils Percent Auto 79.2 % (45-73); Platelet Count 201 X10*3/uL (160-400); Red Blood Count 4.15 X10*6/uL (4.60-5.80); Red Cell Distribution Width 13.5 % (11.0-16.0); White Blood Count 8.3 X10*3/uL (4.8-10.8)
[2024-01-14 12:48] LABS: Acetaminophen LAB < 3 mcg/mL (<30); Alanine Aminotransferase 7 U/L (0-40); Albumin Level 3.8 g/dL (3.5-5.0); Alkaline Phosphatase 70 U/L (39-117); Anion Gap 15 (12-20); Aspartate Amino Transferase 17 U/L (5-37); Bilirubin Total 0.4 mg/dL (0.0-1.0); Blood Urea Nitrogen 13 mg/dL (9-16); Calcium 9.1 mg/dL (8.4-10.2); Carbon Dioxide 23 mmol/L (22-29); Chloride 109 mmol/L (96-108); Creatinine Clr Calc Pharmacy 76.5; Estimated Glomerular Filt Rate > 60; Ethanol < 10 mg/dL; Glucose Random 110 mg/dL (60-115); Magnesium 1.9 mg/dL (1.6-2.6); Potassium 3.6 mmol/L (3.3-5.1); Salicylate < 5.0 mg/dL (15-30); Sodium 143 mmol/L (135-145); Total Protein 6.6 g/dL (6.5-8.0)
[2024-01-14] MEDS: Pantoprazole Sodium 40 MG/10 ML VIAL IVPUSH (12:53)
--- NOTE | 2024-01-14 13:16 | P.HPHOSP_ITS ---
History of Present Illness Date of Service: 01/14/24 <CONNIE Segundo - Last Filed: 01/14/24 13:49> Attending physician on admission: Santana Nelson <CONNIE Segundo - Last Filed: 01/14/24 13:49> Chief Complaint: toxic ingestion; SI <CONNIE Segundo - Last Filed: 01/14/24 13:49> This is a 43-year-old male who was brought in on section 12 after a toxic ingestion. Patient states that he had an argument with his significant other which made him upset. He had been cleaning with and testing with bleach and ingested approximately 8 oz this morning prior to arrival in a suicide attempt. He reportedly had 1 episode of vomiting prior to her arrival in the emergency department but no vomiting since. Poison control was consulted by emergency room provider and recommended Zofran as needed for nausea and benzos if needed for agitation. Recommended GI evaluation if esophageal irritation. The patient complained of some burning epigastric abdominal pain. GI was consulted and recommended observation overnight and clear liquid diet for now. If pain persists possible need for EGD in am. Lab work otherwise unremarkable, brain CT negative for acute changes. Toxicology screen pending at the time of admission. <CONNIE Segundo - Last Filed: 01/14/24 13:49> [facility] Medical History: Medical History (Updated 01/14/24 @ 13:01 by CONNIE Michelle) Cannabis use disorder Bipolar 1 disorder, mixed, severe Schizophrenia <CONNIE Segundo - Last Filed: 01/14/24 13:49> Social History: Social History Household Members: Family Housing: Apartment Do you presently have visiting nurse or other home services: No Alcohol intake: current Alcohol intake frequency: holidays/special occasions only Alcohol type: wine Comment: Dr. Vasquez Patient Tobacco Use Status: Never used Tobacco Tobacco use type: Cigarette Cigarettes Per Day: 5 Years Smoked: 20 Smoked in Last 30 Days: Yes Use of substances other than those prescribed or required for medical reasons: Yes Substance Use Type: Marijuana Advance Directives: No service: No Sexual orientation: Straight/Heterosexual <CONNIE Segundo - Last Filed: 01/14/24 13:49> Meds Allergies/Adverse reactions: Allergies Allergy/AdvReac Type Severity Reaction Status Date / Time haloperidol [From Haldol] Allergy Severe Seizure Verified 01/14/24 11:57 lurasidone [From Latuda] AdvReac Shakiness Verified 01/14/24 11:57 <CONNIE Segundo - Last Filed: 01/14/24 13:49> Active Medications: Current Medications Acetaminophen (Acetaminophen 325 Mg Tablet) 650 mg PO Q6H PRN PRN Reason: Pain, Mild (Pain Scale 1-3) Docusate Sodium (Docusate Sodium 100 Mg Capsule) 100 mg PO DAILY PRN PRN Reason: Constipation Ondansetron HCl (Ondansetron Hcl 4 Mg/2 Ml Vial) 4 mg IVPUSH Q8H PRN PRN Reason: Nausea and Vomiting Sodium Chloride (0.9 % Sodium Chloride Flush 3 Ml Syringe) [facility] <CONNIE Segundo - Last Filed: 01/14/24 13:49> Home medications: Home Medications Medication Instructions Recorded Confirmed Last Taken Type lorazepam 1 mg tablet 1 mg PO BID PRN Anxiety 09/01/23 12/17/23 12/17/23 History temazepam 30 mg capsule 30 mg PO BEDTIME 11/05/23 12/17/23 12/17/23 History <CONNIE Segundo - Last Filed: 01/14/24 13:49> Physical Exam 2 Vital Signs and Narrative: Vital Signs: Last Vital Signs Temp 98.8 F 01/14/24 11:53 Pulse 83 01/14/24 11:53 Resp 18 01/14/24 11:53 BP 96/50 L 01/14/24 11:53 Pulse Ox 93 01/14/24 11:53 O2 Del Method Room Air 01/14/24 11:53 BMI result Body Mass Index 30.0 <CONNIE Segundo - Last Filed: 01/14/24 13:49> Const: General: cooperative, comfortable, no acute distress, alert and awake <CONNIE Segundo Last Filed: 01/14/24 13:49> Nutritional Appearance: average body habitus <CONNIE Segundo - Last Filed: 01/14/24 13:49> Orientation/consciousness: patient oriented x3 <CONNIE Segundo - Last Filed: 01/14/24 13:49> HEENT: Other: no oral lesions noted <CONNIE Segundo - Last Filed: 01/14/24 13:49> Resp: Effort & Inspection: normal respiratory effort, able to speak in complete sentences, no respiratory distress and no use of accessory muscles <CONNIE Segundo - Last Filed: 01/14/24 13:49> Auscultation: clear to auscultation bilaterally <CONNIE Segundo - Last Filed: 01/14/24 13:49> Cardio: Rate: regular rate <CONNIE Segundo - Last Filed: 01/14/24 13:49> GI: Inspection: No distended <CONNIE Segundo - Last Filed: 01/14/24 13:49> Palpation (GI): Soft to palpation, nontender and no guarding <CONNIE Segundo - Last Filed: 01/14/24 13:49> Neuro: General: patient oriented x3, moves all extremities and CN's II-XI intact bilaterally <CONNIE Segundo - Last Filed: 01/14/24 13:49> Extrem: General: Yes no pedal edema <CONNIE Segundo - Last Filed: 01/14/24 13:49> Results Labs CBC and Chem 7: 01/14/24 12:19 01/14/24 12:19 <CONNIE Segundo - Last Filed: 01/14/24 13:49> Labs: Laboratory Results - last 24 hr 01/14/24 12:19 MCV 96.1 MCH 33.0 MCHC 34.3 RDW 13.5 Plt Count 201 MPV 10.5 Immature Gran % (Auto) 0.4 Neut % (Auto) 79.2 H Lymph % (Auto) 14.0 L [place] % (Auto) 5.3 Eos % (Auto) 0.6 Baso % (Auto) 0.5 Lymph # (Auto) 1.2 [place] # (Auto) 0.4 Eos # (Auto) 0.1 Baso # (Auto) 0.0 Abs Immat Gran (auto) 0.03 Absolute Neuts (auto) 6.6 Absolute Nucleated RBC 0.000 Nucleated RBC % (auto) 0.0 Anion Gap 15 Estim Creat Clear Calc 76.5 Estimated GFR > 60 Random Glucose 110 Calcium 9.1 Magnesium 1.9 Total Bilirubin 0.4 AST 17 ALT 7 Alkaline Phosphatase 70 Total Protein 6.6 Albumin 3.8 Salicylates < 5.0 L Acetaminophen < 3 Ethyl Alcohol < 10 <CONNIE Segundo - Last Filed: 01/14/24 13:49> Imaging Radiologist's Impressions: Impressions Head CT 01/14/24 12:01 IMPRESSION: No acute intracranial pathology. <CONNIE Segundo - Last Filed: 01/14/24 13:49> Assessment and Plan (1) Suicide attempt: Status: Acute <CONNIE Segundo - Last Filed: 01/14/24 13:49> This is a 43-year-old male with history of bipolar disorder question seizure disorder who was brought to the emergency department on section 12 after intentional toxic ingestion of fantastic with bleach. Intensional Toxic ingestion poison control rec observation overnight, supportive care for nausea GI eval, rec clear liquid diet, possible scope if persistent epigastric pain IVF, antiemetics, IV PPI follow clinical course full tox screen pending mood not compliant with meds continue home meds when med rec complete ?seizure disorder reports having seizures sometimes noncompliant with medication seizure precautions SI intentional ingestion/suicide attempt brought in on section 12 sitter for safety will need care team eval for LOC when medically cleared, likely in am chronic normocytic anemia no further intervention required, above transfusion threshold DVT ppx - low risk, early ambulation, SCDs <CONNIE Segundo - Last Filed: 01/14/24 13:49> Quality Stroke Does the patient have a stroke diagnosis?: No <Santana Nelson DO - Last Filed: 01/14/24 13:35> VTE Prior VTE?: No <Santana Nelson DO - Last Filed: 01/14/24 13:35> VTE Risk Level:: Medical - moderate - high <CONNIE Segundo Last Filed: 01/14/24 13:49> VTE Device Contraindication: N/A - Device Ordered <CONNIE Segundo - Last Filed: 01/14/24 13:49> VTE Drug Contraindication: Treatment Not Indicated <CONNIE Segundo - Last Filed: 01/14/24 13:49>
[2024-01-14 14:02] VITALS: BP 123/78; PULSE 72; RESP 14; O2SAT 98
[2024-01-14 14:12] LABS: Appearance Urine Clear; Color Urine Yellow; Glucose Urine UA Negative (Negative); Leukocyte Esterase Urine Negative (Negative); Nitrite Urine Negative (Negative); PH 5.5 (5.0-9.0); Specific Gravity - Urine 1.015 (1.005-1.025); UMIC TRIGGER UACC YES; Urine Blood Trace (Negative); Urine Ketones Negative (Negative); Urine Protein 100 (2+) mg/dL (Neg-Trace)
--- NOTE | 2024-01-14 14:14 | P.CNGI_ITS ---
History of Present Illness Data of Consult Service Date: 01/14/24 Requesting physician: Aicha Bob Primary Care Provider: None Physician HPI Reason for consult: caustic ingestion 43-year-old male w/ hx of bipolar d/o who I am seeing for caustic substance ingestion. He had an argument with his significant other which made him upset and suicidal so he drank about 8 oz o bleach at approx 10.30 am and had on non blood emesis thereafter. He had some mild throat discomfort but is able to swallow clears without any pain and no mouth pain or burning. He denies abdominal pain. No chest pain or SOB. Poison control was consulted by emergency room provider and recommended Zofran as needed for nausea and benzos if needed for agitation as well as a GI consult. Review of Systems 2 Review of Systems: Constitutional : No Weight loss, No Fever, No Chills ENT/Mouth : No sore throat, No Rhinorrhea Eyes: No Swelling, No Redness Cardiovascular : No Chest Pain, No SOB, No Edema Respiratory : No Cough, No Sputum, No Wheezing Gastrointestinal : see HPI Genitourinary : NO Dysuria, No Urinary Frequency, No Hematuria, No Urgency Musculoskeletal : No joint pain, No Myalgias, No Joint Swelling Skin : No Skin Lesions, No rash Neuro : No Weakness, No Numbness, No Dizziness, No Headache Psych : suicidal, Heme/Lymph: No Bruising, No Lymphadenopathy Endocrine : No Polyuria, No Polydipsia All other systems reviewed and are negative. [facility] Past Medical History Medical History (Updated 01/14/24 @ 14:23 by Christian Novak MD) Cannabis use disorder Bipolar 1 disorder, mixed, severe Schizophrenia Family History Pertinent family history: no FH of esophageal disease Social History Social History Household Members: Family Housing: Apartment Do you presently have visiting nurse or other home services: No Alcohol intake: current Alcohol intake frequency: holidays/special occasions only Alcohol type: wine Comment: Dr. Vasquez Patient Tobacco Use Status: Never used Tobacco Tobacco use type: Cigarette Cigarettes Per Day: 5 Years Smoked: 20 Smoked in Last 30 Days: Yes Use of substances other than those prescribed or required for medical reasons: Yes Substance Use Type: Marijuana Advance Directives: No Nutrition Risks: No Nutritional Risk service: No Sexual orientation: Straight/Heterosexual Meds Allergies Allergy/AdvReac Type Severity Reaction Status Date / Time haloperidol [From Haldol] Allergy Severe Seizure Verified 01/14/24 11:57 lurasidone [From Latuda] AdvReac Shakiness Verified 01/14/24 11:57 Active Medications: Current Medications Acetaminophen (Acetaminophen 325 Mg Tablet) 650 mg PO Q6H PRN PRN Reason: Pain, Mild (Pain Scale 1-3) Docusate Sodium (Docusate Sodium 100 Mg Capsule) 100 mg PO DAILY PRN PRN Reason: Constipation Lactated Ringer's (Lr) 1,000 mls @ 100 mls/hr IVCONT .Q10H [facility] Ondansetron HCl (Ondansetron Hcl 4 Mg/2 Ml Vial) 4 mg IVPUSH Q8H PRN PRN Reason: Nausea and Vomiting Pantoprazole Sodium (Pantoprazole Sodium 40 Mg/10 Ml Vial) 40 mg IVPUSH DAILY@0630 [facility] Sodium Chloride (0.9 % Sodium Chloride Flush 3 Ml Syringe) 3 ml IVFLUSH QSHIFT [facility] Home Medications Medication Instructions Recorded Confirmed Last Taken Type lorazepam 1 mg tablet 1 mg PO BID PRN Anxiety 09/01/23 12/17/23 12/17/23 History temazepam 30 mg capsule 30 mg PO BEDTIME 11/05/23 12/17/23 12/17/23 History Physical Exam 2 Vital Signs: Vital Signs: Last Vital Signs Temp 98.8 F 01/14/24 11:53 Pulse 72 01/14/24 14:02 Resp 14 01/14/24 14:02 BP 123/78 01/14/24 14:02 Pulse Ox 98 01/14/24 14:02 O2 Del Method Room Air 01/14/24 14:02 BMI result Body Mass Index 30.0 EXAM: GENERAL: The patient is well developed and nontoxic. VITAL SIGNS:see workflow HEENT: Nonicteric sclerae, PERRLA, EOMI. Oropharynx clear--no ulcers, no irritation seen. Moist mucous membranes. Conjunctivae appear well perfused. No thyroid mass. CHEST: Chest wall is nontender. HEART: Regular rate and rhythm without murmurs. LUNGS: Clear to auscultation bilaterally. ABDOMEN: Soft, positive bowel sounds, nontender, no organomegaly.no flank tenderness SKIN: No rash, no excessive bruising, petechiae, or purpura. NEUROLOGIC: Cranial nerves II-XII intact without motor/sensory deficit. Psych: Other: some disorganized speech Appearance: disheveled Results Labs 01/14/24 12:19 01/14/24 12:19 Labs: Short CBC 01/14/24 Range/Units 12:19 WBC 8.3 (4.8-10.8) X10*3/uL Hgb 13.7 L (14.0-18.0) g/dl Hct 39.9 L (42.0-52.0) % Plt Count 201 (160-400) X10*3/uL BMP 01/14/24 12:19 Sodium 143 Potassium 3.6 Chloride 109 H Carbon Dioxide 23 BUN 13 Creatinine 1.25 Calcium 9.1 Liver Function 01/14/24 Range/Units 12:19 Total Bilirubin 0.4 (0.0-1.0) mg/dL AST 17 (5-37) U/L ALT 7 (0-40) U/L Alkaline Phosphatase 70 (39-117) U/L Albumin 3.8 (3.5-5.0) g/dL Imaging Chest x-ray: Attestation: I personally reviewed and interpreted this imaging study as follows: (normal) Assessment and Plan (1) Suicide attempt: Status: Acute (2) Ingestion of caustic substance: Qualifiers: Encounter type: initial encounter Injury intent: intentional self-harm Qualified Code(s): T54.92XA - Toxic effect of unspecified corrosive substance, intentional self-harm, initial encounter Status: Acute Plan 1/ Ingestion of toxic substance, no high risk features at this time PLAN: 1/ Allow clears, 2/ if symptoms progress with drooling chest pain, etc then will proceed to EGD Procedures Date of Service Date of Service: 01/14/24
[2024-01-14 14:18] LABS: Amphetamine Screen Urine Not Detected (Not Detect); Barbiturates, Urine Not Detected (Not Detect); Benzodiazepines Screen Urine Not Detected (Not Detect); Cannabinoid Screen Urine POSITIVE (Not Detect); Cocaine Screen Urine Not Detected (Not Detect); Fentanyl, urine Not Detected (Not Detect); Opiate Screen Urine Not Detected (Not Detect); Phencyclidine Screen Urine Not Detected (Not Detect)
[2024-01-14] MEDS: Lactated Ringers 1,000 ML 100 ML IVCONT ×2 (14:21→21:09)
[2024-01-14 14:28] LABS: Bacteria Urine None Seen (None Seen); RBC Urine 0-2 /HPF (0-2); UACC Culture Trigger YES
--- NOTE | 2024-01-14 14:30 | PHA.MEDREC ---
Addendum entered by Ofelia Carvalho [facility] 01/14/24 14:53: notified Aicha Bob that pt hasn't filled temazepam since 03/2023 even though he states he takes it daily. Original Note: Pharmacy Consult ? Medication Reconciliation Pharmacy has completed the medication reconciliation.
--- NOTE | 2024-01-14 14:32 | PC.NURSE ---
Pt resting in bed, denies any pain or nausea. Alert and oriented. LR infusing per MAR.
[2024-01-14] MEDS: Divalproex Sodium 500 MG TABLET.DR 1000 MG PO ×2 (15:48→21:09)
[2024-01-14 16:00] VITALS: BP 133/73; PULSE 54; RESP 18; TEMP 36.6; O2SAT 99
[2024-01-14] MEDS: 0.9 % Sodium Chloride Flush 3 ML SYRINGE IVFLUSH (18:43)
[2024-01-14 19:54] VITALS: BP 129/74; PULSE 61; RESP 18; TEMP 36.6; O2SAT 99
[2024-01-14 23:31] VITALS: BP 124/69; PULSE 66; RESP 18; TEMP 36.9; O2SAT 98
--- NOTE | 2024-01-15 03:12 | PC.NURSE ---
Patient noted resting in naps, no s/sx resp distress, vss, ivf as ordered, and no stated pain. Sitter at bedside at all times, pt stated no thoughts of self harm at this current time. will cont to monitor closely.
[2024-01-15 04:00] VITALS: BP 111/52; PULSE 62; RESP 18; TEMP 36.5; O2SAT 96
[2024-01-15 05:50] LABS: Hematocrit 35.5 % (42.0-52.0); Mean Corpuscular HGB Conc 33.8 g/dl (31.0-36.0); Mean Corpuscular Hemoglobin 33.3 pg (27.0-33.0); Mean Corpuscular Volume 98.6 fL (80.0-98.0); Mean Platelet Volume 11.3 fL (9.4-12.4); Platelet Count 154 X10*3/uL (160-400); Red Cell Distribution Width 13.5 % (11.0-16.0); White Blood Count 4.6 X10*3/uL (4.8-10.8)
[2024-01-15 06:03] LABS: Anion Gap 13 (12-20); Blood Urea Nitrogen 7 mg/dL (9-16); Calcium 8.2 mg/dL (8.4-10.2); Carbon Dioxide 23 mmol/L (22-29); Chloride 110 mmol/L (96-108); Creatinine Clr Calc Pharmacy 107.4; Estimated Glomerular Filt Rate > 60; Glucose Random 84 mg/dL (60-115); Potassium 3.5 mmol/L (3.3-5.1); Sodium 142 mmol/L (135-145)
[2024-01-15] MEDS: Pantoprazole Sodium 40 MG/10 ML VIAL IVPUSH (06:11)
[2024-01-15 07:58] VITALS: BP 124/67; PULSE 60; RESP 16; TEMP 36.4; O2SAT 98
[2024-01-15] MEDS: Divalproex Sodium 500 MG TABLET.DR 1000 MG PO ×2 (08:24→20:34)
[2024-01-15] MEDS: Lactated Ringers 1,000 ML 100 ML IVCONT (08:25)
--- NOTE | 2024-01-15 09:59 | MHC.CM.PN ---
LEAH TOM. PATIENT IS FROM HOME W/ S.O. AND CHILD. FUNCTIONALLY INDEPENDENT. DENIES USE OF ANY SERVICES OR DME. PT PRESENTED AFTER SUICIDE ATTEMPT, HX MULTIPLE PSYCH HOSPITALIZATIONS, + SEC 12, SITTER AT BEDSIDE. NO PCP, PHYSICIAN BROCHURE PROVIDED NO HCP, CM PROVIDED EDUCATION AND OFFERED ASSISTANCE, PATIENT DECLINED DP: CARE TEAM EVAL ONCE MEDICALLY CLEARED. HOME SELF CARE VIA SHUTTLE OR LYFT VS CARE TEAM INTERVENTION. CM WILL CONTINUE TO FOLLOW.
--- NOTE | 2024-01-15 12:51 | PM.GIPN ---
Subjective Subjective Date of Service: 01/15/24 Interval History: Mild sore throat managing liquids and crackers no abdominal or chest pain no dysphagia passing gas easily Critical Care Time (minutes): 0 Physical Exam Vital Signs: Vital Signs: Last Vital Signs Temp 97.6 F 01/15/24 07:58 Pulse 60 01/15/24 07:58 Resp 16 01/15/24 07:58 BP 124/67 01/15/24 07:58 Pulse Ox 98 01/15/24 07:58 O2 Del Method Room Air 01/15/24 07:58 BMI result Body Mass Index 30.0 EXAM: GENERAL: The patient is well developed and nontoxic. VITAL SIGNS:see workflow HEENT: Nonicteric sclerae, PERRLA, EOMI. Oropharynx with mild erythema in throat. Moist mucous membranes. Conjunctivae appear well perfused. No thyroid mass. CHEST: Chest wall is nontender. HEART: Regular rate and rhythm without murmurs. LUNGS: Clear to auscultation bilaterally. ABDOMEN: Soft, positive bowel sounds, nontender, no organomegaly.no flank tenderness SKIN: No rash, no excessive bruising, petechiae, or purpura. NEUROLOGIC: Cranial nerves II-XII intact without motor/sensory deficit. Psych: Appearance: grossly normal Objective Data Labs 01/15/24 05:35 01/15/24 05:35 Labs: Laboratory Results - last 24 hr 01/14/24 01/15/24 14:05 05:35 WBC 4.6 L RBC 3.60 L Hgb 12.0 L Hct 35.5 L MCV 98.6 H MCH 33.3 H MCHC 33.8 RDW 13.5 Plt Count 154 L MPV 11.3 Absolute Nucleated RBC 0.000 Nucleated RBC % (auto) 0.0 Sodium 142 Potassium 3.5 Chloride 110 H Carbon Dioxide 23 Anion Gap 13 BUN 7 L Creatinine 0.89 Estim Creat Clear Calc 107.4 Estimated GFR > 60 Random Glucose 84 Calcium 8.2 L D Urine Color Yellow Urine Appearance Clear Urine pH 5.5 Ur Specific [place] 1.015 Urine Protein 100 (2+) H Urine Glucose (UA) Negative Urine Ketones Negative Urine Blood Trace H Urine Nitrite Negative Ur Leukocyte Esterase Negative Urine RBC 0-2 Urine WBC 6-10 H Ur Squamous Epith Cells 3-5 Urine Bacteria None Seen Hyaline Casts 3-5 Urine Opiates Screen Not Detected Urine Fentanyl Screen Not Detected Ur Barbiturates Screen Not Detected Ur Phencyclidine Scrn Not Detected Ur Amphetamines Screen Not Detected U Benzodiazepines Scrn Not Detected Urine Cocaine Screen Not Detected U Marijuana (THC) Screen POSITIVE H Microbiology Microbiology Results: Microbiology 01/14/24 Unknown Urine clean catch - Urine michelle top Urine Culture - Final Lactobacillus species Procedures Date of Service Date of Service: 01/15/24 Progress Note: A&P Assessment and plan (1) Ingestion of caustic substance: Status: Acute Plan 1/ Caustic ingestion 2/ Pancytopenia PLAN: 1/ Doing better, no high risk clinical features, hold on EGD at this time, advance diet 2/ Cont to monitor CBC, if worsening pancytopenia, may need heme consult Time Spent With Patient Time: Total time managing care of this patient today ____ minutes. Quality Stroke Does the patient have a stroke diagnosis?: No VTE Prior VTE?: No VTE Risk Level:: Medical - moderate - high VTE Device Contraindication: N/A - Device Ordered VTE Drug Contraindication: Treatment Not Indicated
--- NOTE | 2024-01-15 12:53 | HO.PM.IMPN ---
Subjective Subjective Date of Service: 01/15/24 Interval History: seen and examined this morning follow up for intentional toxic ingestion doing well overnight tolerating clears, no abdominal pain, vomiting no pain or difficulty with swallowing, sob Review of Systems Review of Systems: Yes all other systems are reviewed and are negative Constitutional Constitutional: Denies chills and Denies fever(s) Cardiovascular Cardiovascular: Denies chest pain, Denies palpitations and Denies dyspnea Respiratory Respiratory: Denies dyspnea Gastrointestinal Gastrointestinal: Denies abdominal pain Endocrine Endocrine: Denies palpitations Physical Exam Vital Signs: Vital Signs: Last Vital Signs Temp 97.6 F 01/15/24 07:58 Pulse 60 01/15/24 07:58 Resp 16 01/15/24 07:58 BP 124/67 01/15/24 07:58 Pulse Ox 98 01/15/24 07:58 O2 Del Method Room Air 01/15/24 07:58 BMI result Body Mass Index 30.0 Const: General: cooperative and comfortable Nutritional Appearance: average body habitus Orientation/consciousness: patient oriented x3 HEENT: Other: no oral lesions noted Resp: Effort & Inspection: normal respiratory effort, able to speak in complete sentences, no respiratory distress and no use of accessory muscles Auscultation: clear to auscultation bilaterally Cardio: Rate: regular rate GI: Inspection: No distended Palpation (GI): Soft to palpation, nontender and no guarding Neuro: General: patient oriented x3, moves all extremities and CN's II-XI intact bilaterally Extrem: General: Yes no pedal edema Objective Data Active Medications Acetaminophen (Acetaminophen 325 Mg Tablet) 650 mg PO Q6H PRN PRN Reason: Pain, Mild (Pain Scale 1-3) Divalproex Sodium (Divalproex Sodium 500 Mg Tablet.) 1,000 mg PO BID [facility] Last Admin: 01/15/24 08:24 Dose: 1,000 mg Documented By: VINICIO Docusate Sodium (Docusate Sodium 100 Mg Capsule) 100 mg PO DAILY PRN PRN Reason: Constipation Lactated Ringer's (Lr) 1,000 mls @ 100 mls/hr IVCONT .Q10H [facility] Last Admin: 01/15/24 08:25 Dose: 100 mls/hr Documented By: VINICIO Lorazepam (Lorazepam 1 Mg Tablet) 1 mg PO BID PRN PRN Reason: Anxiety Ondansetron HCl (Ondansetron Hcl 4 Mg/2 Ml Vial) 4 mg IVPUSH Q8H PRN PRN Reason: Nausea and Vomiting Pantoprazole Sodium (Pantoprazole Sodium 40 Mg/10 Ml Vial) 40 mg IVPUSH DAILY@0630 [facility] Last Admin: 01/15/24 06:11 Dose: 40 mg Documented By: BRENNA Sodium Chloride (0.9 % Sodium Chloride Flush 3 Ml Syringe) 3 ml IVFLUSH QSHIFT [facility] Last Admin: 01/15/24 08:24 Dose: Not Given Documented By: VINICIO Non-Admin Reason: IV Running Temazepam (Temazepam 15 Mg Capsule) 30 mg PO BEDTIME PRN PRN Reason: Insomnia Labs 01/15/24 05:35 01/15/24 05:35 Labs: Laboratory Results - last 24 hr 01/14/24 01/15/24 14:05 05:35 MCV 98.6 H MCH 33.3 H MCHC 33.8 RDW 13.5 Plt Count 154 L MPV 11.3 Absolute Nucleated RBC 0.000 Nucleated RBC % (auto) 0.0 Anion Gap 13 Estim Creat Clear Calc 107.4 Estimated GFR > 60 Random Glucose 84 Calcium 8.2 L D Urine Color Yellow Urine Appearance Clear Urine pH 5.5 Ur Specific [place] 1.015 Urine Protein 100 (2+) H Urine Glucose (UA) Negative Urine Ketones Negative Urine Blood Trace H Urine Nitrite Negative Ur Leukocyte Esterase Negative Urine RBC 0-2 Urine WBC 6-10 H Ur Squamous Epith Cells 3-5 Urine Bacteria None Seen Hyaline Casts 3-5 Urine Opiates Screen Not Detected Urine Fentanyl Screen Not Detected Ur Barbiturates Screen Not Detected Ur Phencyclidine Scrn Not Detected Ur Amphetamines Screen Not Detected U Benzodiazepines Scrn Not Detected Urine Cocaine Screen Not Detected U Marijuana (THC) Screen POSITIVE H Microbiology Microbiology Results: Microbiology 01/14/24 Unknown Urine Culture - Final Urine clean catch - Urine michelle top Lactobacillus species Assessment and Plan (1) Ingestion of caustic substance: Status: Acute Plan This is a 43-year-old male with history of bipolar disorder question seizure disorder who was brought to the emergency department on section 12 after intentional toxic ingestion of fantastic with bleach. Intentional Toxic ingestion poison control rec observation overnight, supportive care for nausea doing well, no abdominal pain will advance diet and stop IVF mood not compliant with meds continue home meds when med rec complete ?seizure disorder reports having seizures sometimes noncompliant with medication seizure precautions no seizure activity since admission SI intentional ingestion/suicide attempt brought in on section 12 sitter for safety medically cleared - care team consult pending pancytopenia likely dilutional given decrease in all cell lines DVT ppx - low risk, early ambulation, SCDs Quality Stroke Does the patient have a stroke diagnosis?: No VTE Prior VTE?: No VTE Risk Level:: Medical - moderate - high VTE Device Contraindication: N/A - Device Ordered VTE Drug Contraindication: Treatment Not Indicated
[2024-01-15 16:00] VITALS: BP 129/72; PULSE 71; RESP 18; O2SAT 98
[2024-01-15] MEDS: 0.9 % Sodium Chloride Flush 3 ML SYRINGE IVFLUSH ×2 (16:10→23:44)
[2024-01-15 18:50] VITALS: BP 117/77; PULSE 79; RESP 16; TEMP 36.9; O2SAT 99
[2024-01-16 04:00] VITALS: BP 114/68; PULSE 52; RESP 16; TEMP 36.7; O2SAT 99
[2024-01-16 07:05] VITALS: BP 112/63; PULSE 60; RESP 12; TEMP 36.6; O2SAT 98
[2024-01-16 08:47] LABS: Hematocrit 39.4 % (42.0-52.0); Hemoglobin 13.8 g/dl (14.0-18.0); Mean Corpuscular Hemoglobin 33.5 pg (27.0-33.0); Mean Corpuscular Volume 95.6 fL (80.0-98.0); Mean Platelet Volume 10.7 fL (9.4-12.4); Platelet Count 218 X10*3/uL (160-400); Red Blood Count 4.12 X10*6/uL (4.60-5.80); Red Cell Distribution Width 13.1 % (11.0-16.0); White Blood Count 4.6 X10*3/uL (4.8-10.8)
[2024-01-16] MEDS: Divalproex Sodium 500 MG TABLET.DR 1000 MG PO ×2 (09:10→20:10)
[2024-01-16] MEDS: 0.9 % Sodium Chloride Flush 3 ML SYRINGE IVFLUSH (09:10)
[2024-01-16 10:49] LABS: Valproate 69.3 mcg/mL (50.0-100.0)
--- NOTE | 2024-01-16 11:12 | PC.NURSE ---
Patient IV tender, painful to flush. Per Dr. Hart patient does not need IV access at this time. IV removed, no issues.
[2024-01-16 13:41] LABS: COVID-19 Test Negative (Negative); IDNOW Serial# 152EDE1D
--- NOTE | 2024-01-16 14:07 | P.PNIM_ITS ---
Subjective Subjective Date of Service: 01/16/24 Interval History: Patient seen examined being followed for intentional ingestion, tolerating diet, denies nausea, vomiting, no abdominal pain, offers no acute complaints, no acute issues overnight Review of Systems All other system reviewed and negative Physical Exam 2 Vital Signs: Vital Signs: Last Vital Signs Temp 98 F 01/16/24 07:05 Pulse 60 01/16/24 07:05 Resp 12 01/16/24 07:05 BP 112/63 01/16/24 07:05 Pulse Ox 98 01/16/24 07:05 O2 Del Method Room Air 01/16/24 04:00 BMI result Body Mass Index 30.0 Const: Other: General awake alert x3, resting comfortably in no acute distress. Neck supple, no JVD. CVS regular rate rhythm, Respiratory lungs clear to auscultation, no respiratory distress, no wheeze, no rhonchi. Gastrointestinal abdomen soft, non tender, bowel sounds audible, no guarding , no rigidity. Extremities no edema. Neuro non focal , speech clear. Skin no rash Objective Data Active Medications Acetaminophen (Acetaminophen 325 Mg Tablet) 650 mg PO Q6H PRN PRN Reason: Pain, Mild (Pain Scale 1-3) Divalproex Sodium (Divalproex Sodium 500 Mg Tablet.Dr) 1,000 mg PO BID [facility] Last Admin: 01/16/24 09:10 Dose: 1,000 mg Documented By: LIZZETTE Docusate Sodium (Docusate Sodium 100 Mg Capsule) 100 mg PO DAILY PRN PRN Reason: Constipation Lorazepam (Lorazepam 1 Mg Tablet) 1 mg PO BID PRN PRN Reason: Anxiety Ondansetron HCl (Ondansetron Hcl 4 Mg/2 Ml Vial) 4 mg IVPUSH Q8H PRN PRN Reason: Nausea and Vomiting Sodium Chloride (0.9 % Sodium Chloride Flush 3 Ml Syringe) 3 ml IVFLUSH QSHIFT [facility] Last Admin: 01/16/24 09:10 Dose: 3 ml Documented By: LIZZETTE Temazepam (Temazepam 15 Mg Capsule) 30 mg PO BEDTIME PRN PRN Reason: Insomnia Labs 01/16/24 08:37 01/15/24 05:35 Labs: Laboratory Results - last 24 hr 01/16/24 01/16/24 01/16/24 08:37 10:30 13:16 MCV 95.6 MCH 33.5 H MCHC 35.0 RDW 13.1 Plt Count 218 D MPV 10.7 Absolute Nucleated RBC 0.000 Nucleated RBC % (auto) 0.0 Valproic Acid 69.3 COVID-19 ([facility]) Negative COVID-19 Clin Com See Note Microbiology Microbiology Results: Microbiology 01/14/24 Unknown Urine Culture - Final Urine clean catch - Urine michelle top Lactobacillus species Assessment and Plan (1) Ingestion of caustic substance: Status: Acute Plan 43-year-old male with history of bipolar disorder question seizure disorder who was brought to the emergency department on section 12 after intentional toxic ingestion of fantastic with bleach. Intentional Toxic ingestion Tolerating diet no nausea no vomiting or abdominal pain/status post IV fluids mood not compliant with meds , resume all home medications, lorazepam, temazepam and Depakote ?seizure disorder reports having seizures sometimes noncompliant with medication seizure precautions no seizure activity since admission , will check Depakote level SI intentional ingestion/suicide attempt brought in on section 12 sitter for safety medically cleared - seen by care team they are looking for bed , will check COVID test. pancytopenia likely dilutional, is stable hematocrit, platelets normalized, no further workup DVT ppx - low risk, early ambulation, SCDs Quality Stroke Does the patient have a stroke diagnosis?: No VTE Prior VTE?: No VTE Risk Level:: Medical - moderate - high VTE Device Contraindication: N/A - Device Ordered VTE Drug Contraindication: Treatment Not Indicated
--- NOTE | 2024-01-16 14:13 | PM.DS ---
DS: Providers Provider Date of Service: 01/17/24 Date of admission: 01/14/24 13:13 Primary care physician: None Physician Consults: 01/14/24 12:46 Consult to Care Team Stat Comment: Reason for consultation: SI attempt toxic ingesiton 01/14/24 13:13 Consult to Gastroenterology Routine Consulting Provider: Christian Novak Reason for consultation: toxic ingestion, epigastric pain Has provider been notified: Yes 01/14/24 13:16 Consult for Sitter Routine Reason for consultation: SI; safety 01/15/24 12:01 Consult to Care Team Routine Comment: Reason for consultation: SI; medically cleared DS: Diagnosis Discharge Diagnosis (1) Ingestion of caustic substance: Status: Acute DS: Summary Hospital Course Hospital Course: History of presenting illness: Date of Service: 01/14/24 Attending physician on admission: Santana Nelson Chief Complaint: toxic ingestion; SI This is a 43-year-old male who was brought in on section 12 after a toxic ingestion. Patient states that he had an argument with his significant other which made him upset. He had been cleaning with and testing with bleach and ingested approximately 8 oz this morning prior to arrival in a suicide attempt. He reportedly had 1 episode of vomiting prior to her arrival in the emergency department but no vomiting since. Poison control was consulted by emergency room provider and recommended Zofran as needed for nausea and benzos if needed for agitation. Recommended GI evaluation if esophageal irritation. The patient complained of some burning epigastric abdominal pain. GI was consulted and recommended observation overnight and clear liquid diet for now. If pain persists possible need for EGD in am. Lab work otherwise unremarkable, brain CT negative for acute changes. Toxicology screen pending at the time of admission. Hospital course: 43-year-old male with history of bipolar disorder, question seizure disorder who was brought to the emergency department on section 12 after intentional toxic ingestion of bleach, patient was admitted to medical floor treated with IV fluids and monitored closely, patient had no episodes of nausea, vomiting, he is tolerating diet, IV fluids has been discontinued, patient seen by care team and is cleared for discharged home, recommend to resume all home medications, patient is noncompliant with home medications with ? history of seizure disorder, Depakote level is within therapeutic range, no seizure-like activity noted. Recommend outpatient follow-up with psychiatrist and therapist at [facility]. pancytopenia likely dilutional, hematocrit improved, platelets normalized, no further workup warranted. Time Attestation Discharge coordination time: Greater than 30 minutes Quality: Safe Use of Opioids Does Pt have an Active Cancer Diagnosis on the Problem List?: No Quality: Stroke Does the patient have a stroke diagnosis?: No Physical Exam Vital Signs: Vital Signs: Last Vital Signs Temp 98 F 01/16/24 07:05 Pulse 60 01/16/24 07:05 Resp 12 01/16/24 07:05 BP 112/63 01/16/24 07:05 Pulse Ox 98 01/16/24 07:05 O2 Del Method Room Air 01/16/24 04:00 BMI result Body Mass Index 30.0 Const: Other: General awake alert x3, resting comfortably in no acute distress. Neck supple, no JVD. CVS regular rate rhythm, Respiratory lungs clear to auscultation, no respiratory distress, no wheeze, no rhonchi. Gastrointestinal abdomen soft, non tender, bowel sounds audible, no guarding , no rigidity. Extremities no edema. Neuro non focal , speech clear. Skin no rash DS: Data Data Completed and Pending Labs on day of discharge: Laboratory Results - last 24 hr 01/16/24 01/16/24 01/16/24 08:37 10:30 13:16 WBC 4.6 L RBC 4.12 L Hgb 13.8 L Hct 39.4 L MCV 95.6 MCH 33.5 H MCHC 35.0 RDW 13.1 Plt Count 218 D MPV 10.7 Absolute Nucleated RBC 0.000 Nucleated RBC % (auto) 0.0 Valproic Acid 69.3 COVID-19 ([facility]) Negative COVID-19 Clin Com See Note Discharge Plan Discharge Anticipated Discharge Date/Time: 01/17/24 13:23 Patient Disposition: Home, Self-Care Discharge Diagnosis: Intentional toxic ingestion Referrals: Physician,None [Primary Care Provider] - 1 Week Discharge Medications: Continued lorazepam 1 mg tablet 1 mg PO BID PRN (Reason: Anxiety) divalproex 500 mg Tablet,Delayed Release (Dr/Ec) 1,000 mg PO BID Qty: 0 0RF temazepam 30 mg capsule 30 mg PO BEDTIME PRN (Reason: Insomnia) ibuprofen 600 mg tablet 600 mg PO Q6H PRN (Reason: Pain) Discharge Orders: Discharge Order (Routine); Ordered 01/17/24 Ordered By: Rhina Hart Diet: Advance to usual diet Activity on Discharge: As tolerated Stand Alone Forms: Patient Portal Discharge page Care Plan Goals: Intentional toxic ingestion recommend to continue all home medications, continue regular diet follow-up with PCP and with [facility] providers therapist Health Concerns: Seizure disorder Mood disorder Plan of Treatment: Outpatient follow-up with primary care physician , psych provider and therapist, call for appointment Assessment: As above
--- NOTE | 2024-01-16 14:41 | MHC.CM.PN ---
EMR REVIEWED AND PER MD ROUNDS, I/P PSYCH BED SEARCH IS UNDERWAY. CM WILL CONTINUE TO FOLLOW FOR ANY CHANGE IN DC NEEDS/PLAN
[2024-01-16 15:39] VITALS: BP 129/71; PULSE 68; RESP 16; TEMP 36.6; O2SAT 97
[2024-01-16 19:59] VITALS: BP 137/83; PULSE 59; RESP 20; TEMP 36.3; O2SAT 99
[2024-01-17 03:25] VITALS: BP 103/55; PULSE 61; RESP 16; TEMP 36.3; O2SAT 97
[2024-01-17 06:52] VITALS: BP 105/59; PULSE 55; RESP 17; TEMP 36.1; O2SAT 99
[2024-01-17] MEDS: Divalproex Sodium 500 MG TABLET.DR 1000 MG PO (08:39)
--- NOTE | 2024-01-17 14:08 | MHC.CM.PN ---
DP: PT HAS BEEN MEDICALLY CLEARED FOR DC HOME, NO SERVICES. PSYCH SERVICES HAS CLEARED. PT WILL TAKE [place] [facility].
== END 2024-01-17 14:13 | disposition home or self-care (01) ==
LOC: HO.ED 12:14 → HO.EDOVER 13:18 → HO.S3 14:48
PROVIDERS: Physician Assistant; Admitting Provider Physician Assistant Medical; Emergency Provider Emergency Medicine; Visit Provider Hospitalist
DX: T54.92XA Toxic effect of unspecified corrosive substance, intentional self-harm, initial encounter (principal); R11.10 Vomiting, unspecified; Y92.9 Unspecified place or not applicable; F31.63 Bipolar disorder, current episode mixed, severe, without psychotic features; R51.9 Headache, unspecified; F20.9 Schizophrenia, unspecified; F12.929 Cannabis use, unspecified with intoxication, unspecified; D64.9 Anemia, unspecified; D61.818 Other pancytopenia; Z11.52 Encounter for screening for COVID-19
CPT/HCPCS: 36415; 70450; 71045; 80048; 80053; 80143; 80164; 80179; 80307; 81001; 83735; 85025; 85027; 87086; 87635; 93005; 96361; 96374; 96376; 99221; 99285; C9113; J7120; S9485

== ENCOUNTER → 2024-01-14 11:24 | Outpatient (BNV) | payer OTHER, SELFPAY | PROVIDERS: Admitting Provider Physician Assistant Medical; Emergency Provider Emergency Medicine; Visit Provider Internal Medicine Cardiovascular Disease | DX: T54.92XA Toxic effect of unspecified corrosive substance, intentional self-harm, initial encounter (principal) | CPT/HCPCS: 93010 ==

== ENCOUNTER → 2024-01-14 13:13 | Outpatient (BNV) | payer OTHER, SELFPAY | PROVIDERS: Admitting Provider Physician Assistant Medical; Emergency Provider Emergency Medicine; Visit Provider Internal Medicine Gastroenterology | DX: T14.91XA Suicide attempt, initial encounter (principal); T54.92XA Toxic effect of unspecified corrosive substance, intentional self-harm, initial encounter | CPT/HCPCS: 99222; 99232 ==

== ENCOUNTER → 2024-01-14 13:13 | Outpatient (BNV) | payer OTHER, SELFPAY | PROVIDERS: Admitting Provider Physician Assistant Medical; Emergency Provider Emergency Medicine; Visit Provider Physician Assistant Medical | DX: T54.92XA Toxic effect of unspecified corrosive substance, intentional self-harm, initial encounter (principal); T14.91XA Suicide attempt, initial encounter | CPT/HCPCS: 99223; 99231; 99232; 99238 ==

== ENCOUNTER 2024-01-31 05:23 | Emergency (ER) | payer OTHER, SELFPAY ==
[2024-01-31 05:38] VITALS: BP 110/64; BP 140/86; PULSE 71; PULSE 76; RESP 15; TEMP 36.6; O2SAT 97; O2SAT 98; BMI 25.0
[2024-01-31 06:05] LABS: MANUAL DIFF FLAG NO
[2024-01-31 06:06] LABS: Basophils Percent Auto 0.6 % (0-2); Eosinophils Absolute Auto 0.1 X10*3/uL (0.0-0.4); Eosinophils Percent Auto 2.2 % (0-4); Hematocrit 41.5 % (42.0-52.0); Hemoglobin 14.3 g/dl (14.0-18.0); Lymphocytes Absolute Auto 2.3 X10*3/uL (1.2-4.9); Lymphocytes Percent Auto 43.2 % (20-40); Mean Corpuscular HGB Conc 34.5 g/dl (31.0-36.0); Mean Corpuscular Hemoglobin 32.9 pg (27.0-33.0); Mean Corpuscular Volume 95.4 fL (80.0-98.0); Mean Platelet Volume 10.9 fL (9.4-12.4); Monocytes Absolute Auto 0.8 X10*3/uL (0.1-1.2); Monocytes Percent Auto 14.6 % (2-11); Neutrophils Absolute Auto 2.1 x10*3/uL (2.0-8.3); Neutrophils Percent Auto 39.4 % (45-73); Platelet Count 304 X10*3/uL (160-400); Red Blood Count 4.35 X10*6/uL (4.60-5.80); Red Cell Distribution Width 13.3 % (11.0-16.0); White Blood Count 5.4 X10*3/uL (4.8-10.8)
[2024-01-31 06:23] LABS: COVID-19 Test Negative (Negative); IDNOW Serial# 152EDE1D
[2024-01-31 06:24] LABS: Alanine Aminotransferase 7 U/L (0-40); Albumin Level 3.9 g/dL (3.5-5.0); Alkaline Phosphatase 78 U/L (39-117); Anion Gap 13 (12-20); Aspartate Amino Transferase 14 U/L (5-37); Bilirubin Total 0.2 mg/dL (0.0-1.0); Blood Urea Nitrogen 13 mg/dL (9-16); Calcium 8.9 mg/dL (8.4-10.2); Carbon Dioxide 24 mmol/L (22-29); Chloride 111 mmol/L (96-108); Estimated Glomerular Filt Rate > 60; Ethanol < 10 mg/dL; Glucose Random 116 mg/dL (60-115); Potassium 3.5 mmol/L (3.3-5.1); Sodium 144 mmol/L (135-145)
[2024-01-31 06:24] LABS: Acetaminophen LAB < 3 mcg/mL (<30); Salicylate < 5.0 mg/dL (15-30)
--- NOTE | 2024-01-31 06:46 | ED_ITS ---
HPI - Psych General Chief Complaint: Psychiatric Symptoms Stated Complaint: si Time Seen by Provider: 01/31/24 06:28 Source: patient Mode of arrival: EMS History of Present Illness HPI Narrative: 43-year-old male states he woke up feeling very anxious and that he wanted to harm himself and he constantly hears voices, he does not have a specific plan for suicide. Patient states that he has a safety plan in place and so immediately went down to the [place] police department and was brought in by EMS. Patient states he has not been taking his medications as prescribed and denies any use of alcohol or illicit drugs. Related Data Home Medications Medication Instructions Recorded Confirmed lorazepam 1 mg tablet 1 mg PO BID PRN Anxiety 09/01/23 01/14/24 temazepam 30 mg capsule 30 mg PO BEDTIME PRN Insomnia 11/05/23 01/14/24 ibuprofen 600 mg tablet 600 mg PO Q6H PRN Pain 01/14/24 01/14/24 Previous Rx's Medication Instructions Recorded divalproex 500 mg tablet,delayed 1,000 mg (2 x 500 mg) PO BID #0 09/03/23 release tabs Allergies Allergy/AdvReac Type Severity Reaction Status Date / Time haloperidol [From Haldol] Allergy Severe Seizure Verified 01/31/24 05:41 lurasidone [From Latuda] AdvReac Shakiness Verified 01/31/24 05:41 Review of Systems 2 Review of Systems: Pertinent positives and negatives as stated in HPI PMFSH Past Medical History Source: nursing notes reviewed Medical History Cannabis use disorder Bipolar 1 disorder, mixed, severe Schizophrenia Social History Social History Household Members: Significant Other and Children Housing: Apartment Do you presently have visiting nurse or other home services: No Alcohol intake: current Alcohol intake frequency: holidays/special occasions only Alcohol type: wine Comment: 1:1 sitter Patient Tobacco Use Status: Current everyday Tobacco user Tobacco use type: Cigarette Cigarettes Per Day: 6 Years Smoked: 25 Smoked in Last 30 Days: Yes Second Hand Smoke Exposure: Yes Substance Use Type: Marijuana Advance Directives: No Advance Directives Information Provided: No service: No Sexual orientation: Straight/Heterosexual Physical Exam 2 Vital Signs: Vital Signs: Last Vital Signs Temp 97.8 F 01/31/24 05:38 Pulse 76 01/31/24 05:38 Resp 15 01/31/24 05:38 BP 110/64 01/31/24 05:38 Pulse Ox 97 01/31/24 05:38 O2 Del Method Room Air 01/31/24 05:38 BMI result Body Mass Index 25.0 VITAL SIGNS: Reviewed. GENERAL: Well developed, well nourished, in no acute distress. HEAD: Normocephalic/atraumatic EYES: PERRLA, EOMI EARS: Ext canals without abnormality NOSE: Nares patent bilateral OROPHARYNX: no oral lesions noted, posterior pharynx clear NECK: Supple, no adenopathy LUNGS: Normal breath sounds. No adventitious sounds or accessory muscle use. SpO2<97> CARDIOVASCULAR: Regular rate and rhythm without noted murmurs ABDOMEN: Soft, non-tender, non-distended with bowel sounds. MUSCULOSKELETAL: No tenderness, deformities, or effusions noted on gross inspection. EXTREMITIES: No cyanosis, clubbing or edema. SKIN: Inspection of the skin reveals no rashes NEUROLOGIC: Alert and oriented x 4. Strength and sensation to light touch were grossly intact x 4, cranial nerves 2-12 are grossly intact. Medical Decision Making Medical Decision Making [facility] Narrative: 43-year-old male with history and clinical presentation consistent with lapse in medication compliance and now reporting suicidal ideation with chronic AVH. I reviewed all investigations and hematologic indices are negative for leukocytosis or left shift and there is no anemia or thrombocytopenia. Chemistry indices are negative for VITA or electrolyte/liver enzyme derangements. Salicylate/acetaminophen/alcohol levels are undetectable. COVID-19 is negative. Patient is medically cleared though UDS for urine is pending. Patient placed in physician observation because the patient needed more time for care team evaluation. At the time observation was started the patient's vital signs were stable, patient is alert and oriented but slightly agitated, neuro: Nonfocal, CV RRR, lungs clear Differential Diagnosis Differential Diagnoses: The differential diagnosis associated with the presentation includes Please see the discussion above Admission/Observation Consideration of admission/observation: Escalation of care including admission/observation considered Please see the discussion above Consult Healthcare Provider Management of the patient was discussed with: Pot Press Operator Please see the discussion above Lab Data [facility] Lab Attestation statement: I reviewed the patient's lab results. Please see the discussion above 01/31/24 05:54 01/31/24 05:54 Labs: Lab Results 01/31/24 01/31/24 Range/Units 05:54 05:59 WBC 5.4 (4.8-10.8) X10*3/uL RBC 4.35 L (4.60-5.80) X10*6/uL Hgb 14.3 (14.0-18.0) g/dl Hct 41.5 L (42.0-52.0) % MCV 95.4 (80.0-98.0) fL MCH 32.9 (27.0-33.0) pg MCHC 34.5 (31.0-36.0) g/dl RDW 13.3 (11.0-16.0) % Plt Count 304 D (160-400) X10*3/uL MPV 10.9 (9.4-12.4) fL Immature Gran % (Auto) 0.0 (0.0-0.4) % Neut % (Auto) 39.4 L (45-73) % Lymph % (Auto) 43.2 H (20-40) % [place] % (Auto) 14.6 H (2-11) % Eos % (Auto) 2.2 (0-4) % Baso % (Auto) 0.6 (0-2) % Lymph # (Auto) 2.3 (1.2-4.9) X10*3/uL [place] # (Auto) 0.8 (0.1-1.2) X10*3/uL Eos # (Auto) 0.1 (0.0-0.4) X10*3/uL Baso # (Auto) 0.0 (0.0-0.2) X10*3/uL Abs Immat Gran (auto) 0.00 (0.00-0.03) X10*3/uL Absolute Neuts (auto) 2.1 (2.0-8.3) x10*3/uL Absolute Nucleated RBC 0.000 (0.0-0.012) X10*3/uL Nucleated RBC % (auto) 0.0 (0.0-0.2) /100WBC Sodium 144 (135-145) mmol/L Potassium 3.5 (3.3-5.1) mmol/L Chloride 111 H (96-108) mmol/L Carbon Dioxide 24 (22-29) mmol/L Anion Gap 13 (12-20) BUN 13 (9-16) mg/dL Creatinine 1.07 (0.5-1.4) mg/dL Estim Creat Clear Calc 79.0 Estimated GFR > 60 Random Glucose 116 H (60-115) mg/dL Calcium 8.9 D (8.4-10.2) mg/dL Total Bilirubin 0.2 (0.0-1.0) mg/dL AST 14 (5-37) U/L ALT 7 (0-40) U/L Alkaline Phosphatase 78 (39-117) U/L Total Protein 7.0 (6.5-8.0) g/dL Albumin 3.9 (3.5-5.0) g/dL Salicylates < 5.0 L (15-30) mg/dL Acetaminophen < 3 (<30) mcg/mL Ethyl Alcohol < 10 mg/dL COVID-19 ([facility]CI) Negative (Negative) COVID-19 Clin Com See Note External Record Review External record reviewed: Outpatient record and Prior outpatient labs Critical Care Time Critical Care Time Critical Care Time: Yes Total Critical Care Time: 30 Attestation: I personally attest to this time spent taking care of the patient. Discharge Plan Discharge Clinical Impression: Suicidal ideation Patient Disposition: Still a Patient Prescriptions: No Action lorazepam 1 mg tablet 1 mg PO BID PRN (Reason: Anxiety) divalproex 500 mg Tablet,Delayed Release (Dr/Ec) 1,000 mg PO BID Qty: 0 0RF temazepam 30 mg capsule 30 mg PO BEDTIME PRN (Reason: Insomnia) ibuprofen 600 mg tablet 600 mg PO Q6H PRN (Reason: Pain) Interventions: [place]-Suicide Risk Severity Scale Last Done: 01/31/24 05:41
[2024-01-31 07:24] VITALS: BP 127/68; PULSE 65; RESP 18; TEMP 36.4; O2SAT 99
[2024-01-31 08:59] VITALS: BP 110/70; PULSE 77; RESP 16; O2SAT 97
--- NOTE | 2024-01-31 09:29 | PC.NURSE ---
PT IS A/O X 4 NO SOB/VINITA NOTED SPEAKS IN FULL SENTENCES. PT DENIES ANY SI/HI/PAIN/DISC. CARE TEAM AT BEDSIDE. PT AWARE OF PLAN OF CARE.
[2024-01-31 12:19] LABS: Amphetamine Screen Urine Not Detected (Not Detect); Barbiturates, Urine Not Detected (Not Detect); Benzodiazepines Screen Urine Not Detected (Not Detect); Cannabinoid Screen Urine POSITIVE (Not Detect); Cocaine Screen Urine Not Detected (Not Detect); Fentanyl, urine Not Detected (Not Detect); Opiate Screen Urine Not Detected (Not Detect); Phencyclidine Screen Urine Not Detected (Not Detect)
--- NOTE | 2024-01-31 13:13 | MHC.CARE ---
Discharged by provider, unable to review safety plan with patient.
== END 2024-01-31 12:22 | disposition home or self-care (01) ==
PROVIDERS: Student in an Organized Health Care Education/Training Program; Emergency Provider Emergency Medicine Emergency Medical Services
DX: R44.0 Auditory hallucinations (principal); R45.851 Suicidal ideations; F17.210 Nicotine dependence, cigarettes, uncomplicated; Z79.899 Other long term (current) drug therapy; Z11.52 Encounter for screening for COVID-19
CPT/HCPCS: 80053; 80143; 80179; 80307; 85025; 87635; 99284; 99285; S9485

== ENCOUNTER 2024-03-15 10:44 | Emergency (ER) | payer OTHER, SELFPAY ==
[2024-03-15 10:49] VITALS: BP 126/57; PULSE 98; O2SAT 98
--- NOTE | 2024-03-15 10:54 | ED_ITS ---
HPI - General Adult General Chief complaint: Psychiatric Symptoms Stated complaint: BIPOLAR EPISODE, OFF MEDS Time Seen by Provider: 03/15/24 10:49 Source: patient and EMS Mode of arrival: EMS Limitations: no limitations History of Present Illness HPI narrative: Patient is a 43 yr old male with a past medical history of bipolar 1, cannabis use disorder, presenting s/p verbal altercation with his baby marquez He reports multiple external stressors including financial struggles, and familial relationships. Denies SI/HI. Denies fever, chills, cough, sob, cp, abdominal pain, n/v/d, constipation, or urinary symptom Related Data Home Medications ?Medication ?Instructions ?Recorded ?Confirmed lorazepam 1 mg tablet 1 mg PO BID PRN Anxiety 09/01/23 01/14/24 temazepam 30 mg capsule 30 mg PO BEDTIME PRN Insomnia 11/05/23 01/14/24 ibuprofen 600 mg tablet 600 mg PO Q6H PRN Pain 01/14/24 01/14/24 Previous Rx's ?Medication ?Instructions ?Recorded divalproex 500 mg tablet,delayed 1,000 mg (2 x 500 mg) PO BID #0 09/03/23 release tabs Allergies Allergy/AdvReac Type Severity Reaction Status Date / Time haloperidol [From Haldol] Allergy Severe Seizure Verified 03/15/24 10:57 lurasidone [From Latuda] AdvReac Shakiness Verified 01/31/24 05:41 Review of Systems 2 Review of Systems: Yes all other systems are reviewed and are negative PMFSH Past Medical History Attestation statement: The following information was validated with the patient. Source: old records reviewed and nursing notes reviewed Medical History Cannabis use disorder Bipolar 1 disorder, mixed, severe Schizophrenia Social History Social History Household Members: Significant Other and Children Housing: Apartment Do you presently have visiting nurse or other home services: No Alcohol intake: current Alcohol intake frequency: holidays/special occasions only Alcohol type: wine Comment: 1:1 sitter Patient Tobacco Use Status: Current everyday Tobacco user Tobacco use type: Cigarette Cigarettes Per Day: 6 Years Smoked: 25 Smoked in Last 30 Days: Yes Second Hand Smoke Exposure: Yes Use of substances other than those prescribed or required for medical reasons: Yes Substance Use Type: Marijuana Advance Directives: No Advance Directives Information Provided: No Do you have a plan to hurt others: No Plan service: No Sexual orientation: Straight/Heterosexual Physical Exam ED Vital Signs: Vital Signs - 24 hr 03/15/24 10:55 03/15/24 11:00 Temperature 97.1 F 97.1 F Pulse Rate 94 94 Respiratory Rate 18 18 Blood Pressure 129/79 129/79 Pulse Oximetry 98 98 Oxygen Delivery Method Room Air Room Air BMI result Body Mass Index 23.3 vss Appearance: Alert.? Oriented X3.? No acute distress.? Head: Normocephalic, atraumatic, no step-offs or deformities Eyes: Pupils equal, round and reactive to light.? Neck: Normal inspection.? Neck supple.? CVS: Normal heart rate and rhythm.? Pulses normal.? Respiratory: No respiratory distress.? Breath sounds normal.? Abdomen: Soft and nontender.? Skin: Skin warm and dry.? Normal skin color.? Normal skin turgor.? Extremities: No lower extremity edema.? No calf ttp. 5/5 strength to bilateral upper and lower extremities Neuro: Oriented X 3.? No motor deficit.? No sensory deficit. CN 2-12 intact Course Reevaluation(s) Reevaluation #1: CBC unremarkable. Chemistry pending. UA without infection. Urine toxicology positive for marijuana. Patient feeling much better was seen by the care team and they feel as though patient is safe for discharge home. I agree with this plan. He is not suicidal or homicidal. Educated patient on diagnosis and treatment plan, answered all question, patient verbalizes understanding. At this time patient will be discharged home, advised to return with new or worsening symptoms. Educated on worrisome signs and symptoms and when to return. At this time I feel comfortable discharge home. Time: 12:11 Medical Decision Making Medical Decision Making MDM Narrative: 43 yr old male with a history of bipolar 1 and literally cannabis use disorder presenting for psychiatric evaluation s/p a verbal altercation at home this morning. Patient reports overall he feels medically well and has no complaints. Denies SI/HI. PE benign Likely bipolar vs schizophrenia. Unlikely metabolic derangements. Plan medical clearance evaluation by behavioral health team. Differential Diagnosis Differential Diagnoses: The differential diagnosis associated with the presentation includes Likely bipolar vs schizophrenia. Unlikely metabolic derangements. Admission/Observation Consideration of admission/observation: Escalation of care including admission/observation considered unlikley Consult Healthcare Provider Management of the patient was discussed with: Behavioral Health Provider Lab Data [facility] Lab Attestation statement: I reviewed the patient's lab results. 03/15/24 11:29 03/15/24 11:29 Labs: Lab Results 03/15/24 03/15/24 Range/Units 11:29 11:30 WBC 6.6 (4.8-10.8) X10*3/uL RBC 4.67 (4.60-5.80) X10*6/uL Hgb 15.4 (14.0-18.0) g/dl Hct 44.3 (42.0-52.0) % MCV 94.9 (80.0-98.0) fL MCH 33.0 (27.0-33.0) pg MCHC 34.8 (31.0-36.0) g/dl RDW 13.8 (11.0-16.0) % Plt Count 231 (160-400) X10*3/uL MPV 10.9 (9.4-12.4) fL Immature Gran % (Auto) 0.5 H (0.0-0.4) % Neut % (Auto) 65.5 (45-73) % Lymph % (Auto) 24.6 (20-40) % [place] % (Auto) 7.5 (2-11) % Eos % (Auto) 1.1 (0-4) % Baso % (Auto) 0.8 (0-2) % Lymph # (Auto) 1.6 (1.2-4.9) X10*3/uL [place] # (Auto) 0.5 (0.1-1.2) X10*3/uL Eos # (Auto) 0.1 (0.0-0.4) X10*3/uL Baso # (Auto) 0.1 (0.0-0.2) X10*3/uL Abs Immat Gran (auto) 0.03 (0.00-0.03) X10*3/uL Absolute Neuts (auto) 4.4 (2.0-8.3) x10*3/uL Absolute Nucleated RBC 0.000 (0.0-0.012) X10*3/uL Nucleated RBC % (auto) 0.0 (0.0-0.2) /100WBC Urine Color Yellow Urine Appearance Cloudy Urine pH 6.0 (5.0-9.0) Ur Specific [employer] 1.020 (1.005-1.025) Urine Protein 300 (3+) H (Neg-Trace) mg/dL Urine Glucose (UA) Negative (Negative) mg/dL Urine Ketones Trace (Negative) mg/dL Urine Blood Small (1+) H (Negative) Urine Nitrite Negative (Negative) Ur Leukocyte Esterase Negative (Negative) Urine RBC 3-5 H (0-2) /HPF Urine WBC 6-10 (0-5) /HPF Ur Squamous Epith Cells 3-5 (0-2) /HPF Urine Bacteria Trace (None Seen) Hyaline Casts 6-10 (0-2) /LPF Urine Yeast Present Urine Opiates Screen Not Detected (Not Detect) Ur Buprenorphine Scrn Not Detected (Not Detect) ng/mL Ur Oxycodone Screen Not Detected (Not Detect) ng/mL Urine Methadone Screen Not Detected (Not Detect) ng/mL Urine Fentanyl Screen Not Detected (Not Detect) Ur Barbiturates Screen Not Detected (Not Detect) Ur Phencyclidine Scrn Not Detected (Not Detect) Ur Amphetamines Screen Not Detected (Not Detect) U Benzodiazepines Scrn Not Detected (Not Detect) Urine Cocaine Screen Not Detected (Not Detect) U Marijuana (THC) Screen POSITIVE H (Not Detect) Independent Historian Clinical information obtained from an independent historian. History obtained from or confirmed by: EMS External Record Review External record reviewed: Inpatient record, Office record, Outpatient record, Prior outpatient labs, Prior outpatient radiology, Primary care record and Outside ED record Chronic Conditions Patient?s care impacted by: Other (bipolar ) Discharge Plan Discharge Clinical Impression: Panic attack, Bipolar 1 disorder Patient Disposition: Home, Self-Care Instructions: Bipolar Disorder (DC), Panic Disorder (ED), Anxiety (ED) Additional Instructions: Take your medications as prescribed. If you were prescribed antibiotics today, it is important that you take your medication to their entirety, do not skip any doses, do not finish them early. Follow-up with your primary care provider this week. Return to the emergency department with new or worsening symptoms. Such as fevers, chills, chest pain, shortness of breath, nausea, vomiting, dizziness, headache, vision changes, lethargy In case of emergency call 911 Prescriptions: No Action lorazepam 1 mg tablet 1 mg PO BID PRN (Reason: Anxiety) divalproex 500 mg Tablet,Delayed Release (Dr/Ec) 1,000 mg PO BID Qty: 0 0RF temazepam 30 mg capsule 30 mg PO BEDTIME PRN (Reason: Insomnia) ibuprofen 600 mg tablet 600 mg PO Q6H PRN (Reason: Pain) Referrals: Physician,None [Primary Care Provider] - 1 day Interventions: [place]-Suicide Risk Severity Scale Last Done: 03/15/24 11:00 Print Language: Maldivian
[2024-03-15 10:55] VITALS: BP 129/79; PULSE 94; RESP 18; TEMP 36.2; O2SAT 98; BMI 23.3
[2024-03-15 11:00] VITALS: BP 129/79; PULSE 94; RESP 18; TEMP 36.2; O2SAT 98
--- NOTE | 2024-03-15 11:02 | PC.NURSE ---
Pt presents to ED via EMS from home. Pt reports he was having a panic attack this morning, asked his significant other to call crisis, however she called 911. Pt denies any SI or HI, reports his panic attack is resolving and he feels better. Pt reports he has been med complaint except missed one dose this morning of bipolar meds. Denies any pain or SOB. Alert and oriented, breathing even and unlabored, skin WNL. Calm and cooperative, VSS.
[2024-03-15 11:37] LABS: MANUAL DIFF FLAG NO
[2024-03-15 11:38] LABS: Basophils Absolute Auto 0.1 X10*3/uL (0.0-0.2); Basophils Percent Auto 0.8 % (0-2); Eosinophils Absolute Auto 0.1 X10*3/uL (0.0-0.4); Eosinophils Percent Auto 1.1 % (0-4); Hematocrit 44.3 % (42.0-52.0); Hemoglobin 15.4 g/dl (14.0-18.0); Imm Gran Abs Auto 0.03 X10*3/uL (0.00-0.03); Imm Gran Pct Auto 0.5 % (0.0-0.4); Lymphocytes Absolute Auto 1.6 X10*3/uL (1.2-4.9); Lymphocytes Percent Auto 24.6 % (20-40); Mean Corpuscular HGB Conc 34.8 g/dl (31.0-36.0); Mean Corpuscular Volume 94.9 fL (80.0-98.0); Mean Platelet Volume 10.9 fL (9.4-12.4); Monocytes Absolute Auto 0.5 X10*3/uL (0.1-1.2); Monocytes Percent Auto 7.5 % (2-11); Neutrophils Absolute Auto 4.4 x10*3/uL (2.0-8.3); Neutrophils Percent Auto 65.5 % (45-73); Platelet Count 231 X10*3/uL (160-400); Red Blood Count 4.67 X10*6/uL (4.60-5.80); Red Cell Distribution Width 13.8 % (11.0-16.0); White Blood Count 6.6 X10*3/uL (4.8-10.8)
[2024-03-15 11:39] LABS: Appearance Urine Cloudy; Color Urine Yellow; Glucose Urine UA Negative (Negative); Leukocyte Esterase Urine Negative (Negative); Nitrite Urine Negative (Negative); UMIC TRIGGER UACC YES; Urine Blood Small (1+) (Negative); Urine Ketones Trace mg/dL (Negative); Urine Protein 300 (3+) mg/dL (Neg-Trace)
[2024-03-15 11:50] LABS: Bacteria Urine Trace (None Seen); UACC Culture Trigger YES
[2024-03-15 11:55] LABS: Amphetamine Screen Urine Not Detected (Not Detect); Barbiturates, Urine Not Detected (Not Detect); Benzodiazepines Screen Urine Not Detected (Not Detect); Buprenorphine Scr Not Detected (Not Detect); Cannabinoid Screen Urine POSITIVE (Not Detect); Cocaine Screen Urine Not Detected (Not Detect); Fentanyl, urine Not Detected (Not Detect); Methadone Screen, Urine Not Detected (Not Detect); Opiate Screen Urine Not Detected (Not Detect); Oxycodone Screen Urine Not Detected (Not Detect); Phencyclidine Screen Urine Not Detected (Not Detect)
[2024-03-15 12:13] LABS: Alanine Aminotransferase 7 U/L (0-40); Albumin Level 4.1 g/dL (3.5-5.0); Alkaline Phosphatase 80 U/L (39-117); Anion Gap 13 (12-20); Aspartate Amino Transferase 13 U/L (5-37); Bilirubin Total 0.4 mg/dL (0.0-1.0); Blood Urea Nitrogen 14 mg/dL (9-16); Calcium 9.5 mg/dL (8.4-10.2); Carbon Dioxide 24 mmol/L (22-29); Chloride 110 mmol/L (96-108); Creatinine Clr Calc Pharmacy 79.7; Estimated Glomerular Filt Rate > 60; Ethanol < 10 mg/dL; Glucose Random 144 mg/dL (60-115); Magnesium 1.9 mg/dL (1.6-2.6); Potassium 3.9 mmol/L (3.3-5.1); Sodium 143 mmol/L (135-145); Total Protein 7.2 g/dL (6.5-8.0)
[2024-03-15 12:13] LABS: Acetaminophen LAB < 3 mcg/mL (<30); Salicylate < 5.0 mg/dL (15-30)
[2024-03-15 12:21] VITALS: BP 129/65; PULSE 79; RESP 16; TEMP 36.6; O2SAT 100
== END 2024-03-15 12:23 | disposition home or self-care (01) ==
PROVIDERS: Physician Assistant; Emergency Provider Emergency Medicine
DX: F33.9 Major depressive disorder, recurrent, unspecified (principal); F41.0 Panic disorder [episodic paroxysmal anxiety]; F12.10 Cannabis abuse, uncomplicated; Z63.8 Other specified problems related to primary support group; Z79.899 Other long term (current) drug therapy
CPT/HCPCS: 36415; 80053; 80143; 80179; 80307; 81001; 83735; 85025; 87086; 99284; S9485

== ENCOUNTER 2024-03-25 13:19 | Emergency (ER) | payer OTHER, SELFPAY ==
--- NOTE | 2024-03-25 13:20 | ED_ITS ---
HPI - Psych General Chief Complaint: Psychiatric Symptoms Stated Complaint: BIPOLAR, AGITATED (CALM NOW), NOT MED COMPLIANT Time Seen by Provider: 03/25/24 13:20 Source: patient, EMS and old records reviewed Mode of arrival: EMS Limitations: no limitations History of Present Illness HPI Narrative: 43 y/o male with history of bipolar disorder presents to the ER for the 7th time this year for gela and bipolar. He states he lost who he was today and couldn't see anything. He could hear but not see. He was screaming and yelling at the top of his lungs at home. He states he does not know who called 911 but it was probably because he was screaming so loudly. He admits to stopping his Depakote 3 days ago. He states he had a stressful weekend with his daughter's prom, recently stopped smoking marijuana and cigarettes. Denies any other illicit drug use or alcohol use. He states he was recently admitted here, it did not help him. He feels well when he is on his medications and has recurrent manic episodes when he is off of them. EMS report that his girlfriend called 911 because he was hitting himself in the head with a trash can lid at home. He admits to doing so. He denies headache or any injury. He denies any suicidal thoughts or homicidal thoughts. MD complaint: anxiety and other (Gela) Onset (ago): unknown Duration: getting worse History of same: Yes Relieving factors: medication and therapy Context: significant life stressor Associated psychiatric symptoms: racing thoughts Associated symptoms: denies other symptoms Treatments prior to arrival: none Related Data Home Medications ?Medication ?Instructions ?Recorded ?Confirmed lorazepam 1 mg tablet 1 mg PO BID PRN Anxiety 09/01/23 01/14/24 temazepam 30 mg capsule 30 mg PO BEDTIME PRN Insomnia 11/05/23 01/14/24 ibuprofen 600 mg tablet 600 mg PO Q6H PRN Pain 01/14/24 01/14/24 Previous Rx's ?Medication ?Instructions ?Recorded divalproex 500 mg tablet,delayed 1,000 mg (2 x 500 mg) PO BID #0 09/03/23 release tabs Allergies Allergy/AdvReac Type Severity Reaction Status Date / Time haloperidol [From Haldol] Allergy Severe Seizure Verified 03/25/24 13:40 lurasidone [From Latuda] AdvReac Shakiness Verified 01/31/24 05:41 Review of Systems 2 Review of Systems: Yes all other systems are reviewed and are negative PMFSH Past Medical History Medical History Cannabis use disorder Bipolar 1 disorder, mixed, severe Schizophrenia Social History Social History Household Members: Significant Other and Children Housing: Apartment Do you presently have visiting nurse or other home services: No Alcohol intake: former Comment: 1:1 sitter Patient Tobacco Use Status: Current everyday Tobacco user Tobacco use type: Cigarette Cigarettes Per Day: 6 Years Smoked: 25 Smoked in Last 30 Days: No Second Hand Smoke Exposure: Yes Substance Use Type: Marijuana Advance Directives: No Advance Directives Information Provided: No Do you have a plan to hurt others: No Plan service: No Sexual orientation: Straight/Heterosexual Physical Exam 2 Vital Signs: Vital Signs: Last Vital Signs Temp 97.5 F 03/25/24 13:38 Pulse 84 03/25/24 13:38 Resp 20 03/25/24 13:38 BP 118/66 03/25/24 13:38 Pulse Ox 96 03/25/24 13:38 O2 Del Method Room Air 03/25/24 13:38 BMI result Body Mass Index 21.9 Appearance: Alert. Oriented X3. No acute distress. Head: normocephalic, atraumatic. Eyes: Pupils equal, round and reactive to light. ENT: Pharynx normal. No tonsillar swelling or exudate. Neck: Normal inspection. Neck supple. CVS: Normal heart rate and rhythm. Pulses normal. Respiratory: No respiratory distress. Breath sounds normal. Abdomen: Soft and nontender. +BS x4 Skin: Skin warm and dry. Normal skin color. Normal skin turgor. No rashes. Extremities: No lower extremity edema. No joint swelling. Neuro/psych: Oriented X 3. No motor deficit. No sensory deficit. CN II-XII intact. Normal speech and cognition. Manic, hyperverbal. no SI/HI/AH/Vh Course Reevaluation(s) Reevaluation #1: Physician observation started at 14:24. Patient placed in physician observation because patient is awaiting CARE team evaluation for the possible need of inpatient psych admission. At the time observation was started patient's vital signs were stable. Patient is alert and oriented. Neuro exam is non-focal. CV: RRR and lungs are clear. Will continue to monitor. Time: 14:24 Medications Administered Discontinued Medications Generic Name Dose Route Start Last Admin Trade Name Antonio PRN Reason Stop Dose Admin Lorazepam 1 mg 03/25/24 13:38 03/25/24 13:52 Lorazepam 1 Mg Tablet PO 03/25/24 13:39 1 mg ONCE ONE Administration Medical Decision Making Medical Decision Making [facility] Narrative: 43-year-old male presents to the ER for evaluation of manic behavior. Has known bipolar and has been med noncompliant at home. Patient admitted here in December for a brief admission after a toxic ingestion of bleach. He has not suicidal at this time. He is calm and cooperative. He is hyperverbal and manic. He agrees for benzos. Previously prescribed Ativan, will give 1 dose of oral Ativan now. No signs of trauma on exam. He denies any headache or neck pain. Will hold off on CT scan of his head at this time Once medically cleared will need to be seen by the care team for possible admission and medication adjustments. Differential Diagnosis Differential Diagnoses: The differential diagnosis associated with the presentation includes substance induced mood disorder, acute psychosis, schizophrenia, schizoaffective disorder, PTSD, bipolar disorder, major depression with psychotic features Admission/Observation Consideration of admission/observation: Escalation of care including admission/observation considered Lab Data [facility] Lab Attestation statement: I reviewed the patient's lab results. Depakote level is undetected below 03/25/24 13:50 03/25/24 13:50 Labs: Lab Results 03/25/24 Range/Units 13:50 WBC 7.9 (4.8-10.8) X10*3/uL RBC 4.61 (4.60-5.80) X10*6/uL Hgb 15.3 (14.0-18.0) g/dl Hct 42.7 (42.0-52.0) % MCV 92.6 (80.0-98.0) fL MCH 33.2 H (27.0-33.0) pg MCHC 35.8 (31.0-36.0) g/dl RDW 13.7 (11.0-16.0) % Plt Count 309 D (160-400) X10*3/uL MPV 10.5 (9.4-12.4) fL Immature Gran % (Auto) 0.3 (0.0-0.4) % Neut % (Auto) 69.5 (45-73) % Lymph % (Auto) 21.5 (20-40) % [place] % (Auto) 7.8 (2-11) % Eos % (Auto) 0.4 (0-4) % Baso % (Auto) 0.5 (0-2) % Lymph # (Auto) 1.7 (1.2-4.9) X10*3/uL [place] # (Auto) 0.6 (0.1-1.2) X10*3/uL Eos # (Auto) 0.0 (0.0-0.4) X10*3/uL Baso # (Auto) 0.0 (0.0-0.2) X10*3/uL Abs Immat Gran (auto) 0.02 (0.00-0.03) X10*3/uL Absolute Neuts (auto) 5.5 (2.0-8.3) x10*3/uL Absolute Nucleated RBC 0.000 (0.0-0.012) X10*3/uL Nucleated RBC % (auto) 0.0 (0.0-0.2) /100WBC Sodium 141 (135-145) mmol/L Potassium 3.5 (3.3-5.1) mmol/L Chloride 106 (96-108) mmol/L Carbon Dioxide 22 (22-29) mmol/L Anion Gap 17 (12-20) BUN 15 (9-16) mg/dL Creatinine 1.20 (0.5-1.4) mg/dL Estim Creat Clear Calc 68.2 Estimated GFR > 60 Random Glucose 97 (60-115) mg/dL Calcium 9.8 (8.4-10.2) mg/dL Magnesium 1.8 (1.6-2.6) mg/dL Total Bilirubin 0.6 (0.0-1.0) mg/dL Direct Bilirubin 0.2 (0.0-0.5) mg/dL AST 33 (5-37) U/L ALT 14 (0-40) U/L Alkaline Phosphatase 85 (39-117) U/L Total Protein 7.8 (6.5-8.0) g/dL Albumin 4.5 (3.5-5.0) g/dL Valproic Acid < 12.5 L (50.0-100.0) mcg/mL Ethyl Alcohol < 10 mg/dL Independent Historian Clinical information obtained from an independent historian. History obtained from or confirmed by: EMS External Record Review External record reviewed: Inpatient record, Outpatient record and Prior outpatient labs Tests considered The following testing was considered but not selected: CT scan of the head was considered however no evidence of trauma on examination and he has no headache Prescription Management I considered prescription management with: Other (Antipsychotic) Chronic Conditions Patient?s care impacted by: Other (Bipolar) Social Determinants Patient?s care significantly limited by Social Determinants of Health including: Problems related to primary support group and Other Social Determinant of Health Critical Care Time Critical Care Time Critical Care Time: No Discharge Plan Discharge Clinical Impression: Bipolar disorder Patient Disposition: Still a Patient Prescriptions: No Action lorazepam 1 mg tablet 1 mg PO BID PRN (Reason: Anxiety) divalproex 500 mg Tablet,Delayed Release (Dr/Ec) 1,000 mg PO BID Qty: 0 0RF temazepam 30 mg capsule 30 mg PO BEDTIME PRN (Reason: Insomnia) ibuprofen 600 mg tablet 600 mg PO Q6H PRN (Reason: Pain) Interventions: [place]-Suicide Risk Severity Scale Last Done: 03/25/24 13:53 Print Language: Persian
[2024-03-25 13:23] VITALS: BP 150/100; PULSE 90; O2SAT 97
[2024-03-25 13:38] VITALS: BP 118/66; PULSE 84; RESP 20; TEMP 36.4; O2SAT 96; BMI 21.9
[2024-03-25] MEDS: LORazepam 1 MG TABLET PO (13:52)
[2024-03-25 13:55] LABS: MANUAL DIFF FLAG NO
[2024-03-25 13:57] LABS: Basophils Percent Auto 0.5 % (0-2); Eosinophils Percent Auto 0.4 % (0-4); Hematocrit 42.7 % (42.0-52.0); Hemoglobin 15.3 g/dl (14.0-18.0); Imm Gran Abs Auto 0.02 X10*3/uL (0.00-0.03); Imm Gran Pct Auto 0.3 % (0.0-0.4); Lymphocytes Absolute Auto 1.7 X10*3/uL (1.2-4.9); Lymphocytes Percent Auto 21.5 % (20-40); Mean Corpuscular HGB Conc 35.8 g/dl (31.0-36.0); Mean Corpuscular Hemoglobin 33.2 pg (27.0-33.0); Mean Corpuscular Volume 92.6 fL (80.0-98.0); Mean Platelet Volume 10.5 fL (9.4-12.4); Monocytes Absolute Auto 0.6 X10*3/uL (0.1-1.2); Monocytes Percent Auto 7.8 % (2-11); Neutrophils Absolute Auto 5.5 x10*3/uL (2.0-8.3); Neutrophils Percent Auto 69.5 % (45-73); Platelet Count 309 X10*3/uL (160-400); Red Blood Count 4.61 X10*6/uL (4.60-5.80); Red Cell Distribution Width 13.7 % (11.0-16.0); White Blood Count 7.9 X10*3/uL (4.8-10.8)
[2024-03-25 14:10] LABS: Ethanol < 10 mg/dL
[2024-03-25 14:11] LABS: Valproate < 12.5 mcg/mL (50.0-100.0)
[2024-03-25 14:13] LABS: Alanine Aminotransferase 14 U/L (0-40); Albumin Level 4.5 g/dL (3.5-5.0); Alkaline Phosphatase 85 U/L (39-117); Anion Gap 17 (12-20); Aspartate Amino Transferase 33 U/L (5-37); Bilirubin Direct 0.2 mg/dL (0.0-0.5); Bilirubin Total 0.6 mg/dL (0.0-1.0); Blood Urea Nitrogen 15 mg/dL (9-16); Calcium 9.8 mg/dL (8.4-10.2); Carbon Dioxide 22 mmol/L (22-29); Chloride 106 mmol/L (96-108); Creatinine Clr Calc Pharmacy 68.2; Estimated Glomerular Filt Rate > 60; Glucose Random 97 mg/dL (60-115); Magnesium 1.8 mg/dL (1.6-2.6); Potassium 3.5 mmol/L (3.3-5.1); Sodium 141 mmol/L (135-145); Total Protein 7.8 g/dL (6.5-8.0)
--- NOTE | 2024-03-25 15:01 | PC.NURSE ---
With patients permission girlfriend updated on current condition
[2024-03-25 16:04] VITALS: BP 124/77; PULSE 75; RESP 16; TEMP 36.7; O2SAT 98
--- NOTE | 2024-03-25 17:05 | MHC.EDTECH ---
[facility] called to speak to pt and was notified no pt phones are available. Would like patient to know they called and to call back when possible.
[2024-03-25 17:13] LABS: Appearance Urine Cloudy; Color Urine Dark Yellow; Glucose Urine UA Negative (Negative); Leukocyte Esterase Urine Small (1+) (Negative); Nitrite Urine Negative (Negative); PH 5.5 (5.0-9.0); Specific Gravity - Urine >= 1.030 (1.005-1.025); UMIC TRIGGER UACC YES; Urine Blood Negative (Negative); Urine Ketones 15 mg/dL (Negative); Urine Protein 100 (2+) mg/dL (Neg-Trace)
[2024-03-25 17:30] LABS: Amphetamine Screen Urine Not Detected (Not Detect); Barbiturates, Urine Not Detected (Not Detect); Benzodiazepines Screen Urine Not Detected (Not Detect); Buprenorphine Scr Not Detected (Not Detect); Cannabinoid Screen Urine POSITIVE (Not Detect); Cocaine Screen Urine Not Detected (Not Detect); Fentanyl, urine Not Detected (Not Detect); Methadone Screen, Urine Not Detected (Not Detect); Opiate Screen Urine Not Detected (Not Detect); Oxycodone Screen Urine Not Detected (Not Detect); Phencyclidine Screen Urine Not Detected (Not Detect)
[2024-03-25 18:02] LABS: Bacteria Urine 1+ (None Seen); UACC Culture Trigger YES
[2024-03-25 18:03] LABS: RBC Urine 0-2 /HPF (0-2)
--- NOTE | 2024-03-25 18:14 | PC.NURSE ---
Assumed care of patient at 1815, patient walked by security from ED 12 to 1. Now on phone talking with family member. patient otherwise calm and cooperative, offering no complaints to this RN. Pending CARE team at this time
--- NOTE | 2024-03-25 19:09 | PC.NURSE ---
patient appears to remain at rest at present respirations are even and unlabored patient appears in no distress
[2024-03-25 19:29] VITALS: BP 133/80; PULSE 80; RESP 16; TEMP 37; O2SAT 98
--- NOTE | 2024-03-26 09:26 | MHC.CARE ---
RAD Team completed a referral to [facility] for this individual and will follow up to confirm receipt.
== END 2024-03-25 19:33 | disposition home or self-care (01) ==
PROVIDERS: Physician Assistant; Emergency Provider Emergency Medicine Emergency Medical Services
DX: F31.9 Bipolar disorder, unspecified (principal); R44.0 Auditory hallucinations; Z91.148 Patient's other noncompliance with medication regimen for other reason
CPT/HCPCS: 36415; 80048; 80076; 80164; 80307; 81001; 83735; 85025; 87086; 99285; S9485

== ENCOUNTER 2024-03-31 02:33 | Emergency (ER) | payer OTHER, SELFPAY ==
--- NOTE | 2024-03-31 02:35 | ED_ITS ---
HPI - Psych General Chief Complaint: Psychiatric Symptoms Stated Complaint: crisis/ combative Time Seen by Provider: 03/31/24 02:35 Source: patient Mode of arrival: EMS Limitations: no limitations History of Present Illness HPI Narrative: Patient history of bipolar disorder schizophrenia stopped taking his medication for last 2 weeks hearing voices woke up from sleep very anxious/panic attack denies any SI feels safe at home no substance abuse patient was combative at the scene was restrained by the PD on arrival patient is calm and cooperative Related Data Home Medications ?Medication ?Instructions ?Recorded ?Confirmed lorazepam 1 mg tablet 1 mg PO BID PRN Anxiety 09/01/23 03/25/24 temazepam 30 mg capsule 30 mg PO BEDTIME PRN Insomnia 11/05/23 03/25/24 Previous Rx's ?Medication ?Instructions ?Recorded divalproex 500 mg tablet,delayed 1,000 mg (2 x 500 mg) PO BID #0 09/03/23 release tabs Allergies Allergy/AdvReac Type Severity Reaction Status Date / Time haloperidol [From Haldol] Allergy Severe Seizure Verified 03/31/24 02:47 lurasidone [From Latuda] AdvReac Shakiness Verified 03/31/24 02:47 Review of Systems 2 Review of Systems: Yes all other systems are reviewed and are negative PMFSH Past Medical History Medical History Cannabis use disorder Bipolar 1 disorder, mixed, severe Schizophrenia Social History Social History Household Members: Significant Other and Children Housing: Apartment Do you presently have visiting nurse or other home services: No Alcohol intake: former Comment: 1:1 sitter Patient Tobacco Use Status: Current everyday Tobacco user Tobacco use type: Cigarette Cigarettes Per Day: 6 Years Smoked: 25 Smoked in Last 30 Days: Yes Second Hand Smoke Exposure: Yes Use of substances other than those prescribed or required for medical reasons: No Substance Use Type: Marijuana Advance Directives: No Advance Directives Information Provided: Yes Do you have a plan to hurt others: No Plan service: No Sexual orientation: Straight/Heterosexual Physical Exam 2 Vital Signs: Vital Signs: Last Vital Signs Temp 98.7 F 03/31/24 02:46 Pulse 95 03/31/24 02:46 Resp 18 03/31/24 02:46 BP 125/62 03/31/24 02:46 Pulse Ox 97 03/31/24 02:46 O2 Del Method Room Air 03/31/24 02:46 BMI result Body Mass Index 23.3 Appearance: Alert. Oriented X3. No acute distress. Eyes: PERRLA, No Nystagmus ENT: Pharynx normal. Oral Mucosa moist Neck: Normal inspection. Neck supple. CVS: Normal heart rate and rhythm. Pulses normal. Respiratory: No respiratory distress. Equal air entry bilateral, no wheezing/rales/rhonchi Abdomen: Soft and nontender. Bowel sounds are present, no mass palpable, no CVA tenderness Skin: Skin warm and dry. Normal skin color. Normal skin turgor. Extremities: No lower extremity edema. No calf tenderness psych: Anxious auditory hallucinations+ denied SI or HI Neuro: Oriented X 3. No motor deficit. No sensory deficit.No cerebellar signs , cranial nerves II-XII intact Medical Decision Making Medical Decision Making [facility] Narrative: Patient with schizophrenia with depression noncompliant with medication was combative when PD came calm and cooperative now will get care team evaluation. Medically cleared Lab Data [facility] Lab Attestation statement: I reviewed the patient's lab results. 03/31/24 02:47 03/31/24 02:47 Labs: Lab Results 03/31/24 Range/Units 02:47 WBC 9.7 (4.8-10.8) X10*3/uL RBC 4.13 L (4.60-5.80) X10*6/uL Hgb 13.8 L (14.0-18.0) g/dl Hct 39.4 L (42.0-52.0) % MCV 95.4 (80.0-98.0) fL MCH 33.4 H (27.0-33.0) pg MCHC 35.0 (31.0-36.0) g/dl RDW 13.4 (11.0-16.0) % Plt Count 285 (160-400) X10*3/uL MPV 10.5 (9.4-12.4) fL Immature Gran % (Auto) 0.2 (0.0-0.4) % Neut % (Auto) 62.9 (45-73) % Lymph % (Auto) 28.8 (20-40) % [place] % (Auto) 7.3 (2-11) % Eos % (Auto) 0.4 (0-4) % Baso % (Auto) 0.4 (0-2) % Lymph # (Auto) 2.8 (1.2-4.9) X10*3/uL [place] # (Auto) 0.7 (0.1-1.2) X10*3/uL Eos # (Auto) 0.0 (0.0-0.4) X10*3/uL Baso # (Auto) 0.0 (0.0-0.2) X10*3/uL Abs Immat Gran (auto) 0.02 (0.00-0.03) X10*3/uL Absolute Neuts (auto) 6.1 (2.0-8.3) x10*3/uL Absolute Nucleated RBC 0.000 (0.0-0.012) X10*3/uL Nucleated RBC % (auto) 0.0 (0.0-0.2) /100WBC Sodium 144 (135-145) mmol/L Potassium 3.5 (3.3-5.1) mmol/L Chloride 108 (96-108) mmol/L Carbon Dioxide 18 L (22-29) mmol/L Anion Gap 22 H (12-20) BUN 18 H (9-16) mg/dL Creatinine 1.34 (0.5-1.4) mg/dL Estim Creat Clear Calc 63.1 Estimated GFR 59 Random Glucose 93 (60-115) mg/dL Calcium 9.3 (8.4-10.2) mg/dL Total Bilirubin 0.5 (0.0-1.0) mg/dL AST 33 (5-37) U/L ALT 12 (0-40) U/L Alkaline Phosphatase 72 (39-117) U/L Total Protein 7.2 (6.5-8.0) g/dL Albumin 4.2 (3.5-5.0) g/dL Ethyl Alcohol < 10 mg/dL Discharge Plan Discharge Clinical Impression: Chronic schizophrenia, Acute anxiety Patient Disposition: Still a Patient Prescriptions: No Action lorazepam 1 mg tablet 1 mg PO BID PRN (Reason: Anxiety) divalproex 500 mg Tablet,Delayed Release (Dr/Ec) 1,000 mg PO BID Qty: 0 0RF temazepam 30 mg capsule 30 mg PO BEDTIME PRN (Reason: Insomnia) Interventions: [place]-Suicide Risk Severity Scale Last Done: 03/31/24 03:31 Print Language: Libyan
[2024-03-31 02:46] VITALS: BP 125/62; PULSE 95; RESP 18; TEMP 37.1; O2SAT 97; BMI 23.3
--- NOTE | 2024-03-31 02:48 | PC.NURSE ---
pt biba from home, per ems pt combative and needed to be restrained by PD. on arrival PD at bedside, pt restrained; security called to bedside. pt calm and cooperative, moved over to stretcher. restraints removed. pt allowing vitals and lab work. pt changed over into green gown, belongings placed into locker 10. pt denies si/hi but requests wanting to speak to careteam.
[2024-03-31 02:51] LABS: MANUAL DIFF FLAG NO
[2024-03-31 02:52] LABS: Basophils Percent Auto 0.4 % (0-2); Eosinophils Percent Auto 0.4 % (0-4); Hematocrit 39.4 % (42.0-52.0); Hemoglobin 13.8 g/dl (14.0-18.0); Imm Gran Abs Auto 0.02 X10*3/uL (0.00-0.03); Imm Gran Pct Auto 0.2 % (0.0-0.4); Lymphocytes Absolute Auto 2.8 X10*3/uL (1.2-4.9); Lymphocytes Percent Auto 28.8 % (20-40); Mean Corpuscular Hemoglobin 33.4 pg (27.0-33.0); Mean Corpuscular Volume 95.4 fL (80.0-98.0); Mean Platelet Volume 10.5 fL (9.4-12.4); Monocytes Absolute Auto 0.7 X10*3/uL (0.1-1.2); Monocytes Percent Auto 7.3 % (2-11); Neutrophils Absolute Auto 6.1 x10*3/uL (2.0-8.3); Neutrophils Percent Auto 62.9 % (45-73); Platelet Count 285 X10*3/uL (160-400); Red Blood Count 4.13 X10*6/uL (4.60-5.80); Red Cell Distribution Width 13.4 % (11.0-16.0); White Blood Count 9.7 X10*3/uL (4.8-10.8)
[2024-03-31 03:21] LABS: Alanine Aminotransferase 12 U/L (0-40); Albumin Level 4.2 g/dL (3.5-5.0); Alkaline Phosphatase 72 U/L (39-117); Anion Gap 22 (12-20); Aspartate Amino Transferase 33 U/L (5-37); Bilirubin Total 0.5 mg/dL (0.0-1.0); Blood Urea Nitrogen 18 mg/dL (9-16); Calcium 9.3 mg/dL (8.4-10.2); Carbon Dioxide 18 mmol/L (22-29); Chloride 108 mmol/L (96-108); Creatinine Clr Calc Pharmacy 63.1; Estimated Glomerular Filt Rate 59; Ethanol < 10 mg/dL; Glucose Random 93 mg/dL (60-115); Potassium 3.5 mmol/L (3.3-5.1); Sodium 144 mmol/L (135-145); Total Protein 7.2 g/dL (6.5-8.0)
--- NOTE | 2024-03-31 03:29 | PC.NURSE ---
patient rec'd from main ED walked over by staff, calmly asked for david sheila and blanket which was provided. pt recognized by t/w as t/w dc'ed him 5 days ago from same unit. patient appears in no distress.
--- NOTE | 2024-03-31 08:31 | PHA.MEDREC ---
Pharmacy Consult ? Medication Reconciliation Pharmacy has REVIEWED the medication reconciliation DONE BY NURSING.
[2024-03-31] MEDS: Divalproex Sodium 500 MG TABLET.DR 1000 MG PO (08:39)
[2024-03-31 11:46] VITALS: BP 130/60; PULSE 63; RESP 18; TEMP 36.9
== END 2024-03-31 11:53 | disposition home or self-care (01) ==
PROVIDERS: Emergency Provider Internal Medicine
DX: F20.9 Schizophrenia, unspecified (principal); F31.9 Bipolar disorder, unspecified; F41.0 Panic disorder [episodic paroxysmal anxiety]
CPT/HCPCS: 36415; 80053; 80307; 85025; 99284; S9485

== ENCOUNTER 2024-04-16 11:07 | Emergency (ER) | payer OTHER, SELFPAY ==
[2024-04-16 11:12] VITALS: BP 118/82; PULSE 91; O2SAT 97
[2024-04-16 11:19] VITALS: BP 135/67; PULSE 76; RESP 16; TEMP 37.2; O2SAT 99; BMI 22.3
--- NOTE | 2024-04-16 12:30 | ED.ANXIETY ---
HPI - Anxiety General Chief Complaint: Anxiety Stated Complaint: PT STS PANIC ATTACK PER EMS Time Seen by Provider: 04/16/24 11:27 Source: patient and RN notes reviewed Mode of arrival: ambulatory Limitations: no limitations History of Present Illness ED Provider: Radha Delgado PA-C HPI narrative: This is a 43-year-old male, with a history of bipolar disorder and schizophrenia, who presents emergency department with complaints of anxiety since this morning. He has been taking all his medications as prescribed. He only uses marijuana. Patient reports that he was up all night unable to sleep secondary to anxiety. He states that he is currently living with his child's mother who he recently broke up with therefore this is causing him increased anxiety. He denies any SI or HI. He has chronic auditory hallucinations, this is not new for him. He states that he has not having any visual hallucinations. He states no physical complaints. No headaches, dizziness, blurred vision, chest pain, shortness of breath, abdominal pain, nausea, vomiting or diarrhea. He denies taking any medications at home to treat his current symptoms. MD complaint: anxiety Provoking factors: none known Relieving factors: nothing Exacerbating factors: nothing Associated symptoms: denies other symptoms Related Data Home Medications ?Medication ?Instructions ?Recorded ?Confirmed lorazepam 1 mg tablet 1 mg PO BID PRN Anxiety 09/01/23 03/31/24 temazepam 30 mg capsule 30 mg PO BEDTIME PRN Insomnia 11/05/23 03/31/24 Previous Rx's ?Medication ?Instructions ?Recorded divalproex 500 mg tablet,delayed 1,000 mg (2 x 500 mg) PO BID #0 09/03/23 release tabs Allergies Allergy/AdvReac Type Severity Reaction Status Date / Time haloperidol [From Haldol] Allergy Severe Seizure Verified 04/16/24 11:20 lurasidone [From Latuda] AdvReac Shakiness Verified 04/16/24 11:20 Review of Systems Review of Systems: Yes all other systems are reviewed and are negative Constitutional: Constitutional: Reports as per [facility] Past Medical History Attestation statement: The following information was validated with the patient. Medical History Cannabis use disorder Bipolar 1 disorder, mixed, severe Schizophrenia Social History Social History (Reviewed 04/16/24 @ 12:42 by KRAMEN Barton Household Members: Significant Other and Children Housing: Apartment Do you presently have visiting nurse or other home services: No Alcohol intake: current Alcohol intake frequency: a few times a month Alcohol type: wine Comment: 1:1 sitter Patient Tobacco Use Status: Current everyday Tobacco user Tobacco use type: Cigarette Cigarettes Per Day: 6 Years Smoked: 25 Smoked in Last 30 Days: Yes Second Hand Smoke Exposure: Yes Substance Use Type: Marijuana Advance Directives: No Advance Directives Information Provided: No service: No Sexual orientation: Straight/Heterosexual Physical Exam Vital Signs: Vital Signs: Last Vital Signs Temp 98.0 F 04/16/24 18:06 Pulse 62 04/16/24 18:06 Resp 16 04/16/24 18:06 BP 141/76 H 04/16/24 18:06 Pulse Ox 97 04/16/24 18:06 O2 Del Method Room Air 04/16/24 18:06 BMI result Body Mass Index 22.3 Const: General: cooperative, comfortable and no acute distress Orientation/consciousness: patient oriented x3 Limitations: no limitations HEENT: Head: Yes normal to inspection, Yes normocephalic and Yes atraumatic Ears: hearing grossly normal bilaterally General nose exam: Normal external nose present Face and sinus: Yes normal facial exam Mouth: Normal oral and palatal mucosa present, oropharynx normal and moist mucous membranes Throat: Yes posterior oropharynx normal Eyes: General: appearance normal, both eyes and all related structures Eyelids: Yes eyelids normal Conjunctivae: conjunctivae normal Sclerae: sclerae normal Pupils: Equal, round and reactive pupils present EOM: EOMs intact bilaterally Neck: Neck: Yes normal visual inspection, Yes full ROM and Yes no lymphadenopathy Lymphatic: no lymphadenopathy noted Chest: Chest palpation & inspection: normal inspection of the chest Resp: Effort & Inspection: normal respiratory effort and able to speak in complete sentences Auscultation: clear to auscultation bilaterally, no crackles, no rales, no rhonchi and no wheezes Cardio: Rate: regular rate Rhythm: regular rhythm Heart sounds: S1 normal heart sound present and S2 normal heart sound present GI: Inspection: Yes normal to inspection Skin: General skin exam: no rashes or lesions noted Trauma: no lacerations or abrasions Wounds: no wounds Neuro: General: patient oriented x3 and moves all extremities Cranial nerves: Yes Equal, round and reactive pupils present Extrem: General: Yes normal to inspection Right upper extremity: normal to inspection Left upper extremity: normal to inspection Right lower extremity: normal to inspection Left lower extremity: normal to inspection Course Reevaluation(s) Reevaluation #1: Lab work returns, no leukocytosis, H&H within normal limits. Chemistry nondiagnostic, ethyl alcohol negative. Pending urine drug screen as well as care team consult. At this time, patient placed in physician observation pending care team consult. Time: 14:42 Reevaluation #2: Urine returns, non infectious, patient tested positive for marijuana otherwise unremarkable. Patient awaiting care team consult. He has not SI or HI, he is safe to be discharged home is care team can not see him before then. He is resting comfortably. No current complaints. Time: 17:10 Reevaluation #3: Patient is seen by the care team and cleared for discharge at this time. Time: 18:23 Medications Administered Discontinued Medications Generic Name Dose Route Start Last Admin Trade Name Freq PRN Reason Stop Dose Admin Lorazepam 1 mg 04/16/24 14:43 04/16/24 15:21 Lorazepam 1 Mg Tablet PO 04/16/24 14:44 1 mg ONCE ONE Administration Medical Decision Making Medical Decision Making [facility] Narrative: This is a 43-year-old male who presents emergency department with complaints of anxiety since this morning. Patient reports increased stressors as he recently broke up the relationship between his child's mother and himself. He states that he is feeling anxious. No SI or HI. No VH/AH. On arrival, vital signs within normal limits. He is calm and cooperative. He expresses increased anxiety therefore will medicate with usual dose of Ativan. Plan: Labs, UA, urine drug screen, care team consult. Differential Diagnosis Differential Diagnoses: The differential diagnosis associated with the presentation includes Anxiety, depression, suicidal ideation, homicidal ideation Admission/Observation Consideration of admission/observation: Escalation of care including admission/observation considered Escalation of care including admission/observation considered however given workup today not warranted at this time. Lab Data [facility] Lab Attestation statement: I reviewed the patient's lab results. 04/16/24 12:52 04/16/24 12:52 Labs: Lab Results 04/16/24 04/16/24 Range/Units 12:52 15:40 WBC 6.1 (4.8-10.8) X10*3/uL RBC 4.25 L (4.60-5.80) X10*6/uL Hgb 14.1 (14.0-18.0) g/dl Hct 41.3 L (42.0-52.0) % MCV 97.2 (80.0-98.0) fL MCH 33.2 H (27.0-33.0) pg MCHC 34.1 (31.0-36.0) g/dl RDW 14.5 (11.0-16.0) % Plt Count 162 D (160-400) X10*3/uL MPV 12.3 (9.4-12.4) fL Immature Gran % (Auto) 0.5 H (0.0-0.4) % Neut % (Auto) 57.0 (45-73) % Lymph % (Auto) 31.6 (20-40) % [place] % (Auto) 9.9 (2-11) % Eos % (Auto) 0.3 (0-4) % Baso % (Auto) 0.7 (0-2) % Lymph # (Auto) 1.9 (1.2-4.9) X10*3/uL [place] # (Auto) 0.6 (0.1-1.2) X10*3/uL Eos # (Auto) 0.0 (0.0-0.4) X10*3/uL Baso # (Auto) 0.0 (0.0-0.2) X10*3/uL Abs Immat Gran (auto) 0.03 (0.00-0.03) X10*3/uL Absolute Neuts (auto) 3.5 (2.0-8.3) x10*3/uL Absolute Nucleated RBC 0.000 (0.0-0.012) X10*3/uL Nucleated RBC % (auto) 0.0 (0.0-0.2) /100WBC Smear Tech's Comments VERIFIED Sodium 145 (135-145) mmol/L Potassium 4.1 (3.3-5.1) mmol/L Chloride 113 H (96-108) mmol/L Carbon Dioxide 25 (22-29) mmol/L Anion Gap 11 L (12-20) BUN 11 (9-16) mg/dL Creatinine 0.89 (0.5-1.4) mg/dL Estim Creat Clear Calc 91.1 Estimated GFR > 60 Random Glucose 108 (60-115) mg/dL Calcium 9.0 (8.4-10.2) mg/dL Total Bilirubin 0.2 (0.0-1.0) mg/dL Direct Bilirubin < 0.2 (0.0-0.5) mg/dL AST 13 (5-37) U/L ALT 6 (0-40) U/L Alkaline Phosphatase 69 (39-117) U/L Total Protein 6.6 (6.5-8.0) g/dL Albumin 3.8 (3.5-5.0) g/dL Urine Color Yellow Urine Appearance Clear Urine pH 8.0 (5.0-9.0) Ur Specific [place] 1.010 (1.005-1.025) Urine Protein Negative (Neg-Trace) mg/dL Urine Glucose (UA) Negative (Negative) mg/dL Urine Ketones Negative (Negative) mg/dL Urine Blood Negative (Negative) Urine Nitrite Negative (Negative) Ur Leukocyte Esterase Trace H (Negative) Urine RBC 0-2 (0-2) /HPF Urine WBC 0-5 (0-5) /HPF Ur Squamous Epith Cells 0-2 (0-2) /HPF Urine Bacteria None Seen (None Seen) Hyaline Casts 0-2 (0-2) /LPF Urine Opiates Screen Not Detected (Not Detect) Ur Buprenorphine Scrn Not Detected (Not Detect) ng/mL Ur Oxycodone Screen Not Detected (Not Detect) ng/mL Urine Methadone Screen Not Detected (Not Detect) ng/mL Urine Fentanyl Screen Not Detected (Not Detect) Ur Barbiturates Screen Not Detected (Not Detect) Ur Phencyclidine Scrn Not Detected (Not Detect) Ur Amphetamines Screen Not Detected (Not Detect) U Benzodiazepines Scrn Not Detected (Not Detect) Urine Cocaine Screen Not Detected (Not Detect) U Marijuana (THC) Screen POSITIVE H (Not Detect) Ethyl Alcohol < 10 mg/dL Radiology Impression Discussion of test interpretation with radiology: I have reviewed the radiologist's reading. External Record Review External record reviewed: Inpatient record, Office record, Outpatient record, Prior outpatient labs, Prior outpatient radiology, Primary care record and Outside ED record Discharge Plan Discharge Clinical Impression: Acute anxiety Patient Disposition: Home, Self-Care Instructions: Generalized Anxiety Disorder (ED), Panic Disorder (ED), Anxiety (ED) Additional Instructions: Continue all at-home medications as prescribed. If any new or worsening symptoms occur including but not limited to chest pain, shortness for breath, abdominal pain, nausea, vomiting or diarrhea, please return for re-evaluation. Prescriptions: No Action lorazepam 1 mg tablet 1 mg PO BID PRN (Reason: Anxiety) divalproex 500 mg Tablet,Delayed Release (Dr/Ec) 1,000 mg PO BID Qty: 0 0RF temazepam 30 mg capsule 30 mg PO BEDTIME PRN (Reason: Insomnia) Print Language: Nepali
[2024-04-16 13:12] LABS: Basophils Percent Auto 0.7 % (0-2); Eosinophils Percent Auto 0.3 % (0-4); Hematocrit 41.3 % (42.0-52.0); Hemoglobin 14.1 g/dl (14.0-18.0); Imm Gran Abs Auto 0.03 X10*3/uL (0.00-0.03); Imm Gran Pct Auto 0.5 % (0.0-0.4); Lymphocytes Absolute Auto 1.9 X10*3/uL (1.2-4.9); Lymphocytes Percent Auto 31.6 % (20-40); MANUAL DIFF FLAG SCAN; Mean Corpuscular HGB Conc 34.1 g/dl (31.0-36.0); Mean Corpuscular Hemoglobin 33.2 pg (27.0-33.0); Mean Corpuscular Volume 97.2 fL (80.0-98.0); Monocytes Absolute Auto 0.6 X10*3/uL (0.1-1.2); Monocytes Percent Auto 9.9 % (2-11); Neutrophils Absolute Auto 3.5 x10*3/uL (2.0-8.3); PLT CLUMP 1; Red Blood Count 4.25 X10*6/uL (4.60-5.80); Red Cell Distribution Width 14.5 % (11.0-16.0); SCAN SMEAR FLAG 1
[2024-04-16 13:25] LABS: Mean Platelet Volume 12.3 fL (9.4-12.4); Platelet Count 162 X10*3/uL (160-400); White Blood Count 6.1 X10*3/uL (4.8-10.8)
[2024-04-16 13:26] LABS: SLIDE REVIEW VERIFIED
[2024-04-16 13:31] LABS: Alanine Aminotransferase 6 U/L (0-40); Albumin Level 3.8 g/dL (3.5-5.0); Alkaline Phosphatase 69 U/L (39-117); Anion Gap 11 (12-20); Aspartate Amino Transferase 13 U/L (5-37); Bilirubin Direct < 0.2 mg/dL (0.0-0.5); Bilirubin Total 0.2 mg/dL (0.0-1.0); Blood Urea Nitrogen 11 mg/dL (9-16); Carbon Dioxide 25 mmol/L (22-29); Chloride 113 mmol/L (96-108); Creatinine Clr Calc Pharmacy 91.1; Estimated Glomerular Filt Rate > 60; Ethanol < 10 mg/dL; Glucose Random 108 mg/dL (60-115); Potassium 4.1 mmol/L (3.3-5.1); Sodium 145 mmol/L (135-145); Total Protein 6.6 g/dL (6.5-8.0)
[2024-04-16] MEDS: LORazepam 1 MG TABLET PO (15:21)
[2024-04-16 15:33] VITALS: BP 126/75; PULSE 68; RESP 16; TEMP 36.7; O2SAT 99
--- NOTE | 2024-04-16 15:42 | MHC.EDTECH ---
THIS PCT ASSUMED CARE OF PATIENT AT 1445 ,VITALS TAKEN AND URINE SAMPLE COLLECTED AND SENT TO LAB .
[2024-04-16 16:57] LABS: Appearance Urine Clear; Color Urine Yellow; Glucose Urine UA Negative (Negative); Leukocyte Esterase Urine Trace (Negative); Nitrite Urine Negative (Negative); UMIC TRIGGER UACC YES; Urine Blood Negative (Negative); Urine Ketones Negative (Negative); Urine Protein Negative (Neg-Trace)
[2024-04-16 16:59] LABS: Bacteria Urine None Seen (None Seen); Hyaline Casts Urine 0-2 /LPF (0-2); RBC Urine 0-2 /HPF (0-2); Squamous Epithelial Cell Urine 0-2 /HPF (0-2); WBC Urine 0-5 /HPF (0-5)
[2024-04-16 17:06] LABS: Amphetamine Screen Urine Not Detected (Not Detect); Barbiturates, Urine Not Detected (Not Detect); Benzodiazepines Screen Urine Not Detected (Not Detect); Buprenorphine Scr Not Detected (Not Detect); Cannabinoid Screen Urine POSITIVE (Not Detect); Cocaine Screen Urine Not Detected (Not Detect); Fentanyl, urine Not Detected (Not Detect); Methadone Screen, Urine Not Detected (Not Detect); Opiate Screen Urine Not Detected (Not Detect); Oxycodone Screen Urine Not Detected (Not Detect); Phencyclidine Screen Urine Not Detected (Not Detect)
[2024-04-16 18:06] VITALS: BP 141/76; PULSE 62; RESP 16; TEMP 36.7; O2SAT 97
[2024-04-16 18:27] VITALS: BP 141/76; PULSE 62; RESP 16; TEMP 36.7; O2SAT 97
== END 2024-04-16 18:27 | disposition home or self-care (01) ==
PROVIDERS: Physician Assistant; Physician Assistant Medical; Emergency Provider Emergency Medicine
DX: F41.9 Anxiety disorder, unspecified (principal); F31.9 Bipolar disorder, unspecified; F20.9 Schizophrenia, unspecified; Z79.899 Other long term (current) drug therapy
CPT/HCPCS: 36415; 80048; 80076; 80307; 81001; 85025; 99284; S9485

== ENCOUNTER 2024-04-18 23:31 | Emergency (ER) | payer OTHER, MEDICAID, SELFPAY ==
--- NOTE | 2024-04-18 | ECG_ITS ---
Test Reason : CHEST PAIN Blood Pressure : / mmHG Vent. Rate : 073 BPM Atrial Rate : 073 BPM P-R Int : 128 ms QRS Dur : 090 ms QT Int : 382 ms P-R-T Axes : 068 053 041 degrees QTc Int : 420 ms Normal sinus rhythm Minimal voltage criteria for LVH, may be normal variant ( Sokolow-Bower ) Borderline ECG When compared with ECG of 14-JAN-2024 11:44, No significant change was found Referred By: Generic ED Physician Electronically Signed By:CELIA BURK
[2024-04-18 23:35] VITALS: BP 140/70; PULSE 82; O2SAT 97
[2024-04-18 23:43] VITALS: BP 118/59; PULSE 74; RESP 18; TEMP 36.6; O2SAT 99; BMI 22.3
--- NOTE | 2024-04-18 23:52 | ED_ITS ---
HPI - Chest Pain General Chief Complaint: Chest Pain Stated Complaint: crisis Time Seen by Provider: 04/18/24 23:40 Source: patient and EMS Mode of arrival: EMS Limitations: no limitations History of Present Illness ED Provider: Dr. Eliane Geiger HPI narrative: patient comes to the emergency room complaining of anxiety and panic attacks dating to chest pain. Patient states that all day today he has had panic attacks. Patient states that he is getting better at being compliant with his medications. Patient denies SI or HI but admits that he is having a lot of panic attacks and would like to talk to crisis. Related Data Home Medications ?Medication ?Instructions ?Recorded ?Confirmed lorazepam 1 mg tablet 1 mg PO BID PRN Anxiety 09/01/23 03/31/24 temazepam 30 mg capsule 30 mg PO BEDTIME PRN Insomnia 11/05/23 03/31/24 Previous Rx's ?Medication ?Instructions ?Recorded divalproex 500 mg tablet,delayed 1,000 mg (2 x 500 mg) PO BID #0 09/03/23 release tabs Allergies Allergy/AdvReac Type Severity Reaction Status Date / Time haloperidol [From Haldol] Allergy Severe Seizure Verified 04/18/24 23:46 lurasidone [From Latuda] AdvReac Shakiness Verified 04/18/24 23:46 Review of Systems 2 Review of Systems: Constitutional : No Weight loss, No Fever, No Chills, No Night Sweats, No Fatigue, No Malaise ENT/Mouth : No Hearing loss, No Ear Pain, No Nasal Congestion, No Sinus Pain, No Hoarseness, No sore throat, No Rhinorrhea, No Swallowing Difficulty Eyes: No Eye Pain, No Swelling, No Redness, No Foreign Body, No Discharge, No Vision Changes Cardiovascular : complaining of chest pain during panic attacks, No SOB, No Dyspnea on Exertion, No Orthopnea, No Edema, No Palpitations Respiratory : No Cough, No Sputum, No Wheezing, No Smoke Exposure, No Dyspnea Gastrointestinal : No Nausea, No Vomiting, No Diarrhea, No Constipation, No abdominal Pain, No Hematochezia, No Melena Genitourinary : no irregular bleeding, No Dysuria, No Urinary Frequency, No Hematuria, No Urinary Incontinence, No Urgency, No Flank Pain, No Urinary Flow Changes, No Hesitancy Musculoskeletal : No joint pain, No Myalgias, No Joint Swelling Skin : No Skin Lesions, No rash Neuro : No Weakness, No Numbness, No Paresthesias, No Loss of Consciousness, No Dizziness, No Headache Psych : Complaining of panic attacks, SI/HI/AH/VH, No Social Issues, Heme/Lymph: No Bruising, No Bleeding,No Lymphadenopathy Endocrine : No Polyuria, No Polydipsia, No Temperature Intolerance [facility] Past Medical History Medical History Cannabis use disorder Bipolar 1 disorder, mixed, severe Schizophrenia Social History Social History Household Members: Significant Other and Children Housing: Apartment Do you presently have visiting nurse or other home services: No Alcohol intake: current Alcohol intake frequency: a few times a month Alcohol type: wine Comment: 1:1 sitter Patient Tobacco Use Status: Current everyday Tobacco user Tobacco use type: Cigarette Cigarettes Per Day: 6 Years Smoked: 25 Smoked in Last 30 Days: No Second Hand Smoke Exposure: Yes Use of substances other than those prescribed or required for medical reasons: Yes Substance Use Type: Marijuana service: No Sexual orientation: Straight/Heterosexual Physical Exam 2 Vital Signs: Vital Signs: Last Vital Signs Temp 97.9 F 04/18/24 23:43 Pulse 74 04/18/24 23:43 Resp 18 04/18/24 23:43 BP 118/59 L 04/18/24 23:43 Pulse Ox 99 04/18/24 23:43 O2 Del Method Room Air 04/18/24 23:43 BMI result Body Mass Index 22.3 Const: Other: Appearance: Alert. Oriented X3. No acute distress. Eyes: Pupils equal, round and reactive to light. ENT: Pharynx normal. Neck: Normal inspection. Neck supple. No lymph nodes noted. No crepitus CVS: Normal heart rate and rhythm. Pulses normal. Normal S1 and S2 Respiratory: No respiratory distress. Breath sounds normal. No Wheezing. No rales Abdomen: Soft and nontender. No rigidity. No distention. Skin: Skin warm and dry. Normal skin color. Normal skin turgor. Extremities: No lower extremity edema. No Lacerations. No Rash Neuro: Oriented X 3. No motor deficit. No sensory deficit. Moving all extremities. No slurred speech. CN 2 through 12 grossly intact Psych: calm, cooperative, normal affect Medical Decision Making Medical Decision Making MDM Narrative: - my interpretation of labs: Normal hematology and chemistry, negative troponin. Toxicology positive for marijuana, negative for all the other drugs of abuse in ETOH negative my interpretation of EKG: Normal sinus rhythm, heart rate 73, nonspecific ST segment elevation in V2 through V6, less than 1 mm. QTC 420,No reciprocal changes. - patient is not SI or HI, no need for a section 12. - Patient requesting to be seen by the care team for anxiety. Physician observation started at 00:40 Differential Diagnosis Differential Diagnoses: The differential diagnosis associated with the presentation includes ( anxiety, bipolar disorder, schizophrenia, ACS) Admission/Observation Consideration of admission/observation: Escalation of care including admission/observation considered ( patient is under physician observation waiting to be seen by the care team) Lab Data [facility] Lab Attestation statement: I reviewed the patient's lab results. 04/19/24 00:01 04/19/24 00:01 Labs: Lab Results 04/19/24 Range/Units 00:01 WBC 7.8 (4.8-10.8) X10*3/uL RBC 4.45 L (4.60-5.80) X10*6/uL Hgb 14.9 (14.0-18.0) g/dl Hct 42.1 (42.0-52.0) % MCV 94.6 (80.0-98.0) fL MCH 33.5 H (27.0-33.0) pg MCHC 35.4 (31.0-36.0) g/dl RDW 14.2 (11.0-16.0) % Plt Count 270 D (160-400) X10*3/uL MPV 10.7 (9.4-12.4) fL Immature Gran % (Auto) 0.3 (0.0-0.4) % Neut % (Auto) 43.6 L (45-73) % Lymph % (Auto) 46.7 H (20-40) % [place] % (Auto) 7.9 (2-11) % Eos % (Auto) 0.9 (0-4) % Baso % (Auto) 0.6 (0-2) % Lymph # (Auto) 3.6 (1.2-4.9) X10*3/uL [place] # (Auto) 0.6 (0.1-1.2) X10*3/uL Eos # (Auto) 0.1 (0.0-0.4) X10*3/uL Baso # (Auto) 0.1 (0.0-0.2) X10*3/uL Abs Immat Gran (auto) 0.02 (0.00-0.03) X10*3/uL Absolute Neuts (auto) 3.4 (2.0-8.3) x10*3/uL Absolute Nucleated RBC 0.000 (0.0-0.012) X10*3/uL Nucleated RBC % (auto) 0.0 (0.0-0.2) /100WBC Sodium 148 H (135-145) mmol/L Potassium 3.4 (3.3-5.1) mmol/L Chloride 108 (96-108) mmol/L Carbon Dioxide 26 (22-29) mmol/L Anion Gap 17 (12-20) BUN 16 (9-16) mg/dL Creatinine 1.30 (0.5-1.4) mg/dL Estim Creat Clear Calc 62.3 Estimated GFR > 60 Random Glucose 85 (60-115) mg/dL Calcium 9.0 (8.4-10.2) mg/dL Total Bilirubin 0.3 (0.0-1.0) mg/dL Direct Bilirubin 0.1 (0.0-0.5) mg/dL AST 18 (5-37) U/L ALT 8 (0-40) U/L Alkaline Phosphatase 68 (39-117) U/L Troponin I High Sens 9.1 D (<3.5-35.0) ng/L Total Protein 7.5 (6.5-8.0) g/dL Albumin 4.0 (3.5-5.0) g/dL Ethyl Alcohol < 10 mg/dL Critical Care Time Critical Care Time Critical Care Time: Yes Total Critical Care Time: 31 Attestation: I have personally provided critical care time. Time includes review of lab data, radiology results, discussion with consultants, and monitoring for potential decompensation. Intervention performed as documented. Discharge Plan Discharge Clinical Impression: Panic attack, Atypical chest pain Patient Disposition: Still a Patient Prescriptions: No Action lorazepam 1 mg tablet 1 mg PO BID PRN (Reason: Anxiety) divalproex 500 mg Tablet,Delayed Release (Dr/Ec) 1,000 mg PO BID Qty: 0 0RF temazepam 30 mg capsule 30 mg PO BEDTIME PRN (Reason: Insomnia) Print Language: Pashto
--- NOTE | 2024-04-18 23:56 | PC.NURSE ---
pt biba from home, a&ox4, respirations even and unlabored, reporting sudden of midsternal chest pain non radiating. pt reports trying to reach crisis for increasing stress and reports they did not answer which caused the chest pain. pt reports he does not want to speak with care team at this time. pt denies n/v/d. pt denies si/hi.
[2024-04-19 00:06] LABS: MANUAL DIFF FLAG NO
[2024-04-19 00:10] LABS: Basophils Absolute Auto 0.1 X10*3/uL (0.0-0.2); Basophils Percent Auto 0.6 % (0-2); Eosinophils Absolute Auto 0.1 X10*3/uL (0.0-0.4); Eosinophils Percent Auto 0.9 % (0-4); Hematocrit 42.1 % (42.0-52.0); Hemoglobin 14.9 g/dl (14.0-18.0); Imm Gran Abs Auto 0.02 X10*3/uL (0.00-0.03); Imm Gran Pct Auto 0.3 % (0.0-0.4); Lymphocytes Absolute Auto 3.6 X10*3/uL (1.2-4.9); Lymphocytes Percent Auto 46.7 % (20-40); Mean Corpuscular HGB Conc 35.4 g/dl (31.0-36.0); Mean Corpuscular Hemoglobin 33.5 pg (27.0-33.0); Mean Corpuscular Volume 94.6 fL (80.0-98.0); Mean Platelet Volume 10.7 fL (9.4-12.4); Monocytes Absolute Auto 0.6 X10*3/uL (0.1-1.2); Monocytes Percent Auto 7.9 % (2-11); Neutrophils Absolute Auto 3.4 x10*3/uL (2.0-8.3); Neutrophils Percent Auto 43.6 % (45-73); Platelet Count 270 X10*3/uL (160-400); Red Blood Count 4.45 X10*6/uL (4.60-5.80); Red Cell Distribution Width 14.2 % (11.0-16.0); White Blood Count 7.8 X10*3/uL (4.8-10.8)
[2024-04-19 00:26] LABS: Alanine Aminotransferase 8 U/L (0-40); Alkaline Phosphatase 68 U/L (39-117); Anion Gap 17 (12-20); Aspartate Amino Transferase 18 U/L (5-37); Bilirubin Direct 0.1 mg/dL (0.0-0.5); Bilirubin Total 0.3 mg/dL (0.0-1.0); Blood Urea Nitrogen 16 mg/dL (9-16); Carbon Dioxide 26 mmol/L (22-29); Chloride 108 mmol/L (96-108); Creatinine Clr Calc Pharmacy 62.3; Estimated Glomerular Filt Rate > 60; Glucose Random 85 mg/dL (60-115); Potassium 3.4 mmol/L (3.3-5.1); Sodium 148 mmol/L (135-145); Total Protein 7.5 g/dL (6.5-8.0)
[2024-04-19 00:29] LABS: Troponin-I High Sensitivity 9.1 ng/L (<3.5-35.0)
[2024-04-19 00:32] LABS: Ethanol < 10 mg/dL
[2024-04-19 01:37] VITALS: BP 100/59; PULSE 73; RESP 18; TEMP 36.7; O2SAT 97
[2024-04-19 03:33] VITALS: RESP 16
--- NOTE | 2024-04-19 04:56 | PC.NURSE ---
at this time pt reporting wanting to talk to care team due to increasing anxiety, pt changed into safety gown at this time.
[2024-04-19 05:03] VITALS: BP 107/63; PULSE 65; RESP 14; TEMP 36.4; O2SAT 98
--- NOTE | 2024-04-19 05:09 | MHC.EDTECH ---
pt changed over, belongings locked in the POD-Laundry Closet.
[2024-04-19 05:30] LABS: Amphetamine Screen Urine Not Detected (Not Detect); Barbiturates, Urine Not Detected (Not Detect); Benzodiazepines Screen Urine POSITIVE (Not Detect); Buprenorphine Scr Not Detected (Not Detect); Cannabinoid Screen Urine POSITIVE (Not Detect); Cocaine Screen Urine Not Detected (Not Detect); Fentanyl, urine Not Detected (Not Detect); Methadone Screen, Urine Not Detected (Not Detect); Opiate Screen Urine Not Detected (Not Detect); Oxycodone Screen Urine Not Detected (Not Detect); Phencyclidine Screen Urine Not Detected (Not Detect)
[2024-04-19 09:36] VITALS: BP 107/63; PULSE 65; RESP 14; TEMP 36.4; O2SAT 98
== END 2024-04-19 09:36 | disposition home or self-care (01) ==
PROVIDERS: Emergency Provider Emergency Medicine
DX: F41.0 Panic disorder [episodic paroxysmal anxiety] (principal); R07.89 Other chest pain; F12.10 Cannabis abuse, uncomplicated; F17.210 Nicotine dependence, cigarettes, uncomplicated; Z79.899 Other long term (current) drug therapy
CPT/HCPCS: 36415; 80048; 80076; 80307; 84484; 85025; 93005; 99285; S9485

== ENCOUNTER → 2024-04-18 23:42 | Outpatient (BNV) | payer MEDICAID, SELFPAY | PROVIDERS: Emergency Provider Emergency Medicine; Visit Provider Internal Medicine | DX: R07.9 Chest pain, unspecified (principal) | CPT/HCPCS: 93010 ==

== ENCOUNTER 2024-05-08 18:18 | Emergency (ER) | payer MEDICAID, SELFPAY ==
[2024-05-08 18:41] VITALS: BP 115/77; PULSE 96; RESP 18; TEMP 36.6; O2SAT 98; BMI 21.6
[2024-05-08 18:45] VITALS: BP 115/77; PULSE 96; RESP 18; TEMP 36.6; O2SAT 98
[2024-05-08 19:01] LABS: Appearance Urine Clear; Color Urine Yellow; Glucose Urine UA Negative (Negative); Leukocyte Esterase Urine Trace (Negative); Nitrite Urine Negative (Negative); PH 7.5 (5.0-9.0); UMIC TRIGGER UACC YES; Urine Blood Negative (Negative); Urine Ketones Negative (Negative); Urine Protein 100 (2+) mg/dL (Neg-Trace)
[2024-05-08 19:02] LABS: Amphetamine Screen Urine Not Detected (Not Detect); Barbiturates, Urine Not Detected (Not Detect); Benzodiazepines Screen Urine Not Detected (Not Detect); Buprenorphine Scr Not Detected (Not Detect); Cannabinoid Screen Urine Not Detected (Not Detect); Cocaine Screen Urine Not Detected (Not Detect); Fentanyl, urine Not Detected (Not Detect); Methadone Screen, Urine Not Detected (Not Detect); Opiate Screen Urine Not Detected (Not Detect); Oxycodone Screen Urine Not Detected (Not Detect); Phencyclidine Screen Urine Not Detected (Not Detect)
[2024-05-08 19:10] LABS: Bacteria Urine None Seen (None Seen); RBC Urine 0-2 /HPF (0-2); UACC Culture Trigger YES
[2024-05-08 20:06] LABS: MANUAL DIFF FLAG NO
[2024-05-08 20:07] LABS: Basophils Percent Auto 0.3 % (0-2); Eosinophils Percent Auto 0.5 % (0-4); Hematocrit 39.7 % (42.0-52.0); Hemoglobin 13.7 g/dl (14.0-18.0); Imm Gran Abs Auto 0.03 X10*3/uL (0.00-0.03); Imm Gran Pct Auto 0.4 % (0.0-0.4); Lymphocytes Absolute Auto 1.4 X10*3/uL (1.2-4.9); Lymphocytes Percent Auto 17.7 % (20-40); Mean Corpuscular HGB Conc 34.5 g/dl (31.0-36.0); Mean Corpuscular Hemoglobin 33.2 pg (27.0-33.0); Mean Corpuscular Volume 96.1 fL (80.0-98.0); Mean Platelet Volume 11.6 fL (9.4-12.4); Monocytes Absolute Auto 0.5 X10*3/uL (0.1-1.2); Monocytes Percent Auto 6.3 % (2-11); Neutrophils Absolute Auto 5.8 x10*3/uL (2.0-8.3); Neutrophils Percent Auto 74.8 % (45-73); Platelet Count 158 X10*3/uL (160-400); Red Blood Count 4.13 X10*6/uL (4.60-5.80); Red Cell Distribution Width 15.5 % (11.0-16.0); White Blood Count 7.8 X10*3/uL (4.8-10.8)
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
[2024-05-08 20:22] LABS: Valproate 105.8 mcg/mL (50.0-100.0)
[2024-05-08 20:23] LABS: Alanine Aminotransferase 6 U/L (0-40); Albumin Level 3.7 g/dL (3.5-5.0); Alkaline Phosphatase 63 U/L (39-117); Anion Gap 15 (12-20); Aspartate Amino Transferase 13 U/L (5-37); Bilirubin Total 0.3 mg/dL (0.0-1.0); Blood Urea Nitrogen 11 mg/dL (9-16); Carbon Dioxide 25 mmol/L (22-29); Chloride 112 mmol/L (96-108); Creatinine Clr Calc Pharmacy 65.9; Estimated Glomerular Filt Rate > 60; Ethanol < 10 mg/dL; Glucose Random 112 mg/dL (60-115); Potassium 3.5 mmol/L (3.3-5.1); Sodium 148 mmol/L (135-145); Total Protein 6.3 g/dL (6.5-8.0)
[2024-05-08] MEDS: Divalproex Sodium 500 MG TABLET.DR 1000 MG PO (20:54)
[2024-05-08 21:26] VITALS: BP 109/69; PULSE 65; RESP 10; TEMP 36.6; O2SAT 100
--- NOTE | 2024-05-08 22:17 | MHC.CARE ---
CARE Team attempted to meet with the pt at 0005 and he refused to participate in the assessment process. ED provider was made aware and the CARE Team will make a second attempt shortly.
[2024-05-09 03:38] VITALS: BP 127/85; PULSE 100; RESP 16; TEMP 36.4; O2SAT 100
--- NOTE | 2024-05-09 05:43 | PC.NURSE ---
Patient slept through the night, no distress observed/reported, VSS, meds and meals compliant, no behavior issues, disposition per care team is voluntary respite bed search, will continue to monitor
--- NOTE | 2024-05-09 06:59 | PC.NURSE ---
Assumed care of patient at 0645. Patient is observed resting in their bed. No signs of distress observed. Will continue plan of care.
[2024-05-09 08:01] LABS: Valproate 106.2 mcg/mL (50.0-100.0)
--- NOTE | 2024-05-09 08:16 | PC.NURSE ---
Medication withheld 0900 medication Depakote 1,00mg PO was withheld due to high Depakote level at 106.2 - MD aware. recommends withholding evening dose as well for tonight.
--- NOTE | 2024-05-09 08:19 | PC.NURSE ---
Nursing Communication Per Dr. Lujan, do not administer Depakote to patient until after next Depakote level is drawn on 05/10/24 at 0600.
--- NOTE | 2024-05-09 11:54 | MHC.CARE ---
[facility] has received patient's ACCS/ respite referral and it is in review at this time.
[2024-05-09 14:46] VITALS: BP 127/85; PULSE 100; RESP 16; TEMP 36.4; O2SAT 100
== END 2024-05-09 14:52 | disposition home or self-care (01) ==
PROVIDERS: Emergency Medicine; Emergency Provider Student in an Organized Health Care Education/Training Program
DX: F32.89 Other specified depressive episodes (principal); F31.9 Bipolar disorder, unspecified; R45.851 Suicidal ideations; F20.9 Schizophrenia, unspecified; F41.9 Anxiety disorder, unspecified; F12.10 Cannabis abuse, uncomplicated; F17.210 Nicotine dependence, cigarettes, uncomplicated; Z79.899 Other long term (current) drug therapy
CPT/HCPCS: 36415; 80053; 80164; 80307; 81001; 81003; 85025; 87086; 99283; 99284; S9485

== ENCOUNTER 2024-06-15 14:21 | Outpatient (REF) | payer MEDICAID, SELFPAY ==
[2024-06-15 15:56] LABS: MANUAL DIFF FLAG NO
[2024-06-15 16:00] LABS: Basophils Percent Auto 0.4 % (0-2); Eosinophils Absolute Auto 0.1 X10*3/uL (0.0-0.4); Eosinophils Percent Auto 2.8 % (0-4); Hematocrit 41.5 % (42.0-52.0); Hemoglobin 14.3 g/dl (14.0-18.0); Imm Gran Abs Auto 0.01 X10*3/uL (0.00-0.03); Imm Gran Pct Auto 0.2 % (0.0-0.4); Lymphocytes Percent Auto 43.7 % (20-40); Mean Corpuscular HGB Conc 34.5 g/dl (31.0-36.0); Mean Corpuscular Hemoglobin 33.1 pg (27.0-33.0); Mean Corpuscular Volume 96.1 fL (80.0-98.0); Monocytes Absolute Auto 0.6 X10*3/uL (0.1-1.2); Monocytes Percent Auto 13.5 % (2-11); Neutrophils Absolute Auto 1.8 x10*3/uL (2.0-8.3); Neutrophils Percent Auto 39.4 % (45-73); Platelet Count 212 X10*3/uL (160-400); Red Blood Count 4.32 X10*6/uL (4.60-5.80); Red Cell Distribution Width 14.7 % (11.0-16.0); White Blood Count 4.6 X10*3/uL (4.8-10.8)
[2024-06-15 16:27] LABS: Alanine Aminotransferase 9 U/L (0-40); Albumin Level 3.9 g/dL (3.5-5.0); Alkaline Phosphatase 68 U/L (39-117); Anion Gap 13 (12-20); Aspartate Amino Transferase 20 U/L (5-37); Bilirubin Direct < 0.2 mg/dL (0.0-0.5); Bilirubin Total 0.2 mg/dL (0.0-1.0); Blood Urea Nitrogen 15 mg/dL (9-16); Calcium 9.4 mg/dL (8.4-10.2); Carbon Dioxide 24 mmol/L (22-29); Chloride 110 mmol/L (96-108); Estimated Glomerular Filt Rate > 60; Glucose Random 112 mg/dL (60-115); Potassium 3.9 mmol/L (3.3-5.1); Sodium 143 mmol/L (135-145); Total Protein 7.1 g/dL (6.5-8.0)
[2024-06-15 16:32] LABS: TSH reflex Free T4 0.86 uIU/mL (0.32-4.0)
[2024-06-15 16:35] LABS: Syphilis Screen Nonreactive (Nonreactive)
[2024-06-15 16:41] LABS: HIV AB/AG Nonreactive (Nonreactive); HIV Num 1 0.06 S/CO (0.00-0.99); ~HepC Num1 0.23 S/CO (0.00-0.79); ~Hepatitis C Antibody Nonreactive (Nonreactive)
== END 2024-06-15 14:22 | disposition home or self-care (01) ==
LOC: HO.HHCL 14:21
PROVIDERS: Visit Provider Family Medicine
DX: Z11.3 Encounter for screening for infections with a predominantly sexual mode of transmission (principal); G40.909 Epilepsy, unspecified, not intractable, without status epilepticus
CPT/HCPCS: 36415; 80048; 80076; 84443; 85025; 86780; 86803; 87389

== ENCOUNTER 2024-06-18 09:37 | Outpatient (REF) | payer MEDICAID, SELFPAY ==
[2024-06-18 12:30] LABS: Cholesterol 144 mg/dL (<200); HDL Cholesterol 41 mg/dL (>40); LDL Cholesterol Calculated 85 mg/dL (<100); Triglycerides 90 mg/dL (<150)
[2024-06-18 14:25] LABS: CT PCR NOT DETECTED (Not Detect.); NG PCR NOT DETECTED (Not Detect.)
== END 2024-06-18 09:38 | disposition home or self-care (01) ==
LOC: HO.HHCL 09:37
PROVIDERS: Visit Provider Family Medicine
DX: Z11.3 Encounter for screening for infections with a predominantly sexual mode of transmission (principal); G40.909 Epilepsy, unspecified, not intractable, without status epilepticus
CPT/HCPCS: 36415; 80061; 87491; 87591

== ENCOUNTER 2024-06-18 23:31 | Emergency (ER) | payer MEDICAID, SELFPAY ==
[2024-06-18 23:32] VITALS: BP 158/88; PULSE 80; O2SAT 98; BMI 23.3
[2024-06-18 23:35] VITALS: BP 141/92; PULSE 71; RESP 14; TEMP 36.4; O2SAT 98
--- NOTE | 2024-06-18 23:56 | PC.NURSE ---
Addendum entered by Javan Gama 06/19/24 00:00: 1:1 sitter at bedside. Original Note: belongings in C5.
--- NOTE | 2024-06-18 23:57 | ED.ANXIETY ---
HPI - Anxiety General Chief Complaint: Anxiety Stated Complaint: anxiety Time Seen by Provider: 06/18/24 23:36 History of Present Illness HPI narrative: Patient is 43 years old presents today with feeling very stressed out. Positive suicidal thoughts. Denies any specific plan. Denies any alcohol or recreational drugs. Has a history of anxiety depression. Related Data Home Medications ?Medication ?Instructions ?Recorded ?Confirmed lorazepam 1 mg tablet 1 mg PO BID PRN Anxiety 09/01/23 05/08/24 temazepam 30 mg capsule 30 mg PO BEDTIME PRN Insomnia 11/05/23 05/08/24 Previous Rx's ?Medication ?Instructions ?Recorded divalproex 500 mg tablet,delayed 1,000 mg (2 x 500 mg) PO BID #0 09/03/23 release tabs Allergies Allergy/AdvReac Type Severity Reaction Status Date / Time haloperidol [From Haldol] Allergy Severe Seizure Verified 06/18/24 23:32 lurasidone [From Latuda] AdvReac Shakiness Verified 06/18/24 23:32 Review of Systems Review of Systems: Positive anxiety positive SI Yes all other systems are reviewed and are negative PMFSH Past Medical History Attestation statement: The following information was validated with the patient. Medical History Cannabis use disorder Bipolar 1 disorder, mixed, severe Schizophrenia Social History Social History Household Members: Significant Other and Children Housing: Apartment Do you presently have visiting nurse or other home services: No Alcohol intake: current Alcohol intake frequency: a few times a month Alcohol type: wine Comment: 1:1 sitter Patient Tobacco Use Status: Current everyday Tobacco user Tobacco use type: Cigarette Cigarettes Per Day: 6 Years Smoked: 25 Second Hand Smoke Exposure: Yes Substance Use Type: Marijuana Advance Directives: No Advance Directives Information Provided: Yes Do you have a plan to hurt others: No Plan service: No Sexual orientation: Straight/Heterosexual Physical Exam Vital Signs: Vital Signs: Last Vital Signs Temp 97.6 F 06/18/24 23:35 Pulse 71 06/18/24 23:35 Resp 14 06/18/24 23:35 BP 141/92 H 06/18/24 23:35 Pulse Ox 98 06/18/24 23:35 O2 Del Method Room Air 06/18/24 23:35 BMI result Body Mass Index 23.3 Appearance: Alert. Oriented X3. No acute distress. Eyes: Pupils equal, round and reactive to light. ENT: Pharynx normal. Neck: Normal inspection. Neck supple. No lymph nodes noted. No crepitus CVS: Normal heart rate and rhythm. Pulses normal. Normal S1 and S2 Respiratory: No respiratory distress. Breath sounds normal. No Wheezing. No rales Abdomen: Soft and nontender. No rigidity. No distention. good BS x4 Skin: Skin warm and dry. Normal skin color. Normal skin turgor. Extremities: No lower extremity edema. Neurovascular intact to all extremities. No Lacerations. No Rash. Neuro: Oriented X 3. No motor deficit. No sensory deficit. Moving all extermities. No slurred speech. Cranial nerves grossly intact Discharge Plan Discharge Clinical Impression: Acute anxiety, Suicidal ideation Patient Disposition: Still a Patient Prescriptions: No Action lorazepam 1 mg tablet 1 mg PO BID PRN (Reason: Anxiety) divalproex 500 mg Tablet,Delayed Release (Dr/Ec) 1,000 mg PO BID Qty: 0 0RF temazepam 30 mg capsule 30 mg PO BEDTIME PRN (Reason: Insomnia) Print Language: Brazilian
[2024-06-19 00:16] LABS: MANUAL DIFF FLAG NO
[2024-06-19 00:18] LABS: Basophils Percent Auto 0.5 % (0-2); Eosinophils Absolute Auto 0.2 X10*3/uL (0.0-0.4); Eosinophils Percent Auto 3.8 % (0-4); Hemoglobin 13.3 g/dl (14.0-18.0); Imm Gran Abs Auto 0.01 X10*3/uL (0.00-0.03); Imm Gran Pct Auto 0.2 % (0.0-0.4); Lymphocytes Absolute Auto 3.3 X10*3/uL (1.2-4.9); Lymphocytes Percent Auto 52.3 % (20-40); Mean Corpuscular Hemoglobin 33.1 pg (27.0-33.0); Mean Corpuscular Volume 94.5 fL (80.0-98.0); Mean Platelet Volume 10.3 fL (9.4-12.4); Monocytes Absolute Auto 0.7 X10*3/uL (0.1-1.2); Monocytes Percent Auto 10.3 % (2-11); Neutrophils Absolute Auto 2.1 x10*3/uL (2.0-8.3); Neutrophils Percent Auto 32.9 % (45-73); Platelet Count 226 X10*3/uL (160-400); Red Blood Count 4.02 X10*6/uL (4.60-5.80); White Blood Count 6.3 X10*3/uL (4.8-10.8)
[2024-06-19 00:19] LABS: Appearance Urine Clear; Color Urine Yellow; Glucose Urine UA Negative (Negative); Leukocyte Esterase Urine Negative (Negative); Nitrite Urine Negative (Negative); Specific Gravity - Urine 1.025 (1.005-1.025); Urine Blood Negative (Negative); Urine Ketones Trace mg/dL (Negative); Urine Protein Negative (Neg-Trace)
[2024-06-19 00:23] LABS: Bacteria Urine None Seen (None Seen); Hyaline Casts Urine 0-2 /LPF (0-2); RBC Urine 0-2 /HPF (0-2); Squamous Epithelial Cell Urine 0-2 /HPF (0-2); WBC Urine 0-5 /HPF (0-5)
[2024-06-19 00:32] LABS: Anion Gap 11 (12-20); Blood Urea Nitrogen 11 mg/dL (9-16); Calcium 8.7 mg/dL (8.4-10.2); Carbon Dioxide 25 mmol/L (22-29); Chloride 111 mmol/L (96-108); Creatinine Clr Calc Pharmacy 81.3; Estimated Glomerular Filt Rate > 60; Glucose Random 115 mg/dL (60-115); Potassium 3.8 mmol/L (3.3-5.1); Sodium 143 mmol/L (135-145)
[2024-06-19 00:33] LABS: Amphetamine Screen Urine Not Detected (Not Detect); Barbiturates, Urine Not Detected (Not Detect); Benzodiazepines Screen Urine Not Detected (Not Detect); Buprenorphine Scr Not Detected (Not Detect); Cannabinoid Screen Urine Not Detected (Not Detect); Cocaine Screen Urine Not Detected (Not Detect); Fentanyl, urine Not Detected (Not Detect); Methadone Screen, Urine Not Detected (Not Detect); Opiate Screen Urine Not Detected (Not Detect); Oxycodone Screen Urine Not Detected (Not Detect); Phencyclidine Screen Urine Not Detected (Not Detect)
--- NOTE | 2024-06-19 00:42 | MHC.EDTECH ---
pt belongings in locker #1
--- NOTE | 2024-06-19 05:43 | PC.NURSE ---
Pt sleeping at the bedside. No apparent distress noted. Breaths are even, regular, with equal chest rises. Monitoring is ongoing.
--- NOTE | 2024-06-19 06:51 | PC.NURSE ---
Assumed care of patient at 0645. Patient is observed resting quietly in their bed. No signs of distress. Breathing is even and unlabored.
[2024-06-19 10:27] VITALS: BP 141/92; PULSE 71; RESP 14; TEMP 36.4; O2SAT 98
== END 2024-06-19 10:31 | disposition home or self-care (01) ==
PROVIDERS: Emergency Provider Emergency Medicine Emergency Medical Services
DX: F41.9 Anxiety disorder, unspecified (principal); F43.9 Reaction to severe stress, unspecified; R45.851 Suicidal ideations; F33.1 Major depressive disorder, recurrent, moderate; F17.210 Nicotine dependence, cigarettes, uncomplicated; F12.90 Cannabis use, unspecified, uncomplicated; Z79.899 Other long term (current) drug therapy
CPT/HCPCS: 36415; 80048; 80307; 81001; 85025; 99284; 99285; S9485

== ENCOUNTER 2024-12-30 22:49 | Emergency (ER) | payer MEDICAID, SELFPAY ==
[2024-12-31 00:02] VITALS: BP 116/51; BP 144/90; PULSE 72; PULSE 73; RESP 18; TEMP 36.7; O2SAT 100; O2SAT 99; BMI 24.2
[2024-12-31 00:19] LABS: Glucose, Whole Blood 106 mg/dL (60-115)
[2024-12-31 00:31] LABS: Hemoglobin 14.3 g/dl (14.0-18.0); Mean Corpuscular HGB Conc 34.9 g/dl (31.0-36.0); Mean Corpuscular Hemoglobin 32.4 pg (27.0-33.0); Mean Platelet Volume 10.6 fL (9.4-12.4); Platelet Count 297 X10*3/uL (160-400); Red Blood Count 4.41 X10*6/uL (4.60-5.80); Red Cell Distribution Width 13.7 % (11.0-16.0); White Blood Count 5.8 X10*3/uL (4.8-10.8)
[2024-12-31 00:46] LABS: Alanine Aminotransferase 15 U/L (0-40); Albumin Level 4.2 g/dL (3.5-5.0); Alkaline Phosphatase 85 U/L (39-117); Anion Gap 11 (12-20); Aspartate Amino Transferase 21 U/L (5-37); Bilirubin Total 0.6 mg/dL (0.0-1.0); Blood Urea Nitrogen 12 mg/dL (9-16); Calcium 8.7 mg/dL (8.4-10.2); Carbon Dioxide 23 mmol/L (22-29); Chloride 110 mmol/L (96-108); Estimated Glomerular Filt Rate > 60; Glucose Random 101 mg/dL (60-115); Potassium 3.6 mmol/L (3.3-5.1); Sodium 140 mmol/L (135-145); Total Protein 7.5 g/dL (6.5-8.0)
== END 2024-12-31 04:15 | disposition left against medical advice (07) ==
PROVIDERS: Emergency Provider Emergency Medicine
DX: F41.9 Anxiety disorder, unspecified (principal); Z53.21 Procedure and treatment not carried out due to patient leaving prior to being seen by health care provider
CPT/HCPCS: 36415; 80053; 82947; 85027; 99281

== ENCOUNTER 2025-02-06 16:17 | Inpatient (IN) | payer OTHER, SELFPAY ==
--- NOTE | 2025-02-06 | ECG_ITS ---
Test Reason : med clearance Blood Pressure : */* mmHG Vent. Rate : 69 BPM Atrial Rate : 69 BPM P-R Int : 120 ms QRS Dur : 88 ms QT Int : 404 ms P-R-T Axes : 56 55 29 degrees QTcB Int : 432 ms Normal sinus rhythm with sinus arrhythmia Minimal voltage criteria for LVH, may be normal variant ( Sokolow-Bower ) Borderline ECG When compared with ECG of 18-Apr-2024 23:42, No significant change was found Referred By: Terrence Reddy Electronically Signed By: Deejay Pérez
[2025-02-06 16:24] VITALS: BP 115/66; BP 132/98; PULSE 106; PULSE 98; RESP 18; TEMP 36.9; O2SAT 100; O2SAT 98; BMI 21.6
--- NOTE | 2025-02-06 16:37 | MHC.CARE ---
Assessed by [facility] crisis in the community and transported on a section 12. Pt is an inpatient bedsearch. Pt has been non-compliant with medication x1 year and is presenting with symptoms of bruna. [facility] reports that they have met with Pt 3x in the last 24 hours.
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
--- NOTE | 2025-02-06 17:06 | PC.NURSE ---
pt was able to confirm medications which were checked with pharmacy fills. Per pt, he does not always go and pepper picker meds and sometimes they are sent straight to him (no local pharmacy fills listed in a few months). Pt is unsure exactly when he last took his medications but says it was sometime in the past week. he states he is inconsistent with taking them. pt has had a few scripts of olanzapine 5mg filled but he does not have a recollection of taking it. not included in med rec for now.
[2025-02-06 17:10] LABS: Appearance Urine Cloudy; Color Urine Yellow; Glucose Urine UA Negative (Negative); Leukocyte Esterase Urine Negative (Negative); Nitrite Urine Negative (Negative); PH 5.5 (5.0-9.0); UMIC TRIGGER UACC YES; Urine Blood Trace (Negative); Urine Ketones 40 mg/dL (Negative); Urine Protein 100 (2+) mg/dL (Neg-Trace)
[2025-02-06 17:19] LABS: Amphetamine Screen Urine Not Detected (Not Detect); Barbiturates, Urine Not Detected (Not Detect); Benzodiazepines Screen Urine Not Detected (Not Detect); Buprenorphine Scr Not Detected (Not Detect); Cannabinoid Screen Urine POSITIVE (Not Detect); Cocaine Screen Urine Not Detected (Not Detect); Fentanyl, urine Not Detected (Not Detect); Methadone Screen, Urine Not Detected (Not Detect); Opiate Screen Urine Not Detected (Not Detect); Oxycodone Screen Urine Not Detected (Not Detect); Phencyclidine Screen Urine Not Detected (Not Detect)
[2025-02-06 17:25] LABS: Bacteria Urine 1+ (None Seen); Epith (RTE) Cast Present; Hyaline Casts Urine >20 /LPF (0-2); Renal Epithelial Cells Urine Present; Transitional Epi Cells Urine Present; UACC Culture Trigger YES
[2025-02-06 17:26] LABS: Alanine Aminotransferase 13 U/L (0-40); Albumin Level 4.1 g/dL (3.5-5.0); Alkaline Phosphatase 82 U/L (39-117); Anion Gap 12 (12-20); Aspartate Amino Transferase 33 U/L (5-37); Bilirubin Total 0.7 mg/dL (0.0-1.0); Blood Urea Nitrogen 14 mg/dL (9-16); Calcium 9.2 mg/dL (8.4-10.2); Carbon Dioxide 26 mmol/L (22-29); Chloride 109 mmol/L (96-108); Creatinine Clr Calc Pharmacy 69.1; Estimated Glomerular Filt Rate > 60; Ethanol < 10 mg/dL; Glucose Random 90 mg/dL (60-115); Potassium 3.5 mmol/L (3.3-5.1); Sodium 143 mmol/L (135-145); Total Protein 7.3 g/dL (6.5-8.0); Valproate < 12.5 mcg/mL (50.0-100.0)
[2025-02-06 17:29] LABS: Acetaminophen LAB < 3 mcg/mL (<30); Salicylate < 5.0 mg/dL (15-30)
--- NOTE | 2025-02-06 19:04 | PC.NURSE ---
this rn assumed care of pt, pt sitting in common area talking on phone, no acute distress noted.
--- NOTE | 2025-02-06 20:30 | PC.NURSE ---
care team at bedside with pt.
[2025-02-06] MEDS: Divalproex Sodium 500 MG TABLET.DR 1000 MG PO (21:07)
--- NOTE | 2025-02-06 21:08 | PC.NURSE ---
pt medicated per jan, tolerated well whole with water. inpt. admissions requesting ekg on pt, ekg ordered, aware.
[2025-02-06] MEDS: Temazepam 15 MG CAPSULE 30 MG PO (21:21)
--- NOTE | 2025-02-06 23:40 | PC.NURSE ---
report given to Myra GARVEY on M5.
[2025-02-07 01:01] VITALS: BP 137/85; PULSE 79; RESP 16; TEMP 36.4; O2SAT 98
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
[2025-02-07 08:00] VITALS: BP 128/86; PULSE 65; RESP 16; TEMP 36.8; O2SAT 100
[2025-02-07] MEDS: FLUoxetine HCl 20 MG CAPSULE 40 MG PO (08:40)
[2025-02-07] MEDS: Divalproex Sodium 500 MG TABLET.DR 1000 MG PO ×2 (08:40→20:50)
--- NOTE | 2025-02-07 08:59 | P.HPPS_ITS ---
HPI Date of Service: 02/07/25 Chief Complaint: Manic episode, pt hitting himself,sect 12 Sources of Information: patient interviewed, chart reviewed and crisis/core team assessment reviewed HPI Subjective Notes: [place] Warning and Conditional Voluntary Narrative: Patient is 44-year-old male with reported history of bipolar disorder who presents for decompensated behavior and comment of SI in the face of relational strife. Patient said he stopped taking Depakote and Prozac 1-2 months ago, thinking he was doing well and did not need it. He remained overall stable. However about a week and a half ago he was on Facebook, electronically flirting with females and his found out. Some brief marital discord ensued however they reconciled. This past Tuesday however patient remained feeling excessively guilty, angry at himself and he says I just started to spiral downward... Patient punched himself in the face and hit his head on the wall and police were called. Patient acknowledged that he was acting erratically and that he did make a suicidal statement however he was very clear that he never had any intention at all on hurting himself, he loves his kids, and this was just a comment made during a moment of overwhelming emotion. Patient said he was appropriate with the police and asked if they were going to take him on a Section 12. Patient says that he is now returned to calm and his regular self and very much wants to get back on his medication. He regrets going off his medications and says if he had remained on them, he still would have gotten upset this past week but it would have resolved much faster and probably be less intense. Patient says he has been dealing with his emotional reactivity for decades and accepts that it continues to happen and works on coping with it; he remains adamant that he was not ever suicidal at any time and knows the difference when he is just saying words in anger/frustration verses really feeling unsafe. He wants to get back on his medication and regrets having come off them, saying they help. Denies AVH. No drug/alcohol use other than cannabis. Past Psychiatric History: Inpatient: [facility] more than 10. [facility] [place]: SPENCER Mcclelland (therapist); Oniel Douglas Past med trials: prozac (caused manic sx), depakote, latuda, temazepam, seroquel suicide attempt: reports more than 10 years ago but I don't remember what happened Medical Evaluation Reviewed: Yes [facility] Medical History Cannabis use disorder Bipolar 1 disorder, mixed, severe Schizophrenia Family History: Mother: alcohol use disorder denies any family hx psychiatric illness Social History: lives with GF of 18 years and his children ages 20, 17, and 13. 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 Has 7 siblings. Raised by mother until middle school, then grandmother. IEP throughout school for learning disabilities Substance History: Cannabis Trauma History: emotional trauma Diagnostics Vital Signs (24Hr): Vital Signs - 24 hr 02/06/25 16:24 02/07/25 01:01 02/07/25 08:00 Temperature 98.5 F 97.6 F 98.2 F Pulse Rate 98 79 65 Respiratory Rate 18 16 16 Blood Pressure 115/66 137/85 128/86 Pulse Oximetry 100 98 100 Oxygen Delivery Method Room Air Room Air BMI result Body Mass Index 21.6 Labs 02/06/25 17:02 Labs: Laboratory Results - last 48 hr 02/06/25 17:02 Sodium 143 Potassium 3.5 Chloride 109 H Carbon Dioxide 26 Anion Gap 12 BUN 14 Creatinine 1.16 Estim Creat Clear Calc 69.1 Estimated GFR > 60 Random Glucose 90 Calcium 9.2 Total Bilirubin 0.7 AST 33 ALT 13 Alkaline Phosphatase 82 Total Protein 7.3 Albumin 4.1 Urine Color Yellow Urine Appearance Cloudy Urine pH 5.5 Ur Specific [place] 1.020 Urine Protein 100 (2+) H Urine Glucose (UA) Negative Urine Ketones 40 Urine Blood Trace H Urine Nitrite Negative Ur Leukocyte Esterase Negative Urine RBC 6-10 H Urine WBC 11-20 H Ur Squamous Epith Cells 11-20 Ur Transition Epith Cell Present Ur Renal Epithelial Cell Present Urine Bacteria 1+ Epithelial Casts Present Hyaline Casts >20 Salicylates < 5.0 L Urine Opiates Screen Not Detected Ur Buprenorphine Scrn Not Detected Ur Oxycodone Screen Not Detected Urine Methadone Screen Not Detected Urine Fentanyl Screen Not Detected Acetaminophen < 3 Ur Barbiturates Screen Not Detected Valproic Acid < 12.5 L Ur Phencyclidine Scrn Not Detected Ur Amphetamines Screen Not Detected U Benzodiazepines Scrn Not Detected Urine Cocaine Screen Not Detected U Marijuana (THC) Screen POSITIVE H Ethyl Alcohol < 10 Meds/Allergies Meds Home Medications ?Medication ?Instructions ?Recorded ?Confirmed ?Type lorazepam 1 mg tablet 1 mg PO BID PRN Anxiety 09/01/23 02/06/25 History fluoxetine 40 mg capsule 40 mg PO DAILY 06/19/24 02/06/25 History Allergies Allergies Allergy/AdvReac Type Severity Reaction Status Date / Time haloperidol [From Haldol] Allergy Severe Seizure Verified 02/06/25 16:26 lurasidone [From Latuda] AdvReac Shakiness Verified 12/31/24 00:05 Mental Status Exam Mental Status Exam Narrative: Pt is alert and oriented; behavior is cooperative, friendly and calm; patient is not in distress; dressed in casual attire with adequate hygiene; mood is described as good and affect congruent; eye contact appropriate; Speech is normal rate, volume and prosody and not pressured; no psychomotor agitation/retardation present; thought process is organized and goal directed; Thought content is on tx; otherwise pertinent to relevant topics and without any delusional content, paranoid ideations or grandiosity; denies any SI/HI. Denies AVH and there is no evidence of perceptual disturbance. Patients insight and judgment appear intact. Assessment & Plan Assessment & Plan (1) Bipolar disorder: Status: Acute Code(s): F31.9 - Bipolar disorder, unspecified Plan Patient is 44-year-old male with reported history of bipolar disorder who presents for decompensated behavior and comment of SI in the face of relational strife. Patient said he stopped taking Depakote and Prozac 1-2 months ago, thinking he was doing well and did not need it. He remained overall stable. However about a week and a half ago he was on Facebook, electronically flirting with females and his found out. Some brief marital discord ensued however they reconciled. This past Tuesday however patient remained feeling excessively guilty, angry at himself and he says I just started to spiral downward... Patient punched himself in the face and hit his head on the wall and police were called. Patient acknowledged that he was acting erratically and that he did make a suicidal statement however he was very clear that he never had any intention at all on hurting himself, he loves his kids, and this was just a comment made during a moment of overwhelming emotion. Patient said he was appropriate with the police and asked if they were going to take him on a Section 12. Patient says that he is now returned to calm and his regular self and very much wants to get back on his medication. He regrets going off his medications and says if he had remained on them, he still would have gotten upset this past week but it would have resolved much faster and probably be less intense. Patient says he has been dealing with his emotional reactivity for decades and accepts that it continues to happen and works on coping with it; he remains adamant that he was not ever suicidal at any time and knows the difference when he is just saying words in anger/frustration verses really feeling unsafe. He wants to get back on his medication and regrets having come off them, saying they help. Denies AVH. No drug/alcohol use other than cannabis. Formulation/clinical reasoning: Patient reports that this episode is now fully resolved. Patient is calm, organized in speech behavior, in good behavioral and impulse control, appropriate with peers and staff and logical and linear in his discussion with securities underwriter. He says this type of episode has been going on intermittently for decades and would have been less intense if he were on his medication but it was not that much out of the ordinary; he feels it is something he is normally leticia with as an outpatient. He denies any SI at all and remains adamant that never had any actual intention. Patient says that he works closely with his outpatient providers other than getting back on his medication (which he already has at home) he does not feel a need for inpatient treatment. Patient gave permission for securities underwriter to call his for collateral. Director Of Regional Sales did speak to his who fully corroborates patient's report and agrees that he is safe, not in any risk for self-harm and appropriate to return home. Director Of Regional Sales appears to be at baseline. Will monitor patient and if he remains in good behavioral and impulse control will proceed with discharge Plan: Twelve B Q 15 minute checks Restart Depakote Restart Prozac Patient educated on: diagnosis, medication risk/benefits and therapeutic strategies Informed Consent: understands Reason for continued inpatient stay Substantial Risk for: stable for discharge Statement Statement: I have reviewed the history and physical and performed a pertinent examination on my patient. No changes have occurred unless specified. If the History and Physical was not performed prior to admission, the Hospitalist's service will be consulted for completing the admission physical. Time Spent With Patient Time: Total time managing care of this patient today ____ minutes.
[2025-02-07 09:07] LABS: Estimated Average Glucose 105 mg/dL; Hemoglobin A1C 124.0435 umol/L; Hemoglobin A1c % 5.3 % (<6.0); Total Hemoglobin (HGBA1C) 3632.3084 umol/L
[2025-02-07 09:41] LABS: Folate 6.7 ng/mL (> or = 4.0); Vitamin B12 281 pg/mL (200-900)
[2025-02-07 19:45] VITALS: BP 141/66; PULSE 59; TEMP 36.7; O2SAT 99
[2025-02-07] MEDS: traZODone HCL 50 MG TABLET PO (20:50)
[2025-02-07] MEDS: hydrOXYzine HCL 25 MG TABLET PO (20:50)
[2025-02-08 08:00] VITALS: BP 103/56; PULSE 66; RESP 16; TEMP 36.6; O2SAT 95
[2025-02-08] MEDS: Divalproex Sodium 500 MG TABLET.DR 1000 MG PO (08:35)
[2025-02-08] MEDS: FLUoxetine HCl 20 MG CAPSULE 40 MG PO (08:35)
[2025-02-08] MEDS: Acetaminophen 325 MG TABLET 650 MG PO (08:37)
--- NOTE | 2025-02-08 09:50 | P.PNPSI_ITS ---
Subjective Subjective Date of Service: 02/08/25 Reason For Visit: Manic episode, pt hitting himself,sect 12 Interim History: Met with patient; discussed with team Patient remains in good behavioral and impulse control, organized in speech and behavior, appropriate with peers and staff and politely asking for discharge so that he can be home for his son's birthday. He politely reiterates that he is completely back to his regular self and does not require inpatient level of care. Patient slept well last night. Mental Status Exam Mental Status Exam Narrative: Pt is alert and oriented; behavior is cooperative, friendly and calm; patient is not in distress; dressed in casual attire with adequate hygiene; mood is described as good and affect congruent; eye contact appropriate; Speech is normal rate, volume and prosody and not pressured; no psychomotor agitation/retardation present; thought process is organized and goal directed; Thought content is on tx; otherwise pertinent to relevant topics and without any delusional content, paranoid ideations or grandiosity; denies any SI/HI. Denies AVH and there is no evidence of perceptual disturbance. Patients insight and judgment areintact. Diagnostics Vital Signs (24Hr): Vital Signs - 24 hr 02/07/25 19:45 02/08/25 08:00 Temperature 98.1 F 97.8 F Pulse Rate 59 66 Respiratory Rate 16 Blood Pressure 141/66 H 103/56 L Pulse Oximetry 99 95 Oxygen Delivery Method Room Air BMI result Body Mass Index 21.6 Labs 02/06/25 17:02 Labs: Laboratory Results - last 48 hr 02/06/25 02/07/25 17:02 07:50 Sodium 143 Potassium 3.5 Chloride 109 H Carbon Dioxide 26 Anion Gap 12 BUN 14 Creatinine 1.16 Estim Creat Clear Calc 69.1 Estimated GFR > 60 Random Glucose 90 Estimat Average Glucose 105 Hemoglobin A1c % 5.3 Calcium 9.2 Total Bilirubin 0.7 AST 33 ALT 13 Alkaline Phosphatase 82 Total Protein 7.3 Albumin 4.1 Vitamin B12 281 Folate 6.7 Urine Color Yellow Urine Appearance Cloudy Urine pH 5.5 Ur Specific [place] 1.020 Urine Protein 100 (2+) H Urine Glucose (UA) Negative Urine Ketones 40 Urine Blood Trace H Urine Nitrite Negative Ur Leukocyte Esterase Negative Urine RBC 6-10 H Urine WBC 11-20 H Ur Squamous Epith Cells 11-20 Ur Transition Epith Cell Present Ur Renal Epithelial Cell Present Urine Bacteria 1+ Epithelial Casts Present Hyaline Casts >20 Salicylates < 5.0 L Urine Opiates Screen Not Detected Ur Buprenorphine Scrn Not Detected Ur Oxycodone Screen Not Detected Urine Methadone Screen Not Detected Urine Fentanyl Screen Not Detected Acetaminophen < 3 Ur Barbiturates Screen Not Detected Valproic Acid < 12.5 L Ur Phencyclidine Scrn Not Detected Ur Amphetamines Screen Not Detected U Benzodiazepines Scrn Not Detected Urine Cocaine Screen Not Detected U Marijuana (THC) Screen POSITIVE H Ethyl Alcohol < 10 Medications Medications Current Medications Acetaminophen (Acetaminophen 325 Mg Tablet) 650 mg PO Q6H PRN PRN Reason: Headache/Pain, Scale 1-10 Last Admin: 02/08/25 08:37 Dose: 650 mg Al Hydroxide/Mg Hydroxide (Magnesium Hydrox/Alum Hydrox 30 Ml Oral.Susp) 30 ml PO Q6H PRN PRN Reason: Heartburn/Nausea Divalproex Sodium (Divalproex Sodium 500 Mg Tablet.Dr) 1,000 mg PO BID [facility] Last Admin: 02/08/25 08:35 Dose: 1,000 mg Fluoxetine HCl (Fluoxetine Hcl 20 Mg Capsule) 40 mg PO DAILY [facility] Last Admin: 02/08/25 08:35 Dose: 40 mg Hydroxyzine HCl (Hydroxyzine Hcl 25 Mg Tablet) 25 mg PO Q6H PRN PRN Reason: mild anxiety Last Admin: 02/07/25 20:50 Dose: 25 mg Lorazepam (Lorazepam 1 Mg Tablet) 1 mg PO BID PRN PRN Reason: Anxiety Magnesium Hydroxide (Milk Of Magnesia 30 Ml Oral.Susp) 30 ml PO DAILY PRN PRN Reason: Constipation Nicotine Polacrilex (Nicotine Polacrilex 2 Mg Gum) 4 mg BUCCAL Q2H PRN PRN Reason: Nicotine Cravings Temazepam (Temazepam 15 Mg Capsule) 30 mg PO BEDTIME PRN PRN Reason: Insomnia Last Admin: 02/06/25 21:21 Dose: 30 mg Trazodone HCl (Trazodone Hcl 50 Mg Tablet) 50 mg PO BEDTIME MRX1 PRN PRN Reason: Insomnia Last Admin: 02/07/25 20:50 Dose: 50 mg Allergies Allergies Allergy/AdvReac Type Severity Reaction Status Date / Time haloperidol [From Haldol] Allergy Severe Seizure Verified 02/06/25 16:26 lurasidone [From Latuda] AdvReac Shakiness Verified 12/31/24 00:05 Assessment & Plan Assessment & Plan (1) Bipolar disorder: Status: Acute Code(s): F31.9 - Bipolar disorder, unspecified Plan Patient is 44-year-old male with reported history of bipolar disorder who presents for decompensated behavior and comment of SI in the face of relational strife. Patient said he stopped taking Depakote and Prozac 1-2 months ago, thinking he was doing well and did not need it. He remained overall stable. However about a week and a half ago he was on Facebook, electronically flirting with females and his found out. Some brief marital discord ensued however they reconciled. This past Tuesday however patient remained feeling excessively guilty, angry at himself and he says I just started to spiral downward... Patient punched himself in the face and hit his head on the wall and police were called. Patient acknowledged that he was acting erratically and that he did make a suicidal statement however he was very clear that he never had any intention at all on hurting himself, he loves his kids, and this was just a comment made during a moment of overwhelming emotion. Patient said he was appropriate with the police and asked if they were going to take him on a Section 12. Patient says that he is now returned to calm and his regular self and very much wants to get back on his medication. He regrets going off his medications and says if he had remained on them, he still would have gotten upset this past week but it would have resolved much faster and probably be less intense. Patient says he has been dealing with his emotional reactivity for decades and accepts that it continues to happen and works on coping with it; he remains adamant that he was not ever suicidal at any time and knows the difference when he is just saying words in anger/frustration verses really feeling unsafe. He wants to get back on his medication and regrets having come off them, saying they help. Denies AVH. No drug/alcohol use other than cannabis. Formulation/clinical reasoning: Patient reports that this episode is now fully resolved. Patient is calm, organized in speech behavior, in good behavioral and impulse control, appropriate with peers and staff and logical and linear in his discussion with functional tester typewriters. He says this type of episode has been going on intermittently for decades and would have been less intense if he were on his medication but it was not that much out of the ordinary; he feels it is something he is normally leticia with as an outpatient. He denies any SI at all and remains adamant that never had any actual intention. Patient says that he works closely with his outpatient providers other than getting back on his medication (which he already has at home) he does not feel a need for inpatient treatment. Patient gave permission for functional tester typewriters to call his for collateral. Die Maker Apprentice did speak to his who fully corroborates patient's report and agrees that he is safe, not in any risk for self-harm and appropriate to return home. Die Maker Apprentice appears to be at baseline. Will monitor patient and if he remains in good behavioral and impulse control will proceed with discharge hospital course: Patient remains in good behavioral and impulse control, organized in speech and behavior, appropriate with peers and staff and politely asking for discharge so that he can be home for his son's birthday. He politely reiterates that he is completely back to his regular self and does not require inpatient level of care. Patient slept well last night. Patient's concurs that he is at his baseline, safe and ready to come home. Patient already has established providers in the community. He is not in imminent risk for harm to self or others and appropriate to continue treatment in the community. His request for discharge honored. Plan: Twelve B Q 15 minute checks Restart Depakote Restart Prozac Patient educated on: diagnosis and medication risk/benefits Informed Consent: understands Reason for continued inpatient stay Substantial Risk for: stable for discharge Time Spent With Patient Time: Total time managing care of this patient today ____ minutes.
[2025-02-08 10:22] LABS: Cholesterol 177 mg/dL (<200); HDL Cholesterol 46 mg/dL (>40); LDL Cholesterol Calculated 110 mg/dL (<100); Magnesium 1.9 mg/dL (1.6-2.6); Triglycerides 106 mg/dL (<150)
[2025-02-08 10:37] LABS: Free T4 (Free Thyroxine) 1.04 ng/dL (0.71-1.85); Thyroid Stimulating Hormone 0.87 uIU/mL (0.32-4.0)
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
[2025-02-08 11:21] LABS: Alanine Aminotransferase 28 U/L (0-40); Albumin Level 3.9 g/dL (3.5-5.0); Alkaline Phosphatase 75 U/L (39-117); Aspartate Amino Transferase 77 U/L (5-37); Bilirubin Direct 0.1 mg/dL (0.0-0.5); Bilirubin Total 0.3 mg/dL (0.0-1.0)
[2025-02-08 12:04] LABS: Valproate 107.6 mcg/mL (50.0-100.0)
== END 2025-02-08 12:19 | disposition home or self-care (01) | DRG 753 ==
LOC: HO.ED 21:42 → HO.PM5 22:24
PROVIDERS: Admitting Provider Clinical Nurse Specialist Psychiatric/Mental Health, Adult; Emergency Provider Emergency Medicine; Visit Provider Psychiatry & Neurology Psychiatry
DX: F31.9 Bipolar disorder, unspecified (principal); R45.851 Suicidal ideations; F17.210 Nicotine dependence, cigarettes, uncomplicated; Z71.6 Tobacco abuse counseling; Z91.52 Personal history of nonsuicidal self-harm; Z79.899 Other long term (current) drug therapy
CPT/HCPCS: 36415; 80053; 80061; 80076; 80143; 80164; 80179; 80307; 81001; 82607; 82746; 83036; 83735; 84439; 84443; 87086; 93005; 99285; S9485

== ENCOUNTER → 2025-02-06 21:19 | Outpatient (BNV) | payer MEDICAID, SELFPAY | PROVIDERS: Admitting Provider Clinical Nurse Specialist Psychiatric/Mental Health, Adult; Emergency Provider Emergency Medicine; Visit Provider Internal Medicine Cardiovascular Disease | DX: Z13.6 Encounter for screening for cardiovascular disorders (principal) | CPT/HCPCS: 93010 ==

== ENCOUNTER → 2025-02-06 21:48 | Outpatient (BNV) | payer OTHER, SELFPAY | PROVIDERS: Admitting Provider Clinical Nurse Specialist Psychiatric/Mental Health, Adult; Emergency Provider Emergency Medicine; Visit Provider Psychiatry & Neurology Psychiatry | DX: F31.13 Bipolar disorder, current episode manic without psychotic features, severe (principal) | CPT/HCPCS: 99232; 99499 ==

== ENCOUNTER 2025-08-07 01:49 | Emergency (ER) | payer MEDICAID, SELFPAY ==
[2025-08-07 02:03] VITALS: BP 104/66; PULSE 79; RESP 18; TEMP 36.4; O2SAT 98; BMI 24.1
[2025-08-07 02:35] VITALS: BP 103/64; PULSE 83; RESP 16; TEMP 36.8; O2SAT 99
--- NOTE | 2025-08-07 03:31 | ED_ITS ---
HPI - Psych General Chief Complaint: Psychiatric Symptoms Stated Complaint: PANIC EPISODE Time Seen by Provider: 08/07/25 01:55 Source: patient, EMS and old records reviewed Mode of arrival: EMS Limitations: no limitations History of Present Illness ED Provider: Dr. Lalita Monique HPI Narrative: 44-year-old male with a history of bipolar disorder on Depakote presenting with a manic episode that occurred tonight after getting into an argument with his daughter. Patient is unsure about what happened but reports ?I got out of control and I do not remember exactly what happened?. Admits that he has not been taking his Depakote in the last couple of months. Denies visual or auditory hallucinations. Denies illicit substance or alcohol use. States that he continues to go to therapy but ?does not have a real good reason? as to why he is not taking his meds. No suicidal or homicidal ideations. Denies physical illness or injury. Related Data Home Medications ?Medication ?Instructions ?Recorded ?Confirmed lorazepam 1 mg tablet 1 mg PO BID PRN Anxiety 08/2102/06/25 fluoxetine 40 mg capsule 40 mg PO DAILY 06/19/2401/19 Previous Rx's ?Medication ?Instructions ?Recorded divalproex 500 mg tablet,delayed 1,000 mg (2 x 500 mg) PO BID #0 09/03/23 release tabs temazepam 30 mg capsule 30 mg PO BEDTIME PRN Insomni a 30 02/08/25 days #20 caps Allergies Allergy/AdvReac Type Severity Reaction Status Date / Time haloperidol (From Haldol) Allergy Severe Seizure Verified 08/07/25 02:06 lurasidone (From Latuda) AdvReac Shakiness Verified 08/07/25 02:06 Review of Systems 2 Review of Systems: as per HPI, full review of systems performed and negative but for the above mentioned pertinent positives and negatives. [facility] Past Medical History Medical History Cannabis use disorder Bipolar 1 disorder, mixed, severe Schizophrenia Social History Social History Household Members: Significant Other and Children Housing: Apartment Do you presently have visiting nurse or other home services: No Alcohol intake: current Alcohol intake frequency: holidays/special occasions only Alcohol type: wine Comment: 1:1 sitter Patient Tobacco Use Status: Current everyday Tobacco user Tobacco use type: Cigarette Cigarettes Per Day: 6 Years Smoked: 25 Smoked in Last 30 Days: Yes Second Hand Smoke Exposure: No Use of substances other than those prescribed or required for medical reasons: Yes Substance Use Type: Marijuana Substance Use Frequency: Daily Advance Directives: No Advance Directives Information Provided: Yes service: No Sexual orientation: Straight/Heterosexual Physical Exam 2 Exam: Exam: GENERAL: Unkempt, no acute distress. SKIN: Normal skin color for ethnicity, warm, dry, no rashes noted. HEENT:? Normocephalic, atraumatic, no stridor, posterior oropharynx nonerythematous, dentition intact, EOMI. NECK: Soft, supple, full ROM, midline structures nontender, no step-offs, no deformities, no lymphadenopathy. CHEST: Heart regular rate and rhythm, no murmurs, symmetric chest rise and fall. PULMONARY: Clear to auscultation bilaterally, no labored breathing, no wheezes/rhales/rhonchi. ABDOMINAL: Soft, nondistended, nontender, positive bowel sounds in all quadrants. : Deferred. MUSCULOSKELETAL: Normal tone, full range of motion, no deformities, no peripheral edema. NEURO: Alert and oriented x3, CN II through XII intact, equal strength and sensation bilateral upper and lower extremities, no focal neurologic deficits.? PSYCHIATRIC: Flat affect, poor eye contact, withdrawn Vital Signs: Vital Signs: Last Vital Signs Temp 98.4 F 08/07/25 07:56 Pulse 73 08/07/25 07:56 Resp 18 08/07/25 07:56 BP 116/76 08/07/25 07:56 Pulse Ox 99 08/07/25 07:56 O2 Del Method Room Air 08/07/25 07:56 BMI result Body Mass Index 24.1 Course Reevaluation(s) Reevaluation #1: We will attempt placement into respite, if unable to place patient as per Behavioral Health team we will be discharged Time: 08:55 Medical Decision Making Medical Decision Making MDM Narrative: Patient presents with psychologic complaints. Differential diagnosis includes suicidal ideations, homicidal ideations, depression, anxiety, mood disorder, decompensated mental illnesses such as schizophrenia or bipolar disorder, medication noncompliance, among many others. Medical clearance protocol was initiated. Differential Diagnosis Differential Diagnoses: The differential diagnosis associated with the presentation includes (as above) Admission/Observation Consideration of admission/observation: Escalation of care including admission/observation considered Consult Healthcare Provider Management of the patient was discussed with: Behavioral Health Provider Lab Data [facility] Lab Attestation statement: I reviewed the patient's lab results. 08/07/25 04:07 08/07/25 04:07 Labs: Lab Results 08/07/25 08/07/25 Range/Units 04:07 06:00 WBC 6.6 (4.8-10.8) X10*3/uL RBC 4.27 L (4.60-5.80) X10*6/uL Hgb 14.0 (14.0-18.0) g/dl Hct 39.0 L (42.0-52.0) % MCV 91.3 (80.0-98.0) fL MCH 32.8 (27.0-33.0) pg MCHC 35.9 (31.0-36.0) g/dl RDW 12.9 (11.0-16.0) % Plt Count 226 (160-400) X10*3/uL MPV 10.8 (9.4-12.4) fL Immature Gran % (Auto) 0.5 H (0.0-0.4) % Neut % (Auto) 66.8 (45-73) % Lymph % (Auto) 22.0 (20-40) % Beauregard % (Auto) 10.0 (2-11) % Eos % (Auto) 0.2 (0-4) % Baso % (Auto) 0.5 (0-2) % Lymph # (Auto) 1.5 (1.2-4.9) X10*3/uL Bea[place]gard # (Auto) 0.7 (0.1-1.2) X10*3/uL Eos # (Auto) 0.0 (0.0-0.4) X10*3/uL Baso # (Auto) 0.0 (0.0-0.2) X10*3/uL Abs Immat Gran (auto) 0.03 (0.00-0.03) X10*3/uL Absolute Neuts (auto) 4.4 (2.0-8.3) x10*3/uL Absolute Nucleated RBC 0.000 (0.0-0.012) X10*3/uL Nucleated RBC % (auto) 0.0 (0.0-0.2) /100WBC Sodium 141 (135-145) mmol/L Potassium 3.5 (3.3-5.1) mmol/L Chloride 110 H (96-108) mmol/L Carbon Dioxide 23 (22-29) mmol/L Anion Gap 12 (12-20) BUN 9 (9-16) mg/dL Creatinine 1.04 (0.5-1.4) mg/dL Estim Creat Clear Calc 80.4 Estimated GFR > 60 Random Glucose 117 H (60-115) mg/dL Calcium 8.1 L D (8.4-10.2) mg/dL Total Bilirubin 0.3 (0.0-1.0) mg/dL AST 25 (5-37) U/L ALT 7 (0-40) U/L Alkaline Phosphatase 71 (39-117) U/L Total Protein 6.5 (6.5-8.0) g/dL Albumin 3.8 (3.5-5.0) g/dL Urine Opiates Screen Not Detected (Not Detect) Ur Buprenorphine Scrn Not Detected (Not Detect) ng/mL Ur Oxycodone Screen Not Detected (Not Detect) ng/mL Urine Methadone Screen Not Detected (Not Detect) ng/mL Urine Fentanyl Screen Not Detected (Not Detect) Ur Barbiturates Screen Not Detected (Not Detect) Ur Phencyclidine Scrn Not Detected (Not Detect) Ur Amphetamines Screen Not Detected (Not Detect) U Benzodiazepines Scrn Not Detected (Not Detect) Urine Cocaine Screen Not Detected (Not Detect) U Marijuana (THC) Screen POSITIVE H (Not Detect) Ethyl Alcohol < 10 mg/dL Independent Historian Clinical information obtained from an independent historian. History obtained from or confirmed by: EMS External Record Review External record reviewed: Inpatient record Chronic Conditions Patient?s care impacted by: Other (Bipolar disorder) Social Determinants Patient?s care significantly limited by Social Determinants of Health including: Problems related to primary support group and Other Social Determinant of Health Discharge Plan Discharge Clinical Impression: Manic episode Additional Instructions: You were seen in our Emergency Department today for treatment of a behavioral health issue. It is important after your visit that you follow up with either your behavioral health provider or a primary care doctor within 7 days.? If you have trouble finding a therapist you can reach out to [address] [phone] The National Suicide and Crisis Lifeline can be reached 7 days a week 24 hours a day.? Call 988 to speak with someone.? Return for any worsening symptoms or concerns such as thoughts of self harm or harm to others. Please call 911 if you feel your mental health is worsening.? Prescriptions: No Action lorazepam 1 mg tablet 1 mg PO BID PRN (Reason: Anxiety) divalproex 500 mg Tablet,Delayed Release (Dr/Ec) 1,000 mg PO BID Qty: 0 0RF temazepam 30 mg capsule 30 mg PO BEDTIME PRN (Reason: Insomnia) 30 Days Qty: 20 0RF fluoxetine 40 mg capsule 40 mg PO DAILY Interventions: [place]-Suicide Risk Severity Scale Last Done: 08/07/25 02:35 Print Language: Hungarian
[2025-08-07 04:11] LABS: MANUAL DIFF FLAG NO
[2025-08-07 04:12] LABS: Hematocrit 39.0 % (42.0-52.0); Hemoglobin 14.0 g/dl (14.0-18.0); Imm Gran Abs Auto 0.03 X10*3/uL (0.00-0.03); Imm Gran Pct Auto 0.5 % (0.0-0.4); Lymphocytes Absolute Auto 1.5 X10*3/uL (1.2-4.9); Mean Corpuscular HGB Conc 35.9 g/dl (31.0-36.0); Mean Corpuscular Hemoglobin 32.8 pg (27.0-33.0); Mean Corpuscular Volume 91.3 fL (80.0-98.0); NRBC Abs Auto 0.000 X10*3/uL (0.0-0.012); NRBC Pct Auto 0.0 /100WBC (0.0-0.2); Platelet Count 226 X10*3/uL (160-400); Red Blood Count 4.27 X10*6/uL (4.60-5.80); White Blood Count 6.6 X10*3/uL (4.8-10.8)
[2025-08-07 04:28] LABS: Alanine Aminotransferase 7 U/L (0-40); Albumin Level 3.8 g/dL (3.5-5.0); Alkaline Phosphatase 71 U/L (39-117); Anion Gap 12 (12-20); Aspartate Amino Transferase 25 U/L (5-37); Blood Urea Nitrogen 9 mg/dL (9-16); Calcium 8.1 mg/dL (8.4-10.2); Carbon Dioxide 23 mmol/L (22-29); Chloride 110 mmol/L (96-108); Creatinine Clr Calc Pharmacy 80.4; Estimated Glomerular Filt Rate > 60; Potassium 3.5 mmol/L (3.3-5.1); Sodium 141 mmol/L (135-145); Total Protein 6.5 g/dL (6.5-8.0)
--- OUTSIDE RECORDS SUMMARY | 2025-08-07 05:11 | XMS_ITS | Clinical Summary ---
Author Organization [employer] Address [address] [facility] [address] [place] [address] Care Team Providers Care Business Segment Manager Name Role Phone Unavailable Primary Care Provider Unavailabl e Allergies Active Allergy Reactions Criticality Noted Date Comments Lurasidone Unknown 06/08/2024 Medications divalproex (Depakote) 500 MG EC tablet Take 500 mg by mouth. 10/03/2018 Active QUEtiapine (SEROquel) 300 MG tablet Take 300 mg by mouth. 10/03/2018 Active LORazepam (Ativan) 1 MG tablet 09/07/2024 Active FLUoxetine (PROzac) 40 MG capsule 07/04/2024 Active temazepam (Restoril) 30 MG capsule 09/07/2024 Active OLANZapine (ZyPREXA) 5 MG tablet 05/04/2024 Active Active Problems Problem Noted Date Diagnosed Date Viral upper respiratory tract infection 01/26/20 25 Assessment & Plan (01/25/2025 3:15 PM EST): Pt with headache and chills, but no focal ongoing symptoms, encouraged hydration supportive care and Return to clinic should symptoms worsen POCT for covid/flu neg Seizure disorder 06/08/2024 Assessment & Plan (06/08/2024 2:42 PM EDT): No hx of work up for seizures Referral to Neurology Will order labs for new patient appointments. Cellulitis of right foot due to methicillin-resistant Staphylococcus aureus 06/08/2024 Sinus bradycardia 06/08/2024 Immunizations Immunization Administration Dates Next Due Hep A, Adult 04/28/2011,04/06/2004 Hep B, Unspecified 03/27/2012,04/20/2011,05/17/2 004 Tdap 12/10/2017,05/05/2014,11/18/2009 Family History Medical History Relation Name Comments Cancer Maternal Grandmother Diabetes Mother Relation Name Status Comments Maternal Grandmother Mother Social History Tobacco Use Types Packs/Day Years Used Date Smoking Tobacco: Every Day Cigarettes Passive Smoke Exposure: Past Smokeless Tobacco: Never Comments:3 cigarettes/ day Alcohol Use Standard Drinks/Week Comments Not Currently 0 (1 standard drink = 0.6 oz pur e alcohol) Sex and Gender Information Value Date Recorded Sex Assigned at Male 06/08/2024 1:46 PM EDT Legal Sex Female 1:44 PM EDT Gender Identity Male 06/08/2024 1:46 PM EDT Sexual Orientation Straight 06/08/2024 1: 46 PM EDT Last Filed Vital Signs Vital Sign Reading Time Taken Comments Blood Pressure 147/74 01/25/2025 1:32 PM EST Pulse 88 01/25/2025 1:32 PM EST Temperature 36 C (96.8 F) 01/25/2025 1:32 PM EST Respiratory Rate 18 01/25/2025 1:32 PM EST Oxygen Saturation 98% 01/25/2025 1:32 PM EST Inhaled Oxygen Concentration - - Weight 65 kg (143 lb 6.4 oz) 01/25/2025 1:32 PM EST Height - - Body Mass Index - - Plan of Treatment Health Maintenance Due Date Last Done Comments Depression Screening 1982 SDOH Screening 1982 Disability Screening 1982 Alcohol/Substance Use Screening 1994 Family Planning (PISQ) 1997 HPV Vaccines (1 - 3-dose series) 1997 Pneumococcal Vaccine: Pediatrics (0 to 5 Years) and At-Risk Patients (6 to 49) Years (1 of 2 - PCV) 2001 COVID-19 Vaccine ( - 2023-2 5 season) 2025 Influenza Vaccine (#1) 2025 Tobacco Screening 01/25/2026 01/25/2025 DTaP/Tdap/Td Vaccines (4 - T d or Tdap) 12/10/2027 12/10/2017, 05/05/2014, 11/18/2009 Lipid Panel 06/18/2029 06/18/2024 Zoster Vaccines (1 of 2) 2032 RSV Patients and Patients Aged 60 years or older (1 - 1-dose 75+ series) 2057 Hepatitis A Vaccines Aged Out 04/28/2011, 04/06/2004 No longer eligible based on patient's age to complete this topic Hepatitis B Vaccines Completed 03/27/2012, 04/20/2011, 04/06/2004 HIV Screening Completed 06/15/2024 Hepatitis C Screening Completed 06/15/2024 HIB Vaccines Aged Out No longer eligi ble based on patient's age to complete this topic IPV Vaccines Aged Out No longer eligi ble based on patient's age to complete this topic Meningococcal B Vaccine Aged Out No l onger eligible based on patient's age to complete this topic Meningococcal Vaccine Aged Out No [place] alana eligible based on patient's age to complete this topic RSV under 20 months Aged Out No longe r eligible based on patient's age to complete this topic Rotavirus Vaccines Aged Out No longer eligible based on patient's age to complete this topic Procedures Procedure Name Priority Date/Time Associated Diagnosis Comments LIPID PANEL, STANDARD Routine 06/18/2024 9:42 AM EDT Seizure disorder (CMS/HCC) HEPATITIS C AB W/REFL TO HCV RNA, QN, PCR Routine 06/15/2024 2:26 PM EDT Routine screening for STI (sexually transmitted infection) HIV 1/2 ANTIGEN/ANTIBODY, FOURTH GENERATION W/RFL Routine 06/15/2024 2:26 PM EDT Routine screening for STI (sexually transmitted infection) from Last 3 Months or Most Recently Relevant to Health Maintenance Results * Lipid Panel, Standard (06/18/2024 9:42 AM EDT) Triglycerides 90 <150 mg/dL [facility] Comment:Desirable Triglyceri de: less than 150 mg/dLBorderline High Triglyceride 150-199 mg/dLHigh Triglyceride: 200-499 mg/dLVery High Triglyceride: greater than or equal to 5OO mg/dL Cholesterol 144 <200 mg/dL [facility] Comment:Desirable Cholestero l: less than 200 mg/dLBorderline High Cholesterol: 200-239 mg/dLHigh Cholesterol: greater than 239 mg/dL LDL Cholesterol Calculated 85 <100 mg/dL [facility] Comment:Desirable LDL: less than 100 mg/dLNear Optimal/Above Optimal LDL: 110- 129 mg/dLBorderline High LDL: 130-159 mg/dLHigh LDL: 160-189 mg/dLVery High LDL: greater than or equal to 190 mg/dL HDL Cholesterol 41 >40 mg/dL [facility] Comment:Desirable HDL: great er than 40 mg/dL Note: This HDL assay may give artificially low results in patients with liver disease. Blood Venous blood specimen / Unknown 06/18/2024 9:42 AM EDT 06/18/2024 11:15 AM EDT Aicha Bradley MD LAB BLOOD ORDERABLES Final Result Performing Organization Address [facility] Co de Phone Number [facility] [address] [place] [phone] * Hepatitis C Antibody with Reflex to HCV, RNA, Quantitative, Real-Time PCR (06/15/2024 2:26 PM EDT) Hepatitis C Antibody Nonreactive Nonreactive [facility] Comment:Antibodies to HCV no t detected; does not exclude early acuteHCV infection. Blood Venous blood specimen / Unknown 06/15/2024 2:26 PM EDT 06/15/2024 3:52 PM EDT Aicha Bradley MD LAB BLOOD ORDERABLES Final Result Performing Organization Address [facility] Co de Phone Number [facility] [address] [place] [phone] * HIV-1/2 Antigen and Antibodies, Fourth Generation, with Reflexes (06/15/2024 2:26 PM EDT) HIV AB/AG Nonreactive Nonreactive [facility] Comment:HIV-1 p24 Ag and/or HIV-1/HIV-2 Ab not detected.A test result that is nonreactive does not exclude thepossibility of exposure to or infection with HIV-1 and/orHIV-2. Nonreactive results in this assay for individualswith prior exposure to HIV-1 and/or HIV-2 may be due toantigen and antibody levels that are below the limit ofdetection of this assay.The Cost Effective [employer] HIV Ag/Ab Combo assay result andsupplemental assay results should be interpreted inconjunction with the patient's clinical presentation,history and other laboratory results. If the results areinconsistent with clinical evidence, additional testing issuggested to confirm the result. Blood Venous blood specimen / Unknown 06/15/2024 2:26 PM EDT 06/15/2024 3:52 PM EDT us Aicha Bradley MD LAB BLOOD ORDERABLES Final Result [facility] [address] [place] [phone] from Last 3 Months or Most Recently Relevant to Health Maintenance Insurance [facility] C3
[2025-08-07 06:00] VITALS: BP 110/66; PULSE 70; RESP 16; TEMP 37.4; O2SAT 100
[2025-08-07 06:18] LABS: Cannabinoid Screen Urine POSITIVE (Not Detect)
[2025-08-07 07:56] VITALS: BP 116/76; PULSE 73; RESP 18; TEMP 36.9; O2SAT 99
[2025-08-07 10:12] VITALS: BP 120/72; PULSE 74; RESP 16; O2SAT 98
--- NOTE | 2025-08-07 10:36 | MHC.EDTECH ---
Pt changed over in ED 10 and safety check completed by security. Pt brought to pod 6.
[2025-08-07 15:34] VITALS: BP 120/72; PULSE 74; RESP 16; TEMP 36.9; O2SAT 98
== END 2025-08-07 15:35 | disposition home or self-care (01) ==
PROVIDERS: Emergency Provider Emergency Medicine
DX: F30.2 Manic episode, severe with psychotic symptoms (principal); F17.210 Nicotine dependence, cigarettes, uncomplicated; F12.90 Cannabis use, unspecified, uncomplicated; Z79.899 Other long term (current) drug therapy; Z91.148 Patient's other noncompliance with medication regimen for other reason; Z51.81 Encounter for therapeutic drug level monitoring
CPT/HCPCS: 36415; 80053; 80307; 85025; 99284; S9485